=== PATIENT | female | born 1940 | race Caucasian/White ===

== ENCOUNTER 2020-11-18 16:20 | Inpatient (IN) | payer MEDICARE, MEDICAID, SELFPAY ==
[2020-11-18 17:37] VITALS: BP 94/67; PULSE 76; RESP 16; TEMP 37.3; O2SAT 97; BMI 21.9
--- NOTE | 2020-11-18 17:51 | ED.SKABFB ---
HPI - Skin/Abscess/Foreign Bdy General Chief complaint: Skin/Abscess/Foreign Body Stated complaint: loss apatite, rash on arm Time Seen by Provider: 11/18/20 17:51 Source: family (Daughter) Mode of arrival: wheelchair Limitations: altered mental status (Alzheimer's) History of Present Illness HPI narrative: Patient is an 80-year-old female with a past medical history of Alzheimer's who was brought in by her daughter after her PCPs found her to be not eating or drinking and very lethargic since lunchtime today. They also states she woke up with a blistery rash on her left forearm. Her daughter denies any new medications or antibiotics. The patient has / care in her home by 2 bottle machine operator, they are unsure if she has had a fever but they deny vomiting or diarrhea. The daughter states the mom ate a normal breakfast today but that was the last thing she ate, she can not get her to even take sips of water. Patient is nonverbal at her baseline. Related Data Home Medications Medication Instructions Recorded Confirmed multivitamin [Daily-Kimberley] 1 tab PO DAILY 11/18/20 11/18/20 quetiapine 1 tab PO BEDTIME 11/18/20 11/18/20 triamcinolone acetonide 1 appl TOPICAL BID 11/18/20 11/18/20 Allergies Allergy/AdvReac Type Severity Reaction Status Date / Time aspirin [ASPIRIN] Allergy Unknown UNKNOWN Verified 11/18/20 17:50 ibuprofen [IBUPROFEN] Allergy Unknown SWELLING Verified 11/18/20 17:50 Review of Systems Review of Systems: Yes all other systems are reviewed and are negative [facility] Past Medical History Medical History Alzheimer disease Social History Social History Alcohol intake: never Patient Tobacco Use Status: Never used Tobacco Smoked in Last 30 Days: No Any prior treatment program specific to substance use: No Advance Directives: No Advance Directives Information Provided: Yes Physical Exam Vital Signs: Vital Signs: Last Vital Signs Temp 98.4 F 11/18/20 19:54 Pulse 83 11/18/20 19:54 Resp 18 11/18/20 19:54 BP 127/52 L 11/18/20 19:54 Pulse Ox 94 11/18/20 18:38 Body Mass Index 21.9 Const: General: cooperative, healthy appearing, comfortable, no acute distress and well developed Nutritional Appearance: thin Orientation/consciousness: Other orientation findings (Nonverbal) Limitations: no limitations HENMT: Head: Yes normal to inspection, Yes No palpable skull fracture present, Yes normocephalic and Yes atraumatic General nose exam: Normal external nose present Face and sinus: Yes normal facial exam Mouth: Normal oral and palatal mucosa present Eyes: General: appearance normal, both eyes and all related structures Pupils: Equal, round and reactive pupils present EOM: EOMs intact bilaterally Neck: Neck: Yes normal visual inspection Resp: Effort & Inspection: normal respiratory effort Auscultation: clear to auscultation bilaterally Cardio: Rate: regular rate Rhythm: regular rhythm Heart sounds: normal S1 and S2 GI: Inspection: Yes normal to inspection Palpation (GI): Soft to palpation and nontender Skin: Other: Left forearm has 7 cm x 3 cm area of erythema, no warmth, 2 cm round intact blister with clear fluid, 2 cm round area of skin tear/popped blister Neuro: Cranial nerves: Yes Equal, round and reactive pupils present Extrem: General: Yes normal to inspection Course Course Course Narrative: Patient is an 80-year-old female with a past medical history of Alzheimer's who was brought in by her daughter after her PCP's found her to be not eating or drinking and very lethargic since lunchtime today. Pt also has a blistered rash on her left forearm.VSS, PE reveals rash with bulla MDM - Skin/Abscess/Foreign Bdy Lab Data Result diagrams: 11/18/20 18:15 11/18/20 18:15 Labs: Lab Results 11/18/20 11/18/20 11/18/20 Range/Units 18:15 18:15 18:15 WBC 11.5 H (4.8-10.8) X10*3/uL RBC 4.48 (4.20-5.50) X10*6/uL Hgb 13.0 (12.0-16.0) g/dl Hct 41.1 (37-47) % MCV 91.7 (80-98) fL MCH 29.0 (27.0-33.0) pg MCHC 31.6 (31.0-35.0) g/dl RDW 13.9 (11.0-16.0) % Plt Count 248 (160-400) X10*3/uL MPV 9.7 (9.4-12.3) fL Immature Gran % (Auto) 0.3 (0.0-0.4) % Neut % (Auto) 62.4 (45-73) % Lymph % (Auto) 29.9 (20-40) % [place] % (Auto) 6.9 (2-11) % Eos % (Auto) 0.3 (0-4) % Baso % (Auto) 0.2 (0-2) % Lymph # (Auto) 3.5 (1.2-4.9) X10*3/uL [place] # (Auto) 0.8 (0.1-1.2) X10*3/uL Eos # (Auto) 0.0 (0.0-0.4) X10*3/uL Baso # (Auto) 0.0 (0.0-0.2) X10*3/uL Abs Immat Gran (auto) 0.03 (0.00-0.03) X10*3/uL Absolute Neuts (auto) 7.2 (2.0-8.3) X10*3/uL Absolute Nucleated RBC 0.000 (0.0-0.012) X10*3/uL Nucleated RBC % (auto) 0.0 (0.0-0.2) /100WBC Hold Purple Top Hold Blue Top Sodium 149 H (135-145) mmol/L Potassium 4.0 (3.3-5.1) mmol/L Chloride 109 H (96-108) mmol/L Carbon Dioxide 29 (22-29) mmol/L Anion Gap 15 (12-20) BUN 26 H (9-16) mg/dL Creatinine 0.77 (0.5-1.4) mg/dL Estim Creat Clear Calc 46.1 Estimated GFR > 60 Random Glucose 105 (60-115) mg/dL Lactic Acid (0.5-2.0) mmol/L Calcium 10.1 (8.4-10.2) mg/dL Total Bilirubin 0.6 (0.0-1.0) mg/dL Direct Bilirubin 0.2 (0.0-0.5) mg/dL AST 41 H (5-31) U/L ALT 19 (0-31) U/L Alkaline Phosphatase 64 (39-117) U/L Troponin I High Sens 14.0 (<3.5-17.0) ng/L B-Natriuretic Peptide 79 (<100) pg/mL Total Protein 7.4 (6.5-8.0) g/dL Albumin 4.4 (3.5-5.0) g/dL Urine Color Urine Appearance Urine pH (5.0-8.0) Ur Specific [place] (1.005-1.025) Urine Protein (NEG-TRACE) MG/DL Urine Glucose (UA) (NEG) MG/DL Urine Ketones (NEG) MG/DL Urine Blood (NEG) Urine Nitrite (NEG) Ur Leukocyte Esterase (NEG) Urine RBC (0) /HPF Urine WBC (0-4) /HPF Ur Squamous Epith Cells /LPF Amorphous Sediment /LPF Urine Bacteria /LPF Urine Opiates Screen (Not Detect) Ur Barbiturates Screen (Not Detect) Ur Phencyclidine Scrn (Not Detect) Ur Amphetamines Screen (Not Detect) U Benzodiazepines Scrn (Not Detect) Urine Cocaine Screen (Not Detect) U Marijuana (THC) Screen (Not Detect) COVID-19 (BAUDILIO) (Negative) COVID-19 Clin Com 11/18/20 11/18/20 11/18/20 Range/Units 18:16 18:16 18:19 WBC (4.8-10.8) X10*3/uL RBC (4.20-5.50) X10*6/uL Hgb (12.0-16.0) g/dl Hct (37-47) % MCV (80-98) fL MCH (27.0-33.0) pg MCHC (31.0-35.0) g/dl RDW (11.0-16.0) % Plt Count (160-400) X10*3/uL MPV (9.4-12.3) fL Immature Gran % (Auto) (0.0-0.4) % Neut % (Auto) (45-73) % Lymph % (Auto) (20-40) % [place] % (Auto) (2-11) % Eos % (Auto) (0-4) % Baso % (Auto) (0-2) % Lymph # (Auto) (1.2-4.9) X10*3/uL [place] # (Auto) (0.1-1.2) X10*3/uL Eos # (Auto) (0.0-0.4) X10*3/uL Baso # (Auto) (0.0-0.2) X10*3/uL Abs Immat Gran (auto) (0.00-0.03) X10*3/uL Absolute Neuts (auto) (2.0-8.3) X10*3/uL Absolute Nucleated RBC (0.0-0.012) X10*3/uL Nucleated RBC % (auto) (0.0-0.2) /100WBC Hold Purple Top Hold Blue Top Sodium (135-145) mmol/L Potassium (3.3-5.1) mmol/L Chloride (96-108) mmol/L Carbon Dioxide (22-29) mmol/L Anion Gap (12-20) BUN (9-16) mg/dL Creatinine (0.5-1.4) mg/dL Estim Creat Clear Calc Estimated GFR Random Glucose (60-115) mg/dL Lactic Acid 2.2 H* (0.5-2.0) mmol/L Calcium (8.4-10.2) mg/dL Total Bilirubin (0.0-1.0) mg/dL Direct Bilirubin (0.0-0.5) mg/dL AST (5-31) U/L ALT (0-31) U/L Alkaline Phosphatase (39-117) U/L Troponin I High Sens (<3.5-17.0) ng/L B-Natriuretic Peptide (<100) pg/mL Total Protein (6.5-8.0) g/dL Albumin (3.5-5.0) g/dL Urine Color YELLOW Urine Appearance CLOUDY Urine pH 7.0 (5.0-8.0) Ur Specific [place] 1.020 (1.005-1.025) Urine Protein 2+ H (NEG-TRACE) MG/DL Urine Glucose (UA) NEG (NEG) MG/DL Urine Ketones 5 (NEG) MG/DL Urine Blood 3+ H (NEG) Urine Nitrite POS H (NEG) Ur Leukocyte Esterase 2+ H (NEG) Urine RBC 5-9 H (0) /HPF Urine WBC 15-29 H (0-4) /HPF Ur Squamous Epith Cells NONE /LPF Amorphous Sediment 1+ /LPF Urine Bacteria 4+ /LPF Urine Opiates Screen (Not Detect) Ur Barbiturates Screen (Not Detect) Ur Phencyclidine Scrn (Not Detect) Ur Amphetamines Screen (Not Detect) U Benzodiazepines Scrn (Not Detect) Urine Cocaine Screen (Not Detect) U Marijuana (THC) Screen (Not Detect) COVID-19 (BAUDILIO) Negative (Negative) COVID-19 Clin Com See Note 11/18/20 11/18/20 11/18/20 Range/Units 18:19 18:21 18:21 WBC (4.8-10.8) X10*3/uL RBC (4.20-5.50) X10*6/uL Hgb (12.0-16.0) g/dl Hct (37-47) % MCV (80-98) fL MCH (27.0-33.0) pg MCHC (31.0-35.0) g/dl RDW (11.0-16.0) % Plt Count (160-400) X10*3/uL MPV (9.4-12.3) fL Immature Gran % (Auto) (0.0-0.4) % Neut % (Auto) (45-73) % Lymph % (Auto) (20-40) % [place] % (Auto) (2-11) % Eos % (Auto) (0-4) % Baso % (Auto) (0-2) % Lymph # (Auto) (1.2-4.9) X10*3/uL [place] # (Auto) (0.1-1.2) X10*3/uL Eos # (Auto) (0.0-0.4) X10*3/uL Baso # (Auto) (0.0-0.2) X10*3/uL Abs Immat Gran (auto) (0.00-0.03) X10*3/uL Absolute Neuts (auto) (2.0-8.3) X10*3/uL Absolute Nucleated RBC (0.0-0.012) X10*3/uL Nucleated RBC % (auto) (0.0-0.2) /100WBC Hold Purple Top SEE NOTE Hold Blue Top SEE NOTE Sodium (135-145) mmol/L Potassium (3.3-5.1) mmol/L Chloride (96-108) mmol/L Carbon Dioxide (22-29) mmol/L Anion Gap (12-20) BUN (9-16) mg/dL Creatinine (0.5-1.4) mg/dL Estim Creat Clear Calc Estimated GFR Random Glucose (60-115) mg/dL Lactic Acid (0.5-2.0) mmol/L Calcium (8.4-10.2) mg/dL Total Bilirubin (0.0-1.0) mg/dL Direct Bilirubin (0.0-0.5) mg/dL AST (5-31) U/L ALT (0-31) U/L Alkaline Phosphatase (39-117) U/L Troponin I High Sens (<3.5-17.0) ng/L B-Natriuretic Peptide (<100) pg/mL Total Protein (6.5-8.0) g/dL Albumin (3.5-5.0) g/dL Urine Color Urine Appearance Urine pH (5.0-8.0) Ur Specific [place] (1.005-1.025) Urine Protein (NEG-TRACE) MG/DL Urine Glucose (UA) (NEG) MG/DL Urine Ketones (NEG) MG/DL Urine Blood (NEG) Urine Nitrite (NEG) Ur Leukocyte Esterase (NEG) Urine RBC (0) /HPF Urine WBC (0-4) /HPF Ur Squamous Epith Cells /LPF Amorphous Sediment /LPF Urine Bacteria /LPF Urine Opiates Screen Not Detected (Not Detect) Ur Barbiturates Screen Not Detected (Not Detect) Ur Phencyclidine Scrn Not Detected (Not Detect) Ur Amphetamines Screen Not Detected (Not Detect) U Benzodiazepines Scrn Not Detected (Not Detect) Urine Cocaine Screen Not Detected (Not Detect) U Marijuana (THC) Screen Not Detected (Not Detect) COVID-19 (BAUDILIO) (Negative) COVID-19 Clin Com ECG Data Attestation: I personally reviewed and interpreted this ECG as follows: ECG interpretation date: 11/18/20 ECG interpretation time: 20:12 Interpretation: NSR 85BPM, Dr Mccullough signed Discharge Plan Discharge Clinical Impression: Pemphigus vulgaris Prescriptions: No Action multivitamin [Daily-Kimberley] Tablet 1 tab PO DAILY RF: 0 quetiapine 25 mg tablet 1 tab PO BEDTIME RF: 0 triamcinolone acetonide 0.1 % ointment 1 appl topical BID RF: 0
[2020-11-18 17:58] VITALS: TEMP 37.9
[2020-11-18 18:22] LABS: MANUAL DIFF FLAG NO
[2020-11-18 18:24] LABS: Basophils Percent Auto 0.2 % (0-2); Eosinophils Percent Auto 0.3 % (0-4); Hematocrit 41.1 % (37-47); Imm Gran Abs Auto 0.03 X10*3/uL (0.00-0.03); Imm Gran Pct Auto 0.3 % (0.0-0.4); Lymphocytes Absolute Auto 3.5 X10*3/uL (1.2-4.9); Lymphocytes Percent Auto 29.9 % (20-40); Mean Corpuscular HGB Conc 31.6 g/dl (31.0-35.0); Mean Corpuscular Volume 91.7 fL (80-98); Mean Platelet Volume 9.7 fL (9.4-12.3); Monocytes Absolute Auto 0.8 X10*3/uL (0.1-1.2); Monocytes Percent Auto 6.9 % (2-11); Neutrophils Absolute Auto 7.2 X10*3/uL (2.0-8.3); Neutrophils Percent Auto 62.4 % (45-73); Platelet Count 248 X10*3/uL (160-400); Red Blood Count 4.48 X10*6/uL (4.20-5.50); Red Cell Distribution Width 13.9 % (11.0-16.0); White Blood Count 11.5 X10*3/uL (4.8-10.8)
[2020-11-18 18:38] VITALS: BP 117/52; PULSE 82; RESP 16; TEMP 37.9; O2SAT 94
--- NOTE | 2020-11-18 18:39 | ECG_ITS ---
Test Reason : SEPSIS Blood Pressure : / mmHG Vent. Rate : 085 BPM Atrial Rate : 085 BPM P-R Int : 142 ms QRS Dur : 076 ms QT Int : 378 ms P-R-T Axes : 081 -58 060 degrees QTc Int : 449 ms Normal sinus rhythm Left anterior fascicular block Abnormal ECG When compared with ECG of 13-SEP-2013 13:08, QRS axis Shifted left Referred By: Imelda Cruz Electronically Signed By:Mike Gee
[2020-11-18 18:48] LABS: Alanine Aminotransferase 19 U/L (0-31); Albumin Level 4.4 g/dL (3.5-5.0); Alkaline Phosphatase 64 U/L (39-117); Anion Gap 15 (12-20); Aspartate Amino Transferase 41 U/L (5-31); Bilirubin Direct 0.2 mg/dL (0.0-0.5); Bilirubin Total 0.6 mg/dL (0.0-1.0); Blood Urea Nitrogen 26 mg/dL (9-16); Calcium 10.1 mg/dL (8.4-10.2); Carbon Dioxide 29 mmol/L (22-29); Chloride 109 mmol/L (96-108); Creatinine Clr Calc Pharmacy 46.1; Estimated Glomerular Filt Rate > 60; Glucose Random 105 mg/dL (60-115); Sodium 149 mmol/L (135-145); Total Protein 7.4 g/dL (6.5-8.0)
[2020-11-18 18:50] LABS: B Type Natriuretic Peptide 79 pg/mL (<100)
[2020-11-18 18:52] LABS: COVID-19 Test Negative (Negative)
[2020-11-18 18:53] LABS: Appearance Urine CLOUDY; Color Urine YELLOW; Glucose Urine UA NEG (NEG); Leukocyte Esterase Urine 2+ (NEG); Nitrite Urine POS (NEG); UACC Culture Trigger YES; Urine Blood 3+ (NEG); Urine Ketones 5 MG/DL (NEG); Urine Protein 2+ MG/DL (NEG-TRACE)
[2020-11-18 18:53] LABS: Lactic Acid 2.2 mmol/L (0.5-2.0)
[2020-11-18 19:00] LABS: Amorphous Sediment Urine 1+ /LPF; Bacteria Urine 4+ /LPF
[2020-11-18 19:15] LABS: Amphetamine Screen Urine Not Detected (Not Detect); Barbiturates, Urine Not Detected (Not Detect); Benzodiazepines Screen Urine Not Detected (Not Detect); Cannabinoid Screen Urine Not Detected (Not Detect); Cocaine Screen Urine Not Detected (Not Detect); Opiate Screen Urine Not Detected (Not Detect); Phencyclidine Screen Urine Not Detected (Not Detect)
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
--- NOTE | 2020-11-18 19:46 | PC.NURSE ---
per [facility] do sepsis bolus with lr rather than ns.
[2020-11-18] MEDS: cefTRIAXone sodium 1 GM in 0.9 % Sodium Chloride 50 ML IV (19:52)
[2020-11-18 19:54] VITALS: BP 127/52; PULSE 83; RESP 18; TEMP 36.9
--- NOTE | 2020-11-18 19:54 | PC.NURSE ---
sepsis fluid resessication begun at 1950. per rafa mcgregor, give lr instead of ns
[2020-11-18] MEDS: 0.9 % Sodium Chloride 1,632.93 ML 1632.93 ML IV (19:58)
[2020-11-18] MEDS: predniSONE 10 MG TABLET 50 MG PO (20:00)
[2020-11-18 20:19] LABS: Reflex Lactate? Lactic Acid Added
[2020-11-18 20:47] VITALS: BP 125/71; PULSE 89; RESP 16; TEMP 37; O2SAT 97
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
[2020-11-18 21:21] LABS: ~Lactic Acid-LAB USE ONLY 3.8 mmol/L (0.5-2.0)
--- NOTE | 2020-11-18 22:05 | P.HPHOSP_ITS ---
History of Present Illness Date of Service: 11/18/20 Chief Complaint: skin changes This is an 80-year-old female with past medical history of Alzheimer's dementia who presents to the hospital after her rustic fence builder noticed blistering of her left forearm. The family also noticed the patient had low appetite for 1 day. \ patient has Alzheimer's dementia and is nonverbal at baseline, therefore history is mostly obtained from her daughter at bedside. Patient's daughter reports that she has not had any other complaints, and she usually complains of pain through go missing in the can tell through her facial expression. She has not had any diarrhea or constipation, unable to obtain full review of system due to patient's medical history. On arrival to the ED vitals are significant for a temperature of a 100.3?, heart rate of 82, respiratory rate of 16, blood pressure of 117/52, satting 94% on room air. Labs are significant for WBC count of 11.5, sodium of 149, lactic acid of 2.2, AST of 41, UA that is positive for nitrites, leukocyte Estrace, WBC, COVID-19 negative Review of Systems Review of Systems: Yes Unobtainable due to mental condition and Unobtainable due to mental status [facility] Medical History Alzheimer disease Social History Household Members: Family Housing: Apartment Do you presently have visiting nurse or other home services: Yes (Jamie and family) Alcohol intake: never Patient Tobacco Use Status: Never used Tobacco Smoked in Last 30 Days: No Use of substances other than those prescribed or required for medical reasons: No Any prior treatment program specific to substance use: No Have you been hit, kicked, punched, or otherwise hurt by someone within the past year? If so, by whom?: No Do you feel safe in your current relationship?: No Current Relationship Is there a partner from a previous relationship who is making you feel unsafe now?: No Are you made to feel afraid or neglected: No Advance Directives: No Advance Directives Information Provided: Yes Do you have thoughts of harming others: None Do you have a plan to hurt others: No Plan Recently lost weight without trying: Yes How much weight loss: 2-13 pounds Eating poorly because of decreased appetite: Yes Nutrition screen score: 4 Patient : No : No Poor oral hygiene: No Meds Allergies Allergy/AdvReac Type Severity Reaction Status Date / Time aspirin [ASPIRIN] Allergy Unknown UNKNOWN Verified 11/18/20 17:50 ibuprofen [IBUPROFEN] Allergy Unknown SWELLING Verified 11/18/20 17:50 Active Medications: Current Medications Generic Name Dose Route Start Last Admin Trade Name Freq PRN Reason Stop Dose Admin Pharmacy Consult 1 each 11/18/20 19:56 Consult Rx Perform Med Rec MISCELLANE ONCE PRN Consult order Home Medications Medication Instructions Recorded Confirmed Last Taken Type multivitamin [Daily-Kimberley] 1 tab PO DAILY 11/18/20 11/18/20 Unknown History quetiapine 1 tab PO TID 11/18/20 11/18/20 Unknown History triamcinolone acetonide 1 appl TOPICAL BID 11/18/20 11/18/20 Unknown History Physical Exam Vital Signs and Narrative: Vital Signs: Last Vital Signs Temp 98.6 F 11/18/20 20:47 Pulse 89 11/18/20 20:47 Resp 16 11/18/20 20:47 BP 125/71 11/18/20 20:47 Pulse Ox 97 11/18/20 20:47 Body Mass Index 21.9 Const: General: cooperative and no acute distress HENMT: Other: No mucosal blisters Eyes: General: appearance normal, both eyes and all related structures Resp: Effort & Inspection: normal respiratory effort and able to speak in complete sentences Cardio: Rate: regular rate Rhythm: regular rhythm GI: Palpation (GI): Soft to palpation Auscultation: normal bowel sounds Skin: Other: Has a nurse mellitus area that extends from the wrist to 1/3 of the forearm, multiple blisters, no other similar area and the rest of the body Neuro: Cognition (Neuro): normal cognition Extrem: General: Yes normal to inspection and Yes no pedal edema Results Labs CBC and Chem 7: 11/18/20 18:15 11/18/20 18:15 Labs: Laboratory Results - last 24 hr 11/18/20 11/18/20 11/18/20 18:15 18:15 18:15 MCV 91.7 MCH 29.0 MCHC 31.6 RDW 13.9 Plt Count 248 MPV 9.7 Immature Gran % (Auto) 0.3 Neut % (Auto) 62.4 Lymph % (Auto) 29.9 [place] % (Auto) 6.9 Eos % (Auto) 0.3 Baso % (Auto) 0.2 Lymph # (Auto) 3.5 [place] # (Auto) 0.8 Eos # (Auto) 0.0 Baso # (Auto) 0.0 Abs Immat Gran (auto) 0.03 Absolute Neuts (auto) 7.2 Absolute Nucleated RBC 0.000 Nucleated RBC % (auto) 0.0 Hold Purple Top Hold Blue Top Anion Gap 15 Estim Creat Clear Calc 46.1 Estimated GFR > 60 Random Glucose 105 Lactic Acid Lactic Acid Fup @ 2Hr Calcium 10.1 Total Bilirubin 0.6 Direct Bilirubin 0.2 AST 41 H ALT 19 Alkaline Phosphatase 64 Troponin I High Sens 14.0 B-Natriuretic Peptide 79 Total Protein 7.4 Albumin 4.4 Urine Color Urine Appearance Urine pH Ur Specific [place] Urine Protein Urine Glucose (UA) Urine Ketones Urine Blood Urine Nitrite Ur Leukocyte Esterase Urine RBC Urine WBC Ur Squamous Epith Cells Amorphous Sediment Urine Bacteria Urine Opiates Screen Ur Barbiturates Screen Ur Phencyclidine Scrn Ur Amphetamines Screen U Benzodiazepines Scrn Urine Cocaine Screen U Marijuana (THC) Screen COVID-19 (BAUDILIO) COVID-19 Clin Com 11/18/20 11/18/20 11/18/20 18:16 18:16 18:19 MCV MCH MCHC RDW Plt Count MPV Immature Gran % (Auto) Neut % (Auto) Lymph % (Auto) [place] % (Auto) Eos % (Auto) Baso % (Auto) Lymph # (Auto) [place] # (Auto) Eos # (Auto) Baso # (Auto) Abs Immat Gran (auto) Absolute Neuts (auto) Absolute Nucleated RBC Nucleated RBC % (auto) Hold Purple Top Hold Blue Top Anion Gap Estim Creat Clear Calc Estimated GFR Random Glucose Lactic Acid 2.2 H* Lactic Acid Fup @ 2Hr Calcium Total Bilirubin Direct Bilirubin AST ALT Alkaline Phosphatase Troponin I High Sens B-Natriuretic Peptide Total Protein Albumin Urine Color YELLOW Urine Appearance CLOUDY Urine pH 7.0 Ur Specific [place] 1.020 Urine Protein 2+ H Urine Glucose (UA) NEG Urine Ketones 5 Urine Blood 3+ H Urine Nitrite POS H Ur Leukocyte Esterase 2+ H Urine RBC 5-9 H Urine WBC 15-29 H Ur Squamous Epith Cells NONE Amorphous Sediment 1+ Urine Bacteria 4+ Urine Opiates Screen Ur Barbiturates Screen Ur Phencyclidine Scrn Ur Amphetamines Screen U Benzodiazepines Scrn Urine Cocaine Screen U Marijuana (THC) Screen COVID-19 (BAUDILIO) Negative COVID-19 Clin Com See Note 11/18/20 11/18/20 11/18/20 18:19 18:21 18:21 MCV MCH MCHC RDW Plt Count MPV Immature Gran % (Auto) Neut % (Auto) Lymph % (Auto) [place] % (Auto) Eos % (Auto) Baso % (Auto) Lymph # (Auto) [place] # (Auto) Eos # (Auto) Baso # (Auto) Abs Immat Gran (auto) Absolute Neuts (auto) Absolute Nucleated RBC Nucleated RBC % (auto) Hold Purple Top SEE NOTE Hold Blue Top SEE NOTE Anion Gap Estim Creat Clear Calc Estimated GFR Random Glucose Lactic Acid Lactic Acid Fup @ 2Hr Calcium Total Bilirubin Direct Bilirubin AST ALT Alkaline Phosphatase Troponin I High Sens B-Natriuretic Peptide Total Protein Albumin Urine Color Urine Appearance Urine pH Ur Specific [place] Urine Protein Urine Glucose (UA) Urine Ketones Urine Blood Urine Nitrite Ur Leukocyte Esterase Urine RBC Urine WBC Ur Squamous Epith Cells Amorphous Sediment Urine Bacteria Urine Opiates Screen Not Detected Ur Barbiturates Screen Not Detected Ur Phencyclidine Scrn Not Detected Ur Amphetamines Screen Not Detected U Benzodiazepines Scrn Not Detected Urine Cocaine Screen Not Detected U Marijuana (THC) Screen Not Detected COVID-19 (BAUDILIO) COVID-19 Clin Com 11/18/20 20:35 MCV MCH MCHC RDW Plt Count MPV Immature Gran % (Auto) Neut % (Auto) Lymph % (Auto) [place] % (Auto) Eos % (Auto) Baso % (Auto) Lymph # (Auto) [place] # (Auto) Eos # (Auto) Baso # (Auto) Abs Immat Gran (auto) Absolute Neuts (auto) Absolute Nucleated RBC Nucleated RBC % (auto) Hold Purple Top Hold Blue Top Anion Gap Estim Creat Clear Calc Estimated GFR Random Glucose Lactic Acid Lactic Acid Fup @ 2Hr 3.8 H* Calcium Total Bilirubin Direct Bilirubin AST ALT Alkaline Phosphatase Troponin I High Sens B-Natriuretic Peptide Total Protein Albumin Urine Color Urine Appearance Urine pH Ur Specific [place] Urine Protein Urine Glucose (UA) Urine Ketones Urine Blood Urine Nitrite Ur Leukocyte Esterase Urine RBC Urine WBC Ur Squamous Epith Cells Amorphous Sediment Urine Bacteria Urine Opiates Screen Ur Barbiturates Screen Ur Phencyclidine Scrn Ur Amphetamines Screen U Benzodiazepines Scrn Urine Cocaine Screen U Marijuana (THC) Screen COVID-19 (BAUDILIO) COVID-19 Clin Com Assessment and Plan (1) Pemphigus vulgaris: Status: Acute (2) UTI (urinary tract infection): Status: Acute (3) Sepsis: Status: Acute This is an 80-year-old female with Alzheimer's dementia presents to the hospital with complaints of skin changes # pemphigus vulgaris - has a small area on the left wrist with blistering of the skin with 1 of the blisters peeling off - no mucosal involvement - no other skin involvement - will start her on methylprednisone as patient has difficulty with showing pills - follow resolution - will most likely need dermatology follow-up outpatient # sepsis - has leukocytosis, fever - secondary to UTI - no hypotension - started on IV antibiotics - follow cultures # UTI - positive UA - start antibiotics - follow cultures # Alzheimer's dementia DVT prophylaxis: Heparin subQ
[2020-11-18 22:41] LABS: Reflex Lactate? 2 Y
--- NOTE | 2020-11-18 22:41 | PC.NURSE ---
[place] [facility] [place]
[2020-11-18 23:33] LABS: ~Lactic Acid-LAB USE ONLY 1.9 mmol/L (0.5-2.0)
[2020-11-18 23:52] VITALS: BP 131/76; PULSE 80; RESP 18; TEMP 36.8; O2SAT 98
[2020-11-19] MEDS: Sodium Chloride 0.45 % 1,000 ML 100 ML IVCONT ×3 (00:04→17:54)
[2020-11-19] MEDS: QUEtiapine Fumarate 25 MG TABLET PO ×4 (00:11→21:33)
[2020-11-19] MEDS: 0.9 % Sodium Chloride Flush 3 ML SYRINGE IVFLUSH ×3 (00:11→14:54)
[2020-11-19] MEDS: Heparin Sodium,Porcine 5,000 UNIT/ML VIAL 5000 UNIT SUBCUT ×3 (00:11→21:33)
[2020-11-19 01:34] VITALS: BMI 21.3
[2020-11-19 04:00] VITALS: BP 102/50; PULSE 68; RESP 20; TEMP 37; O2SAT 98
[2020-11-19 06:25] LABS: MANUAL DIFF FLAG NO
[2020-11-19 06:44] LABS: Basophils Percent Auto 0.1 % (0-2); Hematocrit 34.5 % (37-47); Imm Gran Abs Auto 0.03 X10*3/uL (0.00-0.03); Imm Gran Pct Auto 0.4 % (0.0-0.4); Lymphocytes Absolute Auto 1.7 X10*3/uL (1.2-4.9); Lymphocytes Percent Auto 22.5 % (20-40); Mean Corpuscular HGB Conc 31.9 g/dl (31.0-35.0); Mean Corpuscular Hemoglobin 28.6 pg (27.0-33.0); Mean Corpuscular Volume 89.8 fL (80-98); Mean Platelet Volume 10.2 fL (9.4-12.3); Monocytes Absolute Auto 0.1 X10*3/uL (0.1-1.2); Monocytes Percent Auto 1.7 % (2-11); Neutrophils Absolute Auto 5.6 X10*3/uL (2.0-8.3); Neutrophils Percent Auto 75.3 % (45-73); Platelet Count 215 X10*3/uL (160-400); Red Blood Count 3.84 X10*6/uL (4.20-5.50); Red Cell Distribution Width 13.6 % (11.0-16.0); White Blood Count 7.5 X10*3/uL (4.8-10.8)
[2020-11-19 07:11] LABS: Anion Gap 11 (12-20); Blood Urea Nitrogen 23 mg/dL (9-16); Carbon Dioxide 26 mmol/L (22-29); Chloride 108 mmol/L (96-108); Creatinine Clr Calc Pharmacy 58.1; Estimated Glomerular Filt Rate > 60; Glucose Random 130 mg/dL (60-115); Potassium 4.3 mmol/L (3.3-5.1); Sodium 141 mmol/L (135-145)
[2020-11-19 07:19] VITALS: BP 116/63; PULSE 77; RESP 18; TEMP 35.9; O2SAT 96
[2020-11-19 07:29] LABS: Calcium 9.1 mg/dL (8.4-10.2)
[2020-11-19] MEDS: methylPREDNISolone Sod Succ 125 MG/2 ML VIAL 60 MG IVPUSH (08:35)
[2020-11-19] MEDS: Multivitamin TABLET 1 TAB PO (08:37)
--- NOTE | 2020-11-19 08:56 | MHC.CM.PN ---
this interview was conducted through pt's fabianugterangélica, who is at the bedside. pt lives in her own apt. she has 09/01 acquisition analyst svcs via asha. additionally, her daughter is very involved in her care and will provide transportation home at nd. pt does not use a walker c ambulation but does need help c someone at her side c ambulation. angélica has requested to have [facility] provide svcs-nsg at nd. a ref. for this has been made. daughter does not want patient to go to [facility]. dc plan is home c acquisition analyst's, daughter and new vna. cm to cont. to follow.
[2020-11-19] MEDS: Triamcinolone Acet 0.1 % Oint 15 GM TUBE 1 APPL TOPICAL ×2 (10:45→21:33)
[2020-11-19 10:57] VITALS: BP 103/55; PULSE 79; RESP 18; TEMP 36.9; O2SAT 94
--- NOTE | 2020-11-19 11:38 | MHC.CLN ---
RE: CONSULT PT DOES NOT TRIGGER FOR SIGNIFICANT WT LOSS AT THIS TIME
--- NOTE | 2020-11-19 12:08 | P.PNIM_ITS ---
Subjective Subjective Date of Service: 11/19/20 <GOKUL Sharp - Last Filed: 11/19/20 14:53> 11/19/20 <Rajinder So MD - Last Filed: 11/19/20 18:25> Interval History: Seen and examined this morning. Patient has a history of dementia and is nonverbal at baseline. Admitted for UTI, blistering rash on left forearm. Patient's daughter at the bedside reports the blisters appeared yesterday morning. ROS unable to obtain patient due to nonverbal status <GOKUL Sharp - Last Filed: 11/19/20 14:53> Review of Systems Review of Systems: Yes Unobtainable due to mental condition <GOKUL Sharp Last Filed: 11/19/20 14:53> Physical Exam Vital Signs: Vital Signs: Last Vital Signs Temp 98.5 F 11/19/20 10:57 Pulse 79 11/19/20 10:57 Resp 18 11/19/20 10:57 BP 103/55 L 11/19/20 10:57 Pulse Ox 94 11/19/20 10:57 Body Mass Index 21.3 <GOKUL Sharp - Last Filed: 11/19/20 14:53> Const: Nutritional Appearance: well nourished <GOKUL Sharp Last Filed: 11/19/20 14:53> HENMT: Head: Yes normocephalic and Yes atraumatic <GOKUL Sharp - Last Filed: 11/19/20 14:53> Eyes: Sclerae: sclerae normal <GOKUL Sharp - Last Filed: 11/19/20 14:53> Resp: Effort & Inspection: normal respiratory effort and no respiratory distress <GOKUL Sharp Last Filed: 11/19/20 14:53> Cardio: Rate: regular rate <GOKUL Sharp Last Filed: 11/19/20 14:53> Rhythm: regular rhythm <GOKUL Sharp Last Filed: 11/19/20 14:53> GI: Palpation (GI): Soft to palpation and nontender <GOKUL Sharp Last Filed: 11/19/20 14:53> Skin: Other: <GOKUL Sharp - Last Filed: 11/19/20 14:53> Neuro: Cranial nerves: Yes CN's II-XII intact bilaterally and Yes Bilaterally intact EOM present <GOKUL Sharp - Last Filed: 11/19/20 14:53> Objective Data Current Medications Generic Name Dose Route Start Last Admin Trade Name Malq PRN Reason Stop Dose Admin Acetaminophen 650 mg 11/18/20 22:20 Acetaminophen 325 Mg Tablet PO Q6H PRN Pain, Mild (Pain Scale 1-3) Docusate Sodium 100 mg 11/18/20 22:20 Docusate Sodium 100 Mg Capsule PO DAILY PRN Constipation Heparin Sodium (Porcine) 5,000 unit 11/18/20 22:20 11/19/20 11:00 Heparin Sodium,Porcine 5,000 Unit/Ml Vial SUBCUT 5,000 unit Q12H WILLIAM Administration Ceftriaxone Sodium 1 gm/ 50 mls @ 100 mls/hr 11/18/20 22:20 11/19/20 00:05 Sodium Chloride IV Not Given Q24H WILLIAM Sodium Chloride 1,000 mls @ 100 mls/hr 11/18/20 22:20 11/19/20 08:45 IVCONT 100 mls/hr .Q10H WILLIAM Administration Methylprednisolone Sodium Succinate 60 mg 11/18/20 22:05 11/19/20 08:35 Methylprednisolone Sod Succ 125 Mg/2 Ml Vial IVPUSH 60 mg DAILY WILLIAM Administration Multivitamins/Vitamin C 1 tab 11/19/20 09:00 11/19/20 08:37 Multivitamin Tablet PO 1 tab DAILY WILLIAM Administration Ondansetron HCl 4 mg 11/18/20 22:20 Ondansetron Hcl 4 Mg/2 Ml Vial IVPUSH Q8H PRN Nausea and Vomiting Pharmacy Consult 1 each 11/18/20 19:56 Consult Rx Perform Med Rec MISCELLANE ONCE PRN Consult order Quetiapine Fumarate 25 mg 11/18/20 22:15 11/19/20 08:37 Quetiapine Fumarate 25 Mg Tablet PO 25 mg TID WILLIAM Administration Sodium Chloride 3 ml 11/19/20 00:00 11/19/20 08:37 0.9 % Sodium Chloride Flush 3 Ml Syringe IVFLUSH 3 ml QSHIFT WILLIAM Administration Triamcinolone Acetonide 1 appl 11/19/20 09:00 11/19/20 10:45 Triamcinolone Acet 0.1 % Oint 15 Gm Tube TOPICAL 1 appl BID WILLIAM Administration <GOKUL Sharp - Last Filed: 11/19/20 14:53> Labs CBC & Chem 7: : 11/19/20 05:37 11/19/20 05:37 <GOKUL Sharp - Last Filed: 11/19/20 14:53> Microbiology Microbiology Results: Microbiology 11/18/20 18:54 Urine Catheterized - Straight Catheter Urine Culture - Final <GOKUL Sharp - Last Filed: 11/19/20 14:53> Assessment and Plan (1) UTI (urinary tract infection): Status: Acute <GOKUL Sharp - Last Filed: 11/19/20 14:53> Assessment and Plan: This is an 80 year old female with history of dementia, non-verbal at baseline who was brought the ED due to blistering on her left forearm and de creased appetite found to have UTI UTI -IV ceftriaxone -follow up UCx Blistering Rash ? r/t friction isolated to forearm -general surgery consult for punch biopsy -short course of steroids Lactic acidosis Resolved with IV fluid No sepsis Dementia On verbal at baseline Continue Seroquel DVT prophylaxis-heparin Attending-Dr. So Disposition-to return home with 24 hour care <GOKUL Sharp - Last Filed: 11/19/20 14:53> I have seen and evaluated this patient. I have discussed the case and its management with the PA and I agree with the findings and plan as documented in the PA's note. Blisters on hand, Bx done, continue Abx for UTI, DC tomorrow <Rajinder So MD - Last Filed: 11/19/20 18:25>
--- NOTE | 2020-11-19 12:09 | PM.CNGS ---
History of Present Illness Consult details Consult date: 11/19/20 Narrative: 80-year-old female referred to me for punch biopsy of the skin on the left forearm. She has significant dementia and was brought to the ER yesterday her family because of a rash with bullae on the left forearm near the wrist. She also had some low-grade fevers yesterday. In view of this rash, she was referred to me for punch biopsy today. According to the daughter, she apparently had been started on steroids yesterday and there has been note of significant movement of the rash. There is no recent history of trauma or insect bite to the area. Review of Systems Review of Systems: Yes Unobtainable due to mental status (Patient is non communicative with advanced dementia) Constitutional: Comments: Bed-bound, non communicative PMFSH Past Medical History Medical History Alzheimer disease Social History Social History Household Members: Family Housing: Apartment Do you presently have visiting nurse or other home services: Yes (Jamie and family) Alcohol intake: never Patient Tobacco Use Status: Never used Tobacco service: No Current occupational status: retired Meds Allergies Allergy/AdvReac Type Severity Reaction Status Date / Time aspirin [ASPIRIN] Allergy Unknown UNKNOWN Verified 11/18/20 17:50 ibuprofen [IBUPROFEN] Allergy Unknown SWELLING Verified 11/18/20 17:50 Active Medications: Current Medications Generic Name Dose Route Start Last Admin Trade Name Freq PRN Reason Stop Dose Admin Acetaminophen 650 mg 11/18/20 22:20 Acetaminophen 325 Mg Tablet PO Q6H PRN Pain, Mild (Pain Scale 1-3) Docusate Sodium 100 mg 11/18/20 22:20 Docusate Sodium 100 Mg Capsule PO DAILY PRN Constipation Heparin Sodium (Porcine) 5,000 unit 11/18/20 22:20 11/19/20 11:00 Heparin Sodium,Porcine 5,000 Unit/Ml Vial SUBCUT 5,000 unit Q12H WILLIAM Administration Ceftriaxone Sodium 1 gm/ 50 mls @ 100 mls/hr 11/18/20 22:20 11/19/20 00:05 Sodium Chloride IV Not Given Q24H WILLIAM Sodium Chloride 1,000 mls @ 100 mls/hr 11/18/20 22:20 11/19/20 08:45 IVCONT 100 mls/hr .Q10H WILLIAM Administration Methylprednisolone Sodium Succinate 60 mg 11/18/20 22:05 11/19/20 08:35 Methylprednisolone Sod Succ 125 Mg/2 Ml Vial IVPUSH 60 mg DAILY WILLIAM Administration Multivitamins/Vitamin C 1 tab 11/19/20 09:00 11/19/20 08:37 Multivitamin Tablet PO 1 tab DAILY WILLIAM Administration Ondansetron HCl 4 mg 11/18/20 22:20 Ondansetron Hcl 4 Mg/2 Ml Vial IVPUSH Q8H PRN Nausea and Vomiting Pharmacy Consult 1 each 11/18/20 19:56 Consult Rx Perform Med Rec MISCELLANE ONCE PRN Consult order Quetiapine Fumarate 25 mg 11/18/20 22:15 11/19/20 08:37 Quetiapine Fumarate 25 Mg Tablet PO 25 mg TID WILLIAM Administration Sodium Chloride 3 ml 11/19/20 00:00 11/19/20 08:37 0.9 % Sodium Chloride Flush 3 Ml Syringe IVFLUSH 3 ml QSHIFT WILLIAM Administration Triamcinolone Acetonide 1 appl 11/19/20 09:00 11/19/20 10:45 Triamcinolone Acet 0.1 % Oint 15 Gm Tube TOPICAL 1 appl BID WILLIAM Administration Home Medications Medication Instructions Recorded Confirmed Last Taken Type multivitamin [Daily-Kimberley] 1 tab PO DAILY 11/18/20 11/18/20 Unknown History quetiapine 1 tab PO TID 11/18/20 11/18/20 Unknown History triamcinolone acetonide 1 appl TOPICAL BID 11/18/20 11/18/20 Unknown History Physical Exam Vital Signs: Vital Signs: Last Vital Signs Temp 98.5 F 11/19/20 10:57 Pulse 79 11/19/20 10:57 Resp 18 11/19/20 10:57 BP 103/55 L 11/19/20 10:57 Pulse Ox 94 11/19/20 10:57 Body Mass Index 21.3 Const: Other: Non communicative, appears very frail, eyes open spontaneously, bed-bound Resp: Effort & Inspection: normal respiratory effort Cardio: Rhythm: regular rhythm GI: Palpation (GI): Soft to palpation, not firm and nontender Extrem: Other: Distal left forearm near the wrist - diffuse rash with bullae circumferentially, no cellulitis Results Labs Result diagrams: 11/19/20 05:37 11/19/20 05:37 Labs: Abnormal lab results 11/18/20 11/18/20 11/18/20 Range/Units 18:15 18:15 18:16 WBC 11.5 H (4.8-10.8) X10*3/uL RBC (4.20-5.50) X10*6/uL Hgb (12.0-16.0) g/dl Hct (37-47) % Neut % (Auto) (45-73) % [place] % (Auto) (2-11) % Sodium 149 H (135-145) mmol/L Chloride 109 H (96-108) mmol/L Anion Gap (12-20) BUN 26 H (9-16) mg/dL Random Glucose (60-115) mg/dL Lactic Acid 2.2 H* (0.5-2.0) mmol/L Lactic Acid Fup @ 2Hr (0.5-2.0) mmol/L AST 41 H (5-31) U/L Urine Protein (NEG-TRACE) MG/DL Urine Blood (NEG) Urine Nitrite (NEG) Ur Leukocyte Esterase (NEG) Urine RBC (0) /HPF Urine WBC (0-4) /HPF 11/18/20 11/18/20 11/19/20 Range/Units 18:19 20:35 05:37 WBC (4.8-10.8) X10*3/uL RBC 3.84 L (4.20-5.50) X10*6/uL Hgb 11.0 L (12.0-16.0) g/dl Hct 34.5 L (37-47) % Neut % (Auto) 75.3 H (45-73) % [place] % (Auto) 1.7 L (2-11) % Sodium (135-145) mmol/L Chloride (96-108) mmol/L Anion Gap (12-20) BUN (9-16) mg/dL Random Glucose (60-115) mg/dL Lactic Acid (0.5-2.0) mmol/L Lactic Acid Fup @ 2Hr 3.8 H* (0.5-2.0) mmol/L AST (5-31) U/L Urine Protein 2+ H (NEG-TRACE) MG/DL Urine Blood 3+ H (NEG) Urine Nitrite POS H (NEG) Ur Leukocyte Esterase 2+ H (NEG) Urine RBC 5-9 H (0) /HPF Urine WBC 15-29 H (0-4) /HPF 11/19/20 Range/Units 05:37 WBC (4.8-10.8) X10*3/uL RBC (4.20-5.50) X10*6/uL Hgb (12.0-16.0) g/dl Hct (37-47) % Neut % (Auto) (45-73) % [place] % (Auto) (2-11) % Sodium (135-145) mmol/L Chloride (96-108) mmol/L Anion Gap 11 L (12-20) BUN 23 H (9-16) mg/dL Random Glucose 130 H (60-115) mg/dL Lactic Acid (0.5-2.0) mmol/L Lactic Acid Fup @ 2Hr (0.5-2.0) mmol/L AST (5-31) U/L Urine Protein (NEG-TRACE) MG/DL Urine Blood (NEG) Urine Nitrite (NEG) Ur Leukocyte Esterase (NEG) Urine RBC (0) /HPF Urine WBC (0-4) /HPF Short CBC 11/18/20 11/19/20 Range/Units 18:15 05:37 WBC 11.5 H 7.5 (4.8-10.8) X10*3/uL Hgb 13.0 11.0 L (12.0-16.0) g/dl Hct 41.1 34.5 L (37-47) % Plt Count 248 215 (160-400) X10*3/uL BMP 11/18/20 11/19/20 18:15 05:37 Sodium 149 H 141 Potassium 4.0 4.3 Chloride 109 H 108 Carbon Dioxide 29 26 BUN 26 H 23 H Creatinine 0.77 0.61 Calcium 10.1 9.1 D Liver Function 11/18/20 Range/Units 18:15 Total Bilirubin 0.6 (0.0-1.0) mg/dL Direct Bilirubin 0.2 (0.0-0.5) mg/dL AST 41 H (5-31) U/L ALT 19 (0-31) U/L Alkaline Phosphatase 64 (39-117) U/L Albumin 4.4 (3.5-5.0) g/dL Urine 11/18/20 Range/Units 18:19 Urine Color YELLOW Urine Appearance CLOUDY Urine pH 7.0 (5.0-8.0) Ur Specific [place] 1.020 (1.005-1.025) Urine Protein 2+ H (NEG-TRACE) MG/DL Urine Glucose (UA) NEG (NEG) MG/DL All other labs normal. Assessment and Plan (1) Pemphigus vulgaris: Status: Acute She has a rash with fully on the left forearm as described above. I was requested to do a skin biopsy. I explained this to the granddaughter was bedside and she had given verbal consent. The punch biopsy was done under local anesthesia bedside. She tolerated procedure well. I applied dry dressings. There were no complications. We can continue to do dry dressing changes to the biopsy site. She can be given p.o. pain medications. We can follow up on her path report. Procedures Date of Service Date of Service: 11/19/20 Procedure Note Procedure Note: Procedure: Punch biopsy of the skin, left forearm under local anesthesia Preop diagnosis: Rash with bullae Postop diagnosis: the same Surgeon: Tomer Goel MD Verbal consent was given by the granddaughter at bedside. An area of the left forearm with a rash was prepped and draped. Lidocaine 1% was used for local anesthesia. I used a punch biopsy to remove part of the skin and subcutaneous layer. This was sent as a specimen. Dressings to the area. There was note of good hemostasis. The patient tolerated procedure well. There were no complication noted. We should continue with dressing changes every day.
[2020-11-19 15:15] VITALS: BP 101/57; PULSE 69; RESP 18; TEMP 36.7; O2SAT 97
[2020-11-19 19:02] VITALS: BP 91/48; PULSE 75; RESP 18; TEMP 36.7; O2SAT 98
[2020-11-19] MEDS: cefTRIAXone sodium 1 GM in 0.9 % Sodium Chloride 50 ML IV (21:33)
[2020-11-20] VITALS: BP 120/67; PULSE 69; RESP 18; TEMP 36.6; O2SAT 97
[2020-11-20 04:00] VITALS: BP 117/68; PULSE 62; RESP 20; TEMP 36.8; O2SAT 97
[2020-11-20] MEDS: Sodium Chloride 0.45 % 1,000 ML 100 ML IVCONT (05:22)
[2020-11-20 08:00] VITALS: BP 113/59; PULSE 63; RESP 20; TEMP 36.2; O2SAT 97
[2020-11-20] MEDS: Multivitamin TABLET 1 TAB PO (08:51)
[2020-11-20] MEDS: 0.9 % Sodium Chloride Flush 3 ML SYRINGE IVFLUSH (08:51)
[2020-11-20] MEDS: QUEtiapine Fumarate 25 MG TABLET PO (08:51)
[2020-11-20] MEDS: predniSONE 20 MG TABLET PO (08:51)
[2020-11-20] MEDS: Triamcinolone Acet 0.1 % Oint 15 GM TUBE 1 APPL TOPICAL (08:51)
--- NOTE | 2020-11-20 09:46 | PM.DS ---
DS: Providers Provider Date of Service: 11/20/20 <GOKUL Sharp - Last Filed: 11/20/20 10:12> Date of admission: 11/18/20 22:04 <GOKUL Sharp - Last Filed: 11/20/20 10:12> Primary care physician: Viviana Jasmine DO <GOKUL Sharp - Last Filed: 11/20/20 10:12> Consults: 11/19/20 10:44 Consult to General Surgery Routine Consulting Provider: Tomer Goel Reason for consultation: blistering rash ?punch biopsy for diagnosis Has provider been notified: No <GOKUL Sharp Last Filed: 11/20/20 10:12> DS: Diagnosis Discharge Diagnosis (1) UTI (urinary tract infection): Status: Acute <GOKUL Sharp - Last Filed: 11/20/20 10:12> DS: Medications Discharge Medications Home Medications: Home Medications Medication Instructions Recorded Confirmed multivitamin [Daily-Kimberley] 1 tab PO DAILY 11/18/20 11/18/20 quetiapine 1 tab PO TID 11/18/20 11/18/20 triamcinolone acetonide 1 appl TOPICAL BID 11/18/20 11/18/20 Previous Rx's Medication Instructions Recorded cefuroxime axetil 250 mg PO BID 3 Days #6 tab 11/20/20 <GOKUL Sharp - Last Filed: 11/20/20 10:12> DS: Summary Hospital Course Hospital Course: This is an 80-year-old female with past medical history of Alzheimer's dementia who presents to the hospital after her terminal supervisor noticed blistering of her left forearm. The family also noticed the patient had low appetite for 1 day. The patient has Alzheimer's dementia and is nonverbal at baseline, therefore history is mostly obtained from her daughter at bedside. Patient's daughter reports that she has not had any other complaints, and she usually complains of pain through go missing in the can tell through her facial expression. She has not had any diarrhea or constipation, unable to obtain full review of system due to patient's medical history. On arrival to the ED vitals are significant for a temperature of a 100.3?, heart rate of 82, respiratory rate of 16, blood pressure of 117/52, satting 94% on room air. Labs are significant for WBC count of 11.5, sodium of 149, lactic acid of 2.2, AST of 41, UA that is positive for nitrites, leukocyte Estrace, WBC, COVID-19 negative UTI. Initially had leukocytosis of 11.5, this has resolved. Temperature of 100.3 on day of admission. No recurrence of low-grade fever. Urine culture mixed bacterial pedro. Will discharge on antibiotics, to complete 5 day course. Blood cultures have remained negative x 24 hours. Patient was noted to have blisters on her left forearm on the day of admission. She received 3 doses of steroids. She underwent punch biopsy of the area which is pending at the time of discharge. The areas of blistering is localized to her left forearm and may be secondary to friction injury. She should keep the area clean and wrapped in dry dressing and monitor for evidence of infection. She is encouraged to follow-up with her PCP if any new blisters form. <GOKUL Sharp Last Filed: 11/20/20 10:12> Time Spent with Patient Time attestation: Total time spent providing and/or coordinating discharge services: <GOKUL Sharp Last Filed: 11/20/20 10:12> Discharge coordination time: Greater than 30 minutes <GOKUL Sharp Last Filed: 11/20/20 10:12> Quality: Stroke Does the patient have a stroke diagnosis?: No <GOKUL Sharp Last Filed: 11/20/20 10:12> Physical Exam Vital Signs: Vital Signs: Last Vital Signs Temp 97.2 F 11/20/20 08:00 Pulse 63 11/20/20 08:00 Resp 20 11/20/20 08:00 BP 113/59 L 11/20/20 08:00 Pulse Ox 97 11/20/20 08:00 Body Mass Index 21.3 <GOKUL Sharp Last Filed: 11/20/20 10:12> Const: General: alert and awake <GOKUL Sharp Last Filed: 11/20/20 10:12> Nutritional Appearance: well nourished <GOKUL Sharp Last Filed: 11/20/20 10:12> HENMT: Head: Yes normocephalic and Yes atraumatic <GOKUL Sharp - Last Filed: 11/20/20 10:12> Eyes: Sclerae: sclerae normal <GOKUL Sharp - Last Filed: 11/20/20 10:12> Resp: Effort & Inspection: normal respiratory effort and no respiratory distress <GOKUL Sharp Last Filed: 11/20/20 10:12> Cardio: Rate: regular rate <GOKUL Sharp - Last Filed: 11/20/20 10:12> Rhythm: regular rhythm <GOKUL Sharp - Last Filed: 11/20/20 10:12> GI: Palpation (GI): Soft to palpation and nontender <GOKUL Sharp - Last Filed: 11/20/20 10:12> Skin: Other: unroofed blisters left wrist. no other blisters noted <GOKUL Sharp Last Filed: 11/20/20 10:12> Neuro: Cranial nerves: Yes CN's II-XII intact bilaterally and Yes Bilaterally intact EOM present <GOKUL Sharp Last Filed: 11/20/20 10:12> DS: Data Data Completed and Pending Pending studies at discharge: Pending at discharge 11/19/20 12:35 Surgical [PTH] Routine <GOKUL Sharp - Last Filed: 11/20/20 10:12> Labs on day of discharge: Preliminary micro results at discharge 11/18/20 18:15 Blood Culture - Preliminary Blood - Venous No growth after 24 hours. 11/18/20 18:15 Blood Culture - Preliminary Blood - Venous No growth after 24 hours. <GOKUL Sharp Last Filed: 11/20/20 10:12> Discharge Plan Discharge Patient Disposition: Home Health Service <GOKUL Sharp - Last Filed: 11/20/20 10:12> Discharge Diagnosis: UTI Blistering Rash <GOKUL Sharp Last Filed: 11/20/20 10:12> UTI Blistering Rash <Rajinder So MD - Last Filed: 11/20/20 17:47> Referrals: carla visiting nurse [Other] - 1 Week [facility] [Outside] - 1 Week Viviana Jasmine DO [Primary Care Provider] - 1 Week <GOKUL Sharp - Last Filed: 11/20/20 10:12> Discharge Medications: New cefuroxime axetil 250 mg tablet 250 mg PO BID 3 Days Qty: 6 RF: 0 Continued multivitamin [Daily-Kimberley] Tablet 1 tab PO DAILY RF: 0 triamcinolone acetonide 0.1 % ointment 1 appl topical BID RF: 0 quetiapine 25 mg tablet 1 tab PO TID RF: 0 <GOKUL Sharp - Last Filed: 11/20/20 10:12> Discharge Orders: Discharge Order (Routine); Ordered 11/20/20 Ordered By: Olga Peña <GOKUL Sharp Last Filed: 11/20/20 10:12> Diet: advance to usual diet <GOKUL Sharp Last Filed: 11/20/20 10:12> advance to usual diet <Rajinder So MD - Last Filed: 11/20/20 17:47> Activity on Discharge: As tolerated <GOKUL Sharp Last Filed: 11/20/20 10:12> As tolerated <Rajinder So MD - Last Filed: 11/20/20 17:47> Stand Alone Forms: Patient Portal Discharge page <GOKUL Sharp Last Filed: 11/20/20 10:12> Print Language: Maltese <GOKUL Sharp Last Filed: 11/20/20 10:12> Care Plan Goals: see below <GOKUL Sharp Last Filed: 11/20/20 10:12> Health Concerns: Blistering rash UTI <GOKUL Sharp Last Filed: 11/20/20 10:12> Plan of Treatment: Take antibiotics as prescribed. Call to follow up with PCP if new blisters appear <GOKUL Sharp Last Filed: 11/20/20 10:12> Assessment: see discharge summary I saw patient and discussed discharge plan with PA and i agree with finding and management, plan as written by PA <GOKUL Sharp - Last Filed: 11/20/20 10:12> Discharge Date/Time: 11/20/20 12:38 <GOKUL Sharp - Last Filed: 11/20/20 10:12>
--- NOTE | 2020-11-20 09:55 | P.F2F_ITS ---
Service Date Service Date: 11/20/20 Encounter Date of encounter: 11/20/20 Reasons for Services Reason for long-term: wound care and medication management Overseeing Care: Viviana Jasmine Homebound: Leaving the home is medically contraindicated at this time without the asist of a device and/or another person due th the listed conditions above and below. Reason homebound: cognitively impaired / unsafe Certification: Based on the above findings, I certify that this patient is confi dary to the home and needs intermittent long-term care, physical therapy and/or speech therapy, or continues to need occupational therapy. The patient is under my care, and I have initiated the establishment of the plan of care. The patient will be followed by a physician who will periodically review the plan of care.
--- NOTE | 2020-11-20 10:07 | MHC.CM.PN ---
pt dcd today to be transported by family hvns notified
--- NOTE | 2020-11-20 10:26 | MHC.CM.PN ---
amb booked for 1130 to transprt pt home
== END 2020-11-20 12:38 | disposition home health service (06) | DRG 596 ==
LOC: HO.ED 20:05 → HO.IMC 22:33
PROVIDERS: Physician Assistant; Admitting Provider Internal Medicine; Emergency Provider Internal Medicine; PCP Family Medicine; Visit Provider Internal Medicine
DX: L10.0 Pemphigus vulgaris (principal); N39.0 Urinary tract infection, site not specified; E87.2 Acidosis; G30.9 Alzheimer's disease, unspecified; F02.80 Dementia in other diseases classified elsewhere, unspecified severity, without behavioral disturbance, psychotic disturbance, mood disturbance, and anxiety; Z20.822 Contact with and (suspected) exposure to COVID-19; Z88.6 Allergy status to analgesic agent; Z79.899 Other long term (current) drug therapy
CPT/HCPCS: 36415; 80048; 80053; 80076; 80307; 81001; 81003; 83605; 83880; 84484; 85025; 87040; 87086; 87635; 88305; 93005; 96365; 99285; J0696; J2930

== ENCOUNTER 2021-08-04 15:13 | Inpatient (IN) | payer MEDICARE, MEDICAID, SELFPAY ==
--- NOTE | ~2021-08-04 | XR_ITS ---
EXAMINATION: PORTABLE CHEST 1 VIEW CLINICAL INFORMATION: post covid . COMPARISON: 04/28/2016. TECHNIQUE: Portable frontal view of the chest was obtained. FINDINGS: The lungs are hypoexpanded. No focal infiltrate, effusion, edema, or pneumothorax. Calcific granuloma in the right upper lobe again seen Cardiac and mediastinal silhouettes are within normal limits for size with a mildly tortuous aorta. Degenerative changes in the spine and shoulders. No acute bony abnormality seen. XR/XR chest 1V IMPRESSION: Chronic appearing changes without definitive acute process compared to the prior 2016 study.
[2021-08-04 15:41] VITALS: BP 113/92; PULSE 89; RESP 12; TEMP 35.7; O2SAT 98; BMI 21.6
--- NOTE | 2021-08-04 16:01 | PC.NURSE ---
After triage completed, [employer] said pt has been leaning to the L x 3 weeks, saw neurologist who stated it was from her dose of seroquel. Asked [employer] if this mentation (non-verbal, minimal movement and non weight bearing) were pt's baseline, [employer] stated this is her baseline.
[2021-08-04 16:02] LABS: MANUAL DIFF FLAG NO
[2021-08-04 16:05] LABS: Basophils Percent Auto 0.2 % (0-2); Eosinophils Absolute Auto 0.1 X10*3/uL (0.0-0.4); Eosinophils Percent Auto 0.9 % (0-4); Hematocrit 46.6 % (37.0-47.0); Hemoglobin 14.3 g/dl (12.0-16.0); Imm Gran Abs Auto 0.02 X10*3/uL (0.00-0.03); Imm Gran Pct Auto 0.2 % (0.0-0.4); Lymphocytes Absolute Auto 3.4 X10*3/uL (1.2-4.9); Lymphocytes Percent Auto 32.6 % (20-40); Mean Corpuscular HGB Conc 30.7 g/dl (31.0-35.0); Mean Corpuscular Hemoglobin 29.1 pg (27.0-33.0); Mean Corpuscular Volume 94.7 fL (80.0-98.0); Mean Platelet Volume 10.5 fL (9.4-12.3); Monocytes Absolute Auto 0.7 X10*3/uL (0.1-1.2); Monocytes Percent Auto 6.3 % (2-11); Neutrophils Absolute Auto 6.2 x10*3/uL (2.0-8.3); Neutrophils Percent Auto 59.8 % (45-73); Platelet Count 269 X10*3/uL (160-400); Red Blood Count 4.92 X10*6/uL (4.20-5.50); Red Cell Distribution Width 14.5 % (11.0-16.0); White Blood Count 10.3 X10*3/uL (4.8-10.8)
[2021-08-04 16:39] LABS: Anion Gap 9 (12-20); Blood Urea Nitrogen 41 mg/dL (9-16); Calcium 10.6 mg/dL (8.4-10.2); Carbon Dioxide 35 mmol/L (22-29); Chloride 120 mmol/L (96-108); Creatinine Clr Calc Pharmacy 44.3; Estimated Glomerular Filt Rate > 60; Glucose Random 124 mg/dL (60-115); Potassium 4.1 mmol/L (3.3-5.1); Sodium 161 mmol/L (135-145)
--- NOTE | 2021-08-04 17:57 | ED.WEAKNESS ---
HPI - Weakness General Chief complaint: Weakness Stated complaint: ?dehydration,poor appetite Time Seen by Provider: 08/04/21 17:57 Source: family Mode of arrival: EMS Limitations: altered mental status History of Present Illness HPI Narrative: Patient's history of dementia history of COVID last month since then patient is going downhill not eating drinking enough fluids came here because has significant weight loss and weakness and had very little p.o. intake. No fever no cough shortness of breath patient is severely demented and nonverbal Related Data Home Medications Medication Instructions Recorded Confirmed multivitamin (Daily-Kimberley) 1 tab PO DAILY 11/18/20 08/04/21 quetiapine 25 mg tablet 1 tab PO TID 11/18/20 08/04/21 Allergies Allergy/AdvReac Type Severity Reaction Status Date / Time aspirin [ASPIRIN] Allergy Unknown UNKNOWN Verified 11/18/20 17:50 ibuprofen [IBUPROFEN] Allergy Unknown SWELLING Verified 11/18/20 17:50 Review of Systems Review of Systems: Yes Unobtainable due to mental status [facility] Past Medical History Medical History Alzheimer disease Asthma Social History Social History Household Members: Family Housing: Apartment Do you presently have visiting nurse or other home services: Yes (Jamie and family) Alcohol intake: never Patient Tobacco Use Status: Never used Tobacco Advance Directives: No Advance Directives Information Provided: Yes service: No Current occupational status: retired Physical Exam Vital Signs: Vital Signs: Last Vital Signs Temp 97 F 08/04/21 18:59 Pulse 68 08/04/21 20:35 Resp 16 08/04/21 20:35 BP 131/62 08/04/21 20:35 Pulse Ox 95 08/04/21 20:35 BMI result Body Mass Index 21.6 Appearance: Alert. And awake emaciated nonverbal demented patient Eyes: No icterus ENT: Dry oral mucosa Neck: Normal inspection. Neck supple. CVS: Normal heart rate and rhythm. Pulses normal. Respiratory: No respiratory distress. Equal air entry bilateral, no wheezing/rales/rhonchi Abdomen: Soft and nontender. Bowel sounds are present, no mass palpable, Skin: Skin warm and dry. Normal skin color. Normal skin turgor. Extremities: No lower extremity edema. No calf tenderness Neuro: Alert and awake nonverbal moving all 4 extremities MDM - Weakness MDM Narrative Medical decision making narrative: Patient is severely dehydrated with hyponatremia sodium of 161 BUN of 41 demented failure to thrive will admit patient for IV hydration per family wishes Lab Data Result diagrams: 08/04/21 15:54 08/04/21 15:54 Labs: Lab Results 08/04/21 08/04/21 08/04/21 Range/Units 15:54 15:54 18:36 WBC 10.3 (4.8-10.8) X10*3/uL RBC 4.92 (4.20-5.50) X10*6/uL Hgb 14.3 (12.0-16.0) g/dl Hct 46.6 (37.0-47.0) % MCV 94.7 (80.0-98.0) fL MCH 29.1 (27.0-33.0) pg MCHC 30.7 L (31.0-35.0) g/dl RDW 14.5 (11.0-16.0) % Plt Count 269 (160-400) X10*3/uL MPV 10.5 (9.4-12.3) fL Immature Gran % (Auto) 0.2 (0.0-0.4) % Neut % (Auto) 59.8 (45-73) % Lymph % (Auto) 32.6 (20-40) % [place] % (Auto) 6.3 (2-11) % Eos % (Auto) 0.9 (0-4) % Baso % (Auto) 0.2 (0-2) % Lymph # (Auto) 3.4 (1.2-4.9) X10*3/uL [place] # (Auto) 0.7 (0.1-1.2) X10*3/uL Eos # (Auto) 0.1 (0.0-0.4) X10*3/uL Baso # (Auto) 0.0 (0.0-0.2) X10*3/uL Abs Immat Gran (auto) 0.02 (0.00-0.03) X10*3/uL Absolute Neuts (auto) 6.2 (2.0-8.3) x10*3/uL Absolute Nucleated RBC 0.000 (0.0-0.012) X10*3/uL Nucleated RBC % (auto) 0.0 (0.0-0.2) /100WBC Sodium 161 H* (135-145) mmol/L Potassium 4.1 (3.3-5.1) mmol/L Chloride 120 H (96-108) mmol/L Carbon Dioxide 35 H (22-29) mmol/L Anion Gap 9 L (12-20) BUN 41 H (9-16) mg/dL Creatinine 0.86 (0.5-1.4) mg/dL Estim Creat Clear Calc 44.3 Estimated GFR > 60 Random Glucose 124 H (60-115) mg/dL Calcium 10.6 H D (8.4-10.2) mg/dL Troponin I High Sens (<3.5-17.0) ng/L COVID-19 (BAUDILIO) Negative (Negative) COVID-19 Clin Com See Note 08/04/21 Range/Units 18:37 WBC (4.8-10.8) X10*3/uL RBC (4.20-5.50) X10*6/uL Hgb (12.0-16.0) g/dl Hct (37.0-47.0) % MCV (80.0-98.0) fL MCH (27.0-33.0) pg MCHC (31.0-35.0) g/dl RDW (11.0-16.0) % Plt Count (160-400) X10*3/uL MPV (9.4-12.3) fL Immature Gran % (Auto) (0.0-0.4) % Neut % (Auto) (45-73) % Lymph % (Auto) (20-40) % [place] % (Auto) (2-11) % Eos % (Auto) (0-4) % Baso % (Auto) (0-2) % Lymph # (Auto) (1.2-4.9) X10*3/uL [place] # (Auto) (0.1-1.2) X10*3/uL Eos # (Auto) (0.0-0.4) X10*3/uL Baso # (Auto) (0.0-0.2) X10*3/uL Abs Immat Gran (auto) (0.00-0.03) X10*3/uL Absolute Neuts (auto) (2.0-8.3) x10*3/uL Absolute Nucleated RBC (0.0-0.012) X10*3/uL Nucleated RBC % (auto) (0.0-0.2) /100WBC Sodium (135-145) mmol/L Potassium (3.3-5.1) mmol/L Chloride (96-108) mmol/L Carbon Dioxide (22-29) mmol/L Anion Gap (12-20) BUN (9-16) mg/dL Creatinine (0.5-1.4) mg/dL Estim Creat Clear Calc Estimated GFR Random Glucose (60-115) mg/dL Calcium (8.4-10.2) mg/dL Troponin I High Sens 38.5 H (<3.5-17.0) ng/L COVID-19 (BAUDILIO) (Negative) COVID-19 Clin Com Discharge Plan Discharge Clinical Impression: Failure to thrive in adult, Acute hypernatremia Patient Disposition: Admitted As Inpatient
[2021-08-04 18:59] VITALS: BP 125/64; PULSE 70; RESP 17; TEMP 36.1; O2SAT 96
[2021-08-04 19:00] LABS: COVID-19 Test Negative (Negative)
--- NOTE | 2021-08-04 19:02 | PHA.MEDREC ---
Pharmacy Consult ? Medication Reconciliation Pharmacy has completed the medication reconciliation.
[2021-08-04 19:06] LABS: Troponin-I High Sensitivity 38.5 ng/L (<3.5-17.0)
--- NOTE | 2021-08-04 19:33 | PM.IMHP ---
History of Present Illness Date of Service: 08/04/21 Chief Complaint: Decreased oral intake 81-year-old female with a past medical history of dementia, nonverbal, mostly bedbound present to the hospital with a chief complaint of decreased oral intake intermittently for the past few days. Most of history of provided by the patient's daughter/healthcare proxy at the bedside. Also spoke to the patient's BLOCK[employer]. Reported that patient is mostly bedbound and nonverbal; able to swallow regular food okay but sometimes she was given pureed foot. Denies any concerns for aspiration. Denies patient complaining of any pain; or having any fevers cough sputum production denies having any nausea vomiting or diarrhea. Over the past few days patient has been having intermittent episodes of decreased oral intake. Hence brought her to the hospital for further evaluation. Denies any falls or trauma. At the time of my interview patient is alert and awake, lying in the bed comfortably; not talking; moves all extremities equally; mental status is at her baseline as per the patient's daughter. Review of all other systems is negative except mentioned above ER course: Per ER team patient noted to have elevated sodium levels; urinalysis pending; patient was given normal saline. Admitted for further management PMFSH Medical History Alzheimer disease Asthma Pertinent family history: Reviewed Social History Household Members: Family Housing: Apartment Do you presently have visiting nurse or other home services: Yes (Jamie and family) Alcohol intake: never Patient Tobacco Use Status: Never used Tobacco Advance Directives: No Advance Directives Information Provided: Yes service: No Current occupational status: retired Meds Allergies Allergy/AdvReac Type Severity Reaction Status Date / Time aspirin [ASPIRIN] Allergy Unknown UNKNOWN Verified 11/18/20 17:50 ibuprofen [IBUPROFEN] Allergy Unknown SWELLING Verified 11/18/20 17:50 Home Medications Medication Instructions Recorded Confirmed Last Taken Type multivitamin (Daily-Kimberley) 1 tab PO DAILY 11/18/20 08/04/21 Unknown History quetiapine 25 mg tablet 1 tab PO TID 11/18/20 08/04/21 Unknown History Physical Exam Vital Signs and Narrative: Vital Signs: Last Vital Signs Temp 97 F 08/04/21 18:59 Pulse 70 08/04/21 18:59 Resp 17 08/04/21 18:59 BP 125/64 08/04/21 18:59 Pulse Ox 96 08/04/21 18:59 BMI result Body Mass Index 21.6 Gen: Appears be in no acute distress HEENT: NCAT, Moist mucosa. Pulmonary: Vesicular breath sounds, fair air entry CVS: Normal S1-S2 Abdomen: BS+, Soft, Nontender Extremities: Warm well perfused Neuro: Alert and awake. Results Labs CBC and Chem 7: 08/05/21 04:31 08/05/21 04:31 Labs: Laboratory Results - last 24 hr 08/04/21 08/04/21 08/04/21 15:54 15:54 18:36 MCV 94.7 MCH 29.1 MCHC 30.7 L RDW 14.5 Plt Count 269 MPV 10.5 Immature Gran % (Auto) 0.2 Neut % (Auto) 59.8 Lymph % (Auto) 32.6 [place] % (Auto) 6.3 Eos % (Auto) 0.9 Baso % (Auto) 0.2 Lymph # (Auto) 3.4 [place] # (Auto) 0.7 Eos # (Auto) 0.1 Baso # (Auto) 0.0 Abs Immat Gran (auto) 0.02 Absolute Neuts (auto) 6.2 Absolute Nucleated RBC 0.000 Nucleated RBC % (auto) 0.0 Anion Gap 9 L Estim Creat Clear Calc 44.3 Estimated GFR > 60 Random Glucose 124 H Calcium 10.6 H D COVID-19 (BAUDILIO) Negative COVID-19 Clin Com See Note Imaging Radiologist's Impressions: Impressions Chest X-Ray 08/04/21 18:11 IMPRESSION: Chronic appearing changes without definitive acute process compared to the prior 2016 study. Assessment and Plan (1) Hypernatremia: Status: Acute (2) Failure to thrive in adult: Status: Acute Plan 81-year-old female with a past medical history of dementia, nonverbal, mostly bedbound present to the hospital with a chief complaint of decreased oral intake intermittently for the past few days. Noted to have following conditions Adult failure to thrive: Patient has decreased oral intake Nutrition consult Speech and swallow eval Supportive care Indeterminate troponins: Troponins plateaued; EKG non ischemic. Patient does not appear to be in pain. Family denies patient being in any pain prior. Likely demand. UTI: Continue ceftriaxone. Follow up cultures Hypernatremia: Likely in setting of dehydration. Sodium levels on presentation was 161. Received 1 L of normal saline in the ER. Continue the patient on D5 water at 50 cc/hour. Repeat BMP in 4-6 hours. Nephrology Consult Hypercalcemia: In the setting of dehydration. Patient on IV fluids. History of dementia: Mental status at baseline per family. Patient baseline nonverbal and mostly sedentary in the bed. Diet: NPO until speech and swallow eval. Aspiration precautions. DVT prophylaxis: SCD/subcu heparin Code status: DNR/DNI. Confirmed with the patient's daughter/healthcare proxy at bedside. Quality Stroke Does the patient have a stroke diagnosis?: No VTE Prior VTE?: No VTE Risk Level:: Medical - moderate - high VTE Device Contraindication: Treatment Not Indicated VTE Drug Contraindication: N/A - Med Ordered
[2021-08-04] MEDS: 0.9 % Sodium Chloride 1,000 ML 999 ML IV (19:58)
[2021-08-04] MEDS: Dextrose 5 % 1,000 ML 50 ML IVCONT (20:27)
[2021-08-04 20:35] VITALS: BP 131/62; PULSE 68; RESP 16; O2SAT 95
[2021-08-04 20:51] LABS: Troponin-I High Sensitivity 41.8 ng/L (<3.5-17.0)
[2021-08-04] MEDS: Heparin Sodium,Porcine 5,000 UNIT/ML VIAL 5000 UNIT SUBCUT (21:01)
--- NOTE | 2021-08-05 | ECG_ITS ---
Test Reason : DEHYDRATION Blood Pressure : / mmHG Vent. Rate : 064 BPM Atrial Rate : 064 BPM P-R Int : 122 ms QRS Dur : 072 ms QT Int : 408 ms P-R-T Axes : 057 -12 063 degrees QTc Int : 420 ms Normal sinus rhythm Normal ECG When compared with ECG of 18-NOV-2020 18:33, Left anterior fascicular block is no longer Present Referred By: Bradford Garcia Electronically Signed By:JESICA RIVAS MD
--- NOTE | 2021-08-05 00:51 | PC.NURSE ---
pt incontinent of urine. pt cleaned by ISAMAR Peña. pt set up with [employer]. Call puri in reach.
[2021-08-05 02:34] LABS: Osmolality Urine 701 mosm/kg (373-1093)
[2021-08-05 02:36] LABS: Appearance Urine TURBID; Color Urine YELLOW; Glucose Urine UA NEG (NEG); Leukocyte Esterase Urine 3+ (NEG); Nitrite Urine NEG (NEG); PH 7.5 (5.0-8.0); UACC Culture Trigger YES; Urine Blood 1+ (NEG); Urine Ketones 5 MG/DL (NEG); Urine Protein 1+ MG/DL (NEG-TRACE)
[2021-08-05 02:38] LABS: Potassium Urine Random 68.5 mmol/L
[2021-08-05 02:44] LABS: Bacteria Urine 4+ /LPF; Mucus Urine TRACE /LPF; Squamous Epithelial Cell Urine TRACE /LPF; Triple Phosphate Crystal Urine TRACE /LPF; UACC CULT YES
[2021-08-05 04:00] VITALS: RESP 16
[2021-08-05] MEDS: cefTRIAXone sodium 1 GM in 0.9 % Sodium Chloride 50 ML IV (04:25)
[2021-08-05 04:55] LABS: MANUAL DIFF FLAG NO
[2021-08-05 05:05] LABS: Basophils Percent Auto 0.2 % (0-2); Eosinophils Absolute Auto 0.1 X10*3/uL (0.0-0.4); Eosinophils Percent Auto 1.7 % (0-4); Hematocrit 42.3 % (37.0-47.0); Hemoglobin 12.6 g/dl (12.0-16.0); Imm Gran Abs Auto 0.02 X10*3/uL (0.00-0.03); Imm Gran Pct Auto 0.2 % (0.0-0.4); Lymphocytes Absolute Auto 3.9 X10*3/uL (1.2-4.9); Lymphocytes Percent Auto 46.4 % (20-40); Mean Corpuscular HGB Conc 29.8 g/dl (31.0-35.0); Mean Corpuscular Hemoglobin 28.6 pg (27.0-33.0); Mean Corpuscular Volume 96.1 fL (80.0-98.0); Mean Platelet Volume 11.1 fL (9.4-12.3); Monocytes Absolute Auto 0.6 X10*3/uL (0.1-1.2); Monocytes Percent Auto 6.7 % (2-11); Neutrophils Absolute Auto 3.8 x10*3/uL (2.0-8.3); Neutrophils Percent Auto 44.8 % (45-73); Platelet Count 215 X10*3/uL (160-400); Red Cell Distribution Width 14.2 % (11.0-16.0); White Blood Count 8.4 X10*3/uL (4.8-10.8)
[2021-08-05 05:21] LABS: Anion Gap 12 (12-20); Blood Urea Nitrogen 37 mg/dL (9-16); Calcium 9.6 mg/dL (8.4-10.2); Carbon Dioxide 29 mmol/L (22-29); Chloride 122 mmol/L (96-108); Creatinine Clr Calc Pharmacy 53.6; Estimated Glomerular Filt Rate > 60; Glucose Random 115 mg/dL (60-115); Potassium 3.9 mmol/L (3.3-5.1); Sodium 159 mmol/L (135-145)
--- NOTE | 2021-08-05 06:31 | PC.NURSE ---
This RN consulting Hospitalist regarding lack of telemetry orders despite elevated Troponins and admission for hypernatremia. Hospitalist changing orders to tele, requesting a copy of pts EKG. This RN looking through chart for EKG, noted an EKG was never ordered. This RN placing verbal order for an EKG. hazardous waste material technician at bedside obtaining EKG stat. Hospitalist notified and sent a copy of EKG via [place].
--- NOTE | 2021-08-05 07:23 | P.PNIM_ITS ---
Subjective Subjective Date of Service: 08/05/21 Interval History: F/u on hypernatremia, dehydration and UTI,, advanced dementia non verbal. Daughter says she is better Review of Systems Review of Systems: Yes Unobtainable due to mental status Physical Exam Vital Signs: Vital Signs: Last Vital Signs Temp 97 F 08/04/21 18:59 Pulse 68 08/04/21 20:35 Resp 16 08/05/21 04:00 BP 131/62 08/04/21 20:35 Pulse Ox 95 08/04/21 20:35 BMI result Body Mass Index 21.6 Const: Other: General: Alert, no acute distress Resp: CTA bilateral CVS: S1,S2,RRR GI: +BS, NT, no distention Skin: No rash Neuro: motor grossly intact Psych: affect Objective Data Active Medications Acetaminophen (Acetaminophen 325 Mg Tablet) 650 mg PO Q6H PRN PRN Reason: Pain, Mild (Pain Scale 1-3) Heparin Sodium (Porcine) (Heparin Sodium,Porcine 5,000 Unit/Ml Vial) 5,000 unit SUBCUT Q12H [facility] Last Admin: 08/04/21 21:01 Dose: 5,000 unit Documented by: KANDY Dextrose (D5w) 1,000 mls @ 50 mls/hr IVCONT .Q20H [facility] Last Admin: 08/04/21 20:27 Dose: 50 mls/hr Documented by: KANDY Ceftriaxone Sodium 1 gm/ (Sodium Chloride) 50 mls @ 100 mls/hr IV Q24H [facility] Last Infusion: 08/05/21 04:55 Dose: 0 mls/hr Documented by: KANDY Melatonin (Melatonin 3 Mg Tablet) 6 mg PO BEDTIME PRN PRN Reason: Insomnia Senna (Sennosides 8.6 Mg Tablet) 17.2 mg PO BEDTIME PRN PRN Reason: Constipation Sodium Chloride (0.9 % Sodium Chloride Flush 3 Ml Syringe) 3 ml IVFLUSH QSHIFT [facility] Last Admin: 08/05/21 00:14 Dose: Not Given Documented by: KANDY Non-Admin Reason: Med Not Available Labs CBC & Chem 7: 08/05/21 04:31 08/05/21 04:31 Labs: Laboratory Results - last 24 hr 08/04/21 08/04/21 08/04/21 15:54 15:54 18:36 MCV 94.7 MCH 29.1 MCHC 30.7 L RDW 14.5 Plt Count 269 MPV 10.5 Immature Gran % (Auto) 0.2 Neut % (Auto) 59.8 Lymph % (Auto) 32.6 [place] % (Auto) 6.3 Eos % (Auto) 0.9 Baso % (Auto) 0.2 Lymph # (Auto) 3.4 [place] # (Auto) 0.7 Eos # (Auto) 0.1 Baso # (Auto) 0.0 Abs Immat Gran (auto) 0.02 Absolute Neuts (auto) 6.2 Absolute Nucleated RBC 0.000 Nucleated RBC % (auto) 0.0 Anion Gap 9 L Estim Creat Clear Calc 44.3 Estimated GFR > 60 Random Glucose 124 H Calcium 10.6 H D Urine Color Urine Appearance Urine pH Ur Specific [place] Urine Protein Urine Glucose (UA) Urine Ketones Urine Blood Urine Nitrite Ur Leukocyte Esterase Urine RBC Urine WBC Ur Squamous Epith Cells Triple Phos Crystals Urine Bacteria Urine Mucus Urine Yeast Urine Osmolality Ur Random Sodium Ur Random Potassium Ur Random Chloride COVID-19 (BAUDILIO) Negative COVID-19 Clin Com See Note 08/05/21 08/05/21 08/05/21 02:19 02:19 02:19 MCV MCH MCHC RDW Plt Count MPV Immature Gran % (Auto) Neut % (Auto) Lymph % (Auto) [place] % (Auto) Eos % (Auto) Baso % (Auto) Lymph # (Auto) [place] # (Auto) Eos # (Auto) Baso # (Auto) Abs Immat Gran (auto) Absolute Neuts (auto) Absolute Nucleated RBC Nucleated RBC % (auto) Anion Gap Estim Creat Clear Calc Estimated GFR Random Glucose Calcium Urine Color YELLOW Urine Appearance TURBID Urine pH 7.5 Ur Specific [place] 1.020 Urine Protein 1+ H Urine Glucose (UA) NEG Urine Ketones 5 Urine Blood 1+ H Urine Nitrite NEG Ur Leukocyte Esterase 3+ H Urine RBC 5-9 H Urine WBC 15-29 H Ur Squamous Epith Cells TRACE Triple Phos Crystals TRACE Urine Bacteria 4+ Urine Mucus TRACE Urine Yeast TRACE Urine Osmolality 701 Ur Random Sodium 97.0 Ur Random Potassium 68.5 Ur Random Chloride 110.0 COVID-19 (BAUDILIO) COVID-19 Clin Com 08/05/21 08/05/21 04:31 04:31 MCV 96.1 MCH 28.6 MCHC 29.8 L RDW 14.2 Plt Count 215 MPV 11.1 Immature Gran % (Auto) 0.2 Neut % (Auto) 44.8 L Lymph % (Auto) 46.4 H [place] % (Auto) 6.7 Eos % (Auto) 1.7 Baso % (Auto) 0.2 Lymph # (Auto) 3.9 [place] # (Auto) 0.6 Eos # (Auto) 0.1 Baso # (Auto) 0.0 Abs Immat Gran (auto) 0.02 Absolute Neuts (auto) 3.8 Absolute Nucleated RBC 0.000 Nucleated RBC % (auto) 0.0 Anion Gap 12 Estim Creat Clear Calc 53.6 Estimated GFR > 60 Random Glucose 115 Calcium 9.6 D Urine Color Urine Appearance Urine pH Ur Specific [place] Urine Protein Urine Glucose (UA) Urine Ketones Urine Blood Urine Nitrite Ur Leukocyte Esterase Urine RBC Urine WBC Ur Squamous Epith Cells Triple Phos Crystals Urine Bacteria Urine Mucus Urine Yeast Urine Osmolality Ur Random Sodium Ur Random Potassium Ur Random Chloride COVID-19 (BAUDILIO) COVID-19 Clin Com Assessment and Plan (1) Acute hypernatremia: Status: Acute (2) Failure to thrive in adult: Status: Acute (3) UTI (urinary tract infection): Status: Acute Plan 81-year-old female with advanced dementia, nonverbal, mostly bedbound here with adult failure to thrive, dehydration, marked hypernatremia Adult failure to thrive likely from UTI, dehydration, hypernatremia * Hydrate and supportive care Indeterminate troponins:?likely demand, no further testing UTI:??Continue ceftriaxone.? Follow up cultures Hypernatremia:?Due poor oral water intake, D5W Hypercalcemia:??Slight increase and now normal History of dementia: Mental status at baseline per family.? Patient baseline nonverbal and mostly sedentary in the bed. Diet:? Puree, nectar thick, high risk for aspiration DVT prophylaxis:? SCD/subcu heparin Code status:? DNR/DNI.? Confirmed with the patient's daughter/healthcare proxy at bedside. Discussed with daughter at bedside Quality Stroke Does the patient have a stroke diagnosis?: No VTE Prior VTE?: No VTE Risk Level:: Medical - moderate - high VTE Device Contraindication: Treatment Not Indicated VTE Drug Contraindication: N/A - Med Ordered
[2021-08-05 08:01] VITALS: BP 143/51; PULSE 70; RESP 12; TEMP 36.2; O2SAT 99
--- NOTE | 2021-08-05 08:12 | PC.NURSE ---
Pt received from main ER, just moved over to overflow unit: Pt alert but unknown orientation as pt is non-verbal. Pt's daughter at bedside. Pt hx of dementia. NSR noted and lungs diminished. Pt abd soft, flat and non-tender. Pt remains on purewick.
[2021-08-05] MEDS: Dextrose 5 % 1,000 ML 100 ML IVCONT ×3 (08:15→22:14)
[2021-08-05] MEDS: Heparin Sodium,Porcine 5,000 UNIT/ML VIAL 5000 UNIT SUBCUT ×2 (08:19→19:49)
[2021-08-05 11:14] LABS: Anion Gap 13 (12-20); Blood Urea Nitrogen 35 mg/dL (9-16); Calcium 9.6 mg/dL (8.4-10.2); Carbon Dioxide 28 mmol/L (22-29); Chloride 120 mmol/L (96-108); Creatinine Clr Calc Pharmacy 52.2; Estimated Glomerular Filt Rate > 60; Glucose Random 101 mg/dL (60-115); Sodium 157 mmol/L (135-145)
--- NOTE | 2021-08-05 11:28 | MHC.SL.SWA ---
Speech Pathologist Impression: Oralpharyngeal Dysphagia Risk of Aspiration Due to: Poor PO Intake Reduced Cognition Dysphasia Diet Status: Upgrade Liquid Consistency and Strategies for Safe Swallow: Liquid Intake Recommendation: [place] Thick Liquid Intake Strategies: No Straws Liquids by Teaspoon Only Solid Food Consistency: Dietary Recommendations: Pureed (NDD1) Additional Modifications to Solid Foods: Avoid sticky consistencies Oral Medication Intake: Crushed with Puree Compensatory Strategies and Precautions to be Taken for Safe Swallow: Sitting Upright (90 deg) Liquids from Spoon Alternate Liquids/Solids Oral Check Supervision While Eating and Drinking for Safe Swallow: Total Supervision (1:1) Foods to Avoid: [place] sticky consistencies Swallowing Recommended Treatments: Compens. Strategy Educat. Recommendation for Speech: Inpatient Speech Therapy Comment: Pt presents w/oralpharyngeal dysphagia w/maladaptive oral phase (mastication noted on liquid and puree), absent swallow trigger and moderate delay initiating swallow. At baseline, Pt was on puree diet w/ thin liquids and difficult to feed due to poor engagement in meals, intermittent refusal of liquids/solids, which was noted on evaluation today. Recommend UPGRADE from NPO to diet w/consistencies of PUREE (NDD1) w/ NECTAR THICK liquid, Pills CRUSHED in PUREE. Pt will need full assistance/support for all meals, close monitor for clinical signs of aspiration as well as monitor for swallow before presenting more food. Would not recommend use of straw for liquids at this time. Pt would benefit from more frequent small meals if possible. Diet recommendations sent to MD, Television Audio Engineer, Dietary via secure Text. Frequency/Duration: M-F Date Range for Service Req: Timeline to reassess: Director Underwriter Sales Clinican/Clinical Fellow: No Supervisory Statement: I have reviewed and agree with the student/clinical fellow's documentation: N/A Speech Language Pathologist: Johanny Melendez M.A., CCC-DEFECTIVE CIGARETTE SLITTER
[2021-08-05 12:55] VITALS: BP 136/56; PULSE 73; RESP 10; TEMP 36.6; O2SAT 97
--- NOTE | 2021-08-05 15:53 | MHC.CM.PN ---
Met with patient and 2 daughters in regards to discharge planning. Patient is currently confused. Patient lives with 1 of her daughters and is bedbound at baseline. Patient has been active with [facility] in the past. Daughters agreeable to [facility] at d/c. PCP verified. HCP verified to be on file. Patient received 2 Pfizer vaccines. Patient was scheduled to get her booster today. IMM explained and signed. Patient will need BLS tranpsort at d/c. Continue to monitor for d/c needs.
[2021-08-05 16:00] VITALS: BP 106/59; PULSE 69; RESP 18; TEMP 36.7; O2SAT 94
[2021-08-05] MEDS: diphenhydrAMINE HCL 25 MG TABLET PO (19:52)
[2021-08-05 23:15] VITALS: BP 109/57; PULSE 70; RESP 16; TEMP 36.2; O2SAT 95
[2021-08-06] MEDS: cefTRIAXone sodium 1 GM in 0.9 % Sodium Chloride 50 ML IV (03:59)
[2021-08-06 08:00] VITALS: BP 128/56; PULSE 70; RESP 20; TEMP 36.6; O2SAT 93
--- NOTE | 2021-08-06 09:31 | HO.PM.IMPN ---
Subjective Subjective Date of Service: 08/06/21 Interval History: F/u on hypernatremia, dehydration and UTI,, advanced dementia non verbal. TENSILE TESTER at bed side, says she is doing better Review of Systems Review of Systems: Yes Unobtainable due to mental status Physical Exam Vital Signs: Vital Signs: Last Vital Signs Temp 97.8 F 08/06/21 08:00 Pulse 70 08/06/21 08:00 Resp 20 08/06/21 08:00 BP 128/56 L 08/06/21 08:00 Pulse Ox 93 08/06/21 08:00 BMI result Body Mass Index 21.6 Const: Other: General: Alert, no acute distress Resp: CTA bilateral CVS: S1,S2,RRR GI: +BS, NT, no distention Skin: No rash Neuro: motor grossly intact Psych: affect Objective Data Active Medications Acetaminophen (Acetaminophen 325 Mg Tablet) 650 mg PO Q6H PRN PRN Reason: Pain, Mild (Pain Scale 1-3) Diphenhydramine HCl (Diphenhydramine Hcl 25 Mg Tablet) 25 mg PO Q8H PRN PRN Reason: Itching Last Admin: 08/05/21 19:52 Dose: 25 mg Documented by: HARSHAL Heparin Sodium (Porcine) (Heparin Sodium,Porcine 5,000 Unit/Ml Vial) 5,000 unit SUBCUT Q12H [facility] Last Admin: 08/05/21 19:49 Dose: 5,000 unit Documented by: HARSHAL Dextrose (D5w) 1,000 mls @ 100 mls/hr IVCONT .Q10H [facility] Last Infusion: 08/06/21 09:02 Dose: 100 mls/hr Documented by: VISH Ceftriaxone Sodium 1 gm/ (Sodium Chloride) 50 mls @ 100 mls/hr IV Q24H [facility] Last Infusion: 08/06/21 04:32 Dose: 0 mls/hr Documented by: CLARI Melatonin (Melatonin 3 Mg Tablet) 6 mg PO BEDTIME PRN PRN Reason: Insomnia Senna (Sennosides 8.6 Mg Tablet) 17.2 mg PO BEDTIME PRN PRN Reason: Constipation Sodium Chloride (0.9 % Sodium Chloride Flush 3 Ml Syringe) 3 ml IVFLUSH QSHIFT [facility] Last Admin: 08/06/21 01:45 Dose: Not Given Documented by: CLARI Non-Admin Reason: IV Running Labs CBC & Chem 7: 08/05/21 04:31 08/05/21 10:43 Labs: Laboratory Results - last 24 hr 08/05/21 10:43 Anion Gap 13 Estim Creat Clear Calc 52.2 Estimated GFR > 60 Random Glucose 101 Calcium 9.6 Assessment and Plan (1) Acute hypernatremia: Status: Acute (2) Failure to thrive in adult: Status: Acute (3) UTI (urinary tract infection): Status: Acute Plan 81-year-old female with advanced dementia, nonverbal, mostly bedbound here with adult failure to thrive, dehydration, marked hypernatremia Adult failure to thrive likely from UTI, dehydration, hypernatremia -Hydrate and supportive care Hypernatremia:?Due poor oral water intake, improving, lab today pending Indeterminate troponins:?likely demand, no further testing UTI:??Continue ceftriaxone.? Follow up cultures Hypercalcemia:??Slight increase and now normal History of dementia: Mental status at baseline per family.? Patient baseline nonverbal and mostly sedentary in the bed. Diet:? Puree, nectar thick, high risk for aspiration DVT prophylaxis:? SCD/subcu heparin Code status:? DNR/DNI.? Confirmed with the patient's daughter/healthcare proxy at bedside. Discussed with TENSILE TESTER at bedside Quality Stroke Does the patient have a stroke diagnosis?: No VTE Prior VTE?: No VTE Risk Level:: Medical - moderate - high VTE Device Contraindication: Treatment Not Indicated VTE Drug Contraindication: N/A - Med Ordered
[2021-08-06 09:45] LABS: Anion Gap 9 (12-20); Blood Urea Nitrogen 25 mg/dL (9-16); Carbon Dioxide 27 mmol/L (22-29); Chloride 107 mmol/L (96-108); Creatinine Clr Calc Pharmacy 60.4; Estimated Glomerular Filt Rate > 60; Glucose Random 104 mg/dL (60-115); Potassium 3.4 mmol/L (3.3-5.1); Sodium 140 mmol/L (135-145)
[2021-08-06] MEDS: Heparin Sodium,Porcine 5,000 UNIT/ML VIAL 5000 UNIT SUBCUT (10:04)
[2021-08-06] MEDS: diphenhydrAMINE HCL 25 MG TABLET PO (10:11)
--- NOTE | 2021-08-06 10:38 | P.DS_ITS ---
DS: Providers Provider Date of Service: 08/06/21 Date of admission: 08/04/21 19:30 Primary care physician: Viviana Jasmine DO Consults: 08/04/21 19:31 Consult to Nephrology Routine Consulting Provider: Alexis Sapp Reason for consultation: Hypernatremia DS: Diagnosis Discharge Diagnosis (1) Acute hypernatremia: Status: Acute (2) Failure to thrive in adult: Status: Acute (3) UTI (urinary tract infection): Status: Acute DS: Summary Hospital Course Hospital Course: CC: Decreased oral intake 81-year-old female with a past medical history of dementia, nonverbal, mostly bedbound present to the hospital with a chief complaint of decreased oral intake intermittently for the past few days. Most of history of provided by the patient's daughter/healthcare proxy at the bedside.? Also spoke to the patient's [employer] COORDINATOR.? Reported that patient is mostly bedbound and nonverbal; able to swallow regular food okay but sometimes she was given pureed foot.? Denies any concerns for aspiration.? Denies patient complaining of any pain; or having any fevers cough sputum production denies having any nausea vomiting or diarrhea.? Over the past few days patient has been having intermittent episodes of decreased oral intake.? Hence brought her to the hospital for further evaluation.? Denies any falls or trauma.? At the time of my interview patient is alert and awake, lying in the bed comfortably; not talking; moves all extremities equally; mental status is at her baseline as per the patient's daughter.? Review of all other systems is negative except mentioned above ER course: Per ER team patient noted to have elevated sodium levels; urinalysis pending; patient was given normal saline.? Admitted for further management Hospital course: Adult failure to thrive, dehydration and hypernatremia--probably precipitated by UTI. Her sodium level was 161 and after hydration is now down to 140 and she will need agresive hydration at home to prevent this from happening again, I have communicated this with the daughter. UTI has been treated with Rocephin for 2 days now and will transition to Ceftin for 3 more days. She had mild hyperncalcemia of 11 and this has resolved after hydration to 10 which is normal. Speech saw her and recommends Puree diet with [place] thick liquid.. Advised ensure for moderate protein calory malnutrition Time Spent with Patient Time attestation: Total time spent providing and/or coordinating discharge services: Discharge coordination time: Greater than 30 minutes Quality: Stroke Does the patient have a stroke diagnosis?: No Physical Exam Vital Signs: Vital Signs: Last Vital Signs Temp 97.8 F 08/06/21 08:00 Pulse 70 08/06/21 08:00 Resp 20 08/06/21 08:00 BP 128/56 L 08/06/21 08:00 Pulse Ox 93 08/06/21 08:00 BMI result Body Mass Index 21.6 DS: Data Data Completed and Pending Completed studies during hospitalization [Text1]: Procedures Excision of Left Lower Arm Skin, External Approach, Diagnostic (11/18/20) Labs on day of discharge: Laboratory Results - last 24 hr 08/05/21 08/06/21 10:43 08:56 Sodium 157 H 140 Potassium 4.0 3.4 Chloride 120 H 107 Carbon Dioxide 28 27 Anion Gap 13 9 L BUN 35 H 25 H Creatinine 0.73 0.63 Estim Creat Clear Calc 52.2 60.4 Estimated GFR > 60 > 60 Random Glucose 101 104 Calcium 9.6 9.0 D Discharge Plan Discharge Anticipated Discharge Date/Time: 08/06/21 10:37 Patient Disposition: Home, Self-Care Discharge Diagnosis: Hypernatremia, UTI, adult failure to thrive Referrals: Viviana Jasmine DO [Primary Care Provider] - 1 Week Discharge Medications: New cefuroxime axetil 250 mg tablet 250 mg PO BID 3 Days Qty: 6 0RF Continued multivitamin [Daily-Kimberley] Tablet 1 tab PO DAILY 0RF quetiapine 25 mg tablet 1 tab PO TID 0RF Discharge Orders: Discharge Order (Routine); Ordered 08/06/21 Ordered By: Rajinder So Diet: advance to usual diet and other Activity on Discharge: As tolerated Stand Alone Forms: Patient Portal Discharge page Care Plan Goals: Prevent dehydration and rehospitalization Health Concerns: Dehydration and hypernatremia and adult failure to thrive Plan of Treatment: Make sure to drink plenty of water, take ceftin for UTI and follow up with your Doctor in a week Puree diet with [place]gate thick liquid Assessment: As above Discharge Date/Time: 08/06/21 16:26
--- NOTE | 2021-08-06 10:40 | CONS_ITS ---
DATE OF SERVICE: 08/05/2021 REASON FOR CONSULTATION: I was called to see this patient to assist in management of hypernatremia. HISTORY OF PRESENT ILLNESS: To summarize, Justine is an 81-year-old woman, who has history of dementia. She is nonverbal and she was brought in because of decreased p.o. intake. At the time of admission, she had severe hypernatremia with a serum sodium of 161 mmol. She has been started on IV hydration and serum sodium currently improving. PAST MEDICAL HISTORY: Includes Alzheimer disease and asthma. SOCIAL HISTORY: No cigarette smoking or alcohol abuse has been documented. MEDICATIONS: At home included multivitamins and quetiapine. ALLERGIES: SHE IS ALLERGIC TO ASPIRIN AND IBUPROFEN. REVIEW OF SYSTEMS: Not obtainable from the patient due to her mental status and she is nonverbal. All information was obtained from the chart. PHYSICAL EXAMINATION: GENERAL: Patient is an 81-year-old woman. She is cachectic with contractures, not verbalizing. She is awake, not in any distress. NECK: Supple. Mucosa dry. LUNGS: Air entry equal. No rales. HEART: S1, S2 heard. No gallop. ABDOMEN: Soft, nontender. EXTREMITIES: No edema. No clubbing. No rash. VITAL SIGNS: No fever. Blood pressure 130/50, pulse of 70 per minute. LABORATORY DATA: Hemoglobin was 14.3 on admission. Sodium 161, BUN 41, creatinine 0.86 on admission. Today, sodium is 157, BUN 33, creatinine 0.73. Urine osmolality was 700. Calcium was elevated on admission 10.6. IMPRESSION: 81-year-old woman with severe hypernatremia and prerenal azotemia due to dehydration. The hypernatremia is due to decreased free water intake, due to poor p.o. intake in general. RECOMMENDATIONS: Will be to hydrate her with hypotonic fluids. Agree with D5W. Keep intake more than the output. Ideally, we should increase her oral fluid intake. However, it appears that she may not be able to take anything orally. Goals of care need to be discussed with the family. The renal function should improve with IV hydration. The goal is to cut the serum sodium at a rate of 0.5 mmol/L per hour and not to decrease serum sodium rate more than 8 to 10 millimoles in 24-hour period. At the present time, the rate of correction is acceptable. Please monitor the serum sodium every 4 hours. We will follow as needed. Bhupendra Suero MD BPA/MODL / [id number]
--- NOTE | 2021-08-06 10:53 | MHC.SLORD ---
Speech Language Pathology Order Status: Pt writhing in bed and poorly responsive. Family member reported that she is taking in very little before refusing.
[2021-08-06 11:53] VITALS: BMI 21.6
--- NOTE | 2021-08-06 12:08 | MHC.CLN ---
NUTRITION PER NUTRITION ASSESSMENT, PATIENT QUALIFIES MODERATELY MALNOURISHED. ADDING ENSURE BID TO PROVIDE ADDITIONAL 700 KCAL, 40 G PROTEIN.
--- NOTE | 2021-08-06 12:16 | MHC.CM.PN ---
Addendum entered by Sydney Reyes 08/06/21 13:24: SPOKE WITH PATIENT DS DTR/HCP AND REQUESTED 4PM TRANSPORT TIME TODAY ACTION BLS Original Note: NURSE HYDRAULIC TECHNICIAN NOTE PATIENT IS TO BE DISCHARGED HOME TODAY NO NEW SERVICES ADDED (CASE DISSED WITH HOSPITALSIT VIA TIGER TEXT) TRANSPORT ACTIONBLS SELF /FAMILYRESUMPTION OF HER [employer] INFORMED HER DTR/HCP THAT SHE HAS A NEW ABX SCRIPT THAT WILL NEED TO BE PICKED UP , ARRANGED WITH DAUGHTER KIA SEGOVIA
--- NOTE | 2021-08-06 12:38 | MHC.CDI.CONC ---
CDI Concurrent Query Documentation Clarification: PHYSICIAN'S DOCUMENTATION REQUEST Date of Query: 08/06/21 1238 Patient Name: Justine Trujillo Admit Date: 08/04/21 Dear Doctor, A review of the medical record indicates additional documentation may be needed. Please review below and update the documentation accordingly. Risk Factors/Clinical Indicators/Treatments Nutrition notes 08/06 - moderatly malnourished, moderate fat depletion, muscle mass. Nutrition DX: severe malnutrition in the context of chronic illness. Ensure BID If possible, please provide an associated diagnosis related to the abnormal BMI, such as: For a BMI <= 19: Underweight Weight loss Cachexia Anorexia Malnutrition, mild, moderate or severe Or: BMI is not significant Other (please specify) Unable to determine Use of terms such as suspected, likely, concern for, or probable (associated with a specific diagnosis that is being evaluated, monitored, or treated as if it exists) are acceptable and can be coded in the inpatient setting, when documented at the time of discharge. Thank you, Radha Hernandez [facility], CDIS Extension: [phone] Please use your independent medical judgment in providing your response. THIS QUERY IS PART OF THE PERMANENT MEDICAL RECORD Provider Response: Moderate Protein-Calorie Malnutrition
== END 2021-08-06 16:26 | disposition home or self-care (01) | DRG 690 ==
LOC: HO.ED 17:54 → HO.EDOVER 19:40 → HO.S3 08-05 16:09
PROVIDERS: Admitting Provider Hospitalist; Emergency Provider Internal Medicine; PCP Family Medicine; Visit Provider Internal Medicine
DX: N39.0 Urinary tract infection, site not specified (principal); E87.0 Hyperosmolality and hypernatremia; E44.0 Moderate protein-calorie malnutrition; E83.52 Hypercalcemia; E86.0 Dehydration; R62.7 Adult failure to thrive; G30.9 Alzheimer's disease, unspecified; F02.80 Dementia in other diseases classified elsewhere, unspecified severity, without behavioral disturbance, psychotic disturbance, mood disturbance, and anxiety; Z68.21 Body mass index [BMI] 21.0-21.9, adult; Z74.01 Bed confinement status; Z20.822 Contact with and (suspected) exposure to COVID-19; Z88.6 Allergy status to analgesic agent; Z79.899 Other long term (current) drug therapy; Z66 Do not resuscitate
CPT/HCPCS: 36415; 71045; 80048; 81001; 82436; 83935; 84133; 84300; 84484; 85025; 87086; 87635; 92610; 93005; 96360; 99285; J0696; Q0163

== ENCOUNTER 2021-09-25 12:01 | Inpatient (IN) | payer MEDICARE, MEDICAID, SELFPAY ==
[2021-09-25] VITALS (9 sets, daily range): BP systolic 96–126; BP diastolic 37–67; PULSE 85–126; RESP 15–22; TEMP 36.7–39.4; O2SAT 90–99; BMI 20.5
--- NOTE | ~2021-09-25 | US_ITS ---
EXAMINATION: US ABDOMEN LIMITED CLINICAL INFORMATION: Pain rule out cholecystitis. COMPARISON: None TECHNIQUE: Real-time imaging of the right upper quadrant abdominal viscera. FINDINGS: PANCREAS: Pancreas not visualized might have been obscured by bowel gas. LIVER: Normal. The liver is normal in size. The liver contour is normal. Parenchymal echogenicity is normal. No focal hepatic lesion. There is no intrahepatic biliary duct dilatation seen. GALLBLADDER: There are numerous gallstones, there is no thickening of the gallbladder wall or pericholecystic fluid. Gallbladder is a distended. COMMON BILE DUCT: Normal in caliber measuring 0.4 cm in diameter. RIGHT KIDNEY: Normal. No hydronephrosis. No renal calculi or focal parenchymal lesions. The kidney measures 9 cm in maximum dimension. FREE FLUID: None. US/US abdomen limited IMPRESSION: Distended gallbladder with multiple gallstones present, cholelithiasis. No gallbladder wall thickening or pericholecystic fluid. If there is high index of suspicion for possible cholecystitis, consider correlation with follow-up HIDA scan.
--- NOTE | ~2021-09-25 | XR_ITS ---
EXAMINATION: PORTABLE CHEST 1 VIEW CLINICAL INFORMATION: fever . COMPARISON: 08/04/2021. TECHNIQUE: Portable frontal view of the chest was obtained. FINDINGS: The patient is rotated to the right. The lungs are mildly hypoexpanded with minimal increased atelectatic changes at the right base. No focal infiltrate, effusion, edema, or pneumothorax. Calcified granuloma in the right upper lobe again noted Cardiac and mediastinal silhouettes are within normal limits for technique. No acute bony abnormality seen. XR/XR chest 1V IMPRESSION: Rotated. Minimal increased atelectatic changes at the right base
--- NOTE | ~2021-09-25 | CT_ITS ---
EXAMINATION: CT ABDOMEN AND PELVIS WITH CONTRAST CLINICAL INFORMATION: Abdominal plain, GI bleed, fever COMPARISON: CT abdomen pelvis 09/30/2011 TECHNIQUE: Multidetector volumetric images were obtained from the superior aspect of the liver through the pubic symphysis following administration 85 mL of Omnipaque 350 intravenous contrast. Sagittal and coronal reformatted images were obtained on the technologist's workstation. Oral contrast: No This CT examination was performed using dose optimization techniques as appropriate, variously including the following: *Automated exposure control *Adjustment of mA and/or kV according to patient size (this includes techniques or standardized protocols for targeted exams where dose is matched to indication/reason for exam; i.e. extremities or head) *Use of iterative reconstruction technique DLP: 432 mGy-cm FINDINGS: LUNG BASES: Patchy bronchocentric consolidation with bronchial wall thickening in the right lung base suspicious for aspiration or infection. ABDOMINAL AND PELVIC WALL: A thin linear enhancing tract is noted extending from the anus at 2:00 into the left gluteal cleft. LIVER AND BILIARY TREE: Unremarkable. GALLBLADDER: Gallbladder is distended however without radiopaque gallstones or jany pericholecystic inflammatory changes. PANCREAS: Fatty atrophy of the pancreas. SPLEEN: Unremarkable. ADRENAL GLANDS: Unremarkable. KIDNEYS AND URETERS: Unremarkable. GASTROINTESTINAL TRACT: Small hiatal hernia. Rectum is decompressed however there is equivocal wall thickening and hyperenhancement. VASCULAR: Atherosclerosis of the abdominal aorta. LYMPH NODES/PERITONEUM: No lymphadenopathy. FREE FLUID: None. BLADDER: Soft tissue fullness of the periurethral soft tissues of uncertain etiology however unchanged from 2012. PELVIC VISCERA: Unremarkable. OSSEOUS STRUCTURES: Grade 2 anterolisthesis of L5 on S1 similar to prior. New age-indeterminate wedge compression deformity of the L4 vertebral body with approximately 50% height loss. New age-indeterminate mild superior wedge compression deformity of the L2 vertebral body with 25% height loss. CT/CT abdomen pelvis w con IMPRESSION: Patchy bronchocentric consolidation with bronchial wall thickening in the right lung base suspicious for aspiration or infection. Rectum is decompressed however there is equivocal wall thickening and hyperenhancement which can be seen in the setting of proctitis if clinical symptoms are appropriate. A thin linear enhancing tract is noted extending from the anus at 2:00 into the left gluteal cleft, which could possibly reflect a perianal fistula. Recommend clinical relation clinical symptoms. Gallbladder is distended however without radiopaque stones or jany pericholecystic inflammatory change. A right upper quadrant ultrasound could be obtained for further evaluation if clinically warranted. New age-indeterminate wedge compression deformity of the L4 vertebral body with approximately 50% height loss. New age-indeterminate mild superior wedge compression deformity of the L2 vertebral body with 25% height loss. Soft tissue fullness of the periurethral soft tissues of uncertain etiology however unchanged from 2012.
--- NOTE | 2021-09-25 12:24 | ECG_ITS ---
Test Reason : SOB Blood Pressure : / mmHG Vent. Rate : 104 BPM Atrial Rate : 104 BPM P-R Int : 134 ms QRS Dur : 084 ms QT Int : 332 ms P-R-T Axes : 052 -25 043 degrees QTc Int : 436 ms Sinus tachycardia Otherwise normal ECG When compared with ECG of 05-AUG-2021 06:29, Vent. rate has increased BY 40 BPM Referred By: Toyin Delgadillo Electronically Signed By:JESICA RIVAS MD
--- NOTE | 2021-09-25 12:28 | ED.NAVMDI ---
HPI - Nausea/Vomiting/Diarrhea General Chief complaint: Nausea/Vomiting/Diarrhea Stated complaint: Fluid in lungs? Time Seen by Provider: 09/25/21 12:08 Source: family Mode of arrival: ambulatory Limitations: no limitations History of Present Illness HPI Narrative: Patient comes to emergency room accompanied by her granddaughter. Patient has history of dementia and is nonverbal at baseline. To in the morning, patient was found in her bed with black vomitus and diarrhea all over her. It took her temperature, patient was afebrile. Patient is more quiet than usual, they noted she was tachycardic, they brought the patient to the emergency room. Patient is unable to provide any history. Related Data Home Medications Medication Instructions Recorded Confirmed multivitamin (Daily-Kimberley) 1 tab PO DAILY 11/18/20 08/04/21 quetiapine 25 mg tablet 1 tab PO TID 11/18/20 08/04/21 Previous Rx's Medication Instructions Recorded cefuroxime axetil 250 mg tablet 250 mg PO BID 3 Days #6 tab 08/06/21 Allergies Allergy/AdvReac Type Severity Reaction Status Date / Time aspirin [ASPIRIN] Allergy Unknown UNKNOWN Verified 11/18/20 17:50 ibuprofen [IBUPROFEN] Allergy Unknown SWELLING Verified 11/18/20 17:50 Review of Systems Review of Systems: Yes Unobtainable due to mental condition [facility] Past Medical History Medical History Alzheimer disease Asthma Failure to thrive in adult Social History Social History Household Members: Family Housing: House Do you presently have visiting nurse or other home services: No Alcohol intake: never Patient Tobacco Use Status: Never used Tobacco Advance Directives: No Advance Directives Information Provided: No Advance Directives Date on File: 08/05/21 service: No Current occupational status: retired Physical Exam Vital Signs: Vital Signs: Last Vital Signs Temp 102.9 F H 09/25/21 13:01 Pulse 110 H 09/25/21 13:01 Resp 16 09/25/21 13:01 BP 118/37 L 09/25/21 13:01 Pulse Ox 94 09/25/21 13:01 BMI result Body Mass Index 20.5 Const: Other: Appearance: Alert. No acute distress Eyes: Pupils equal, round and reactive to light. ENT: Dry mucous membranes, missing several teeth Neck: Normal inspection. Neck supple. No lymph nodes noted. No crepitus CVS: Tachycardic, regular rhythm. Pulses normal. Normal S1 and S2 Respiratory: No respiratory distress. Breath sounds normal. No Wheezing. No rales Abdomen: Soft and nontender. No rigidity. No distention. Skin: Skin warm and dry. Normal skin color. Normal skin turgor. Extremities: No lower extremity edema. Lower extremity contractures Neuro: Unable to participate in cranial nerve assessment, roughly intact Psych: calm Course Course Course Narrative: On physical exam, patient feels very warm to touch. Rectal temperature was taken, patient had a fever of 102 F It is possible that patient may have aspirated. All the labs are pending. Patient is empirically being treated with Zosyn, Tylenol and IV fluids have been started. Patient tested positive for COVID-19. At this time, patient is not having any difficulty breathing. Oxygen saturation in the mid 90s at room air. However, patient is very weak. Also, patient has a an occult GI bleed, patient's H&H is stable MDM - Nausea/Vomiting/Diarrhea Lab Data Labs: Lab Results 09/25/21 09/25/21 09/25/21 Range/Units 12:21 12:21 12:21 Stool Occult Blood POSITIVE (NEGATIVE) COVID-19 (BAUDILIO) Positive A (Negative) COVID-19 Clin Com See Note Influenza Type A (NELL) Negative (Negative) Influenza Type B (NELL) Negative (Negative) Influenza A & B Note See Note Discharge Plan Discharge Clinical Impression: COVID-19, Generalized weakness, GI bleed Patient Disposition: Admitted As Inpatient Prescriptions: No Action multivitamin [Daily-Kimberley] Tablet 1 tab PO DAILY 0RF quetiapine 25 mg tablet 1 tab PO TID 0RF cefuroxime axetil 250 mg tablet 250 mg PO BID 3 Days Qty: 6 0RF
[2021-09-25] MEDS: Acetaminophen Supp 650 MG SUPP.RECT PR (12:36)
[2021-09-25] MEDS: 0.9 % Sodium Chloride 1,500 ML 999 ML IVCONT (13:00)
[2021-09-25 13:02] LABS: IDNOW Serial# 16C4AD1C
[2021-09-25 13:03] LABS: COVID-19 Test Positive (Negative)
--- NOTE | 2021-09-25 13:10 | PC.NURSE ---
Addendum entered by Inez Lin RN 09/25/21 19:53: rectal exam performed by provider- sample sent to lab Original Note: patient awake/non verbal at baseline/contracted at baseline, iv inserted, nasal swabs performed, cxr performed, pt medicated with rectal tylenol and ivf, tech to obtain labs as pt is a difficult stick
[2021-09-25 13:14] LABS: Influenza A Negative (Negative); Influenza B2 Negative (Negative)
[2021-09-25 13:17] LABS: OBS Int Ctl Valid YES; OBS1 POSITIVE (NEGATIVE)
[2021-09-25 14:09] LABS: Basophils Percent Auto 0.1 % (0-2); Hematocrit 38.8 % (37.0-47.0); Hemoglobin 12.3 g/dl (12.0-16.0); Imm Gran Abs Auto 0.03 X10*3/uL (0.00-0.03); Imm Gran Pct Auto 0.3 % (0.0-0.4); Lymphocytes Absolute Auto 0.5 X10*3/uL (1.2-4.9); MANUAL DIFF FLAG SCAN; Mean Corpuscular HGB Conc 31.7 g/dl (31.0-35.0); Mean Corpuscular Hemoglobin 29.6 pg (27.0-33.0); Mean Corpuscular Volume 93.3 fL (80.0-98.0); Mean Platelet Volume 9.4 fL (9.4-12.3); Monocytes Absolute Auto 0.3 X10*3/uL (0.1-1.2); Monocytes Percent Auto 2.7 % (2-11); Neutrophils Absolute Auto 8.6 x10*3/uL (2.0-8.3); Neutrophils Percent Auto 91.9 % (45-73); Platelet Count 239 X10*3/uL (160-400); Red Blood Count 4.16 X10*6/uL (4.20-5.50); Red Cell Distribution Width 13.2 % (11.0-16.0); SCAN SMEAR FLAG 1; White Blood Count 9.4 X10*3/uL (4.8-10.8)
[2021-09-25] MEDS: Piperacillin Sodium/Tazobactam 3.375 GM in 0.9 % Sodium Chloride 50 ML IV ×2 (14:14→19:37)
[2021-09-25 14:16] LABS: INTERNATIONAL NORM RATIO 1.2 (0.9-1.1); Prothrombin Time 13.4 SEC (9.9-13.0)
--- NOTE | 2021-09-25 14:20 | PC.NURSE ---
blood cultures and labs drawn per order, pt medicated with abx per order
[2021-09-25 14:23] LABS: Alanine Aminotransferase 18 U/L (0-31); Albumin Level 3.9 g/dL (3.5-5.0); Alkaline Phosphatase 47 U/L (39-117); Anion Gap 15 (12-20); Aspartate Amino Transferase 27 U/L (5-31); Bilirubin Direct 0.4 mg/dL (0.0-0.5); Bilirubin Total 0.8 mg/dL (0.0-1.0); Blood Urea Nitrogen 25 mg/dL (9-16); Calcium 9.4 mg/dL (8.4-10.2); Carbon Dioxide 25 mmol/L (22-29); Chloride 108 mmol/L (96-108); Creatinine Clr Calc Pharmacy 36.4; Estimated Glomerular Filt Rate > 60; Glucose Random 128 mg/dL (60-115); Lipase < 4 U/L (8-78); Potassium 3.8 mmol/L (3.3-5.1); Sodium 144 mmol/L (135-145); Total Protein 6.4 g/dL (6.5-8.0)
[2021-09-25 14:25] LABS: B Type Natriuretic Peptide 94 pg/mL (<100)
[2021-09-25 14:28] LABS: SLIDE REVIEW VERIFIED
--- NOTE | 2021-09-25 14:44 | PHA.MEDREC ---
Pharmacy Consult ? Medication Reconciliation Pharmacy has completed the medication reconciliation.
[2021-09-25] MEDS: dexAMETHasone sod phosphate 4 MG/ML VIAL 6 MG IVPUSH ×2 (14:47→19:36)
--- NOTE | 2021-09-25 14:50 | PC.NURSE ---
pt had two orders for decadron, spoke with ed provider pt to have 1 dose only, 1 dose was held, second dose was administered as ordered
[2021-09-25 16:02] LABS: Reflex Lactate? Lactic Acid Added
[2021-09-25] MEDS: iohexoL 350 MG/ML 100 ML INFUS..BTL 85 ML IV (16:06)
--- NOTE | 2021-09-25 16:20 | PC.NURSE ---
patient sleeping, wakes to verbal stimulus, family at bedside,property assessment monitor intact, repeat VL drawn, will continue to monitor
[2021-09-25] MEDS: Dextrose 5 % and 0.9 % NaCl 1,000 ML 100 ML IVCONT (16:50)
[2021-09-25] MEDS: Pantoprazole Sodium 40 MG/10 ML VIAL IVPUSH (16:50)
--- NOTE | 2021-09-25 16:53 | PC.NURSE ---
pt sleeping, woke to verbal stimulus, security monitor intact, pt medicated per order, will continue to monitor
--- NOTE | 2021-09-25 16:55 | PC.NURSE ---
pt medicated per order
[2021-09-25 17:01] LABS: ~Lactic Acid-LAB USE ONLY 3.5 mmol/L (0.5-2.0)
--- NOTE | 2021-09-25 17:12 | P.HPHOSP_ITS ---
History of Present Illness Date of Service: 09/25/21 Chief Complaint: sepsis 81-year-old female with past medical history of Alzheimer's dementia, basically bedbound, also contracted, mute, brought to hospital to the hospital-as per the granddaughter at bedside: Patient was found to have a episode of diarrhea and dark vomitus this morning, as per granddaughter she was also breathing heavily that time. Otherwise granddaughter denies-any episode of fever chills or any signs of pain as per granddaughter or any cough or any foul-smelling urination. Patient lives with her son in a 2 family house where her daughter also lives: As per the family last night when they put her on the bed she was at her baseline and this morning she had vomiting and was getting generally weak than usual. So brought to the hospital due to above mentioned complaints. ED physician given the admission for possible aspiration pneumonia . ED labs reviewed patient was tachycardic tachypneic and fever of 102.9*f, lactic acid of 4 Patient was given 30 cc bolus, antibiotic,dexamethsone In addition patient occult blood was checked due to dark stools and came out to positive. CT abdomen ordered which is still needed to be completed. Review of Systems Review of Systems: As above. [facility] Medical History Alzheimer disease Asthma Failure to thrive in adult Pertinent family history: Alzheimer dementia, hypercholesteremia. Social History Household Members: Family Housing: House Do you presently have visiting nurse or other home services: No Alcohol intake: never Patient Tobacco Use Status: Never used Tobacco Advance Directives: Yes Advance Directives on File: Yes Advance Directives Date on File: 08/05/21 service: No Current occupational status: retired Meds Allergies Allergy/AdvReac Type Severity Reaction Status Date / Time aspirin [ASPIRIN] Allergy Unknown UNKNOWN Verified 11/18/20 17:50 ibuprofen [IBUPROFEN] Allergy Unknown SWELLING Verified 11/18/20 17:50 Active Medications: Current Medications Dexamethasone Sodium Phosphate (Dexamethasone Sod Phosphate 4 Mg/Ml Vial) 6 mg IVPUSH DAILY WILLIAM Last Admin: 09/25/21 14:43 Dose: Not Given Documented by: Dexamethasone Sodium Phosphate (Dexamethasone Sod Phosphate 4 Mg/Ml Vial) 6 mg IVPUSH Q6H [facility] Piperacillin Sod/Tazobactam (Sod 3.375 gm/ Sodium Chloride) 50 mls @ 100 mls/hr IV Q6H [facility] Lactated Ringer's (Lr) 500 mls @ 500 mls/hr IVCONT .Q1H PRN PRN Reason: sepsis Pantoprazole Sodium (Pantoprazole Sodium 40 Mg/10 Ml Vial) 40 mg IVPUSH BID@0630,1630 [facility] Last Admin: 09/25/21 16:50 Dose: 40 mg Documented by: Pharmacy Consult (Consult Rx Perform Med Rec) 1 each MISCELLANE ONCE PRN PRN Reason: Consult order Sodium Chloride (0.9 % Sodium Chloride Flush 3 Ml Syringe) 3 ml IVFLUSH QSHIFT [facility] Home Medications Medication Instructions Recorded Confirmed Last Taken Type multivitamin (Daily-Kimberley) 1 tab PO DAILY 11/18/20 09/25/21 09/24/21 History quetiapine 25 mg tablet 1 tab PO TID 11/18/20 09/25/21 09/24/21 History acetaminophen 160 mg/5 mL oral 15 ml PO Q6H PRN 09/25/21 09/25/21 Unknown History liquid ([place]) Physical Exam Vital Signs and Narrative: Vital Signs: Last Vital Signs Temp 102.1 F H 09/25/21 14:16 Pulse 106 H 09/25/21 14:16 Resp 16 09/25/21 14:16 BP 108/55 L 09/25/21 14:16 Pulse Ox 94 09/25/21 14:16 BMI result Body Mass Index 20.5 Appearance: somewaht sleepy but easily arousable. Eyes: Pupils equal, round and reactive to light.? Sclera nonicteric.? ENT: Pharynx normal.? Moist mucous membranes seems dry. cvs: [id number], [id number] res: fair air entry ,diminished at bases. abd: no rebound or guarding ,nt, bs present. ext pulses present , no cyanosis . neuro: mute , contracted , but awake at baselne. Results Labs CBC and Chem 7: 09/25/21 13:55 09/25/21 13:55 Labs: Laboratory Results - last 24 hr 09/25/21 09/25/21 09/25/21 12:21 12:21 12:21 MCV MCH MCHC RDW Plt Count MPV Immature Gran % (Auto) Neut % (Auto) Lymph % (Auto) [place] % (Auto) Eos % (Auto) Baso % (Auto) Lymph # (Auto) [place] # (Auto) Eos # (Auto) Baso # (Auto) Abs Immat Gran (auto) Absolute Neuts (auto) Absolute Nucleated RBC Nucleated RBC % (auto) Smear Tech's Comments PT INR Anion Gap Estim Creat Clear Calc Estimated GFR Random Glucose Lactic Acid Lactic Acid F/U @ 2Hr Calcium Total Bilirubin Direct Bilirubin AST ALT Alkaline Phosphatase B-Natriuretic Peptide Total Protein Albumin Lipase Stool Occult Blood POSITIVE COVID-19 (BAUDILIO) Positive A COVID-19 Clin Com See Note Influenza Type A (NELL) Negative Influenza Type B (NELL) Negative Influenza A & B Note See Note 09/25/21 09/25/21 09/25/21 13:55 13:55 13:55 MCV 93.3 MCH 29.6 MCHC 31.7 RDW 13.2 Plt Count 239 MPV 9.4 Immature Gran % (Auto) 0.3 Neut % (Auto) 91.9 H Lymph % (Auto) 5.0 L [place] % (Auto) 2.7 Eos % (Auto) 0.0 Baso % (Auto) 0.1 Lymph # (Auto) 0.5 L [place] # (Auto) 0.3 Eos # (Auto) 0.0 Baso # (Auto) 0.0 Abs Immat Gran (auto) 0.03 Absolute Neuts (auto) 8.6 H Absolute Nucleated RBC 0.000 Nucleated RBC % (auto) 0.0 Smear Tech's Comments VERIFIED PT 13.4 H INR 1.2 H Anion Gap 15 Estim Creat Clear Calc 36.4 Estimated GFR > 60 Random Glucose 128 H Lactic Acid Lactic Acid F/U @ 2Hr Calcium 9.4 Total Bilirubin 0.8 Direct Bilirubin 0.4 AST 27 ALT 18 Alkaline Phosphatase 47 D B-Natriuretic Peptide Total Protein 6.4 L Albumin 3.9 Lipase < 4 L Stool Occult Blood COVID-19 (BAUDILIO) COVID-19 Clin Com Influenza Type A (NELL) Influenza Type B (NELL) Influenza A & B Note 09/25/21 09/25/21 09/25/21 13:55 13:56 16:19 MCV MCH MCHC RDW Plt Count MPV Immature Gran % (Auto) Neut % (Auto) Lymph % (Auto) [place] % (Auto) Eos % (Auto) Baso % (Auto) Lymph # (Auto) [place] # (Auto) Eos # (Auto) Baso # (Auto) Abs Immat Gran (auto) Absolute Neuts (auto) Absolute Nucleated RBC Nucleated RBC % (auto) Smear Tech's Comments PT INR Anion Gap Estim Creat Clear Calc Estimated GFR Random Glucose Lactic Acid 4.0 H* Lactic Acid F/U @ 2Hr 3.5 H* Calcium Total Bilirubin Direct Bilirubin AST ALT Alkaline Phosphatase B-Natriuretic Peptide 94 Total Protein Albumin Lipase Stool Occult Blood COVID-19 (BAUDILIO) COVID-19 Clin Com Influenza Type A (NELL) Influenza Type B (NELL) Influenza A & B Note Imaging Radiologist's Impressions: Impressions Chest X-Ray 09/25/21 12:34 IMPRESSION: Rotated. Minimal increased atelectatic changes at the right base Assessment and Plan (1) COVID-19: Status: Acute (2) GI bleed: Status: Acute (3) Generalized weakness: Status: Acute Plan 81-year-old female with past medical history of Alzheimer's dementia came to the hospital because of 1 episode of vomiting and diarrhea: Possible aspiration pneumonia and COVID infection. 1. Severe sepsis probably related to aspiration pneumonia and COVID infection Started on dexamethasone, IV antibiotic, receivin 30 cc bolus(received 1 L earlier by ED +added another fluids 500 ml) had covid vaccine 09/06 , but no booster. 2. Aliheimer dementia : supportive care. 3. Nausea vomiting and occult blood positive: type and cross h/h in evening Ct abd pending PPI Gi eval. [facility] Discussed with the granddaughter and bedside in detail length, time spent 70 m inute, says patient is DNR DNI. HCP daughter Betsy ([phone]). Quality Stroke Does the patient have a stroke diagnosis?: No VTE Prior VTE?: No VTE Risk Level:: Medical - moderate - high VTE Device Contraindication: N/A - Device Ordered VTE Drug Contraindication: N/A - Med Ordered
[2021-09-25] MEDS: Lactated Ringers 500 ML IVCONT (17:18)
[2021-09-25 18:23] LABS: Reflex Lactate? 2 Y
--- NOTE | 2021-09-25 19:10 | PC.NURSE ---
tech to draw t&s and repeat VL.
[2021-09-25 19:38] LABS: ~Lactic Acid-LAB USE ONLY 2.8 mmol/L (0.5-2.0)
--- NOTE | 2021-09-25 19:47 | PC.NURSE ---
Took report from Inez to assume care of Pt, Pt resting comfortably, Pt on cardian monitor, Pt needs met at this time, call light in reach, this RN continues to monitor.
--- NOTE | 2021-09-25 20:13 | PC.NURSE ---
report called to floor, pt ready to be transported
--- NOTE | 2021-09-25 20:27 | PC.NURSE ---
patients granddaughter tells us that when she does start to eat all the food must be pureed and thickener must be added to the liquids.
[2021-09-26] VITALS (8 sets, daily range): BP systolic 88–115; BP diastolic 50–68; PULSE 66–104; RESP 15–20; TEMP 35.9–37.1; O2SAT 94–99
[2021-09-26] MEDS: 0.9 % Sodium Chloride Flush 3 ML SYRINGE IVFLUSH ×3 (00:22→15:28)
[2021-09-26] MEDS: dexAMETHasone sod phosphate 4 MG/ML VIAL 6 MG IVPUSH ×4 (02:16→20:26)
[2021-09-26] MEDS: Piperacillin Sodium/Tazobactam 3.375 GM in 0.9 % Sodium Chloride 50 ML IV ×4 (02:18→20:25)
[2021-09-26] MEDS: Pantoprazole Sodium 40 MG/10 ML VIAL IVPUSH ×2 (05:42→15:28)
[2021-09-26 05:57] LABS: MANUAL DIFF FLAG NO
[2021-09-26 06:02] LABS: Basophils Percent Auto 0.1 % (0-2); Hematocrit 31.6 % (37.0-47.0); Hemoglobin 10.2 g/dl (12.0-16.0); Imm Gran Abs Auto 0.05 X10*3/uL (0.00-0.03); Imm Gran Pct Auto 0.4 % (0.0-0.4); Lymphocytes Absolute Auto 1.8 X10*3/uL (1.2-4.9); Lymphocytes Percent Auto 13.7 % (20-40); Mean Corpuscular HGB Conc 32.3 g/dl (31.0-35.0); Mean Corpuscular Hemoglobin 29.7 pg (27.0-33.0); Mean Corpuscular Volume 91.9 fL (80.0-98.0); Mean Platelet Volume 9.6 fL (9.4-12.3); Monocytes Absolute Auto 0.4 X10*3/uL (0.1-1.2); Monocytes Percent Auto 2.9 % (2-11); Neutrophils Absolute Auto 10.9 x10*3/uL (2.0-8.3); Neutrophils Percent Auto 82.9 % (45-73); Platelet Count 213 X10*3/uL (160-400); Red Blood Count 3.44 X10*6/uL (4.20-5.50); Red Cell Distribution Width 13.2 % (11.0-16.0); White Blood Count 13.2 X10*3/uL (4.8-10.8)
[2021-09-26 06:16] LABS: Anion Gap 14 (12-20); Blood Urea Nitrogen 25 mg/dL (9-16); Calcium 9.6 mg/dL (8.4-10.2); Carbon Dioxide 25 mmol/L (22-29); Chloride 110 mmol/L (96-108); Estimated Glomerular Filt Rate > 60; Glucose Random 141 mg/dL (60-115); Potassium 4.1 mmol/L (3.3-5.1); Sodium 145 mmol/L (135-145)
--- NOTE | 2021-09-26 08:01 | MHC.CM.PN ---
Patient lives at home w/family (daughter), son owns house but does not live there. Other daughter (Mega-does not live w/her), is HCP (on file). 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 Patient lives on first floor of home w/full bath for bathing on first floor. She owns a WC and a carolina lift (family does not know how to operate carolina lift and therefore does not use it). There are 3 stairs to enter the home; family all help to get her in and out of the home together to get her to and from appointments. They are currently working on obtaining a portable ramp. PCP verified. Family requesting upon D/C that she is sent home via ambulance for D/C. IMM reviewed w/HCP and HCP is requesting copy sent to her directly. HCP also requesting VNA for D/C to home as there is no VNA presently in place. She intends on attempting to locate information of VNA patient had a while back and letting CM know which agency it was as the family was happy with the care. Will stay tuned for VNA information from HCP. CM to follow.
[2021-09-26 10:28] LABS: Adenovirus PCR Not Detected (Not Detect.); Bordetella parapertussis PCR Not Detected (Not Detect.); Bordetella pertussis PCR Not Detected (Not Detect.); Chlamydia pneumoniae PCR Not Detected (Not Detect.); Coronavirus 229E PCR Not Detected (Not Detect.); Coronavirus HKU1 PCR Not Detected (Not Detect.); Coronavirus NL63 PCR Not Detected (Not Detect.); Coronavirus OC43 PCR Not Detected (Not Detect.); Human metapneumovirus PCR Not Detected (Not Detect.); Influenza A PCR Not Detected (Not Detect.); Influenza B PCR Not Detected (Not Detect.); Mycoplasma pneumoniae PCR Not Detected (Not Detect.); Parainfluenza 1 PCR Not Detected (Not Detect.); Parainfluenza 2 PCR Not Detected (Not Detect.); Parainfluenza 3 PCR Not Detected (Not Detect.); Parainfluenza 4 PCR Not Detected (Not Detect.); RSV PCR Not Detected (Not Detect.); Rhino/Enterovirus PCR Not Detected (Not Detect.); SARS-CoV-2 PCR Not Detected (Not Detect.)
--- NOTE | 2021-09-26 11:08 | P.CNGI_ITS ---
History of Present Illness Data of Consult Service Date: 09/26/21 Requesting physician: Cleo Small Primary Care Provider: DO LORNA Lopes Reason for consult: Gi Bleeding 81 YF with Alzheimer's disease, asthma presented to [facility] on 09/25/21 accompanied by her granddaughter.? Patient is nonverbal at baseline.? Yesterday morning, patient was found in her bed with black vomitus and diarrhea all over her.? Patient was more quiet than usual and family noted that she had tachycardic, Pt was afebrile at home and had a fever of 102 in the ED - felt to have aspiration pneumonia Patient is unable to provide any history. Labs showed WBC 9.4, H&H 12.3 and 38.3 COVID positive. Patient was admitted for further management. Repeat labs today showed H&H of 10.2 and 31.6. IMAGING STUDIES: 09/25/[address] SCAN SHOWED: Patchy bronchocentric consolidation with bronchial wall thickening in the right lung base suspicious for aspiration or infection. ? Rectum is decompressed however there is equivocal wall thickening and hyperenhancement which can be seen in the setting of proctitis if clinical symptoms are appropriate. ? A thin linear enhancing tract is noted extending from the anus at 2:00 into the left gluteal cleft, which could possibly reflect a perianal fistula. Recommend clinical relation clinical symptoms. ? Gallbladder is distended however without radiopaque stones or jany pericholecystic inflammatory change. A right upper quadrant ultrasound could be obtained for further evaluation if clinically warranted. ? New age-indeterminate wedge compression deformity of the L4 vertebral body with approximately 50% height loss. New age-indeterminate mild superior wedge compression deformity of the L2 vertebral body with 25% height loss.? 09/26/21 ABDOMINAL ULTRASOUND SHOWED: Distended gallbladder with multiple gallstones present, cholelithiasis. No gallbladder wall thickening or pericholecystic fluid. ENDOSCOPIC STUDIES : colonoscopy was performed by Dr. Biswas and showed small internal hemorrhoids and mild sigmoid diverticulosis Review of Systems Review of Systems: Not obtainable since patient is nonverbal [facility] Past Medical History Medical History (Updated 09/28/21 @ 11:02 by Cleo Small MD) Alzheimer disease Aspiration pneumonia Asthma Failure to thrive in adult Social History Social History Household Members: Family Housing: Apartment Do you presently have visiting nurse or other home services: Yes Alcohol intake: never Patient Tobacco Use Status: Never used Tobacco Advance Directives Date on File: 08/05/21 service: No Current occupational status: retired Meds Allergies Allergy/AdvReac Type Severity Reaction Status Date / Time aspirin [ASPIRIN] Allergy Unknown UNKNOWN Verified 11/18/20 17:50 ibuprofen [IBUPROFEN] Allergy Unknown SWELLING Verified 11/18/20 17:50 Active Medications: Current Medications Dexamethasone Sodium Phosphate (Dexamethasone Sod Phosphate 4 Mg/Ml Vial) 6 mg IVPUSH DAILY [facility] Last Admin: 09/26/21 10:27 Dose: Not Given Documented by: Dexamethasone Sodium Phosphate (Dexamethasone Sod Phosphate 4 Mg/Ml Vial) 6 mg IVPUSH Q6H [facility] Last Admin: 09/26/21 10:28 Dose: 6 mg Documented by: Piperacillin Sod/Tazobactam (Sod 3.375 gm/ Sodium Chloride) 50 mls @ 100 mls/hr IV Q6H [facility] Last Admin: 09/26/21 10:28 Dose: 100 mls/hr Documented by: Lactated Ringer's (Lr) 1,000 mls @ 80 mls/hr IVCONT .[id number] [facility] Pantoprazole Sodium (Pantoprazole Sodium 40 Mg/10 Ml Vial) 40 mg IVPUSH BID@0630,1630 [facility] Last Admin: 09/26/21 05:42 Dose: 40 mg Documented by: Pharmacy Consult (Consult Rx Perform Med Rec) 1 each MISCELLANE ONCE PRN PRN Reason: Consult order Sodium Chloride (0.9 % Sodium Chloride Flush 3 Ml Syringe) 3 ml IVFLUSH QSHIFT [facility] Last Admin: 09/26/21 10:26 Dose: 3 ml Documented by: Home Medications Medication Instructions Recorded Confirmed Last Taken Type multivitamin (Daily-Kimberley) 1 tab PO DAILY 11/18/20 09/25/21 09/24/21 History quetiapine 25 mg tablet 1 tab PO TID 11/18/20 09/25/21 09/24/21 History acetaminophen 160 mg/5 mL oral 15 ml PO Q6H PRN 09/25/21 09/25/21 Unknown History liquid ([place]) Physical Exam Vital Signs: Vital Signs: Last Vital Signs Temp 96.6 F L 09/26/21 08:00 Pulse 71 09/26/21 08:00 Resp 20 09/26/21 08:00 BP 115/50 L 09/26/21 08:00 Pulse Ox 94 09/26/21 08:00 BMI result Body Mass Index 20.5 Const: General: no acute distress and other (Non verbal) Nutritional Appearance: thin Limitations: other limitations HEENT: Head: Yes normal to inspection Ears: hearing grossly normal bilaterally Eyes: Sclerae: sclerae normal Pupils: Equal, round and reactive pupils present Neck: Neck: Yes normal visual inspection Chest: Chest palpation & inspection: normal inspection of the chest Resp: Effort & Inspection: normal respiratory effort Auscultation: clear to auscultation bilaterally and diminished lung sounds Cardio: Palpation: normal PMI Rate: regular rate Rhythm: regular rhythm Heart sounds: S1 normal heart sound present, S2 normal heart sound present and no murmurs GI: Palpation (GI): Soft to palpation, nontender and No hepatosplenomegaly present Auscultation: normal bowel sounds Rectal Exam - Female: deferred Skin: General skin exam: no rashes or lesions noted Neuro: Cranial nerves: Yes Equal, round and reactive pupils present Cognition (Neuro): abnormal cognition (Dementia) Speech: Other speech findings present (Neuro) (Nonverbal) Extrem: General: Yes other (bilateral contractures ) Psych: Appearance: grossly normal Mental Status: other (Nonverbal due to dementia) Results Labs CBC & Chem 7: 09/30/21 06:25 09/30/21 06:25 Labs: Short CBC 09/25/21 09/26/21 Range/Units 13:55 05:39 WBC 9.4 13.2 H (4.8-10.8) X10*3/uL Hgb 12.3 10.2 L (12.0-16.0) g/dl Hct 38.8 31.6 L (37.0-47.0) % Plt Count 239 213 (160-400) X10*3/uL BMP 09/25/21 09/26/21 13:55 05:39 Sodium 144 145 Potassium 3.8 4.1 Chloride 108 110 H Carbon Dioxide 25 25 BUN 25 H 25 H Creatinine 0.87 0.79 Calcium 9.4 9.6 Liver Function 09/25/21 Range/Units 13:55 Total Bilirubin 0.8 (0.0-1.0) mg/dL Direct Bilirubin 0.4 (0.0-0.5) mg/dL AST 27 (5-31) U/L ALT 18 (0-31) U/L Alkaline Phosphatase 47 D (39-117) U/L Albumin 3.9 (3.5-5.0) g/dL Assessment and Plan (1) GI bleed: Status: Acute (2) COVID-19: Status: Acute (3) Cholelithiasis: Status: Acute Plan 81 YF with Alzheimer's disease, asthma admitted with fever, UGI bleeding and aspiration pneumonia UGI Bleeding likely from erosive esophagitis, gastritis or PUD. Labs showed WBC 9.4, H&H 12.3 and 38.3 , Repeat labs today showed H&H of 10.2 and 31.6. COVID positive. 09/25/[address] SCAN SHOWED: Patchy bronchocentric consolidation with bronchial wall thickening in the right lung base suspicious for aspiration or infection. Rectum is decompressed however there is equivocal wall thickening and hyperenhancement which can be seen in the setting of proctitis if clinical symptoms are appropriate. A thin linear enhancing tract is noted extending from the anus at 2:00 into the left gluteal cleft, which could possibly reflect a perianal fistula. ?Abd US showed multiple gallstones without cholecystitis RECOMMENDATIONS: 1. Follow CBC daily and transfuse if hb is < 8. 2. Agree with IV PPI and switch to PO if H & H remains stable 3. Given advanced dementia and COVID 19 infection, would hold off endoscopic intervention. Procedures Date of Service Date of Service: 09/26/21
[2021-09-26] MEDS: Lactated Ringers 1,000 ML 80 ML IVCONT (11:46)
[2021-09-26] MEDS: 0.9 % Sodium Chloride 1,000 ML 500 ML IVCONT (13:41)
--- NOTE | 2021-09-26 15:21 | P.PNIM_ITS ---
Subjective Subjective Date of Service: 09/26/21 Interval History: anemia , aspirtional pneumonia Review of Systems Patient seems awake, baseline does not follow any commands no new fever, blood pressure softer side Physical Exam Vital Signs: Vital Signs: Last Vital Signs Temp 98.0 F 09/26/21 15:19 Pulse 74 09/26/21 15:19 Resp 18 09/26/21 15:19 BP 100/56 L 09/26/21 15:19 Pulse Ox 96 09/26/21 15:19 BMI result Body Mass Index 20.5 Appearance: somewaht sleepy but? easily arousable. Eyes: Pupils equal, round and reactive to light.? Sclera nonicteric.? ENT: Pharynx normal.? Moist mucous membranes seems dry. cvs: rrr, [id number] res: fair air entry ,diminished at bases. abd: no rebound or guarding ,no gramces or pain expresion when palpated abd, bs present. ext pulses present , no cyanosis . neuro: mute , contracted , but awake at [facility]. Objective Data Active Medications Dexamethasone Sodium Phosphate (Dexamethasone Sod Phosphate 4 Mg/Ml Vial) 6 mg IVPUSH DAILY [facility] Last Admin: 09/26/21 10:27 Dose: Not Given Documented by: VISH Non-Admin Reason: Duplicate Order Dexamethasone Sodium Phosphate (Dexamethasone Sod Phosphate 4 Mg/Ml Vial) 6 mg IVPUSH Q6H [facility] Last Admin: 09/26/21 14:30 Dose: 6 mg Documented by: VISH Piperacillin Sod/Tazobactam (Sod 3.375 gm/ Sodium Chloride) 50 mls @ 100 mls/hr IV Q6H [facility] Last Infusion: 09/26/21 11:21 Dose: 100 mls/hr Documented by: VISH Lactated Ringer's (Lr) 1,000 mls @ 80 mls/hr IVCONT .[id number] [facility] Last Admin: 09/26/21 11:46 Dose: 80 mls/hr Documented by: VISH Pantoprazole Sodium (Pantoprazole Sodium 40 Mg/10 Ml Vial) 40 mg IVPUSH BID@0630,1630 [facility] Last Admin: 09/26/21 05:42 Dose: 40 mg Documented by: ASHLEY Pharmacy Consult (Consult Rx Perform Med Rec) 1 each MISCELLANE ONCE PRN PRN Reason: Consult order Sodium Chloride (0.9 % Sodium Chloride Flush 3 Ml Syringe) 3 ml IVFLUSH QSHIFT [facility] Last Admin: 09/26/21 10:26 Dose: 3 ml Documented by: VISH Labs CBC & Chem 7: 09/26/21 05:39 09/26/21 05:39 Labs: Laboratory Results - last 24 hr 09/25/21 09/25/21 09/25/21 09:00 16:19 19:14 MCV MCH MCHC RDW Plt Count MPV Immature Gran % (Auto) Neut % (Auto) Lymph % (Auto) Day % (Auto) Eos % (Auto) Baso % (Auto) Lymph # (Auto) Day # (Auto) Eos # (Auto) Baso # (Auto) Abs Immat Gran (auto) Absolute Neuts (auto) Absolute Nucleated RBC Nucleated RBC % (auto) Anion Gap Estim Creat Clear Calc Estimated GFR Random Glucose Lactic Acid F/U @ 2Hr 3.5 H* Lactic Acid F/U @ 4Hr 2.8 H* Calcium Respiratory Panel Olivares See Note Adenovirus (Rapid PCR) Not Detected B.pert (TEM-PCR) Not Detected B.parapertussis DNA PCR Not Detected C. pneumoniae DNA (PCR) Not Detected Coronavirus OC43 (PCR) Not Detected Coronavirus HKU1 (PCR) Not Detected Coronavirus 229E (PCR) Not Detected Coronavirus NL63 (PCR) Not Detected Human Metapneumovir PCR Not Detected Influenza A (RT-PCR) Not Detected Influenza B (RT-PCR) Not Detected M. pneumoniae (PCR) Not Detected Parainfluenza 1 (PCR) Not Detected Parainfluenza 2 (PCR) Not Detected Parainfluenza 3 (PCR) Not Detected Parainfluenza 4 (PCR) Not Detected RSV (PCR) Not Detected Entero/Rhino (PCR) Not Detected SARS-CoV-2 RNA (RT-PCR) Not Detected Blood Type Antibody Screen 09/25/21 09/26/21 09/26/21 19:14 05:39 05:39 MCV 91.9 MCH 29.7 MCHC 32.3 RDW 13.2 Plt Count 213 MPV 9.6 Immature Gran % (Auto) 0.4 Neut % (Auto) 82.9 H Lymph % (Auto) 13.7 L Day % (Auto) 2.9 Eos % (Auto) 0.0 Baso % (Auto) 0.1 Lymph # (Auto) 1.8 Day # (Auto) 0.4 Eos # (Auto) 0.0 Baso # (Auto) 0.0 Abs Immat Gran (auto) 0.05 H Absolute Neuts (auto) 10.9 H Absolute Nucleated RBC 0.000 Nucleated RBC % (auto) 0.0 Anion Gap 14 Estim Creat Clear Calc 40.0 Estimated GFR > 60 Random Glucose 141 H Lactic Acid F/U @ 2Hr Lactic Acid F/U @ 4Hr Calcium 9.6 Respiratory Panel Olivares Adenovirus (Rapid PCR) B.pert (TEM-PCR) B.parapertussis DNA PCR C. pneumoniae DNA (PCR) Coronavirus OC43 (PCR) Coronavirus HKU1 (PCR) Coronavirus 229E (PCR) Coronavirus NL63 (PCR) Human Metapneumovir PCR Influenza A (RT-PCR) Influenza B (RT-PCR) M. pneumoniae (PCR) Parainfluenza 1 (PCR) Parainfluenza 2 (PCR) Parainfluenza 3 (PCR) Parainfluenza 4 (PCR) RSV (PCR) Entero/Rhino (PCR) SARS-CoV-2 RNA (RT-PCR) Blood Type O Positive Antibody Screen NEGATIVE Assessment and Plan (1) GI bleed: Status: Acute (2) UTI (urinary tract infection): Status: Acute (3) Severe sepsis: Status: Acute Plan 81-year-old female with past medical history of Alzheimer's dementia came to the hospital because of 1 episode of? vomiting and diarrhea: Possible aspiration pneumonia and COVID infection. 1. Severe sepsis probably related to aspiration pneumonia and COVID infection sepsis improving Ct abd noted -aspirational pneumonia had covid vaccine 09/06? , but no booster. boderline blood pressure - Reviewed from previous record her blood pressure stays 90s to 100 range. 1 low reading blood pressure today hypovolemia probably related to dehydration. Started on dexamethasone, IV antibiotic, blood culture pending, IV fluid added. swlalow eval 2. Aliheimer dementia : supportive care. 3. Nausea vomiting and occult blood positive: type and cross h/h repeat now PPI Gi eval pending 4. GIB:? trenh/h ppi Gi - Recommended conservative management currently. she is [employer]'s vitness -family does not want any transfusion. Dvt prophylax: [employer] devices. HCP daughter Betsy ([phone]). Quality Stroke Does the patient have a stroke diagnosis?: No VTE Prior VTE?: No VTE Risk Level:: Medical - moderate - high VTE Device Contraindication: N/A - Device Ordered VTE Drug Contraindication: N/A - Med Ordered
[2021-09-26 16:20] LABS: Hematocrit 33.3 % (37.0-47.0); Hemoglobin 10.6 g/dl (12.0-16.0)
[2021-09-27] MEDS: dexAMETHasone sod phosphate 4 MG/ML VIAL 6 MG IVPUSH ×2 (02:14→09:12)
[2021-09-27] MEDS: Piperacillin Sodium/Tazobactam 3.375 GM in 0.9 % Sodium Chloride 50 ML IV ×2 (02:14→10:13)
[2021-09-27 03:34] VITALS: BP 101/48; PULSE 65; RESP 19; TEMP 36.2; O2SAT 95
[2021-09-27] MEDS: Pantoprazole Sodium 40 MG/10 ML VIAL IVPUSH ×2 (05:46→17:31)
[2021-09-27] MEDS: Lactated Ringers 1,000 ML 80 ML IVCONT (05:46)
[2021-09-27 07:59] VITALS: BP 131/49; PULSE 59; RESP 16; TEMP 36.7; O2SAT 100
--- NOTE | 2021-09-27 08:21 | P.PNIM_ITS ---
Subjective Subjective Date of Service: 09/27/21 Interval History: gib, sepsis sec aspirational pneumonia Physical Exam Vital Signs: Vital Signs: Last Vital Signs Temp 98.1 F 09/27/21 07:59 Pulse 59 09/27/21 07:59 Resp 16 09/27/21 07:59 BP 131/49 L 09/27/21 07:59 Pulse Ox 100 09/27/21 07:59 BMI result Body Mass Index 20.5 Objective Data Active Medications Dexamethasone Sodium Phosphate (Dexamethasone Sod Phosphate 4 Mg/Ml Vial) 6 mg IVPUSH DAILY [facility] Last Admin: 09/26/21 10:27 Dose: Not Given Documented by: VISH Non-Admin Reason: Duplicate Order Dexamethasone Sodium Phosphate (Dexamethasone Sod Phosphate 4 Mg/Ml Vial) 6 mg IVPUSH Q6H [facility] Last Admin: 09/27/21 02:14 Dose: 6 mg Documented by: SEBASTIÁN Piperacillin Sod/Tazobactam (Sod 3.375 gm/ Sodium Chloride) 50 mls @ 100 mls/hr IV Q6H [facility] Last Infusion: 09/27/21 03:13 Dose: 0 mls/hr Documented by: SEBASTIÁN Lactated Ringer's (Lr) 1,000 mls @ 80 mls/hr IVCONT .[id number] [facility] Last Admin: 09/27/21 05:46 Dose: 80 mls/hr Documented by: SEBASTIÁN Pantoprazole Sodium (Pantoprazole Sodium 40 Mg/10 Ml Vial) 40 mg IVPUSH BID@0630,1630 [facility] Last Admin: 09/27/21 05:46 Dose: 40 mg Documented by: SEBASTIÁN Pharmacy Consult (Consult Rx Perform Med Rec) 1 each MISCELLANE ONCE PRN PRN Reason: Consult order Sodium Chloride (0.9 % Sodium Chloride Flush 3 Ml Syringe) 3 ml IVFLUSH QSHIFT [facility] Last Admin: 09/27/21 00:58 Dose: Not Given Documented by: SEBASTIÁN Non-Admin Reason: IV Running Labs CBC & Chem 7: 09/27/21 09:15 09/27/21 09:15 Labs: Laboratory Results - last 24 hr 09/25/21 09:00 Respiratory Panel Olivares See Note Adenovirus (Rapid PCR) Not Detected B.pert (TEM-PCR) Not Detected B.parapertussis DNA PCR Not Detected C. pneumoniae DNA (PCR) Not Detected Coronavirus OC43 (PCR) Not Detected Coronavirus HKU1 (PCR) Not Detected Coronavirus 229E (PCR) Not Detected Coronavirus NL63 (PCR) Not Detected Human Metapneumovir PCR Not Detected Influenza A (RT-PCR) Not Detected Influenza B (RT-PCR) Not Detected M. pneumoniae (PCR) Not Detected Parainfluenza 1 (PCR) Not Detected Parainfluenza 2 (PCR) Not Detected Parainfluenza 3 (PCR) Not Detected Parainfluenza 4 (PCR) Not Detected RSV (PCR) Not Detected Entero/Rhino (PCR) Not Detected SARS-CoV-2 RNA (RT-PCR) Not Detected Microbiology Microbiology Results: Microbiology 09/25/21 13:58 Blood Culture - Preliminary Blood - Venous No growth after 24 hours. 09/25/21 13:55 Blood Culture - Preliminary Blood - Venous No growth after 24 hours. Assessment and Plan (1) Severe sepsis: Status: Acute (2) Failure to thrive in adult: Status: Acute (3) GI bleed: Status: Acute Plan 81-year-old female with past medical history of Alzheimer's dementia came to the hospital because of 1 episode of? vomiting and diarrhea: Possible aspiration pneumonia and COVID infection. 1. Severe sepsis probably related to aspiration pneumonia and COVID infection sepsis improving Ct abd noted -aspirational pneumonia had covid vaccine 09/06? , but no booster. boderline blood pressure -? Reviewed from previous record her blood pressure stays 90s to 100 range. ?1 low reading blood pressure today ? hypovolemia probably related to dehydration. Started on dexamethasone, IV antibiotic, blood culture pending, IV fluid added. swlalow eval 2. Aliheimer dementia : supportive care. 3. Nausea vomiting and occult blood positive: type and cross h/h repeat now PPI Gi eval pending 4. GIB:? trenh/h ppi Gi -? Recommended conservative management currently. she is [employer]'s vitness -family does not want any transfusion. Dvt prophylax: [facility] [place] [facility]. HCP daughter Betsy ([phone]). Quality Stroke Does the patient have a stroke diagnosis?: No VTE Prior VTE?: No VTE Risk Level:: Medical - moderate - high VTE Device Contraindication: N/A - Device Ordered VTE Drug Contraindication: N/A - Med Ordered
[2021-09-27] MEDS: 0.9 % Sodium Chloride Flush 3 ML SYRINGE IVFLUSH ×3 (09:17→20:45)
[2021-09-27 09:25] LABS: Hematocrit 30.1 % (37.0-47.0); Hemoglobin 9.7 g/dl (12.0-16.0)
[2021-09-27 09:40] LABS: Anion Gap 11 (12-20); Blood Urea Nitrogen 26 mg/dL (9-16); Calcium 9.3 mg/dL (8.4-10.2); Carbon Dioxide 25 mmol/L (22-29); Chloride 114 mmol/L (96-108); Creatinine Clr Calc Pharmacy 43.4; Estimated Glomerular Filt Rate > 60; Glucose Random 116 mg/dL (60-115); Potassium 3.8 mmol/L (3.3-5.1); Sodium 146 mmol/L (135-145)
[2021-09-27 11:42] VITALS: BP 112/81; PULSE 60; RESP 16; TEMP 36.7; O2SAT 100
[2021-09-27 12:23] VITALS: BMI 20.5
--- NOTE | 2021-09-27 12:28 | MHC.CLN ---
PT IS MODERATELY MALNOURISHED PT FAMILIAR TO FACILITY AND PREVIOUSLY DX MODERATE MALNUTRITION (07/2021) PT WITH MILDLY DEPLETED SUBCUTANEOUS FAT AND MUSCLE MASS, 12% NONSIGNFICANT WT LOSS [id number] WITH FTT DIET RX: NPO WHEN DIET ADVANCES; RECOMMEND ADDING ENSURE BID TO INCREASE KCALS SUPP PROVIDES 700KCALS, 40G PROTEIN FAMILY MEMBER REPORTS PT EATS PUREED DIET WITH THICKENED LIQUIDS AND PREFERS SMALL AMOUNTS SEE ALSO FULL CLINICAL NUTRITION ASSESSMENT
--- NOTE | 2021-09-27 12:45 | MHC.SL.SWA ---
Speech Pathologist Impression: Oropharyngeal dysphagia Risk of Aspiration Due to: Medically Fragile Neurological Condition History of Pneumonia Reduced Cognition Dysphasia Diet Status: Upgrade Liquid Consistency and Strategies for Safe Swallow: Liquid Intake Recommendation: [place] Thick Liquid Intake Strategies: Small Sips No Straws Liquids by Teaspoon Only Solid Food Consistency: Dietary Recommendations: Pureed (NDD1) Additional Modifications to Solid Foods: Recommend PUREED (NDD1) solids and NECTAR THICK liquids by TEASPOON ONLY, pills CRUSHED in PUREE. Patient requires total 1:1 assistance feeding for all PO intake, close monitoring for any overt s/s of aspiration, and aspiration precautions. Recommend oral care before and after oral intake. Notified MD, RN, RD of these recommendations via [employer] for [employer] Message. Oral Medication Intake: Crushed with Puree Please contact the pharmacy regarding appropriate crushable or liquid drug formulations that are available whenever modified delivery is recommended. Compensatory Strategies and Precautions to be Taken for Safe Swallow: Sitting Upright (90 deg) No Straw Liquids from Spoon Small Bites and Sips Rate of Ingestion Change Oral Check Supervision While Eating and Drinking for Safe Swallow: Total Assistance (1:1) Swallowing Recommended Treatments: Compens. Strategy Educat. Recommendation for Speech: Inpatient Speech Therapy Construction Teacher Clinican/Clinical Fellow: No Supervisory Statement: I have reviewed and agree with the student/clinical fellow's documentation: N/A Speech Language Pathologist: Thelma Hernández M.A., CCC-PACKAGER OR PACKER AND WEIGHER
--- NOTE | 2021-09-27 13:07 | W.PM.IDCN ---
History of Present Illness Data of Consult Service Date: 09/27/21 Requesting physician: Cleo Small Primary Care Provider: Viviana Jasmine DO HPI Reason for consult: sepsis,COVID,right base pneumonia She presents to hospital with nausea,vomiting and shortness of breath She has been on RA with 100% oxygen. COVID BAUDILIO positive and PCR negative. She has right base infiltrate. Review of Systems Review of Systems: Yes Unobtainable due to mental status PMFSH Past Medical History Medical History (Updated 09/27/21 @ 13:12 by Kaylie Farris MD) Alzheimer disease Aspiration pneumonia Asthma Failure to thrive in adult Social History Social History Household Members: Family Housing: Apartment Do you presently have visiting nurse or other home services: Yes Alcohol intake: never Patient Tobacco Use Status: Never used Tobacco Advance Directives Date on File: 08/05/21 service: No Current occupational status: retired Meds Allergies Allergy/AdvReac Type Severity Reaction Status Date / Time aspirin [ASPIRIN] Allergy Unknown UNKNOWN Verified 11/18/20 17:50 ibuprofen [IBUPROFEN] Allergy Unknown SWELLING Verified 11/18/20 17:50 Active Medications: Current Medications Dexamethasone Sodium Phosphate (Dexamethasone Sod Phosphate 4 Mg/Ml Vial) 6 mg IVPUSH DAILY [facility] Last Admin: 09/27/21 09:12 Dose: 6 mg Documented by: Lactated Ringer's (Lr) 1,000 mls @ 80 mls/hr IVCONT .[id number] [facility] Last Admin: 09/27/21 05:46 Dose: 80 mls/hr Documented by: Ampicillin Sodium/Sulbactam (Sodium 3 gm/ Sodium Chloride) 100 mls @ 200 mls/hr IV Q6H [facility] Pantoprazole Sodium (Pantoprazole Sodium 40 Mg/10 Ml Vial) 40 mg IVPUSH BID@0630,1630 [facility] Last Admin: 09/27/21 05:46 Dose: 40 mg Documented by: Pharmacy Consult (Consult Rx Perform Med Rec) 1 each MISCELLANE ONCE PRN PRN Reason: Consult order Sodium Chloride (0.9 % Sodium Chloride Flush 3 Ml Syringe) 3 ml IVFLUSH QSHIFT [facility] Last Admin: 09/27/21 09:17 Dose: 3 ml Documented by: Home Medications Medication Instructions Recorded Confirmed Last Taken Type multivitamin (Daily-Kimberley) 1 tab PO DAILY 11/18/20 09/25/21 09/24/21 History quetiapine 25 mg tablet 1 tab PO TID 11/18/20 09/25/21 09/24/21 History acetaminophen 160 mg/5 mL oral 15 ml PO Q6H PRN 09/25/21 09/25/21 Unknown History liquid ([place]) Physical Exam Vital Signs: Vital Signs: Last Vital Signs Temp 98.0 F 09/27/21 11:42 Pulse 60 09/27/21 11:42 Resp 16 09/27/21 11:42 BP 112/81 09/27/21 11:42 Pulse Ox 100 09/27/21 11:42 BMI result Body Mass Index 20.5 Const: General: cooperative HEENT: Head: Yes normal to inspection Mouth: Normal oral and palatal mucosa present Throat: Yes posterior oropharynx normal Resp: Effort & Inspection: normal respiratory effort Cardio: Rate: regular rate Rhythm: regular rhythm GI: Palpation (GI): Soft to palpation and nontender Extrem: General: Yes normal to inspection Results Labs CBC & Chem 7: 09/27/21 09:15 09/27/21 09:15 Labs: Short CBC 09/26/21 09/27/21 Range/Units 16:00 09:15 Hgb 10.6 L 9.7 L (12.0-16.0) g/dl Hct 33.3 L 30.1 L (37.0-47.0) % BMP 09/27/21 09:15 Sodium 146 H Potassium 3.8 Chloride 114 H Carbon Dioxide 25 BUN 26 H Creatinine 0.73 Calcium 9.3 Microbiology Microbiology Results: Microbiology 09/25/21 13:58 Blood - Venous Blood Culture - Preliminary No growth after 24 hours. 09/25/21 13:55 Blood - Venous Blood Culture - Preliminary No growth after 24 hours. Assessment and Plan (1) Severe sepsis: Status: Acute (2) Failure to thrive in adult: Status: Acute (3) COVID-19: Status: Acute COVID causing weakness but not hypoxia Remdesivir for three days prevention COVID progressionP[place] trial No steroids as no COVID hypoxia and probable bacterial aspiration Would not give baricitinib now if worsening hypoxia as underlying bacterial infection now. (4) Aspiration pneumonia: Status: Acute Continue Unasyn 5-7 days minimize aspiration and cover gram negative and gram positive
[2021-09-27] MEDS: Remdesivir 200 MG in 0.9 % Sodium Chloride 210 ML 105 MG IV (14:27)
[2021-09-27 15:31] VITALS: BP 104/49; PULSE 49; RESP 16; TEMP 36.3; O2SAT 98
--- NOTE | 2021-09-27 16:10 | MHC.CM.PN ---
PER MULTIDISCIPLINARY ROUNDS PT'S BP CONT'S TO FLUCTUATE, PT HAS ASPIRATION PNA AND NOT READY FOR D/C, CM WILL CONT TO FOLLOW D/C NEEDS.
[2021-09-27] MEDS: Ampicillin Sodium/Sulbactam Na 3 GM in 0.9 % Sodium Chloride 100 ML IV ×2 (17:33→20:46)
--- NOTE | 2021-09-27 19:02 | P.PNIM_ITS ---
Subjective Subjective Date of Service: 09/27/21 Interval History: gib, sepsis sec aspirational pneumonia Review of Systems Patient seems awake,? baseline does not follow any commands ?no new fever,? blood pressure softer side Physical Exam Vital Signs: Vital Signs: Last Vital Signs Temp 97.3 F 09/27/21 15:31 Pulse 49 L 09/27/21 15:31 Resp 16 09/27/21 15:31 BP 104/49 L 09/27/21 15:31 Pulse Ox 98 09/27/21 15:31 BMI result Body Mass Index 20.5 ? Appearance: somewaht sleepy but? easily arousable. Eyes: Pupils equal, round and reactive to light.? Sclera nonicteric.? ENT: Pharynx normal.? Moist mucous membranes seems dry. cvs: rrr, [id number] res: fair air entry ,diminished at bases. abd: no rebound or guarding ,no gramces or pain expresion when palpated abd, bs present. ext pulses present , no cyanosis . neuro: mute , contracted , but awake at [facility]. Objective Data Active Medications Lactated Ringer's (Lr) 1,000 mls @ 80 mls/hr IVCONT .[id number] [facility] Last Admin: 09/27/21 05:46 Dose: 80 mls/hr Documented by: SEBASTIÁN Ampicillin Sodium/Sulbactam (Sodium 3 gm/ Sodium Chloride) 100 mls @ 200 mls/hr IV Q6H [facility] Last Admin: 09/27/21 17:33 Dose: 200 mls/hr Documented by: STEFFANY Remdesivir 100 mg/ Sodium (Chloride) 230 mls @ 115 mls/hr IV Q24H [facility] Stop: 09/29/21 15:59 Pantoprazole Sodium (Pantoprazole Sodium 40 Mg/10 Ml Vial) 40 mg IVPUSH BID@0630,1630 [facility] Last Admin: 09/27/21 17:31 Dose: 40 mg Documented by: STEFFANY Pharmacy Consult (Consult Rx Perform Med Rec) 1 each MISCELLANE ONCE PRN PRN Reason: Consult order Sodium Chloride (0.9 % Sodium Chloride Flush 3 Ml Syringe) 3 ml IVFLUSH QSHIFT [facility] Last Admin: 09/27/21 17:25 Dose: 3 ml Documented by: STEFFANY Labs CBC & Chem 7: 09/27/21 09:15 09/27/21 09:15 Labs: Laboratory Results - last 24 hr 09/27/21 09:15 Anion Gap 11 L Estim Creat Clear Calc 43.4 Estimated GFR > 60 Random Glucose 116 H Calcium 9.3 Microbiology Microbiology Results: Microbiology 09/25/21 13:58 Blood Culture - Preliminary Blood - Venous No growth after 48 hours. 09/25/21 13:55 Blood Culture - Preliminary Blood - Venous No growth after 48 hours. Assessment and Plan (1) Aspiration pneumonia: Status: Acute (2) Severe sepsis: Status: Acute Plan 81-year-old female with past medical history of Alzheimer's dementia came to the hospital because of 1 episode of? vomiting and diarrhea: Possible aspiration pneumonia and COVID infection. 1. Severe sepsis probably related to aspiration pneumonia and COVID infection sepsis improving Ct abd noted -aspirational pneumonia had covid vaccine 09/06? , but no booster. Sepsis and blood pressure seems to be improving,added covid pcr repeat as per ID. Started on dexamethasone, IV antibiotic, blood culture pending, IV fluid added. swlalow eval 2. Aliheimer dementia : supportive care. 3. Nausea vomiting and occult blood positive: type and cross h/h repeat now PPI Gi eval pending 4. GIB:? trenh/h ppi Gi -? Recommended conservative management currently. she is jehomehrene's vitness -family does not want any transfusion. Dvt prophylax: [facility] devices. HCP daughter Betsy ([phone]). Quality Stroke Does the patient have a stroke diagnosis?: No VTE Prior VTE?: No VTE Risk Level:: Medical - moderate - high VTE Device Contraindication: N/A - Device Ordered VTE Drug Contraindication: N/A - Med Ordered
[2021-09-27 20:00] VITALS: BP 123/58; PULSE 54; RESP 15; TEMP 36.4; O2SAT 93
[2021-09-27] MEDS: Dextrose 5 % 1,000 ML 75 ML IVCONT (20:46)
[2021-09-27 23:53] VITALS: BP 112/49; PULSE 56; RESP 20; TEMP 37; O2SAT 96
[2021-09-28] MEDS: Ampicillin Sodium/Sulbactam Na 3 GM in 0.9 % Sodium Chloride 100 ML IV ×4 (02:17→20:47)
[2021-09-28 04:00] VITALS: BP 118/54; PULSE 66; RESP 18; TEMP 36.3; O2SAT 98
[2021-09-28] MEDS: Pantoprazole Sodium 40 MG/10 ML VIAL IVPUSH (05:41)
[2021-09-28 06:49] LABS: Hematocrit 31.1 % (37.0-47.0); Hemoglobin 10.1 g/dl (12.0-16.0); Mean Corpuscular HGB Conc 32.5 g/dl (31.0-35.0); Mean Corpuscular Hemoglobin 29.6 pg (27.0-33.0); Mean Corpuscular Volume 91.2 fL (80.0-98.0); Mean Platelet Volume 10.1 fL (9.4-12.3); Platelet Count 203 X10*3/uL (160-400); Red Blood Count 3.41 X10*6/uL (4.20-5.50); Red Cell Distribution Width 13.2 % (11.0-16.0); White Blood Count 12.6 X10*3/uL (4.8-10.8)
[2021-09-28 07:09] LABS: Anion Gap 16 (12-20); Blood Urea Nitrogen 30 mg/dL (9-16); Calcium 8.9 mg/dL (8.4-10.2); Carbon Dioxide 18 mmol/L (22-29); Chloride 118 mmol/L (96-108); Creatinine Clr Calc Pharmacy 44.6; Estimated Glomerular Filt Rate > 60; Glucose Random 91 mg/dL (60-115); Potassium 3.5 mmol/L (3.3-5.1); Sodium 148 mmol/L (135-145)
[2021-09-28 07:27] LABS: Influenza A PCR NEGATIVE (Negative); Influenza B PCR NEGATIVE (Negative); Resp Syncy Virus RNA Qual PCR NEGATIVE (Negative); SARS COV2 PCR INHOUSE NEGATIVE (Negative)
--- NOTE | 2021-09-28 07:39 | HO.PM.IMPN ---
Subjective Subjective Date of Service: 09/28/21 Interval History: Aspirational pneumonia , covid Physical Exam Vital Signs: Vital Signs: Last Vital Signs Temp 97.4 F 09/28/21 04:00 Pulse 66 09/28/21 04:00 Resp 18 09/28/21 04:00 BP 118/54 L 09/28/21 04:00 Pulse Ox 98 09/28/21 04:00 BMI result Body Mass Index 20.5 Objective Data Active Medications Ampicillin Sodium/Sulbactam (Sodium 3 gm/ Sodium Chloride) 100 mls @ 200 mls/hr IV Q6H [facility] Last Infusion: 09/28/21 02:55 Dose: 0 mls/hr Documented by: KATHY Remdesivir 100 mg/ Sodium (Chloride) 230 mls @ 115 mls/hr IV Q24H [facility] Stop: 09/29/21 15:59 Pantoprazole Sodium (Pantoprazole Sodium 40 Mg/10 Ml Vial) 40 mg IVPUSH BID@0630,1630 [facility] Last Admin: 09/28/21 05:41 Dose: 40 mg Documented by: KATHY Pharmacy Consult (Consult Rx Perform Med Rec) 1 each MISCELLANE ONCE PRN PRN Reason: Consult order Sodium Chloride (0.9 % Sodium Chloride Flush 3 Ml Syringe) 3 ml IVFLUSH QSHIFT [facility] Last Admin: 09/27/21 20:45 Dose: 3 ml Documented by: KATHY Labs CBC & Chem 7: 09/28/21 06:30 09/28/21 06:30 Labs: Laboratory Results - last 24 hr 09/27/21 09/28/21 09/28/21 09:15 06:30 06:30 MCV 91.2 MCH 29.6 MCHC 32.5 RDW 13.2 Plt Count 203 MPV 10.1 Absolute Nucleated RBC 0.000 Nucleated RBC % (auto) 0.0 Anion Gap 11 L 16 Estim Creat Clear Calc 43.4 44.6 Estimated GFR > 60 > 60 Random Glucose 116 H 91 Calcium 9.3 8.9 Microbiology Microbiology Results: Microbiology 09/25/21 13:58 Blood Culture - Preliminary Blood - Venous No growth after 48 hours. 09/25/21 13:55 Blood Culture - Preliminary Blood - Venous No growth after 48 hours. Assessment and Plan (1) Aspiration pneumonia: Status: Acute (2) Hypernatremia: Status: Acute Plan 81-year-old female with past medical history of Alzheimer's dementia came to the hospital because of 1 episode of? vomiting and diarrhea: Possible aspiration pneumonia and COVID infection. 1. Severe sepsis probably related to aspiration pneumonia and COVID infection sepsis improving Ct abd noted -aspirational pneumonia had covid vaccine 09/06? , but no booster. ?Sepsis and blood pressure seems to be improving,added covid pcr repeat as per ID. Started on dexamethasone, IV antibiotic, blood culture pending, IV fluid added. jessica mina 2. Aliheimer dementia : supportive care. 3. GIB:? trenh/h ppi will switch to p.o. Gi -? Recommended conservative management currently. she is jehova's vitness -family does not want any transfusion. 4.hypernatremia :added d5w , moniter sodium levels 5. moderate malnutrition: nutritional supplements, nutrition is following [facility] HCP daughter Betsy ([phone]). inpatient need : aspiration pneumonia, hyponatremia Quality Stroke Does the patient have a stroke diagnosis?: No VTE Prior VTE?: No VTE Risk Level:: Medical - moderate - high VTE Device Contraindication: N/A - Device Ordered VTE Drug Contraindication: N/A - Med Ordered
[2021-09-28 08:00] VITALS: BP 134/63; PULSE 58; RESP 16; TEMP 36.2; O2SAT 98
[2021-09-28] MEDS: 0.9 % Sodium Chloride Flush 3 ML SYRINGE IVFLUSH ×3 (09:45→20:48)
[2021-09-28] MEDS: Dextrose 5 % 1,000 ML 50 ML IVCONT (11:04)
[2021-09-28 12:00] VITALS: BP 99/54; PULSE 63; RESP 16; TEMP 36.3; O2SAT 98
--- NOTE | 2021-09-28 14:00 | MHC.SL.SWA ---
Speech Pathologist Impression: Risk of Aspiration Due to: Medically Fragile Neurological Condition History of Pneumonia Reduced Cognition Dysphasia Diet Status: Liquid Consistency and Strategies for Safe Swallow: Liquid Intake Recommendation: [place] Thick Liquid Intake Strategies: No Straws Liquids by Teaspoon Only Solid Food Consistency: Dietary Recommendations: Pureed (NDD1) Additional Modifications to Solid Foods: Add gravies/sauces. Pt requires full assist and supervision. Oral Medication Intake: Crushed with Puree Please contact the pharmacy regarding appropriate crushable or liquid drug formulations that are available whenever modified delivery is recommended. Compensatory Strategies and Precautions to be Taken for Safe Swallow: Sitting Upright (90 deg) No Straw Liquids from Spoon Alternate Liquids/Solids Rate of Ingestion Change Oral Check Supervision While Eating and Drinking for Safe Swallow: Total Supervision (1:1) Foods to Avoid: overly sticky foods. Swallowing Recommended Treatments: Compens. Strategy Educat. Recommendation for Speech: Inpatient Speech Therapy: Pt seen during lunch w/ tray of Puree w/ [place] thick liquids. Pt was sonambulant but awake, not responsive to verbal interaction and not verbalizing. Nurses aid reported that Pt had had breakfast late and only ate small portion. Pt at first kept mouth closed to presentations of food, w/trace amounts given then pushed from mouth. Pt opened mouth for [place] thick juice, taking multiple tsps. Pt occasionally masticating on the liquid, had mild delay of oral transit, and consistent moderate delay initiating swallow. Laryngeal elevation mildly reduced on swallow. After presentation of liquid, pt accepted tsps of some pureed food (chicken and potatoes in gravy) and mik tsps of sherbet, w/ similar swallow pattern as noted on thickened liquid. Pt then closed mouth to further presentations, had eyes closed, appeared to be lethargic. Feeding discontinued. Pt is tolerating current diet w/ limited PO intake. Recommend continue w/ PUREE (NDD1) w/ [place]CT[place] THICK liquids, PILLS CRUSHED in PUREE. Comment: Patient requires total 1:1 assistance feeding for all PO intake, close monitoring for any overt s/s of aspiration, and aspiration precautions. Recommend oral care before and after oral intake. Frequency/Duration: Date Range for Service Req: Timeline to reassess: Electrical And Instrument Mechanic Clinican/Clinical Fellow: No Supervisory Statement: I have reviewed and agree with the student/clinical fellow's documentation: N/A Speech Language Pathologist: Johanny Melendez M.A., [facility]-STAFF PSYCHIATRIST
[2021-09-28] MEDS: Remdesivir 100 MG in 0.9 % Sodium Chloride 230 ML 115 MG IV (15:22)
[2021-09-28 15:24] VITALS: BP 122/61; PULSE 67; RESP 16; TEMP 36.1; O2SAT 99
[2021-09-28 18:34] LABS: Sodium 146 mmol/L (135-145)
[2021-09-28 18:36] LABS: Alanine Aminotransferase 22 U/L (0-31); Albumin Level 3.1 g/dL (3.5-5.0); Alkaline Phosphatase 31 U/L (39-117); Aspartate Amino Transferase 36 U/L (5-31); Bilirubin Direct < 0.2 mg/dL (0.0-0.5); Bilirubin Total 0.4 mg/dL (0.0-1.0); Total Protein 5.4 g/dL (6.5-8.0)
[2021-09-28 19:39] VITALS: BP 109/59; PULSE 65; RESP 16; TEMP 36.1; O2SAT 94
[2021-09-28 23:33] VITALS: BP 137/64; PULSE 72; RESP 20; TEMP 36.7; O2SAT 99
[2021-09-29] MEDS: Ampicillin Sodium/Sulbactam Na 3 GM in 0.9 % Sodium Chloride 100 ML IV ×4 (01:39→23:01)
[2021-09-29 03:25] VITALS: BP 145/62; PULSE 68; RESP 16; TEMP 36.8; O2SAT 97
[2021-09-29] MEDS: Omeprazole 20 MG CAPSULE.DR PO (05:20)
[2021-09-29] MEDS: Dextrose 5 % 1,000 ML 50 ML IVCONT (05:20)
[2021-09-29 07:38] VITALS: BP 110/57; PULSE 61; RESP 20; TEMP 36.3; O2SAT 95
[2021-09-29 08:25] LABS: Hematocrit 31.5 % (37.0-47.0); Hemoglobin 10.4 g/dl (12.0-16.0)
[2021-09-29] MEDS: 0.9 % Sodium Chloride Flush 3 ML SYRINGE IVFLUSH (08:39)
[2021-09-29 08:46] LABS: Anion Gap 12 (12-20); Blood Urea Nitrogen 13 mg/dL (9-16); Calcium 8.5 mg/dL (8.4-10.2); Carbon Dioxide 24 mmol/L (22-29); Chloride 106 mmol/L (96-108); Creatinine Clr Calc Pharmacy 52.8; Estimated Glomerular Filt Rate > 60; Glucose Random 115 mg/dL (60-115); Potassium 2.9 mmol/L (3.3-5.1); Sodium 139 mmol/L (135-145)
--- NOTE | 2021-09-29 10:23 | MHC.SLORD ---
Speech Language Pathology Order Status: INSTRUCTIONAL WRITER attempted to see patient this morning. Per RN, patient is lethargic and not appropriate for PO trials. Plan for dysphagia tx tomorrow morning if appropriate.
[2021-09-29 11:41] VITALS: BP 138/99; PULSE 72; RESP 20; TEMP 36.7; O2SAT 98
--- NOTE | 2021-09-29 12:26 | MHC.CLN ---
F/U PT IS MODERATELY MALNOURISHED SEE ALSO FULL CLINICAL NUTRITION ASSESSMENT DATED 09/27/21 PO INTAKE 25% X 3 MEALS DIET RX: PUREED WITH NT LIQ-APPROPRIATE RECOMMEND ADDING ENSURE BID TO INCREASE KCALS SUPP PROVIDES 700KCALS, 40G PROTEIN MONITOR PO INTAKE CLOSELY
[2021-09-29] MEDS: Potassium Chloride/H20 10 MEQ/100 ML PIGGYBACK 100 MEQ IV ×4 (12:32→16:00)
--- NOTE | 2021-09-29 13:38 | P.PNIM_ITS ---
Subjective Subjective Date of Service: 09/29/21 Interval History: cc: lethargy interval history:not participating in coversation Review of Systems Review of Systems: Yes Unobtainable due to mental condition Physical Exam Vital Signs: Vital Signs: Last Vital Signs Temp 98.0 F 09/29/21 11:41 Pulse 72 09/29/21 11:41 Resp 20 09/29/21 11:41 BP 138/99 H 09/29/21 11:41 Pulse Ox 98 09/29/21 11:41 BMI result Body Mass Index 20.5 General: lethargic, ill appearing, contracted Resp: CTA bilateral, no accessory muscles used CVS: S1,S2,RRR GI: soft, non tender, non distended Neuro: contracted, letarhgic Psych: impairedinsight Objective Data Active Medications Ampicillin Sodium/Sulbactam (Sodium 3 gm/ Sodium Chloride) 100 mls @ 200 mls/hr IV Q6H [facility] Last Infusion: 09/29/21 10:19 Dose: 0 mls/hr Documented by: IAN Remdesivir 100 mg/ Sodium (Chloride) 230 mls @ 115 mls/hr IV Q24H [facility] Stop: 09/29/21 15:59 Last Infusion: 09/28/21 17:48 Dose: 0 mls/hr Documented by: CRISTINE Dextrose (D5w) 1,000 mls @ 50 mls/hr IVCONT .Q20H [facility] Last Admin: 09/29/21 05:20 Dose: 50 mls/hr Documented by: KATHY Potassium Chloride () 10 meq in 100 mls @ 100 mls/hr IV Q1H [facility] Stop: 09/29/21 15:59 Last Admin: 09/29/21 13:33 Dose: 100 mls/hr Documented by: IAN Omeprazole (Omeprazole 20 Mg Capsule.Dr) 20 mg PO BID@0630,1630 [facility] Last Admin: 09/29/21 05:20 Dose: 20 mg Documented by: KATHY Pharmacy Consult (Consult Rx Perform Med Rec) 1 each MISCELLANE ONCE PRN PRN Reason: Consult order Sodium Chloride (0.9 % Sodium Chloride Flush 3 Ml Syringe) 3 ml IVFLUSH QSHIFT [facility] Last Admin: 09/29/21 08:39 Dose: 3 ml Documented by: IAN Labs CBC & Chem 7: 09/29/21 07:46 09/29/21 07:46 Labs: Laboratory Results - last 24 hr 09/28/21 09/29/21 06:30 07:46 Anion Gap 12 Estim Creat Clear Calc 52.8 Estimated GFR > 60 Random Glucose 115 Calcium 8.5 Total Bilirubin 0.4 Direct Bilirubin < 0.2 AST 36 H ALT 22 Alkaline Phosphatase 31 L D Total Protein 5.4 L Albumin 3.1 L D Assessment and Plan (1) Aspiration pneumonia: Status: Acute (2) Hypernatremia: Status: Acute Plan 81-year-old female with past medical history of Alzheimer's dementia came to the hospital because of 1 episode of? vomiting and diarrhea: Possible aspiration pneumonia and COVID infection. Severe sepsis probably related to aspiration pneumonia and COVID infection sepsis improving had covid vaccine 09/06? , but no booster. continue remdisivir modified diet metabolic encephalopathy due to covid, hypernatremia baseline patient is nonverbal, but is alert, tracks, has good appetite currently appetite poor, patient contracted hypernatremia improved with d5w, will switch to d51/2ns, continue to encourage po modified diet Azheimer dementia supportive care. hypokalemia 2.9 replace, monitor acute blood loss anemia resolved, no transfusions due to adventist beliefs, hgb stable about 10 po ppi moderate malnutrition: nutritional supplements, nutrition is following Dvt prophylax: mech devices. due to possible bleed DNR reason for continued hospitalization: remdisivir course HCP daughter Betsy ([phone]). Quality Stroke Does the patient have a stroke diagnosis?: No VTE Prior VTE?: No VTE Risk Level:: Medical - moderate - high VTE Device Contraindication: N/A - Device Ordered VTE Drug Contraindication: N/A - Med Ordered
--- NOTE | 2021-09-29 14:51 | P.PNIM_ITS ---
Subjective Subjective Date of Service: 09/29/21 Interval History: cc: Physical Exam Vital Signs: Vital Signs: Last Vital Signs Temp 98.0 F 09/29/21 11:41 Pulse 72 09/29/21 11:41 Resp 20 09/29/21 11:41 BP 138/99 H 09/29/21 11:41 Pulse Ox 98 09/29/21 11:41 BMI result Body Mass Index 20.5 Objective Data Active Medications Remdesivir 100 mg/ Sodium (Chloride) 230 mls @ 115 mls/hr IV Q24H [facility] Stop: 09/29/21 15:59 Last Infusion: 09/28/21 17:48 Dose: 0 mls/hr Documented by: CRISTINE Potassium Chloride () 10 meq in 100 mls @ 100 mls/hr IV Q1H [facility] Stop: 09/29/21 15:59 Last Infusion: 09/29/21 14:40 Dose: 0 mls/hr Documented by: IAN Dextrose/Sodium Chloride (D51/2ns) 1,000 mls @ 80 mls/hr IVCONT .[id number] [facility] Ampicillin Sodium/Sulbactam (Sodium 3 gm/ Sodium Chloride) 100 mls @ 200 mls/hr IV Q6H [facility] Omeprazole (Omeprazole 20 Mg Capsule.Dr) 20 mg PO BID@0630,1630 [facility] Last Admin: 09/29/21 05:20 Dose: 20 mg Documented by: KATHY Pharmacy Consult (Consult Rx Perform Med Rec) 1 each MISCELLANE ONCE PRN PRN Reason: Consult order Sodium Chloride (0.9 % Sodium Chloride Flush 3 Ml Syringe) 3 ml IVFLUSH QSHIFT [facility] Last Admin: 09/29/21 08:39 Dose: 3 ml Documented by: IAN Labs CBC & Chem 7: 09/29/21 07:46 09/29/21 07:46 Labs: Laboratory Results - last 24 hr 09/28/21 09/29/21 06:30 07:46 Anion Gap 12 Estim Creat Clear Calc 52.8 Estimated GFR > 60 Random Glucose 115 Calcium 8.5 Total Bilirubin 0.4 Direct Bilirubin < 0.2 AST 36 H ALT 22 Alkaline Phosphatase 31 L D Total Protein 5.4 L Albumin 3.1 L D Quality Stroke Does the patient have a stroke diagnosis?: No VTE Prior VTE?: No VTE Risk Level:: Medical - moderate - high VTE Device Contraindication: N/A - Device Ordered VTE Drug Contraindication: N/A - Med Ordered
[2021-09-29] MEDS: Dextrose 5 % and 0.45 % NaCl 1,000 ML 80 ML IVCONT (14:55)
--- NOTE | 2021-09-29 15:24 | MHC.CM.PN ---
CM CONTACTED PT'S DTR/HCP RICKIE AT 2:50PM [phone] TO DISCUSS DCP AND ANTICIPATED D/C TOMORROW 09/30, IMM REVIEWED W/RICKIE AND SHE WAS PROVIDED /[facility] APPEALS PHONE NUMBER, COPY WILL BE LEFT AT BEDSIDE SHE OR HER SISTER AND ALTERNATE HCP BRIAN VARGAS WILL BE IN THIS EVENING OR TOMORROW MORNING TO SEE AND ENCOURAGE PT TO EAT, HOSPITALIST HAS OBTAINED PERMISSION FROM MANAGEMENT. AIRPORT CLERK AND SOURCING CONSULTANT AWARE.
[2021-09-29 15:25] VITALS: BP 126/59; PULSE 78; RESP 17; TEMP 36.2; O2SAT 97
[2021-09-29] MEDS: Remdesivir 100 MG in 0.9 % Sodium Chloride 230 ML 115 MG IV (16:09)
[2021-09-29 20:00] VITALS: BP 90/52; PULSE 86; RESP 17; TEMP 36.4; O2SAT 94
[2021-09-29 23:56] VITALS: BP 92/42; PULSE 72; RESP 20; TEMP 37; O2SAT 98
[2021-09-30 04:00] VITALS: BP 108/52; PULSE 67; RESP 20; TEMP 37.1; O2SAT 92
[2021-09-30] MEDS: Ampicillin Sodium/Sulbactam Na 3 GM in 0.9 % Sodium Chloride 100 ML IV ×2 (04:46→12:10)
[2021-09-30] MEDS: Omeprazole 20 MG CAPSULE.DR PO (04:46)
[2021-09-30] MEDS: Dextrose 5 % and 0.45 % NaCl 1,000 ML 80 ML IVCONT (04:48)
--- NOTE | 2021-09-30 06:41 | PC.NURSE ---
Pt was noted at start of shift with left forearm swelling and slight redness from IV infitrate, IVF stopped and new ivline inserted aseptically on the right forearm, ivf resumed warm compress applied to left arm and monitored.
[2021-09-30 06:56] LABS: Hematocrit 33.8 % (37.0-47.0); Hemoglobin 11.4 g/dl (12.0-16.0); Mean Corpuscular HGB Conc 33.7 g/dl (31.0-35.0); Mean Corpuscular Hemoglobin 29.5 pg (27.0-33.0); Mean Corpuscular Volume 87.6 fL (80.0-98.0); Mean Platelet Volume 9.9 fL (9.4-12.3); Platelet Count 262 X10*3/uL (160-400); Red Blood Count 3.86 X10*6/uL (4.20-5.50); Red Cell Distribution Width 12.7 % (11.0-16.0); White Blood Count 12.7 X10*3/uL (4.8-10.8)
[2021-09-30 07:10] LABS: Anion Gap 12 (12-20); Blood Urea Nitrogen 8 mg/dL (9-16); Calcium 8.7 mg/dL (8.4-10.2); Carbon Dioxide 25 mmol/L (22-29); Chloride 106 mmol/L (96-108); Creatinine Clr Calc Pharmacy 49.5; Estimated Glomerular Filt Rate > 60; Glucose Fasting 118 mg/dL (60-99); Potassium 3.3 mmol/L (3.3-5.1); Sodium 140 mmol/L (135-145)
[2021-09-30 08:00] VITALS: BP 120/61; PULSE 74; RESP 18; TEMP 37.4; O2SAT 96
[2021-09-30 12:00] VITALS: BP 127/79; PULSE 74; RESP 17; TEMP 36.1; O2SAT 98
--- NOTE | 2021-09-30 12:06 | PM.DS ---
DS: Providers Provider Date of Service: 09/30/21 Date of admission: 09/25/21 17:06 Primary care physician: Viviana Jasmine DO Consults: 09/26/21 10:06 Consult to Gastroenterology Routine Consulting Provider: [facility] [place] Gastroenterology Services Reason for consultation: Gi b Has provider been notified: No 09/26/21 15:43 Consult to Infectious Diseases Routine Consulting Provider: Kaylie Farris Reason for consultation: seevre sepsis sec aspirational pneumonia Has provider been notified: No DS: Diagnosis Discharge Diagnosis (1) GI bleed: Status: Acute (2) COVID-19: Status: Acute (3) Cholelithiasis: Status: Acute DS: Summary Hospital Course Hospital Course: from initial hpi: Chief Complaint: sepsis 81-year-old female with past medical history of Alzheimer's dementia, basically bedbound, also contracted, mute, brought to hospital? to the hospital-as per the granddaughter at bedside:? Patient was found to have a episode of diarrhea and dark vomitus this morning, as per granddaughter she was also breathing heavily that time. Otherwise granddaughter? denies-any episode of fever chills or any signs of pain as per granddaughter or any cough or any foul-smelling urination. Patient lives with her son in a 2 family house where her daughter also lives:? As per the family last night when they put her on the bed she was at her baseline and this morning she had vomiting and was getting generally weak than usual.? So brought to the hospital due to above mentioned complaints. ED physician given the admission for possible aspiration pneumonia . ED labs reviewed patient was tachycardic tachypneic and fever of 102.9*f, lactic acid of 4 Patient was given 30 cc bolus, antibiotic,dexamethsone In addition patient occult blood was checked due to dark stools and came out to positive. CT abdomen ordered which is still needed to be completed. hospital course: patient was admitted for severe sepsis due to aspiration pneumonia and COVID infection complicated by metabolic encephalopathy with hypernatremia. She was treated with course of remdesivir. She was not hypoxic. She was also given Zosyn and will be transitioned to oral Augmentin for 5 more days. She was seen by speech recommended pureed solids and nectar thick liquids. Her hypernatremia improved with hypotonic fluids patient has been eating about 50% of her diet. For Alzheimer's dementia she should continue supportive care. She had some hypokalemia which was replaced. She did have 1 episode questionable acute blood loss anemia, hemoglobin remained stable, she did not require transfusion. She has moderate malnutrition and p.o. intake should be encouraged. Patient is now stable will be discharged home. Time Spent with Patient Time attestation: Total time spent providing and/or coordinating discharge services: Discharge coordination time: Greater than 30 minutes Quality: Safe Use of Opioids Does Pt have an Active Cancer Diagnosis on the Problem List?: No Quality: Stroke Does the patient have a stroke diagnosis?: No Physical Exam Vital Signs: Vital Signs: Last Vital Signs Temp 99.4 F 09/30/21 08:00 Pulse 74 09/30/21 08:00 Resp 18 09/30/21 08:00 BP 120/61 09/30/21 08:00 Pulse Ox 96 09/30/21 08:00 BMI result Body Mass Index 20.5 General: lethargic, ill appearing, contracted Resp:? CTA bilateral, no accessory muscles used CVS: S1,S2,RRR GI: soft, non tender, non distended Neuro: contracted, letarhgic Psych:? impairedinsight? DS: Data Data Completed and Pending Completed studies during hospitalization [Text1]: Procedures Excision of Left Lower Arm Skin, External Approach, Diagnostic (11/18/20) Labs on day of discharge: Laboratory Results - last 24 hr 09/30/21 09/30/21 06:25 06:25 WBC 12.7 H RBC 3.86 L Hgb 11.4 L Hct 33.8 L MCV 87.6 MCH 29.5 MCHC 33.7 RDW 12.7 Plt Count 262 D MPV 9.9 Absolute Nucleated RBC 0.000 Nucleated RBC % (auto) 0.0 Sodium 140 Potassium 3.3 Chloride 106 Carbon Dioxide 25 Anion Gap 12 BUN 8 L Creatinine 0.64 Estim Creat Clear Calc 49.5 Estimated GFR > 60 Fasting Glucose 118 H Calcium 8.7 Preliminary micro results at discharge 09/25/21 13:58 Blood Culture - Preliminary Blood - Venous No growth after 48 hours. 09/25/21 13:55 Blood Culture - Preliminary Blood - Venous No growth after 48 hours. Discharge Plan Discharge Patient Disposition: Home, Self-Care Discharge Diagnosis: covid asp pna Referrals: Viviana Jasmine DO [Primary Care Provider] - 1 Week Discharge Medications: New amoxicillin-pot clavulanate 600-42.9 mg/5 mL suspension for reconstitution 5 ml PO BID Qty: 75 0RF Rx Instructions: 5 more days Continued multivitamin [Daily-Kimberley] Tablet 1 tab PO DAILY 0RF quetiapine 25 mg tablet 1 tab PO TID 0RF acetaminophen [Silapap] 160 mg/5 mL liquid 15 ml PO Q6H PRN (Reason: fever) 0RF Discharge Orders: Discharge Order (Routine); Ordered 09/30/21 Ordered By: Pop Avelar Diet: advance to usual diet Activity on Discharge: As tolerated Stand Alone Forms: Patient Portal Discharge page Care Plan Goals: avoid hospitalizations Health Concerns: dysphagia, weakness Plan of Treatment: encourage po, pureed, nectar thick liquids Assessment: see above
--- NOTE | 2021-09-30 14:33 | MHC.CM.PN ---
CM CONTACTED PT'S DTR HCP ALLISON AT 11:20AM [phone] TO DISCUSS DCP, ALLISON AGREEABLE TO PLAN AND ARRANGED FOR 2PM DISCHARGE VIA AMBULANCE,ALLISON REPORTED SHE WOULD HAVE HER SISTER MARY COME AND BRING CLOTHES FOR PT WHICH SHE DID AND AT TIME OF THIS NOTE PT HAS DISCHARGED FROM UNIT.
--- NOTE | 2021-09-30 16:29 | MHC.SLORD ---
Speech Language Pathology Order Status: Attempted to see Pt. in a.m. Pt sleeping/lethargic when roused, not appropriate for PO trials. Will continue to follow.
== END 2021-09-30 14:30 | disposition home or self-care (01) | DRG 871 ==
LOC: HO.ED 17:13 → HO.EDOVER 17:15 → HO.IMC 18:39
PROVIDERS: Admitting Provider Internal Medicine; Emergency Provider Emergency Medicine; PCP Family Medicine; Visit Provider Internal Medicine
DX: A41.9 Sepsis, unspecified organism (principal); U07.1 COVID-19; J69.0 Pneumonitis due to inhalation of food and vomit; D62 Acute posthemorrhagic anemia; E87.0 Hyperosmolality and hypernatremia; E44.0 Moderate protein-calorie malnutrition; R65.20 Severe sepsis without septic shock; F02.80 Dementia in other diseases classified elsewhere, unspecified severity, without behavioral disturbance, psychotic disturbance, mood disturbance, and anxiety; G30.9 Alzheimer's disease, unspecified; R62.7 Adult failure to thrive; Z68.20 Body mass index [BMI] 20.0-20.9, adult; Z53.1 Procedure and treatment not carried out because of patient's decision for reasons of belief and group pressure; Z74.01 Bed confinement status; Z88.6 Allergy status to analgesic agent; Z79.899 Other long term (current) drug therapy
CPT/HCPCS: 0241U; 36415; 71045; 74177; 76705; 80048; 80076; 82272; 83605; 83690; 83880; 84295; 85014; 85018; 85025; 85027; 85610; 86850; 86900; 86901; 87040; 87502; 87633; 87635; 92526; 92610; 93005; 96361; 96374; 96375; 99285; J0248; J0295; J1100; J2543; Q9967

== ENCOUNTER 2021-12-27 15:07 | Emergency (ER) | payer MEDICARE, MEDICAID, SELFPAY ==
[2021-12-27 18:11] VITALS: BP 115/99; PULSE 71; RESP 16; TEMP 36.3; O2SAT 96; BMI 23.4
--- NOTE | 2021-12-27 20:15 | ED_ITS ---
HPI - General Adult General Chief complaint: Eye Problems Stated complaint: droopy eye, allergic reaction? Time Seen by Provider: 12/27/21 19:17 Source: family Mode of arrival: wheelchair Limitations: altered mental status History of Present Illness HPI narrative: 81-year-old female with a history of dementia presents with drooping into the right eye, surrounding redness and drainage from the eye noted with waking this morning. Family tells me patient is at her mental status baseline. She is wheelchair-bound. They have not noted any weakness in the extremities. Patient does not seem to be in any pain per family. No fevers or chills. Related Data Home Medications Medication Instructions Recorded Confirmed multivitamin (Daily-Kimberley) 1 tab PO DAILY 11/18/20 09/25/21 quetiapine 25 mg tablet 1 tab PO TID 11/18/20 09/25/21 acetaminophen 160 mg/5 mL oral 15 ml PO Q6H PRN fever 09/25/21 09/25/21 liquid (Silapap) Previous Rx's Medication Instructions Recorded amoxicillin 600 mg-potassium 5 ml PO BID #75 mL 09/30/21 clavulanate 42.9 mg/5 mL oral suspension doxycycline monohydrate 25 mg/5 mL 100 mg (20 mL) PO BID 7 days #280 12/27/21 oral suspension mL valacyclovir 1 gram tablet 1,000 mg PO BID #14 tabs 12/27/21 (Valtrex) Allergies Allergy/AdvReac Type Severity Reaction Status Date / Time aspirin [ASPIRIN] Allergy Unknown UNKNOWN Verified 11/18/20 17:50 ibuprofen [IBUPROFEN] Allergy Unknown SWELLING Verified 11/18/20 17:50 Review of Systems Review of Systems: Yes all other systems are reviewed and are negative Constitutional: Constitutional: Reports no additional constitutional complaints, Denies body ache(s), Denies chills, Denies fever(s), Denies headache(s) and Denies weakness Eyes: Eyes: Reports no additional eye complaints, Denies change in vision and Reports eye discharge ENT: Reports system reviewed and no additional complaints, except as documented, Denies dizziness, Denies headache(s), Denies nasal congestion, Denies nasal discharge and Denies neck pain Cardiovascular: Cardiovascular: Reports no additional cardiovascular complaints, Denies chest pain, Denies leg edema and Denies dyspnea Respiratory: Respiratory: Reports no additional respiratory complaints, Denies cough and Denies dyspnea Gastrointestinal: Gastrointestinal: Reports no additional gastrointestinal complaints, Denies abdominal pain, Denies diarrhea, Denies nausea and Denies vomiting Genitourinary: Genitourinary: Reports no additional female genitourinary complaints and Denies urinary incontinence Musculoskeletal: Musculoskeletal: Reports no additional musculoskeletal complaints, Denies back pain, Denies arthralgias, Denies joint swelling, Denies neck pain, Denies numbness and Denies tingling Integumentary/Breasts: Skin/Breast: Reports system reviewed and no additional complaints, except as docu, Reports swelling, Reports erythema and Denies rash Neurologic: Reports system reviewed and no additional complaints, except as documented, Reports confusion, Denies dizziness, Denies headache(s), Denies numbness, Denies tingling and Denies weakness Psychiatric: Psychiatric: Reports confusion PMFSH Past Medical History Attestation statement: The following information was validated with the patient. Source: old records reviewed and nursing notes reviewed Medical History Alzheimer disease Aspiration pneumonia Asthma Failure to thrive in adult Social History Social History Household Members: Family Housing: Apartment Do you presently have visiting nurse or other home services: Yes Alcohol intake: never Patient Tobacco Use Status: Never used Tobacco Advance Directives: Yes Advance Directives on File: Yes Advance Directives Date on File: 08/05/21 service: No Current occupational status: retired Physical Exam ED Vital Signs: Vital Signs - 24 hr 12/27/21 18:11 Temperature 97.3 F Pulse Rate 71 Respiratory Rate 16 Blood Pressure 115/99 H Pulse Oximetry 96 Oxygen Delivery Method Room Air BMI result Body Mass Index 23.4 Const General: alert and confusion Orientation/consciousness: confusion Limitations: altered mental status HENMT Other: No tenderness over the face. No warmth. There is some redness and some slight swelling noted. No lesions on the face EOM is intact of the eye. There is some conjunctival injection with purlent green drainage. There is absent wrinkling noted over the right side of the forehead with weakness and facial droop noted on the right side. The right eyelid is also dr ooping. Ears: hearing grossly normal bilaterally and TM's normal bilaterally General nose exam: Normal external nose present Mouth: Normal oral and palatal mucosa present and lip normal Throat: Yes posterior oropharynx normal, Yes tonsils normal and Yes uvula midline Eyes Conjunctivae: conjunctival abnormal (Injection right eye) Pupils: Equal, round and reactive pupils present EOM: EOMs intact bilaterally Neck Neck: Yes normal visual inspection, Yes full ROM, Yes no lymphadenopathy and Yes no meningeal signs Chest Chest palpation & inspection: normal inspection of the chest Resp Effort & Inspection: normal respiratory effort Auscultation: clear to auscultation bilaterally Cardio Rate: regular rate Rhythm: regular rhythm Peripheral pulses: Peripheral pulses 2+ throughout GI Inspection: Yes normal to inspection Palpation (GI): Soft to palpation and nontender Neuro Other: Wheelchair-bound at baseline Confused at baseline Patient unable to follow commands for neurological exam General: moves all extremities, no meningeal signs and confusion Cranial nerves: Yes Equal, round and reactive pupils present and Yes Bilaterally intact EOM present Extrem General: Yes normal to inspection Medical Decision Making MDM Narrative Medical decision making narrative: 81-year-old female here with right eyelid and facial droop noted this morning by family with wakening with some local erythema over the right cheek and drainage from the eye. 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 Will obtain labs and send studies for HSV and Lyme Patient was seen in conjunction with Dr Delgadillo No reports of falls or concern for head injury. Patient not on any anticoagulation. No history of stroke. Patient is confused at baseline secondary to dementia. Unable to perform complete neurological exam due to underlying dementia. We discussed this with family. They are aggreable with plan of obtaining labs and discharging home with PO valtrex,doxycycline. We decided to hold additional imaging. Medical Records Medical records reviewed: Yes I reviewed the patient's medical records. Lab Data Lab results reviewed: Yes I reviewed the patient's lab results. Result diagrams: 12/27/21 20:54 12/27/21 20:54 Labs: Lab Results 12/27/21 12/27/21 Range/Units 20:54 20:54 WBC 8.2 (4.8-10.8) X10*3/uL RBC 4.38 (4.20-5.50) X10*6/uL Hgb 12.7 (12.0-16.0) g/dl Hct 39.4 (37.0-47.0) % MCV 90.0 (80.0-98.0) fL MCH 29.0 (27.0-33.0) pg MCHC 32.2 (31.0-35.0) g/dl RDW 12.9 (11.0-16.0) % Plt Count 247 (160-400) X10*3/uL MPV 9.8 (9.4-12.3) fL Immature Gran % (Auto) 0.1 (0.0-0.4) % Neut % (Auto) 49.6 (45-73) % Lymph % (Auto) 41.4 H (20-40) % [place] % (Auto) 6.4 (2-11) % Eos % (Auto) 2.3 (0-4) % Baso % (Auto) 0.2 (0-2) % Lymph # (Auto) 3.4 (1.2-4.9) X10*3/uL [place] # (Auto) 0.5 (0.1-1.2) X10*3/uL Eos # (Auto) 0.2 (0.0-0.4) X10*3/uL Baso # (Auto) 0.0 (0.0-0.2) X10*3/uL Abs Immat Gran (auto) 0.01 (0.00-0.03) X10*3/uL Absolute Neuts (auto) 4.1 (2.0-8.3) x10*3/uL Absolute Nucleated RBC 0.000 (0.0-0.012) X10*3/uL Nucleated RBC % (auto) 0.0 (0.0-0.2) /100WBC Sodium 141 (135-145) mmol/L Potassium 4.2 D (3.3-5.1) mmol/L Chloride 106 (96-108) mmol/L Carbon Dioxide 26 (22-29) mmol/L Anion Gap 13 (12-20) BUN 18 H D (9-16) mg/dL Creatinine 0.67 (0.5-1.4) mg/dL Estim Creat Clear Calc 47.3 Estimated GFR > 60 Random Glucose 98 (60-115) mg/dL Calcium 9.6 D (8.4-10.2) mg/dL Total Bilirubin 0.5 (0.0-1.0) mg/dL Direct Bilirubin 0.2 (0.0-0.5) mg/dL AST 22 (5-31) U/L ALT 16 (0-31) U/L Alkaline Phosphatase 60 D (39-117) U/L Total Protein 6.9 D (6.5-8.0) g/dL Albumin 4.2 D (3.5-5.0) g/dL Discharge Plan Discharge Clinical Impression: Miller's palsy Patient Disposition: Home, Self-Care Instructions: Miller Palsy (ED) Additional Instructions: I will call you if the labs are abnormal Testing for herpes and Lyme disease does take 5-7 days. We will only call you if these are positive Continue all medications and complete them Use gloves at nighttime or cover her eye to prevent scratching Follow-up with primary care doctor this week Return for change in mental status, neck pain or neck stiffness, weakness in 1 side of the body Prescriptions: New valacyclovir [Valtrex] 1 gram tablet 1,000 mg PO BID Qty: 14 0RF doxycycline monohydrate 25 mg/5 mL suspension for reconstitution 100 mg PO BID 7 Days Qty: 280 0RF No Action multivitamin [Daily-Kimberley] Tablet 1 tab PO DAILY quetiapine 25 mg tablet 1 tab PO TID acetaminophen [Silapap] 160 mg/5 mL liquid 15 ml PO Q6H PRN (Reason: fever) amoxicillin-pot clavulanate 600-42.9 mg/5 mL suspension for reconstitution 5 ml PO BID Qty: 75 0RF Rx Instructions: 5 more days Referrals: Viviana Jasmine DO [Primary Care Provider] -
[2021-12-27 20:58] LABS: MANUAL DIFF FLAG NO
[2021-12-27 20:59] LABS: Basophils Percent Auto 0.2 % (0-2); Eosinophils Absolute Auto 0.2 X10*3/uL (0.0-0.4); Eosinophils Percent Auto 2.3 % (0-4); Hematocrit 39.4 % (37.0-47.0); Hemoglobin 12.7 g/dl (12.0-16.0); Imm Gran Abs Auto 0.01 X10*3/uL (0.00-0.03); Imm Gran Pct Auto 0.1 % (0.0-0.4); Lymphocytes Absolute Auto 3.4 X10*3/uL (1.2-4.9); Lymphocytes Percent Auto 41.4 % (20-40); Mean Corpuscular HGB Conc 32.2 g/dl (31.0-35.0); Mean Platelet Volume 9.8 fL (9.4-12.3); Monocytes Absolute Auto 0.5 X10*3/uL (0.1-1.2); Monocytes Percent Auto 6.4 % (2-11); Neutrophils Absolute Auto 4.1 x10*3/uL (2.0-8.3); Neutrophils Percent Auto 49.6 % (45-73); Platelet Count 247 X10*3/uL (160-400); Red Blood Count 4.38 X10*6/uL (4.20-5.50); Red Cell Distribution Width 12.9 % (11.0-16.0); White Blood Count 8.2 X10*3/uL (4.8-10.8)
[2021-12-27 21:21] LABS: Alanine Aminotransferase 16 U/L (0-31); Albumin Level 4.2 g/dL (3.5-5.0); Alkaline Phosphatase 60 U/L (39-117); Anion Gap 13 (12-20); Aspartate Amino Transferase 22 U/L (5-31); Bilirubin Direct 0.2 mg/dL (0.0-0.5); Bilirubin Total 0.5 mg/dL (0.0-1.0); Blood Urea Nitrogen 18 mg/dL (9-16); Calcium 9.6 mg/dL (8.4-10.2); Carbon Dioxide 26 mmol/L (22-29); Chloride 106 mmol/L (96-108); Creatinine Clr Calc Pharmacy 47.3; Estimated Glomerular Filt Rate > 60; Glucose Random 98 mg/dL (60-115); Potassium 4.2 mmol/L (3.3-5.1); Sodium 141 mmol/L (135-145); Total Protein 6.9 g/dL (6.5-8.0)
[2021-12-30 18:12] LABS: Lyme Abs Screen <0.90 index
[2022-01-06 23:22] LABS: HSV 1 IgM IFA Negative (Negative); HSV 2 IgM IFA Negative (Negative)
== END 2021-12-27 21:03 | disposition home or self-care (01) ==
PROVIDERS: Nurse Practitioner Family; Emergency Provider Emergency Medicine; PCP Family Medicine
DX: G51.0 Bell's palsy (principal); H57.811 Brow ptosis, right; F03.90 Unspecified dementia, unspecified severity, without behavioral disturbance, psychotic disturbance, mood disturbance, and anxiety; Z79.899 Other long term (current) drug therapy
CPT/HCPCS: 36415; 80048; 80076; 85025; 86617; 86618; 86695; 86696; 99282; 99283

== ENCOUNTER 2022-01-25 20:36 | Emergency (ER) | payer MEDICARE, MEDICAID, SELFPAY ==
--- NOTE | ~2022-01-25 | CT_ITS ---
EXAMINATION: CT HEAD WITHOUT CONTRAST CT CERVICAL SPINE WITHOUT CONTRAST CLINICAL INFORMATION: Fall. COMPARISON: CT head 09/05/2013 TECHNIQUE: Imaging was performed from the skull base to vertex without intravenous administration of contrast. In addition, helical noncontrast CT imaging was acquired through the cervical spine and source images were reviewed along with axial reconstructions and sagittal and coronal MPRs. [This CT examination was performed using dose optimization techniques as appropriate, variously including the following: *Automated exposure control *Adjustment of mA and/or kV according to patient size (this includes techniques or standardized protocols for targeted exams where dose is matched to indication/reason for exam; i.e. extremities or head) *Use of iterative reconstruction technique] DLP: 1180 mGy-cm FINDINGS: HEAD: No intracranial mass, hemorrhage, or midline shift is visualized. There is generalized global volume loss. There is marked prominence of the ventricles and the sulci . There is moderate hypodensity of the periventricular white matter due to chronic small vessel ischemic disease. There are vascular calcifications of the internal carotid arteries bilaterally. . No extra-axial collections are identified. The paranasal sinuses and mastoid air cells are well aerated. CERVICAL SPINE: There is no evidence of acute cervical spine fracture. Vertebral bodies remain normal in height. Cervical vertebrae have normal alignment. There is multilevel degenerative spondylosis of the cervical spine with disc height narrowing and endplate spurs and facet joint arthrosis No pre- or paravertebral soft tissue abnormality is identified. Limited assessment of the lung apices is unremarkable. CT/CT cervical spine wo con IMPRESSION: 1. No acute intracranial pathology. 2. No CT evidence of acute cervical spine fracture or traumatic subluxation
[2022-01-25 20:57] VITALS: PULSE 76; RESP 18; TEMP 36.7; O2SAT 97; BMI 20.3
--- NOTE | 2022-01-25 21:13 | ED_ITS ---
HPI - Fall General Chief Complaint: Fall Stated Complaint: Fall Time Seen by Provider: 01/25/22 21:05 Source: family Mode of arrival: EMS Limitations: altered mental status History of Present Illness HPI Narrative: 81 yo female from home with severe dementia who is total care from family. Was on toilet and slipped off hitting head on floor no LOC, no vomiting, has laceration on left forehead. Not on AC therapy and patient did not receive her night sabina NOLASCO complaint: fall Onset (ago): minute(s) (prior to arrival ) Fall from: other (toilet) Fall witnessed: yes, by family Place fall occurred: home Loss of consciousness: none Prolonged down time: no Symptoms prior to fall: none Context: tripped/slipped Location of injury: head and face Severity: mild Quality: dull Associated symptoms (after fall): other (laceration) Related Data Home Medications Medication Instructions Recorded Confirmed multivitamin (Daily-Kimberley tablet) 1 tab PO DAILY 11/18/20 09/25/21 quetiapine 25 mg tablet 1 tab PO TID 11/18/20 09/25/21 acetaminophen 160 mg/5 mL oral 15 ml PO Q6H PRN fever 09/25/21 09/25/21 liquid (Silapap) Previous Rx's Medication Instructions Recorded amoxicillin 600 mg-potassium 5 ml PO BID #75 mL 09/30/21 clavulanate 42.9 mg/5 mL oral suspension doxycycline monohydrate 25 mg/5 mL 100 mg (20 mL) PO BID 7 days #280 12/27/21 oral suspension mL valacyclovir 1 gram tablet 1,000 mg PO BID #14 tabs 12/27/21 (Valtrex) Allergies Allergy/AdvReac Type Severity Reaction Status Date / Time aspirin [ASPIRIN] Allergy Unknown UNKNOWN Verified 11/18/20 17:50 ibuprofen [IBUPROFEN] Allergy Unknown SWELLING Verified 11/18/20 17:50 Review of Systems Review of Systems: ROS unable to be obtained due to advanced dementia [facility] Past Medical History Source: obtained from family Medical History Alzheimer disease Aspiration pneumonia Asthma Failure to thrive in adult Social History Social History Household Members: Family Housing: Apartment Do you presently have visiting nurse or other home services: Yes Alcohol intake: never Patient Tobacco Use Status: Never used Tobacco Advance Directives: Yes Advance Directives on File: Yes Advance Directives Date on File: 08/05/21 service: No Current occupational status: retired Physical Exam Vital Signs: Vital Signs: Last Vital Signs Temp 98.0 F 01/25/22 20:57 Pulse 80 01/25/22 21:22 Resp 18 01/25/22 20:57 BP 127/62 01/25/22 21:22 Pulse Ox 97 01/25/22 20:57 O2 Del Method 01/25/22 20:57 BMI result Body Mass Index 20.3 Appearance: Alert. at baseline, anxious and agitated. mild acute distress. Eyes: Pupils equal, round and reactive to light. ENT: Pharynx normal. L eyebrow area 1cm superficial abrasion / left temporal 4cm superficial laceration Neck: Normal inspection. Neck supple. CVS: Normal heart rate and rhythm. Pulses normal. Respiratory: No respiratory distress. Breath sounds normal. Abdomen: Soft and nontender. Skin: Skin warm and dry. Normal skin color. Normal skin turgor. Extremities: No lower extremity edema. no grimace with movements Neuro: at baseline Course Course Course Narrative: at baseline stable for DC Procedures Laceration Laceration 1: Site: face Side (If applicable): left Size (cm): 4 Description: linear Depth: simple, single layer Local Anesthetic: lidocaine 1% Amount of anesthesia used (mL): 4 Pre-repair: wound explored Skin layer closed with: nylon Size (cm): 5-0 Number of sutures: 5 Technique: simple, interrupted Laceration 2: Site: scalp Side (If applicable): left Size (cm): 1 Description: linear Depth: simple, single layer Pre-repair: wound explored and irrigated extensively Skin layer closed with: other (tissue adhesive) MDM - Fall MDM Narrative Medical decision making narrative: 81 yo female with hx of advanced dementia requiring total care - s/p mechanical fall at this time with resulting laceration. She will not be able to hold still for exams missed her night klonopin. At this time family agrees to IM versed for procedure will obtain CT head/cspine and repair lacerations Discharge Plan Discharge Clinical Impression: Face lacerations, Head injury Patient Disposition: Home, Self-Care Instructions: Laceration (ED), Head Injury (ED) Additional Instructions: return to ED for any worsening symptoms or concerns sutures comes out in 7 days, okay to shower monitor for redness, fevers, yellow drainage surgical glue will come off on its own in 5 to 7 days Prescriptions: No Action multivitamin [Daily-Kimberley] Tablet 1 tab PO DAILY quetiapine 25 mg tablet 1 tab PO TID acetaminophen [Silapap] 160 mg/5 mL liquid 15 ml PO Q6H PRN (Reason: fever) amoxicillin-pot clavulanate 600-42.9 mg/5 mL suspension for reconstitution 5 ml PO BID Qty: 75 0RF Rx Instructions: 5 more days valacyclovir [Valtrex] 1 gram tablet 1,000 mg PO BID Qty: 14 0RF doxycycline monohydrate 25 mg/5 mL suspension for reconstitution 100 mg PO BID 7 Days Qty: 280 0RF
[2022-01-25 21:22] VITALS: BP 127/62; PULSE 80
[2022-01-25] MEDS: Midazolam HCl/PF 2 MG/2 ML VIAL IM (21:34)
--- NOTE | 2022-01-25 21:39 | PC.NURSE ---
pt nonverbal and appears at baseline per family, vss, head lac from fall off of toilet, denies LOC, witnessed by family member, medicated per provider order. pending CT.
[2022-01-25 22:00] VITALS: BP 108/74; PULSE 75
--- NOTE | 2022-01-25 23:02 | PC.NURSE ---
pt changed into home clothes ready for transport home.
--- NOTE | 2022-01-25 23:42 | PC.NURSE ---
pt resting comfortably, resp even and unlaboured, pending transport via ambulance home.
== END 2022-01-26 00:48 | disposition home or self-care (01) ==
PROVIDERS: Emergency Provider Emergency Medicine; PCP Family Medicine
DX: S01.01XA Laceration without foreign body of scalp, initial encounter (principal); S09.90XA Unspecified injury of head, initial encounter; W18.12XA Fall from or off toilet with subsequent striking against object, initial encounter; Z91.81 History of falling; Y93.89 Activity, other specified; Y92.012 Bathroom of single-family (private) house as the place of occurrence of the external cause; Y99.9 Unspecified external cause status
CPT/HCPCS: 12001; 70450; 72125; 96372; 99284; J2250

== ENCOUNTER 2022-02-03 11:57 | Emergency (ER) | payer MEDICARE, MEDICAID, SELFPAY ==
[2022-02-03 12:04] VITALS: BP 130/69; PULSE 73; RESP 16; TEMP 36.1; O2SAT 99; BMI 33.2
--- NOTE | 2022-02-03 13:16 | ED_ITS ---
HPI - General Adult General Chief complaint: General Medical Stated complaint: Stiches removal Time Seen by Provider: 02/03/22 13:16 Source: family (daughter) Mode of arrival: ambulatory Limitations: other (patient is non-verbal) History of Present Illness HPI narrative: 81-year-old female presents to the emergency department for suture removal. Patient's family states that the sutured area has been healing well, with no erythema or discharge from the wound. Location: face Severity: mild Severity scale (1-10): 1 Relieving factors: none Exacerbating factors: none Associated symptoms: denies other symptoms Treatments prior to arrival: none Related Data Home Medications Medication Instructions Recorded Confirmed multivitamin (Daily-Kimberley tablet) 1 tab PO DAILY 11/18/20 09/25/21 quetiapine 25 mg tablet 1 tab PO TID 11/18/20 09/25/21 acetaminophen 160 mg/5 mL oral 15 ml PO Q6H PRN fever 09/25/21 09/25/21 liquid (Silapap) Previous Rx's Medication Instructions Recorded amoxicillin 600 mg-potassium 5 ml PO BID #75 mL 09/30/21 clavulanate 42.9 mg/5 mL oral suspension doxycycline monohydrate 25 mg/5 mL 100 mg (20 mL) PO BID 7 days #280 12/27/21 oral suspension mL valacyclovir 1 gram tablet 1,000 mg PO BID #14 tabs 12/27/21 (Valtrex) Allergies Allergy/AdvReac Type Severity Reaction Status Date / Time aspirin [ASPIRIN] Allergy Unknown UNKNOWN Verified 02/03/22 12:04 ibuprofen [IBUPROFEN] Allergy Unknown SWELLING Verified 02/03/22 12:04 Review of Systems Review of Systems: Patient with daytime somnolence. Unable to retrieve ROS. Yes Other (patient is non-verbal at baseline.) Constitutional: Constitutional: Denies fever(s) Eyes: Eyes: Denies eye discharge ENT: Denies neck mass Cardiovascular: Cardiovascular: Denies Loss of Consciousness and Denies dyspnea Respiratory: Respiratory: Denies dyspnea Gastrointestinal: Gastrointestinal: Denies vomiting ON LICENSE OF [facility] Past Medical History Attestation statement: The following information was validated with the patient. ON LICENSE OF [facility] Narrative: All information wsa validated by the patient's daughter. Source: old records reviewed and obtained from family (daughter) Medical History Alzheimer disease Aspiration pneumonia Asthma Failure to thrive in adult Social History Social History Household Members: Family Housing: Apartment Do you presently have visiting nurse or other home services: Yes Alcohol intake: never Patient Tobacco Use Status: Never used Tobacco Advance Directives: Yes Advance Directives on File: Yes Advance Directives Date on File: 08/05/21 service: No Current occupational status: retired Physical Exam ED Vital Signs: Vital Signs - 24 hr 02/03/22 12:04 Temperature 97.0 F Pulse Rate 73 Respiratory Rate 16 Blood Pressure 130/69 Pulse Oximetry 99 Oxygen Delivery Method Room Air BMI result Body Mass Index 33.2 Const General: cooperative, no acute distress and tired appearing Nutritional Appearance: well nourished Limitations: physical limitations (non-verbal) and wheelchair HENMT Other: Observed laceration of left forehead s/p fall. Patient has 6 sutures placed in vertical laceration as well as a small wound that was glued, just superior to left eyebrow. Main laceration is scabbed over and in the process of healing. No erythema, swelling, induration, fluctuance, or streaking. Head: Yes normal to inspection, Yes atraumatic and Yes laceration Ears: external ears normal General nose exam: Normal external nose present, no nasal discharge noted and no epistaxis Face and sinus: Yes normal facial exam, No abrasion and No laceration Mouth: no drooling Eyes General: appearance normal, both eyes and all related structures Periorbital: periorbital findings normal Eyelids: Yes eyelids normal Conjunctivae: conjunctivae normal Neck Neck: Yes normal visual inspection, Yes full ROM and Yes no lymphadenopathy Chest Chest palpation & inspection: normal inspection of the chest Resp Effort & Inspection: normal respiratory effort and able to speak in complete sentences Auscultation: clear to auscultation bilaterally Cardio Rate: regular rate Rhythm: regular rhythm GI Inspection: Yes normal to inspection Neuro General: moves all extremities Cognition (Neuro): normal cognition Motor exam (neuro): 5/5 motor strength present throughout Sensory Exam: Normal double simultaneous stimulation for sensation Coordination: [id number] test normal Extrem General: Yes normal to inspection, Yes full ROM and Yes capillary refill normal Psych Appearance: grossly normal Mental Status: mental status grossly normal Affect: normal affect Attitude: cooperative Thought process: Normal thought process present Thought content: Normal thought content present Insight: Good insight present (Psych) Procedures Procedure Narrative Procedure Narrative: 6 sutures removed from left forehead, without incident. Medical Decision Making MDM Narrative Medical decision making narrative: Patient is an 81 year old female presenting to the emergency department today for suture removal. Patient's physical exam showed 6 sutures in a well healing laceration to the left forehead. I explained my physical exam findings to the patient and the patient's daughter. I answered all questions asked by the patient's daughter. Patient's sutures were removed, without incident. I stressed the importance of the patient taking her medication as prescribed. I stressed the importance of the patient following up with her primary care provider. I stressed the importance of the patient returning to the emergency department immediately if she were to develop any dizziness, shortness of breath, difficulty breathing, chest pain, blurry vision, loss of vision, nausea, vomiting, abdominal pain, fever, chills, back pain, or any other complaints. Patient's daughter verbalized agreement and understanding with this treatment plan and discharge. Differential Diagnosis Differential Diagnosis: suture removal Medical Records Medical records reviewed: Yes I reviewed the patient's medical records. Discharge Plan Discharge Clinical Impression: Visit for suture removal Patient Disposition: Home, Self-Care Instructions: Stitches Removal (ED) Additional Instructions: Follow up with your primary care provider. Return to the emergency department immediately if your symptoms worsen or if you develop any dizziness, shortness of breath, difficulty breathing, chest pain, blurry vision, loss of vision, nausea, vomiting, abdominal pain, fever, chills, back pain, or any other complaints. Prescriptions: No Action multivitamin [Daily-Kimberley] Tablet 1 tab PO DAILY quetiapine 25 mg tablet 1 tab PO TID acetaminophen [Silapap] 160 mg/5 mL liquid 15 ml PO Q6H PRN (Reason: fever) amoxicillin-pot clavulanate 600-42.9 mg/5 mL suspension for reconstitution 5 ml PO BID Qty: 75 0RF Rx Instructions: 5 more days valacyclovir [Valtrex] 1 gram tablet 1,000 mg PO BID Qty: 14 0RF doxycycline monohydrate 25 mg/5 mL suspension for reconstitution 100 mg PO BID 7 Days Qty: 280 0RF Referrals: Viviana Jasmine DO [Primary Care Provider] - Interventions: ED Discharge Assessment Last Done: 02/03/22 13:51 Print Language: Paraguayan
--- NOTE | 2022-02-03 13:49 | PC.NURSE ---
PT SITTING IN WHEELCHAIR. CARE PROVIDERS AT CHAIRSIDE. PT HERE FOR SUTURE REMOVAL. EVALUATED BY PROVIDER. PLAN IS FOR SUTURE REMOVAL AND DC. PT/CAREGIVERS AGREEABLE TO PLAN
== END 2022-02-03 13:53 | disposition home or self-care (01) ==
PROVIDERS: Emergency Provider Emergency Medicine Emergency Medical Services; PCP Family Medicine
DX: Z48.02 Encounter for removal of sutures (principal); S01.81XD Laceration without foreign body of other part of head, subsequent encounter; W19.XXXD Unspecified fall, subsequent encounter
CPT/HCPCS: 99282; 99283

== ENCOUNTER 2022-04-20 16:35 | Emergency (ER) | payer MEDICARE, MEDICAID, SELFPAY ==
[2022-04-20 17:39] VITALS: BP 98/68; PULSE 65; RESP 16; TEMP 36.4; O2SAT 94; BMI 19.5
[2022-04-20 20:49] VITALS: BP 121/69; PULSE 79; RESP 16; TEMP 36.4; O2SAT 97
[2022-04-20 21:20] LABS: Basophils Percent Auto 0.4 % (0-2); Eosinophils Absolute Auto 0.2 X10*3/uL (0.0-0.4); Eosinophils Percent Auto 2.3 % (0-4); Hematocrit 40.3 % (37.0-47.0); Hemoglobin 13.1 g/dl (12.0-16.0); Imm Gran Abs Auto 0.05 X10*3/uL (0.00-0.03); Imm Gran Pct Auto 0.7 % (0.0-0.4); Lymphocytes Absolute Auto 3.4 X10*3/uL (1.2-4.9); Lymphocytes Percent Auto 45.3 % (20-40); Mean Corpuscular HGB Conc 32.5 g/dl (31.0-35.0); Mean Corpuscular Hemoglobin 29.6 pg (27.0-33.0); Mean Corpuscular Volume 91.2 fL (80.0-98.0); Monocytes Absolute Auto 0.5 X10*3/uL (0.1-1.2); Monocytes Percent Auto 7.1 % (2-11); Neutrophils Absolute Auto 3.3 x10*3/uL (2.0-8.3); Neutrophils Percent Auto 44.2 % (45-73); PLT CLUMP 1; Red Blood Count 4.42 X10*6/uL (4.20-5.50); Red Cell Distribution Width 12.5 % (11.0-16.0); SCAN SMEAR FLAG 1
[2022-04-20 21:22] LABS: MANUAL DIFF FLAG NO; Platelet Count 242 X10*3/uL (160-400); White Blood Count 7.5 X10*3/uL (4.8-10.8)
--- NOTE | 2022-04-20 21:32 | PC.NURSE ---
nano fernandes said pt is inc so not able to get urine sample .
[2022-04-20 21:41] LABS: Alanine Aminotransferase 14 U/L (0-31); Albumin Level 4.2 g/dL (3.5-5.0); Alkaline Phosphatase 60 U/L (39-117); Anion Gap 16 (12-20); Aspartate Amino Transferase 23 U/L (5-31); Bilirubin Total 0.3 mg/dL (0.0-1.0); Blood Urea Nitrogen 19 mg/dL (9-16); Calcium 9.6 mg/dL (8.4-10.2); Carbon Dioxide 24 mmol/L (22-29); Chloride 106 mmol/L (96-108); Creatinine Clr Calc Pharmacy 52.6; Estimated Glomerular Filt Rate > 60; Glucose Random 101 mg/dL (60-115); Potassium 4.6 mmol/L (3.3-5.1); Sodium 141 mmol/L (135-145); Total Protein 6.9 g/dL (6.5-8.0)
[2022-04-20 23:59] VITALS: BP 106/46; PULSE 73; RESP 15; TEMP 36.6; O2SAT 99
[2022-04-21 00:55] LABS: Appearance Urine Cloudy; Color Urine Yellow; Glucose Urine UA Negative (Negative); Leukocyte Esterase Urine Moderate (2+) (Negative); Nitrite Urine Positive (Negative); PH 7.5 (5.0-9.0); UMIC TRIGGER UACC YES; Urine Blood Moderate (2+) (Negative); Urine Ketones Negative (Negative); Urine Protein Negative (Neg-Trace)
[2022-04-21 01:07] LABS: Bacteria Urine 4+ (None Seen); Hyaline Casts Urine 0-2 /LPF (0-2); Squamous Epithelial Cell Urine 0-2 /HPF (0-2); UACC Culture Trigger YES
--- OUTSIDE RECORDS SUMMARY | 2022-04-21 01:19 | XMS_ITS | Continuity of Care Document ---
:1940 Author Organization [facility] Address [address] [place] [address]- Care Team Providers Name Role Phone Ketan NOLASCO, Deniz Fang Primary Care Physician [place] [facility] [place]s): 01/05/22 - 01/06/[address] [id number] Discharge Disposition: A-D/C Home Attending Physician: Olga Kat MD Admitting Physician: Olga Kat MD Referring Physician: Olga Kat MD Allergies, Adverse Reactions, Alerts Substance Reaction Severity Status ibuprofen1 Active 1Family states reaction is lip swelling Immunizations Given and Recorded Vaccine Date Status Refusal Reason pneumococcal 13-valent vaccine 06/04/17 Given Medications acetaminophen 325 mg oral tablet 650 mg, By Mouth, Every 6 hours, PRN, Refills 0, Maintenance, Pain , Moderate, 06/05/17 11:50:04 Start Date: 06/05/17 Status: OrderedQUEtiapine 25 mg oral tablet 25 mg, 1, tablet, By Mouth, 3 times a day, PRN, Agitation Start Date: 06/03/17 Status: Ordered
--- OUTSIDE RECORDS SUMMARY | 2022-04-21 01:19 | XMS_ITS | Continuity of Care Document ---
:1940 Author Organization [facility] Address [address] [place] [id number]- Care Team Providers Name Role Phone Ketan NOLASCO, Deniz Fang Primary Care Physician [phone] Encounter [facility] [place] Date(s): 11/03/21 - 12/09/[address] [id number] Attending Physician: Olga Kat MD Admitting Physician: [...]
--- OUTSIDE RECORDS SUMMARY | 2022-04-21 01:19 | XMS_ITS | Continuity of Care Document ---
:1940 Author Organization [facility] Address [address] [place] [address]- Care Team Providers Name Role Phone Ketan NOLASCO, Deniz Fang Primary Care Physician [phone] [place] [facility] [place] 01/[place]/[address] [address] Attending Physician: Olga Kat MD Admitting Physician: [...]
--- OUTSIDE RECORDS SUMMARY | 2022-04-21 01:19 | XMS_ITS | Continuity of Care Document ---
:1940 Author Organization [facility] Address [address] [place] [id number]- Care Team Providers Name Role Phone Ketan NOLASCO, Deniz Fang Primary Care Physician Encounter [facility] Date(s): 01/05/22 - 02/04/[address] [id number] Attending Physician: Gisbon Bird Admitting Physician: Gibson Bird Referring Physician: Admtr, [id number] Allergies, Adverse Reactions, Alerts Substance Reaction Severity [...]
--- NOTE | 2022-04-21 01:20 | ED_ITS ---
HPI - General Adult General Chief complaint: General Medical Stated complaint: ? ear infection ? UTI Time Seen by Provider: 04/21/22 00:49 Source: family Limitations: altered mental status (Chronic dementia, nonverbal) History of Present Illness HPI narrative: This is an 81-year-old female who recently seemed to have a buildup of ear wax in her right ear and the family know that there was some discharge coming out from the right ear, which look like pus. The patient also has had decreased appetite recently. She has not had any fever. She does have history of frequent UTI. He has not had any known vomiting. She has not had any cough or apparent shortness of breath Related Data Home Medications Medication Instructions Recorded Confirmed multivitamin (Daily-Kimberley tablet) 1 tab PO DAILY 11/18/20 09/25/21 quetiapine 25 mg tablet 1 tab PO TID 11/18/20 09/25/21 acetaminophen 160 mg/5 mL oral 15 ml PO Q6H PRN fever 09/25/21 09/25/21 liquid (Silapap) Previous Rx's Medication Instructions Recorded amoxicillin 600 mg-potassium 5 ml PO BID #75 mL 09/30/21 clavulanate 42.9 mg/5 mL oral suspension doxycycline monohydrate 25 mg/5 mL 100 mg (20 mL) PO BID 7 days #280 12/27/21 oral suspension mL valacyclovir 1 gram tablet 1,000 mg PO BID #14 tabs 12/27/21 (Valtrex) cefdinir 250 mg/5 mL oral 300 mg (6 mL) PO BID 7 days #84 mL 04/21/22 suspension Allergies Allergy/AdvReac Type Severity Reaction Status Date / Time aspirin [ASPIRIN] Allergy Unknown UNKNOWN Verified 02/03/22 12:04 ibuprofen [IBUPROFEN] Allergy Unknown SWELLING Verified 02/03/22 12:04 Review of Systems Review of Systems: As per HPI Yes Unobtainable due to mental status PMFSH Past Medical History Medical History Alzheimer disease Aspiration pneumonia Asthma Failure to thrive in adult Social History Social History Household Members: Family Housing: Apartment Do you presently have visiting nurse or other home services: Yes Alcohol intake: never Patient Tobacco Use Status: Never used Tobacco Advance Directives: Yes Advance Directives on File: Yes Advance Directives Date on File: 08/05/21 service: No Current occupational status: retired Physical Exam ED Vital Signs: Vital Signs - 24 hr 04/20/22 17:39 04/20/22 20:49 04/20/22 23:59 Temperature 97.6 F 97.6 F 98 F Pulse Rate 65 79 73 Respiratory Rate 16 16 15 Blood Pressure 98/68 121/69 106/46 L Pulse Oximetry 94 97 99 Oxygen Delivery Method Room Air Room Air Room Air 04/21/22 01:21 Temperature Pulse Rate 76 Respiratory Rate 16 Blood Pressure 91/55 L Pulse Oximetry 100 Oxygen Delivery Method Room Air BMI result Body Mass Index 19.5 Const Other: Nonverbal, somewhat contracted HENMT Other: Right auditory canal without erythema but there is some whitish discharge, and an impaction of wax versus foreign body in the canal. Left auditory canal with moderate cerumen impaction, no discharge. No mastoid erythema or tenderness in either side. Procedures Ear Wax Removal Right Ear: Results: Re-examined: cerumen removed completely TM Examination: TM(s) intact, normal appearance Ear Canal Exam: atraumatic Patient Tolerated Procedure: well Complications: no problems Technique: ear canal irrigated Additional Comments: Right ear irrigated, and a single large piece of material was expelled, and this did not appear to be cerumen. May have been a soft foreign body. There was some whitish discharge in the canal however there is no erythema or swelling of the canal. The patient is being treated with cefdinir for UTI, which will also cover any possible infection in her auditory canal. Tympanic membrane was not erythematous but was somewhat opaque appearing. Left auditory canal did have cerumen impaction partially. Medical Decision Making Lab Data Lab results reviewed: Yes I reviewed the patient's lab results. Result diagrams: 04/20/22 21:11 04/20/22 21:11 Labs: Lab Results 04/20/22 04/20/22 04/21/22 Range/Units 21:11 21:11 00:47 WBC 7.5 (4.8-10.8) X10*3/uL RBC 4.42 (4.20-5.50) X10*6/uL Hgb 13.1 (12.0-16.0) g/dl Hct 40.3 (37.0-47.0) % MCV 91.2 (80.0-98.0) fL MCH 29.6 (27.0-33.0) pg MCHC 32.5 (31.0-35.0) g/dl RDW 12.5 (11.0-16.0) % Plt Count 242 (160-400) X10*3/uL MPV Not Reportable Immature Gran % (Auto) 0.7 H (0.0-0.4) % Neut % (Auto) 44.2 L (45-73) % Lymph % (Auto) 45.3 H (20-40) % [place] % (Auto) 7.1 (2-11) % Eos % (Auto) 2.3 (0-4) % Baso % (Auto) 0.4 (0-2) % Lymph # (Auto) 3.4 (1.2-4.9) X10*3/uL [place] # (Auto) 0.5 (0.1-1.2) X10*3/uL Eos # (Auto) 0.2 (0.0-0.4) X10*3/uL Baso # (Auto) 0.0 (0.0-0.2) X10*3/uL Abs Immat Gran (auto) 0.05 H (0.00-0.03) X10*3/uL Absolute Neuts (auto) 3.3 (2.0-8.3) x10*3/uL Absolute Nucleated RBC 0.000 (0.0-0.012) X10*3/uL Nucleated RBC % (auto) 0.0 (0.0-0.2) /100WBC Sodium 141 (135-145) mmol/L Potassium 4.6 (3.3-5.1) mmol/L Chloride 106 (96-108) mmol/L Carbon Dioxide 24 (22-29) mmol/L Anion Gap 16 (12-20) BUN 19 H (9-16) mg/dL Creatinine 0.66 (0.5-1.4) mg/dL Estim Creat Clear Calc 52.6 Estimated GFR > 60 Random Glucose 101 (60-115) mg/dL Calcium 9.6 (8.4-10.2) mg/dL Total Bilirubin 0.3 (0.0-1.0) mg/dL AST 23 (5-31) U/L ALT 14 (0-31) U/L Alkaline Phosphatase 60 (39-117) U/L Total Protein 6.9 (6.5-8.0) g/dL Albumin 4.2 (3.5-5.0) g/dL Urine Color Yellow Urine Appearance Cloudy Urine pH 7.5 (5.0-9.0) Ur Specific [place] 1.020 (1.005-1.025) Urine Protein Negative (Neg-Trace) mg/dL Urine Glucose (UA) Negative (Negative) mg/dL Urine Ketones Negative (Negative) mg/dL Urine Blood Moderate (2+) H (Negative) Urine Nitrite Positive H (Negative) Ur Leukocyte Esterase Moderate (2+) H (Negative) Urine RBC 3-5 H (0-2) /HPF Urine WBC 11-20 H (0-5) /HPF Ur Squamous Epith Cells 0-2 (0-2) /HPF Urine Bacteria 4+ (None Seen) Hyaline Casts 0-2 (0-2) /LPF Discharge Plan Discharge Clinical Impression: Foreign body in right auditory canal, UTI (urinary tract infection), Cerumen impaction Patient Disposition: Home, Self-Care Additional Instructions: Take the cefdinir is prescribed. Use Debrox drops in the ears to prevent wax buildup. Return for any new or worsened symptoms. Prescriptions: New cefdinir 250 mg/5 mL suspension for reconstitution 300 mg PO BID 7 Days Qty: 84 0RF No Action multivitamin [Daily-Kimberley] Tablet 1 tab PO DAILY quetiapine 25 mg tablet 1 tab PO TID acetaminophen [Silapap] 160 mg/5 mL liquid 15 ml PO Q6H PRN (Reason: fever) amoxicillin-pot clavulanate 600-42.9 mg/5 mL suspension for reconstitution 5 ml PO BID Qty: 75 0RF Rx Instructions: 5 more days valacyclovir [Valtrex] 1 gram tablet 1,000 mg PO BID Qty: 14 0RF doxycycline monohydrate 25 mg/5 mL suspension for reconstitution 100 mg PO BID 7 Days Qty: 280 0RF Interventions: ED Discharge Assessment Last Done: 04/21/22 01:41 Discharge Date/Time: 04/21/22 01:41
[2022-04-21 01:21] VITALS: BP 91/55; PULSE 76; RESP 16; O2SAT 100
== END 2022-04-21 01:41 | disposition home or self-care (01) ==
PROVIDERS: Emergency Provider Emergency Medicine; PCP Family Medicine
DX: T16.1XXA Foreign body in right ear, initial encounter (principal); X58.XXXA Exposure to other specified factors, initial encounter; N39.0 Urinary tract infection, site not specified; B96.4 Proteus (mirabilis) (morganii) as the cause of diseases classified elsewhere; H61.23 Impacted cerumen, bilateral; Y93.9 Activity, unspecified; Y92.039 Unspecified place in apartment as the place of occurrence of the external cause; Y99.9 Unspecified external cause status
CPT/HCPCS: 36415; 69209; 80053; 81001; 85025; 87086; 87088; 87186; 99283; 99284

== ENCOUNTER → 2022-06-16 13:32 | Outpatient (REF) | payer MEDICARE, MEDICAID, SELFPAY ==
--- NOTE | 2022-06-16 13:39 | ECG_ITS ---
Test Reason : PREOP Blood Pressure : / mmHG Vent. Rate : 080 BPM Atrial Rate : 000 BPM P-R Int : 000 ms QRS Dur : 086 ms QT Int : 380 ms P-R-T Axes : 000 -34 079 degrees QTc Int : 438 ms Poor data quality Possible Normal sinus rhythm Left axis deviation Abnormal ECG When compared with ECG of 25-SEP-2021 14:03, No significant changes seen Referred By: Viviana Jasmine Electronically Signed By:JESICA RIVAS MD
== END ==
LOC: HO.CARD 13:32
PROVIDERS: PCP Family Medicine; Visit Provider Family Medicine
DX: Z01.818 Encounter for other preprocedural examination (principal)
CPT/HCPCS: 93005

== ENCOUNTER 2022-12-10 07:19 | Emergency (ER) | payer MEDICARE, MEDICAID, SELFPAY ==
--- NOTE | ~2022-12-10 | XR_ITS ---
EXAMINATION: XR CHEST CLINICAL INFORMATION: Question aspiration. COMPARISON: Most recent chest radiograph dated 09/25/2021. TECHNIQUE: Frontal view of the chest was obtained. FINDINGS: The lungs are clear. The cardiomediastinal silhouette is normal in size. There is no pleural effusion or pneumothorax. No acute osseous abnormality. XR/XR chest 1V IMPRESSION: No acute cardiopulmonary findings.
[2022-12-10 07:21] VITALS: BP 110/91; PULSE 90; RESP 14; O2SAT 98; BMI 21.5
--- NOTE | 2022-12-10 08:36 | ED_ITS ---
HPI - General Adult General Chief complaint: Nausea/Vomiting/Diarrhea Stated complaint: vomiting coughing Time Seen by Provider: 12/10/22 08:19 Source: family (Granddaughter) Mode of arrival: ambulatory Limitations: other (Patient is nonverbal none history all at baseline.) History of Present Illness HPI narrative: 82-year-old female who is bedridden, nonverbal, non historian with history of dementia brought in by her family concern of aspiration pneumonia patient was choking yesterday and was trying to clear her throat. Otherwise no fever, no chills, no nausea, no vomiting. Family confirmed patient is a DNR DNI. Patient had history of aspiration pneumonia in the past. Related Data Home Medications Medication Instructions Recorded Confirmed multivitamin (Daily-Kimberley tablet) 1 tab PO DAILY 11/18/20 09/25/21 quetiapine 25 mg tablet 1 tab PO TID 11/18/20 09/25/21 acetaminophen 160 mg/5 mL oral 15 ml PO Q6H PRN fever 09/25/21 09/25/21 liquid (Silapap) Previous Rx's Medication Instructions Recorded amoxicillin 600 mg-potassium 5 ml PO BID #75 mL 09/30/21 clavulanate 42.9 mg/5 mL oral suspension doxycycline monohydrate 25 mg/5 mL 100 mg (20 mL) PO BID 7 days #280 12/27/21 oral suspension mL valacyclovir 1 gram tablet 1,000 mg PO BID #14 tabs 12/27/21 (Valtrex) cefdinir 250 mg/5 mL oral 300 mg (6 mL) PO BID 7 days #84 mL 04/21/22 suspension Allergies Allergy/AdvReac Type Severity Reaction Status Date / Time aspirin [ASPIRIN] Allergy Unknown UNKNOWN Verified 02/03/22 12:04 ibuprofen [IBUPROFEN] Allergy Unknown SWELLING Verified 02/03/22 12:04 Review of Systems Review of Systems: All other systems are reviewed and are negative Constitutional: Reports as per HPI and Reports no additional constitutional complaints Eyes: Reports as per HPI and Reports no additional eye complaints Reports system reviewed and no additional complaints, except as documented Cardiovascular: Reports as per HPI and Reports no additional cardiovascular complaints Respiratory: Reports as per HPI and Reports no additional respiratory complaints Gastrointestinal: Reports as per HPI and Reports no additional gastrointestinal complaints Genitourinary: Reports no additional female genitourinary complaints Musculoskeletal: Reports no additional musculoskeletal complaints Skin/Breast: Reports system reviewed and no additional complaints, except as docu Psychiatric: Reports no additional psychiatric complaints Endocrine: Reports no additional endocrine complaints Hematologic/Lymphatic: Reports no additional hematologic/lymphatic complaints Allergic/Immunologic: Reports no additional allergic/immunologic complaints Reports system reviewed and no additional complaints, except as documented and Reports Abnormal speech present [facility] Past Medical History Medical History Alzheimer disease Aspiration pneumonia Asthma Failure to thrive in adult Social History Social History Household Members: Family Housing: Apartment Do you presently have visiting nurse or other home services: Yes Alcohol intake: never Patient Tobacco Use Status: Never used Tobacco Use of substances other than those prescribed or required for medical reasons: No Advance Directives: Yes Advance Directives on File: Yes Advance Directives Date on File: 08/05/21 service: No Current occupational status: retired Physical Exam ED Vital Signs: Vital Signs - 24 hr 12/10/22 07:21 12/10/22 08:37 12/10/22 11:25 Temperature 99.6 F Pulse Rate 90 83 Respiratory Rate 14 14 Blood Pressure 110/91 H 125/59 L Pulse Oximetry 98 98 Oxygen Delivery Method Room Air Room Air BMI result Body Mass Index 21.5 Vital signs have been reviewed as appeared to be correct. Blood pressure normal. Heart rate normal. Respiration rate normal. Temperature normal. Oxygen saturation normal. Appearance: No acute distress. Head: Normal external exam. Normocephalic. Atraumatic. No Petersen signs noted. No raccoon eyes noted Eyes: PERRLA. EOMI. Conjunctiva and sclera normal. Eyelids normal. ENT: TM's Normal. Pharynx normal. Uvula midline. Moist mucous membranes. No trismus noted. No drooling noted. No muffled voice noted. Neck: Normal inspection. Neck supple. FROM. No adenopathy. Thyroid Normal. No meningeal signs. No neck mass noted. CVS: Normal heart rate and rhythm. Heart sound normal. No murmurs noted. Pulses normal throughout. Respiratory: No respiratory distress. Painless inspiration. Breath sounds normal. No wheezes/rales/rhonchi noted. Chest nontender. No accessory muscle usage noted or decreased air movement noted. Abdomen: Soft and nontender. Bowel sounds normal in all 4 quadrants. No distention noted. No organomegaly noted. No visible injury noted. Back: No CVA tenderness. Full range of motion noted. Skin: Skin warm and dry. Normal skin color. Normal skin turgor. No rashes/lesions/lacerations noted. Extremities: No lower extremity edema. Extremities exhibit normal range of motion. Extremities nontender. Neuro: Cranial nerve exam: II-XII are grossly intact No motor deficit. No sensory deficit. Reflexes normal. Course Course Course Narrative: 82-year-old female came in with her granddaughter for evaluation and concern of aspiration pneumonia. Patient has a clear chest x-ray, labs are unremarkable except for slight leukocytosis, patient is tolerating p.o. intake in the emergency department will discharge the patient to follow-up with PCP. Medical Decision Making Differential Diagnosis Differential Diagnoses: The differential diagnosis associated with the presentation includes (Pneumonia, aspiration pneumonia, persistent vomiting, electrolytes abnormalities, severe dehydration.) Admission/Observation Consideration of admission/observation: Escalation of care including admission/observation considered Lab Data MDM Lab Attestation statement: I reviewed the patient's lab results. 12/10/22 08:26 Labs: Lab Results 12/10/22 12/10/22 12/10/22 Range/Units 08:54 08:54 10:53 WBC 11.0 H (4.8-10.8) X10*3/uL RBC 4.37 (4.20-5.50) X10*6/uL Hgb 12.9 (12.0-16.0) g/dl Hct 40.2 (37.0-47.0) % MCV 92.0 (80.0-98.0) fL MCH 29.5 (27.0-33.0) pg MCHC 32.1 (31.0-35.0) g/dl RDW 13.2 (11.0-16.0) % Plt Count 244 (160-400) X10*3/uL MPV 9.3 L (9.4-12.3) fL Immature Gran % (Auto) 0.3 (0.0-0.4) % Neut % (Auto) 77.0 H (45-73) % Lymph % (Auto) 16.7 L (20-40) % [place] % (Auto) 5.4 (2-11) % Eos % (Auto) 0.5 (0-4) % Baso % (Auto) 0.1 (0-2) % Lymph # (Auto) 1.8 (1.2-4.9) X10*3/uL [place] # (Auto) 0.6 (0.1-1.2) X10*3/uL Eos # (Auto) 0.1 (0.0-0.4) X10*3/uL Baso # (Auto) 0.0 (0.0-0.2) X10*3/uL Abs Immat Gran (auto) 0.03 (0.00-0.03) X10*3/uL Absolute Neuts (auto) 8.5 H (2.0-8.3) x10*3/uL Absolute Nucleated RBC 0.000 (0.0-0.012) X10*3/uL Nucleated RBC % (auto) 0.0 (0.0-0.2) /100WBC Sodium 141 (135-145) mmol/L Potassium 5.7 H D 4.9 (3.3-5.1) mmol/L Chloride 104 (96-108) mmol/L Carbon Dioxide 26 (22-29) mmol/L Anion Gap 17 (12-20) BUN 17 H (9-16) mg/dL Creatinine 0.71 (0.5-1.4) mg/dL Estim Creat Clear Calc 43.9 Estimated GFR > 60 Random Glucose 111 (60-115) mg/dL Calcium 9.7 (8.4-10.2) mg/dL Total Bilirubin 0.4 (0.0-1.0) mg/dL Direct Bilirubin 0.1 (0.0-0.5) mg/dL AST 38 H (5-31) U/L ALT 16 (0-31) U/L Alkaline Phosphatase 62 (39-117) U/L Total Protein 7.3 (6.5-8.0) g/dL Albumin 3.9 (3.5-5.0) g/dL Lipase 6 L (8-78) U/L Urine Color Urine Appearance Urine pH (5.0-9.0) Ur Specific [place] (1.005-1.025) Urine Protein (Neg-Trace) mg/dL Urine Glucose (UA) (Negative) mg/dL Urine Ketones (Negative) mg/dL Urine Blood (Negative) Urine Nitrite (Negative) Ur Leukocyte Esterase (Negative) Urine RBC (0-2) /HPF Urine WBC (0-5) /HPF Ur Squamous Epith Cells (0-2) /HPF Other Crystals Urine Bacteria (None Seen) Hyaline Casts (0-2) /LPF 12/10/22 Range/Units 10:54 WBC (4.8-10.8) X10*3/uL RBC (4.20-5.50) X10*6/uL Hgb (12.0-16.0) g/dl Hct (37.0-47.0) % MCV (80.0-98.0) fL MCH (27.0-33.0) pg MCHC (31.0-35.0) g/dl RDW (11.0-16.0) % Plt Count (160-400) X10*3/uL MPV (9.4-12.3) fL Immature Gran % (Auto) (0.0-0.4) % Neut % (Auto) (45-73) % Lymph % (Auto) (20-40) % [place] % (Auto) (2-11) % Eos % (Auto) (0-4) % Baso % (Auto) (0-2) % Lymph # (Auto) (1.2-4.9) X10*3/uL [place] # (Auto) (0.1-1.2) X10*3/uL Eos # (Auto) (0.0-0.4) X10*3/uL Baso # (Auto) (0.0-0.2) X10*3/uL Abs Immat Gran (auto) (0.00-0.03) X10*3/uL Absolute Neuts (auto) (2.0-8.3) x10*3/uL Absolute Nucleated RBC (0.0-0.012) X10*3/uL Nucleated RBC % (auto) (0.0-0.2) /100WBC Sodium (135-145) mmol/L Potassium (3.3-5.1) mmol/L Chloride (96-108) mmol/L Carbon Dioxide (22-29) mmol/L Anion Gap (12-20) BUN (9-16) mg/dL Creatinine (0.5-1.4) mg/dL Estim Creat Clear Calc Estimated GFR Random Glucose (60-115) mg/dL Calcium (8.4-10.2) mg/dL Total Bilirubin (0.0-1.0) mg/dL Direct Bilirubin (0.0-0.5) mg/dL AST (5-31) U/L ALT (0-31) U/L Alkaline Phosphatase (39-117) U/L Total Protein (6.5-8.0) g/dL Albumin (3.5-5.0) g/dL Lipase (8-78) U/L Urine Color Yellow Urine Appearance Turbid Urine pH >= 9.0 (5.0-9.0) Ur Specific [place] 1.020 (1.005-1.025) Urine Protein 100 (2+) H (Neg-Trace) mg/dL Urine Glucose (UA) Negative (Negative) mg/dL Urine Ketones Negative (Negative) mg/dL Urine Blood Trace H (Negative) Urine Nitrite Negative (Negative) Ur Leukocyte Esterase Moderate (2+) H (Negative) Urine RBC 0-2 (0-2) /HPF Urine WBC 11-20 (0-5) /HPF Ur Squamous Epith Cells 3-5 (0-2) /HPF Other Crystals Present Urine Bacteria 1+ (None Seen) Hyaline Casts 0-2 (0-2) /LPF Independent Interpretation I performed an independent interpretation of an: Plain X-Ray (Chest: No acute intrathoracic pathology.) Discharge Plan Discharge Clinical Impression: Vomiting Patient Disposition: Home, Self-Care Instructions: Acute Nausea and Vomiting (ED) Prescriptions: No Action multivitamin [Daily-Kimberley] Tablet 1 tab PO DAILY quetiapine 25 mg tablet 1 tab PO TID acetaminophen [Silapap] 160 mg/5 mL liquid 15 ml PO Q6H PRN (Reason: fever) amoxicillin-pot clavulanate 600-42.9 mg/5 mL suspension for reconstitution 5 ml PO BID Qty: 75 0RF Rx Instructions: 5 more days cefdinir 250 mg/5 mL suspension for reconstitution 300 mg PO BID 7 Days Qty: 84 0RF valacyclovir [Valtrex] 1 gram tablet 1,000 mg PO BID Qty: 14 0RF doxycycline monohydrate 25 mg/5 mL suspension for reconstitution 100 mg PO BID 7 Days Qty: 280 0RF Referrals: Viviana Jasmine DO [Primary Care Provider] -
[2022-12-10 08:37] VITALS: BP 125/59; PULSE 83; RESP 14; O2SAT 98
[2022-12-10 08:57] LABS: MANUAL DIFF FLAG NO
[2022-12-10 08:58] LABS: Basophils Percent Auto 0.1 % (0-2); Eosinophils Absolute Auto 0.1 X10*3/uL (0.0-0.4); Eosinophils Percent Auto 0.5 % (0-4); Hematocrit 40.2 % (37.0-47.0); Hemoglobin 12.9 g/dl (12.0-16.0); Imm Gran Abs Auto 0.03 X10*3/uL (0.00-0.03); Imm Gran Pct Auto 0.3 % (0.0-0.4); Lymphocytes Absolute Auto 1.8 X10*3/uL (1.2-4.9); Lymphocytes Percent Auto 16.7 % (20-40); Mean Corpuscular HGB Conc 32.1 g/dl (31.0-35.0); Mean Corpuscular Hemoglobin 29.5 pg (27.0-33.0); Mean Platelet Volume 9.3 fL (9.4-12.3); Monocytes Absolute Auto 0.6 X10*3/uL (0.1-1.2); Monocytes Percent Auto 5.4 % (2-11); Neutrophils Absolute Auto 8.5 x10*3/uL (2.0-8.3); Platelet Count 244 X10*3/uL (160-400); Red Blood Count 4.37 X10*6/uL (4.20-5.50); Red Cell Distribution Width 13.2 % (11.0-16.0)
[2022-12-10 09:07] LABS: Anion Gap 17 (12-20)
[2022-12-10 09:26] LABS: Alanine Aminotransferase 16 U/L (0-31); Albumin Level 3.9 g/dL (3.5-5.0); Alkaline Phosphatase 62 U/L (39-117); Aspartate Amino Transferase 38 U/L (5-31); Bilirubin Direct 0.1 mg/dL (0.0-0.5); Bilirubin Total 0.4 mg/dL (0.0-1.0); Blood Urea Nitrogen 17 mg/dL (9-16); Calcium 9.7 mg/dL (8.4-10.2); Carbon Dioxide 26 mmol/L (22-29); Chloride 104 mmol/L (96-108); Creatinine Clr Calc Pharmacy 43.9; Estimated Glomerular Filt Rate > 60; Glucose Random 111 mg/dL (60-115); Lipase 6 U/L (8-78); Potassium 5.7 mmol/L (3.3-5.1); Sodium 141 mmol/L (135-145); Total Protein 7.3 g/dL (6.5-8.0)
[2022-12-10 11:14] LABS: Potassium 4.9 mmol/L (3.3-5.1)
[2022-12-10 11:25] VITALS: TEMP 37.6
[2022-12-10 11:29] LABS: Appearance Urine Turbid; Color Urine Yellow; Glucose Urine UA Negative (Negative); Leukocyte Esterase Urine Moderate (2+) (Negative); Nitrite Urine Negative (Negative); PH >= 9.0 (5.0-9.0); UMIC TRIGGER UACC YES; Urine Blood Trace (Negative); Urine Ketones Negative (Negative); Urine Protein 100 (2+) mg/dL (Neg-Trace)
[2022-12-10 11:43] LABS: Bacteria Urine 1+ (None Seen); Hyaline Casts Urine 0-2 /LPF (0-2); Other Crystals Urine Present; RBC Urine 0-2 /HPF (0-2); UACC Culture Trigger YES
[2022-12-10 14:09] VITALS: BP 118/58; PULSE 83; RESP 12
== END 2022-12-10 14:20 | disposition home or self-care (01) ==
PROVIDERS: Emergency Provider Emergency Medicine; PCP Family Medicine
DX: R11.2 Nausea with vomiting, unspecified (principal); F03.90 Unspecified dementia, unspecified severity, without behavioral disturbance, psychotic disturbance, mood disturbance, and anxiety; Z79.899 Other long term (current) drug therapy
CPT/HCPCS: 36415; 51701; 71045; 80048; 80076; 81001; 83690; 84132; 85025; 87086; 87088; 87186; 96374; 99284

== ENCOUNTER 2022-12-10 14:49 | Emergency (ER) | payer MEDICARE, MEDICAID, SELFPAY ==
--- NOTE | 2022-12-10 | ECG_ITS ---
Test Reason : ASPIRATION Blood Pressure : / mmHG Vent. Rate : 080 BPM Atrial Rate : 000 BPM P-R Int : 000 ms QRS Dur : 080 ms QT Int : 376 ms P-R-T Axes : 000 008 074 degrees QTc Int : 433 ms Artifact in tracing Normal sinus rhythm Likely normal No significant changes when compared with the previous EKG of 16 jun 2022 Referred By: Geremias Castano Electronically Signed By:JIMENEZ GIL
--- NOTE | ~2022-12-10 | XR_ITS ---
EXAMINATION: XR CHEST CLINICAL INFORMATION: Aspiration COMPARISON: 12/10/2022 earlier TECHNIQUE: Frontal view of the chest was obtained. FINDINGS: Low lung volumes. No acute finding. No obvious failure or infiltrate. There is no effusion. The cardiac silhouette is within normal limits. XR/XR chest 1V IMPRESSION: No acute finding.
[2022-12-10 14:52] VITALS: BP 139/59; PULSE 81; RESP 16; TEMP 37.6; O2SAT 100; BMI 19.5
[2022-12-10] MEDS: 0.9 % Sodium Chloride 1,000 ML 999 ML IV ×2 (15:58→18:07)
--- NOTE | 2022-12-10 16:17 | PC.NURSE ---
Pt non verbal, ADL's performed (incontinent of urine), repositioned, pending X-ray results. updated daughters. Alert, unlabored rest.
[2022-12-10 16:54] VITALS: BP 129/62; PULSE 92; RESP 16; O2SAT 96
--- NOTE | 2022-12-10 17:00 | ED.NAVMDI ---
HPI - Nausea/Vomiting/Diarrhea General Chief complaint: Nausea/Vomiting/Diarrhea Stated complaint: Aspirated on vomit Time Seen by Provider: 12/10/22 15:11 Source: EMS and RN notes reviewed Mode of arrival: EMS Limitations: altered mental status History of Present Illness HPI Narrative: Patient 82 years old with history of dementia with frequent aspiration pneumonias, asthma but just seen and discharged for vomiting after feeding with negative x-ray for aspiration, patient went to senior care and came back again as she vomited once more no fever previous labs were stable Related Data Home Medications Medication Instructions Recorded Confirmed multivitamin (Daily-Kimberley tablet) 1 tab PO DAILY 11/18/20 09/25/21 quetiapine 25 mg tablet 1 tab PO TID 11/18/20 09/25/21 acetaminophen 160 mg/5 mL oral 15 ml PO Q6H PRN fever 09/25/21 09/25/21 liquid (Silapap) Previous Rx's Medication Instructions Recorded amoxicillin 600 mg-potassium 5 ml PO BID #75 mL 09/30/21 clavulanate 42.9 mg/5 mL oral suspension doxycycline monohydrate 25 mg/5 mL 100 mg (20 mL) PO BID 7 days #280 12/27/21 oral suspension mL valacyclovir 1 gram tablet 1,000 mg PO BID #14 tabs 12/27/21 (Valtrex) cefdinir 250 mg/5 mL oral 300 mg (6 mL) PO BID 7 days #84 mL 04/21/22 suspension cefuroxime axetil 250 mg tablet 250 mg PO BID 7 days #14 tabs 12/10/22 Allergies Allergy/AdvReac Type Severity Reaction Status Date / Time aspirin [ASPIRIN] Allergy Unknown UNKNOWN Verified 02/03/22 12:04 ibuprofen [IBUPROFEN] Allergy Unknown SWELLING Verified 02/03/22 12:04 Review of Systems Review of Systems: Yes Unobtainable due to mental status PMFSH Past Medical History Medical History Alzheimer disease Aspiration pneumonia Asthma Failure to thrive in adult Social History Social History Household Members: Family Housing: Apartment Do you presently have visiting nurse or other home services: Yes Alcohol intake: never Patient Tobacco Use Status: Never used Tobacco Advance Directives: Yes Advance Directives on File: Yes Advance Directives Date on File: 08/05/21 service: No Current occupational status: retired Physical Exam Vital Signs: Vital Signs: Last Vital Signs Temp 97.9 F 12/10/22 19:56 Pulse 92 12/10/22 19:56 Resp 18 12/10/22 19:56 BP 129/62 12/10/22 19:56 Pulse Ox 100 12/10/22 19:56 O2 Del Method Room Air 12/10/22 19:56 O2 Flow Rate 2 12/10/22 16:54 Oxygen Flow Rate 2 12/10/22 14:52 BMI result Body Mass Index 19.5 Appearance: Alert. Nonverbal No acute distress. Eyes: PERRLA, No Nystagmus ENT: Pharynx normal. Oral Mucosa moist Neck: Normal inspection. Neck supple. CVS: Normal heart rate and rhythm. Pulses normal. Respiratory: No respiratory distress. Equal air entry bilateral, no wheezing/rales/rhonchi Abdomen: Soft and nontender. Bowel sounds are present, no mass palpable, Skin: Skin warm and dry. Normal skin color. Normal skin turgor. Extremities: Contracted posture Neuro: Demented moving all 4 extremities Medications Administered Discontinued Medications Generic Name Dose Route Start Last Admin Trade Name Freq PRN Reason Stop Dose Admin Sodium Chloride 1,000 mls @ 999 mls/hr 12/10/22 14:43 12/10/22 18:08 Ns IV 12/10/22 15:43 Infused .Q1H1M ONE Infusion Ceftriaxone Sodium 1 gm/ 50 mls @ 100 mls/hr 12/10/22 17:27 12/10/22 18:08 Sodium Chloride IV 12/10/22 17:56 100 mls/hr ONCE ONE Administration Sodium Chloride 1,000 mls @ 999 mls/hr 12/10/22 17:25 12/10/22 18:07 Ns IV 12/10/22 18:25 999 mls/hr .Q1H1M ONE Administration Medical Decision Making Medical Decision Making [facility] Narrative: Patient with vomiting with frequent aspiration pneumonia chest x-ray negative at this time WBC slightly elevated 12.1, urine showing leuko esterase and wbc's initial lactic acid was 3.1 repeat after IV antibiotic and fluid was 1.3 possible patient has UTI may be causing the vomiting will start patient on Ceftin and send the patient back to senior care Lab Data [facility] Lab Attestation statement: I reviewed the patient's lab results. 12/10/22 16:08 Labs: Lab Results 12/10/22 12/10/22 12/10/22 Range/Units 16:08 16:08 16:08 WBC 12.1 H (4.8-10.8) X10*3/uL RBC 4.19 L (4.20-5.50) X10*6/uL Hgb 12.4 (12.0-16.0) g/dl Hct 39.1 (37.0-47.0) % MCV 93.3 (80.0-98.0) fL MCH 29.6 (27.0-33.0) pg MCHC 31.7 (31.0-35.0) g/dl RDW 13.4 (11.0-16.0) % Plt Count 285 (160-400) X10*3/uL MPV 10.1 (9.4-12.3) fL Immature Gran % (Auto) 0.3 (0.0-0.4) % Neut % (Auto) 70.9 (45-73) % Lymph % (Auto) 22.0 (20-40) % [place] % (Auto) 5.3 (2-11) % Eos % (Auto) 1.3 (0-4) % Baso % (Auto) 0.2 (0-2) % Lymph # (Auto) 2.7 (1.2-4.9) X10*3/uL [place] # (Auto) 0.6 (0.1-1.2) X10*3/uL Eos # (Auto) 0.2 (0.0-0.4) X10*3/uL Baso # (Auto) 0.0 (0.0-0.2) X10*3/uL Abs Immat Gran (auto) 0.04 H (0.00-0.03) X10*3/uL Absolute Neuts (auto) 8.6 H (2.0-8.3) x10*3/uL Absolute Nucleated RBC 0.000 (0.0-0.012) X10*3/uL Nucleated RBC % (auto) 0.0 (0.0-0.2) /100WBC Lactic Acid (0.5-2.0) mmol/L Lactic Acid F/U @ 2Hr (0.5-2.0) mmol/L Total Bilirubin 0.6 (0.0-1.0) mg/dL Direct Bilirubin 0.2 (0.0-0.5) mg/dL AST 24 (5-31) U/L ALT 14 (0-31) U/L Alkaline Phosphatase 62 (39-117) U/L Troponin I High Sens 4.4 (<3.5-17.0) ng/L B-Natriuretic Peptide (<100) pg/mL Total Protein 6.7 (6.5-8.0) g/dL Albumin 4.0 (3.5-5.0) g/dL COVID-19 (BAUDILIO) (Negative) COVID-19 Clin Com 12/10/22 12/10/22 12/10/22 Range/Units 16:08 16:09 17:02 WBC (4.8-10.8) X10*3/uL RBC (4.20-5.50) X10*6/uL Hgb (12.0-16.0) g/dl Hct (37.0-47.0) % MCV (80.0-98.0) fL MCH (27.0-33.0) pg MCHC (31.0-35.0) g/dl RDW (11.0-16.0) % Plt Count (160-400) X10*3/uL MPV (9.4-12.3) fL Immature Gran % (Auto) (0.0-0.4) % Neut % (Auto) (45-73) % Lymph % (Auto) (20-40) % [place] % (Auto) (2-11) % Eos % (Auto) (0-4) % Baso % (Auto) (0-2) % Lymph # (Auto) (1.2-4.9) X10*3/uL [place] # (Auto) (0.1-1.2) X10*3/uL Eos # (Auto) (0.0-0.4) X10*3/uL Baso # (Auto) (0.0-0.2) X10*3/uL Abs Immat Gran (auto) (0.00-0.03) X10*3/uL Absolute Neuts (auto) (2.0-8.3) x10*3/uL Absolute Nucleated RBC (0.0-0.012) X10*3/uL Nucleated RBC % (auto) (0.0-0.2) /100WBC Lactic Acid 3.1 H* (0.5-2.0) mmol/L Lactic Acid F/U @ 2Hr 1.3 (0.5-2.0) mmol/L Total Bilirubin (0.0-1.0) mg/dL Direct Bilirubin (0.0-0.5) mg/dL AST (5-31) U/L ALT (0-31) U/L Alkaline Phosphatase (39-117) U/L Troponin I High Sens (<3.5-17.0) ng/L B-Natriuretic Peptide 37 (<100) pg/mL Total Protein (6.5-8.0) g/dL Albumin (3.5-5.0) g/dL COVID-19 (BAUDILIO) (Negative) COVID-19 Clin Com 12/10/22 Range/Units 18:27 WBC (4.8-10.8) X10*3/uL RBC (4.20-5.50) X10*6/uL Hgb (12.0-16.0) g/dl Hct (37.0-47.0) % MCV (80.0-98.0) fL MCH (27.0-33.0) pg MCHC (31.0-35.0) g/dl RDW (11.0-16.0) % Plt Count (160-400) X10*3/uL MPV (9.4-12.3) fL Immature Gran % (Auto) (0.0-0.4) % Neut % (Auto) (45-73) % Lymph % (Auto) (20-40) % [place] % (Auto) (2-11) % Eos % (Auto) (0-4) % Baso % (Auto) (0-2) % Lymph # (Auto) (1.2-4.9) X10*3/uL [place] # (Auto) (0.1-1.2) X10*3/uL Eos # (Auto) (0.0-0.4) X10*3/uL Baso # (Auto) (0.0-0.2) X10*3/uL Abs Immat Gran (auto) (0.00-0.03) X10*3/uL Absolute Neuts (auto) (2.0-8.3) x10*3/uL Absolute Nucleated RBC (0.0-0.012) X10*3/uL Nucleated RBC % (auto) (0.0-0.2) /100WBC Lactic Acid (0.5-2.0) mmol/L Lactic Acid F/U @ 2Hr (0.5-2.0) mmol/L Total Bilirubin (0.0-1.0) mg/dL Direct Bilirubin (0.0-0.5) mg/dL AST (5-31) U/L ALT (0-31) U/L Alkaline Phosphatase (39-117) U/L Troponin I High Sens (<3.5-17.0) ng/L B-Natriuretic Peptide (<100) pg/mL Total Protein (6.5-8.0) g/dL Albumin (3.5-5.0) g/dL COVID-19 (BAUDILIO) Negative (Negative) COVID-19 Clin Com See Note Discharge Plan Discharge Clinical Impression: Acute UTI (urinary tract infection), Vomiting Patient Disposition: Xfer [facility] Transfer Details: Chest x-ray is negative for any aspiration Likely patient has UTI will treat with antibiotics cultures are pending Instructions: Acute Nausea and Vomiting (ED), Urinary Tract Infection in Older Adults (ED) Additional Instructions: Take antibiotics as prescribed Continue your medication as prescribed Cautions while feeding Follow with your PCP Prescriptions: New cefuroxime axetil 250 mg tablet 250 mg PO BID 7 Days Qty: 14 0RF No Action multivitamin [Daily-Kimberley] Tablet 1 tab PO DAILY quetiapine 25 mg tablet 1 tab PO TID acetaminophen [Silapap] 160 mg/5 mL liquid 15 ml PO Q6H PRN (Reason: fever) amoxicillin-pot clavulanate 600-42.9 mg/5 mL suspension for reconstitution 5 ml PO BID Qty: 75 0RF Rx Instructions: 5 more days cefdinir 250 mg/5 mL suspension for reconstitution 300 mg PO BID 7 Days Qty: 84 0RF valacyclovir [Valtrex] 1 gram tablet 1,000 mg PO BID Qty: 14 0RF doxycycline monohydrate 25 mg/5 mL suspension for reconstitution 100 mg PO BID 7 Days Qty: 280 0RF
[2022-12-10 17:20] LABS: Lactic Acid 3.1 mmol/L (0.5-2.0)
[2022-12-10 17:28] LABS: Basophils Percent Auto 0.2 % (0-2); Eosinophils Absolute Auto 0.2 X10*3/uL (0.0-0.4); Eosinophils Percent Auto 1.3 % (0-4); Hematocrit 39.1 % (37.0-47.0); Hemoglobin 12.4 g/dl (12.0-16.0); Imm Gran Abs Auto 0.04 X10*3/uL (0.00-0.03); Imm Gran Pct Auto 0.3 % (0.0-0.4); Lymphocytes Absolute Auto 2.7 X10*3/uL (1.2-4.9); MANUAL DIFF FLAG NO; Mean Corpuscular HGB Conc 31.7 g/dl (31.0-35.0); Mean Corpuscular Hemoglobin 29.6 pg (27.0-33.0); Mean Corpuscular Volume 93.3 fL (80.0-98.0); Mean Platelet Volume 10.1 fL (9.4-12.3); Monocytes Absolute Auto 0.6 X10*3/uL (0.1-1.2); Monocytes Percent Auto 5.3 % (2-11); Neutrophils Absolute Auto 8.6 x10*3/uL (2.0-8.3); Neutrophils Percent Auto 70.9 % (45-73); Platelet Count 285 X10*3/uL (160-400); Red Blood Count 4.19 X10*6/uL (4.20-5.50); Red Cell Distribution Width 13.4 % (11.0-16.0); White Blood Count 12.1 X10*3/uL (4.8-10.8)
[2022-12-10 17:43] LABS: Alanine Aminotransferase 14 U/L (0-31); Alkaline Phosphatase 62 U/L (39-117); Aspartate Amino Transferase 24 U/L (5-31); Bilirubin Direct 0.2 mg/dL (0.0-0.5); Bilirubin Total 0.6 mg/dL (0.0-1.0); Total Protein 6.7 g/dL (6.5-8.0)
[2022-12-10 17:47] LABS: B Type Natriuretic Peptide 37 pg/mL (<100)
[2022-12-10 17:50] LABS: Troponin-I High Sensitivity 4.4 ng/L (<3.5-17.0)
[2022-12-10] MEDS: cefTRIAXone sodium 1 GM in 0.9 % Sodium Chloride 50 ML IV (18:08)
[2022-12-10 18:30] LABS: Reflex Lactate? Lactic Acid Added
[2022-12-10 18:45] LABS: COVID-19 Test Negative (Negative); IDNOW Serial# BCCEAD1C
[2022-12-10 19:18] LABS: ~Lactic Acid-LAB USE ONLY 1.3 mmol/L (0.5-2.0)
[2022-12-10 19:56] VITALS: BP 129/62; PULSE 92; RESP 18; TEMP 36.6; O2SAT 100
--- NOTE | 2022-12-10 21:36 | PC.NURSE ---
pt's mental status at baseline. urinated 100cc of urine prior to dc. respirations nonlabored. turned and repositioned Q2. tolerated fluids/ivabx well. no vomiting. dom Fletcher given an update on care and voice message left regarding pt's dc and return home. phone [phone].
[2022-12-10 21:40] VITALS: BP 119/67; PULSE 88; RESP 18; O2SAT 98
== END 2022-12-10 21:40 | disposition skilled nursing facility (03) ==
PROVIDERS: Emergency Medicine; Emergency Provider Internal Medicine; PCP Family Medicine
DX: N39.0 Urinary tract infection, site not specified (principal); R11.2 Nausea with vomiting, unspecified; Z79.899 Other long term (current) drug therapy; Z20.822 Contact with and (suspected) exposure to COVID-19
CPT/HCPCS: 36415; 51701; 71045; 80048; 80076; 81001; 83605; 83690; 83880; 84132; 84484; 85025; 87040; 87086; 87088; 87186; 87635; 93005; 96361; 96365; 96366; 99284; 99285; J0696

== ENCOUNTER 2023-05-22 14:55 | Emergency (ER) | payer MEDICARE, MEDICAID, SELFPAY ==
--- NOTE | 2023-05-22 15:25 | ED_ITS ---
HPI - General Adult General Chief complaint: Nausea/Vomiting/Diarrhea Stated complaint: UNCONTROLLED DIARRHEA FROM HOME PER EMS Time Seen by Provider: 05/22/23 15:24 Source: patient Mode of arrival: EMS Limitations: no limitations History of Present Illness HPI narrative: 82 y/o F patient; PMH alzheimer's dementia, non-verbal, hx aspiration pneumonia, diverticulosis, hx upper GI bleed, recurrent UTI with baseline incontinence; presents from home with grand-daughter who reports concern for stronger odor in urine and for 3 days of looser bowel movements. The patient's family member states other than these two changes she has been acting baseline. Family deny: diarrhea, nausea/vomiting, apparent abdominal pain, fever or chills. They state stool is formed but soft and with some mucous present. Deny any sick contacts at home. Patient has had baseline appetite, and baseline fluid intake (4oz at a time of thickened liquids). Patient is DNR/DNI. Related Data Home Medications Medication Instructions Recorded Confirmed multivitamin (Daily-Kimberley tablet) 1 tab PO DAILY 11/18/20 09/25/21 quetiapine 25 mg tablet 1 tab PO TID 11/18/20 09/25/21 acetaminophen 160 mg/5 mL oral 15 ml PO Q6H PRN fever 09/25/21 09/25/21 liquid (Silapap) Previous Rx's Medication Instructions Recorded amoxicillin 600 mg-potassium 5 ml PO BID #75 mL 09/30/21 clavulanate 42.9 mg/5 mL oral suspension doxycycline monohydrate 25 mg/5 mL 100 mg (20 mL) PO BID 7 days #280 12/27/21 oral suspension mL valacyclovir 1 gram tablet 1,000 mg PO BID #14 tabs 12/27/21 (Valtrex) cefdinir 250 mg/5 mL oral 300 mg (6 mL) PO BID 7 days #84 mL 04/21/22 suspension cefuroxime axetil 250 mg tablet 250 mg PO BID 7 days #14 tabs 12/10/22 Allergies Allergy/AdvReac Type Severity Reaction Status Date / Time aspirin [ASPIRIN] Allergy Unknown UNKNOWN Verified 02/03/22 12:04 ibuprofen [IBUPROFEN] Allergy Unknown SWELLING Verified 02/03/22 12:04 Review of Systems 2 Review of Systems: Yes Unobtainable due to mental status (Baseline non-verbal dementia) PMFSH Past Medical History Attestation statement: The following information was validated with the patient. Source: old records reviewed Medical History Aspiration pneumonia Failure to thrive in adult Asthma Alzheimer disease Social History Social History Household Members: Family Housing: Apartment Do you presently have visiting nurse or other home services: Yes Unable to assess alcohol history related to: Unknown Alcohol intake: never Patient Tobacco Use Status: Never used Tobacco Smoked in Last 30 Days: No Use of substances other than those prescribed or required for medical reasons: No Advance Directives: Yes Advance Directives on File: Yes Advance Directives Date on File: 08/05/21 service: No Current occupational status: retired Physical Exam ED Vital Signs: Vital Signs - 24 hr 05/22/23 15:29 05/22/23 18:10 05/22/23 20:11 Temperature 97.5 F 98.1 F Pulse Rate 66 66 72 Respiratory Rate 16 16 16 Blood Pressure 140/78 H 149/108 H 111/84 Pulse Oximetry 100 99 98 Oxygen Delivery Method Room Air Room Air Room Air 05/22/23 21:38 Temperature 97.2 F Pulse Rate 63 Respiratory Rate 16 Blood Pressure 105/52 L Pulse Oximetry 95 Oxygen Delivery Method Room Air BMI result Body Mass Index 17.0 Patient is afebrile, mildly hypertensive, and hemodynamically stable. Const General: cooperative and no acute distress Nutritional Appearance: cachectic Orientation/consciousness: Other orientation findings (non-verbal) HENMI Head: Yes normal to inspection and Yes atraumatic Eyes General: appearance normal, both eyes and all related structures Neck Neck: Yes normal visual inspection and Yes supple Chest Chest palpation & inspection: normal inspection of the chest and normal palpation of entire chest wall Resp Effort & Inspection: normal respiratory effort Auscultation: clear to auscultation bilaterally Cardio Rate: regular rate Rhythm: regular rhythm GI Inspection: Yes normal to inspection and No distended Palpation (GI): Soft to palpation, not firm, nontender, no guarding and not rigid Auscultation: normal bowel sounds Course Course Course Narrative: Patient is afebrile and hemodynamically stable. Ordered basic labs to assess for dehydration. Ordered UA and UCx by straight cath as patient is incontinent at baseline. Reevaluation(s) Reevaluation #1: Labs reviewed - bicarb 21 consistent with mild dehydration. Ordered 1L IVF. Pending rest of labs and UA. Time: 20:30 Reevaluation #2: Patient re-evaluated multiple times. No significant leukocystosis. Patient is not having diarrhea per family - low suspicion for infectious etiology such as c. diff. Abdomen is soft and non-tender. Low suspicion for intra-abdominal pathology. Patient had straight cath - negative for UTI. Urine culture ordered and pending. Discussed with family at bedside - plan for discharge to home and PCP follow up. Return precautions given. Medications Administered Discontinued Medications Generic Name Dose Route Start Last Admin Trade Name Freq PRN Reason Stop Dose Admin Sodium Chloride 1,000 mls @ 999 mls/hr 05/22/23 17:00 05/22/23 19:13 Ns IV 05/22/23 18:00 Infused .Q1H1M WILLIAM Infusion Medical Decision Making Lab Data 05/22/23 18:07 05/22/23 16:12 Labs: Lab Results 05/22/23 05/22/23 05/22/23 Range/Units 16:12 18:07 19:50 WBC 8.5 (4.8-10.8) X10*3/uL RBC 4.02 L (4.20-5.50) X10*6/uL Hgb 12.0 (12.0-16.0) g/dl Hct 37.3 (37.0-47.0) % MCV 92.8 (80.0-98.0) fL MCH 29.9 (27.0-33.0) pg MCHC 32.2 (31.0-35.0) g/dl RDW 12.5 (11.0-16.0) % Plt Count 234 (160-400) X10*3/uL MPV 9.2 L (9.4-12.3) fL Immature Gran % (Auto) 0.1 (0.0-0.4) % Neut % (Auto) 41.5 L (45-73) % Lymph % (Auto) 49.7 H (20-40) % [place] % (Auto) 6.5 (2-11) % Eos % (Auto) 2.0 (0-4) % Baso % (Auto) 0.2 (0-2) % Lymph # (Auto) 4.2 (1.2-4.9) X10*3/uL [place] # (Auto) 0.6 (0.1-1.2) X10*3/uL Eos # (Auto) 0.2 (0.0-0.4) X10*3/uL Baso # (Auto) 0.0 (0.0-0.2) X10*3/uL Abs Immat Gran (auto) 0.01 (0.00-0.03) X10*3/uL Absolute Neuts (auto) 3.5 (2.0-8.3) x10*3/uL Absolute Nucleated RBC 0.000 (0.0-0.012) X10*3/uL Nucleated RBC % (auto) 0.0 (0.0-0.2) /100WBC Sodium 139 (135-145) mmol/L Potassium 4.3 (3.3-5.1) mmol/L Chloride 112 H (96-108) mmol/L Carbon Dioxide 21 L (22-29) mmol/L Anion Gap 10 L (12-20) BUN 17 H (9-16) mg/dL Creatinine 0.65 (0.5-1.4) mg/dL Estim Creat Clear Calc 47.2 Estimated GFR > 60 Random Glucose 86 (60-115) mg/dL Calcium 8.0 L D (8.4-10.2) mg/dL Total Bilirubin 0.3 (0.0-1.0) mg/dL Direct Bilirubin 0.2 (0.0-0.5) mg/dL AST 21 (5-31) U/L ALT 11 (0-31) U/L Alkaline Phosphatase 49 (39-117) U/L Total Protein 6.5 (6.5-8.0) g/dL Albumin 3.5 (3.5-5.0) g/dL Lipase 8 (8-78) U/L Urine Color Yellow Urine Appearance Cloudy Urine pH >= 9.0 (5.0-9.0) Ur Specific [place] 1.015 (1.005-1.025) Urine Protein 100 (2+) H (Neg-Trace) mg/dL Urine Glucose (UA) Negative (Negative) mg/dL Urine Ketones Negative (Negative) mg/dL Urine Blood Small (1+) H (Negative) Urine Nitrite Negative (Negative) Ur Leukocyte Esterase Moderate (2+) H (Negative) Urine RBC 6-10 H (0-2) /HPF Urine WBC 0-5 (0-5) /HPF Ur Squamous Epith Cells 0-2 (0-2) /HPF Other Crystals Present Urine Bacteria 2+ (None Seen) Hyaline Casts 0-2 (0-2) /LPF COVID-19 (BAUDILIO) (Negative) COVID-19 Clin Com 05/22/23 Range/Units 20:36 WBC (4.8-10.8) X10*3/uL RBC (4.20-5.50) X10*6/uL Hgb (12.0-16.0) g/dl Hct (37.0-47.0) % MCV (80.0-98.0) fL MCH (27.0-33.0) pg MCHC (31.0-35.0) g/dl RDW (11.0-16.0) % Plt Count (160-400) X10*3/uL MPV (9.4-12.3) fL Immature Gran % (Auto) (0.0-0.4) % Neut % (Auto) (45-73) % Lymph % (Auto) (20-40) % [place] % (Auto) (2-11) % Eos % (Auto) (0-4) % Baso % (Auto) (0-2) % Lymph # (Auto) (1.2-4.9) X10*3/uL [place] # (Auto) (0.1-1.2) X10*3/uL Eos # (Auto) (0.0-0.4) X10*3/uL Baso # (Auto) (0.0-0.2) X10*3/uL Abs Immat Gran (auto) (0.00-0.03) X10*3/uL Absolute Neuts (auto) (2.0-8.3) x10*3/uL Absolute Nucleated RBC (0.0-0.012) X10*3/uL Nucleated RBC % (auto) (0.0-0.2) /100WBC Sodium (135-145) mmol/L Potassium (3.3-5.1) mmol/L Chloride (96-108) mmol/L Carbon Dioxide (22-29) mmol/L Anion Gap (12-20) BUN (9-16) mg/dL Creatinine (0.5-1.4) mg/dL Estim Creat Clear Calc Estimated GFR Random Glucose (60-115) mg/dL Calcium (8.4-10.2) mg/dL Total Bilirubin (0.0-1.0) mg/dL Direct Bilirubin (0.0-0.5) mg/dL AST (5-31) U/L ALT (0-31) U/L Alkaline Phosphatase (39-117) U/L Total Protein (6.5-8.0) g/dL Albumin (3.5-5.0) g/dL Lipase (8-78) U/L Urine Color Urine Appearance Urine pH (5.0-9.0) Ur Specific [place] (1.005-1.025) Urine Protein (Neg-Trace) mg/dL Urine Glucose (UA) (Negative) mg/dL Urine Ketones (Negative) mg/dL Urine Blood (Negative) Urine Nitrite (Negative) Ur Leukocyte Esterase (Negative) Urine RBC (0-2) /HPF Urine WBC (0-5) /HPF Ur Squamous Epith Cells (0-2) /HPF Other Crystals Urine Bacteria (None Seen) Hyaline Casts (0-2) /LPF COVID-19 (BAUDILIO) Negative (Negative) COVID-19 Clin Com See Note Discharge Plan Discharge Clinical Impression: Dehydration Patient Disposition: Home, Self-Care Instructions: Dehydration (ED) Additional Instructions: As we discussed, you were seen today with concern for dehydration and a possible UTI. Your urine did not show evidence of an infection. You were slightly dehydrated and received 1L IVF. Please follow up with your PCP within 1 week to discuss your recent ED visit. Return to the ED for any apparent abdominal pain, fever, or if patient develops multiple episodes of diarrhea a day. Prescriptions: No Action multivitamin [Daily-Kimberley] Tablet 1 tab PO DAILY quetiapine 25 mg tablet 1 tab PO TID acetaminophen [Silapap] 160 mg/5 mL liquid 15 ml PO Q6H PRN (Reason: fever) amoxicillin-pot clavulanate 600-42.9 mg/5 mL suspension for reconstitution 5 ml PO BID Qty: 75 0RF Rx Instructions: 5 more days cefdinir 250 mg/5 mL suspension for reconstitution 300 mg PO BID 7 Days Qty: 84 0RF valacyclovir [Valtrex] 1 gram tablet 1,000 mg PO BID Qty: 14 0RF doxycycline monohydrate 25 mg/5 mL suspension for reconstitution 100 mg PO BID 7 Days Qty: 280 0RF cefuroxime axetil 250 mg tablet 250 mg PO BID 7 Days Qty: 14 0RF
[2023-05-22 15:29] VITALS: BP 140/78; PULSE 66; RESP 16; TEMP 36.4; O2SAT 100; BMI 17.0
[2023-05-22 16:38] LABS: Alanine Aminotransferase 11 U/L (0-31); Albumin Level 3.5 g/dL (3.5-5.0); Alkaline Phosphatase 49 U/L (39-117); Anion Gap 10 (12-20); Aspartate Amino Transferase 21 U/L (5-31); Bilirubin Direct 0.2 mg/dL (0.0-0.5); Bilirubin Total 0.3 mg/dL (0.0-1.0); Blood Urea Nitrogen 17 mg/dL (9-16); Carbon Dioxide 21 mmol/L (22-29); Chloride 112 mmol/L (96-108); Creatinine Clr Calc Pharmacy 47.2; Estimated Glomerular Filt Rate > 60; Glucose Random 86 mg/dL (60-115); Lipase 8 U/L (8-78); Potassium 4.3 mmol/L (3.3-5.1); Sodium 139 mmol/L (135-145); Total Protein 6.5 g/dL (6.5-8.0)
[2023-05-22] MEDS: 0.9 % Sodium Chloride 1,000 ML 999 ML IV (18:09)
[2023-05-22 18:10] VITALS: BP 149/108; PULSE 66; RESP 16; O2SAT 99
--- NOTE | 2023-05-22 18:10 | PC.NURSE ---
pt non-verbal, dementia/advanced alzheimer's at baseline. unable to assess mental status. pt granddaughter at bedside, prevention specialist. 22G IV placed to right forearm. labs drawn and sent. fluids hung per aug. pt resting quietly on stretcher in no apparent distress. pt family suspects pt may have dehydration/UTI. sts urine is potent to smell. awaiting UA. pt needs straight cath. rr even/unlabored. call puri within pt/pt family reach. plan of care ongoing.
[2023-05-22 18:19] LABS: Basophils Percent Auto 0.2 % (0-2); Eosinophils Absolute Auto 0.2 X10*3/uL (0.0-0.4); Hematocrit 37.3 % (37.0-47.0); Imm Gran Abs Auto 0.01 X10*3/uL (0.00-0.03); Imm Gran Pct Auto 0.1 % (0.0-0.4); Lymphocytes Absolute Auto 4.2 X10*3/uL (1.2-4.9); Lymphocytes Percent Auto 49.7 % (20-40); Mean Corpuscular HGB Conc 32.2 g/dl (31.0-35.0); Mean Corpuscular Hemoglobin 29.9 pg (27.0-33.0); Mean Corpuscular Volume 92.8 fL (80.0-98.0); Mean Platelet Volume 9.2 fL (9.4-12.3); Monocytes Absolute Auto 0.6 X10*3/uL (0.1-1.2); Monocytes Percent Auto 6.5 % (2-11); Neutrophils Absolute Auto 3.5 x10*3/uL (2.0-8.3); Neutrophils Percent Auto 41.5 % (45-73); Platelet Count 234 X10*3/uL (160-400); Red Blood Count 4.02 X10*6/uL (4.20-5.50); Red Cell Distribution Width 12.5 % (11.0-16.0); White Blood Count 8.5 X10*3/uL (4.8-10.8)
[2023-05-22 20:01] LABS: Appearance Urine Cloudy; Glucose Urine UA Negative (Negative); Leukocyte Esterase Urine Moderate (2+) (Negative); Nitrite Urine Negative (Negative); PH >= 9.0 (5.0-9.0); Specific Gravity - Urine 1.015 (1.005-1.025); UMIC TRIGGER UA YES; Urine Blood Small (1+) (Negative); Urine Ketones Negative (Negative); Urine Protein 100 (2+) mg/dL (Neg-Trace)
[2023-05-22 20:02] LABS: Color Urine Yellow
[2023-05-22 20:11] VITALS: BP 111/84; PULSE 72; RESP 16; TEMP 36.7; O2SAT 98
--- NOTE | 2023-05-22 20:12 | MHC.EDTECH ---
This pct assumed care of pt at 1900 ,vitals taken ,pt was exchange floor manager into hospital attire This pct assist RN Jevonwpaddy with pt straight cath ,urine sample collected and sent to lab ,warm blanket given ,Pt comfortable ,no apparent distress noted ,Pt grand kids at bedside .
[2023-05-22 20:13] LABS: Other Crystals Urine Present
[2023-05-22 20:19] LABS: Bacteria Urine 2+ (None Seen); Hyaline Casts Urine 0-2 /LPF (0-2); Squamous Epithelial Cell Urine 0-2 /HPF (0-2); WBC Urine 0-5 /HPF (0-5)
--- NOTE | 2023-05-22 20:36 | PC.NURSE ---
pt straight cath for urine tolerated well, urine dark yellow and mucus observed
[2023-05-22 20:59] LABS: MANUAL DIFF FLAG NO
[2023-05-22 21:00] LABS: COVID-19 Test Negative (Negative); IDNOW Serial# 08D9AD1C
[2023-05-22 21:38] VITALS: BP 105/52; PULSE 63; RESP 16; TEMP 36.2; O2SAT 95
--- NOTE | 2023-05-22 22:21 | PC.NURSE ---
EMS at bedside for transport.
== END 2023-05-22 22:46 | disposition home or self-care (01) ==
PROVIDERS: Emergency Provider Emergency Medicine
DX: E86.0 Dehydration (principal); R11.2 Nausea with vomiting, unspecified; Z11.52 Encounter for screening for COVID-19; Z20.822 Contact with and (suspected) exposure to COVID-19; Z79.899 Other long term (current) drug therapy
CPT/HCPCS: 36415; 80048; 80076; 81001; 81003; 83690; 85025; 87086; 87635; 96360; 99284

== ENCOUNTER 2024-02-10 12:14 | Emergency (ER) | payer MEDICARE, MEDICAID, SELFPAY ==
[2024-02-10] VITALS (7 sets, daily range): BP systolic 115–158; BP diastolic 58–129; PULSE 71–99; RESP 16–20; TEMP 35.8–36.6; O2SAT 92–100; BMI 32.3
--- NOTE | ~2024-02-10 | US_ITS ---
EXAMINATION: US BREAST LIMITED, RIGHT CLINICAL INFORMATION: Evaluate for right breast abscess. COMPARISON: Brief review right mammograms from 06/04/2011 TECHNIQUE: High-resolution grayscale targeted ultrasound of area of clinical concern in the right breast performed using a high frequency linear transducer. FINDINGS: On the submitted images, note is made of the 11.5 x 4.5 x 9.7 cm walled off complex avascular fluid collection containing multiple internal thick septations, from 12-2 o'clock, 5 to 9 cm from nipple. No peripheral vascularity is noted on the submitted images. US/US breast RT limited IMPRESSION: A 11.5 cm complex avascular fluid collection in the right breast from 12-2 o'clock, 5 to 9 cm from nipple. In the appropriate clinical settings finding may represent clinically suspected breast abscess. ASSESSMENT: BI-RADS 0. Incomplete assessment. Need further evaluation RECOMMENDATIONS: Recommend surgical consultation. Recommend close clinical follow-up and clinical management as appropriate. Consider short-term interval follow-up breast ultrasound in one month. There are no recent mammography examinations available for comparison. Electronically signed by: Robinson Fink MD 02/10/2024 08:51 PM EDT
--- NOTE | ~2024-02-10 | XR_ITS ---
EXAMINATION: XR CHEST CLINICAL INFORMATION: Chest wall swelling and bruising COMPARISON: 12/10/2022 TECHNIQUE: 2 views of the chest were obtained. FINDINGS: Low lung volumes. No focal infiltrates or pleural effusions. No pneumothorax. Heart is normal in size. Thoracic aorta is tortuous. Osseous structures appear intact without evidence of acute fractures. Degenerative changes seen in the bilateral shoulder joints XR/XR chest 2V IMPRESSION: No acute process. Low lung volumes. Electronically signed by: Jose Mittal MD 02/10/2024 02:44 PM EDT
[2024-02-10 12:46] LABS: MANUAL DIFF FLAG NO
[2024-02-10 12:48] LABS: Basophils Percent Auto 0.3 % (0-2); Eosinophils Absolute Auto 0.3 X10*3/uL (0.0-0.4); Hematocrit 33.3 % (37.0-47.0); Hemoglobin 10.6 g/dl (12.0-16.0); Imm Gran Abs Auto 0.04 X10*3/uL (0.00-0.03); Imm Gran Pct Auto 0.6 % (0.0-0.4); Lymphocytes Absolute Auto 2.5 X10*3/uL (1.2-4.9); Lymphocytes Percent Auto 35.7 % (20-40); Mean Corpuscular HGB Conc 31.8 g/dl (31.0-35.0); Mean Corpuscular Hemoglobin 30.8 pg (27.0-33.0); Mean Corpuscular Volume 96.8 fL (80.0-98.0); Mean Platelet Volume 8.6 fL (9.4-12.3); Monocytes Absolute Auto 0.5 X10*3/uL (0.1-1.2); Monocytes Percent Auto 7.6 % (2-11); Neutrophils Absolute Auto 3.6 x10*3/uL (2.0-8.3); Neutrophils Percent Auto 51.8 % (45-73); Platelet Count 429 X10*3/uL (160-400); Red Blood Count 3.44 X10*6/uL (4.20-5.50); Red Cell Distribution Width 15.1 % (11.0-16.0)
--- NOTE | 2024-02-10 12:50 | ED_ITS ---
HPI - General Adult General Chief complaint: General Medical Stated complaint: R breast swollen Time Seen by Provider: 02/10/24 14:27 Source: patient and family Mode of arrival: ambulatory Limitations: other (dementia) History of Present Illness ED Provider: RUMA ROTHMAN narrative: 83 yo female wiht PMH of UTI, GI bleed, dementia, aspiration pneumonia, here with c/o granddaughter getting her up today for shower and noting that R breast seemed more swollen. The granddaughter denies trauma though there is old yellow bruise to opposite breast. Granddaughter also saw some white discharge on underwear and she has had the same with UTI in past patient is bed bound and does not communicate. Patient is cared for by all family members who are ash collector. MD complaint: breast swelling Onset (ago): day(s) (1) Location: chest Radiation: non-radiation Severity: mild Relieving factors: none Exacerbating factors: none Associated symptoms: denies other symptoms Treatments prior to arrival: none Related Data Home Medications ?Medication ?Instructions ?Recorded ?Confirmed multivitamin (Daily-Kimberley tablet) 1 tab PO DAILY 11/18/20 09/25/21 quetiapine 25 mg tablet 1 tab PO TID 11/18/20 09/25/21 acetaminophen 160 mg/5 mL oral 15 ml PO Q6H PRN fever 09/25/21 09/25/21 liquid (Silapap) Previous Rx's ?Medication ?Instructions ?Recorded amoxicillin 600 mg-potassium 5 ml PO BID #75 mL 09/30/21 clavulanate 42.9 mg/5 mL oral suspension doxycycline monohydrate 25 mg/5 mL 100 mg (20 mL) PO BID 7 days #280 12/27/21 oral suspension mL valacyclovir 1 gram tablet 1,000 mg PO BID #14 tabs 12/27/21 (Valtrex) cefdinir 250 mg/5 mL oral 300 mg (6 mL) PO BID 7 days #84 mL 04/21/22 suspension cefuroxime axetil 250 mg tablet 250 mg PO BID 7 days #14 tabs 12/10/22 Allergies Allergy/AdvReac Type Severity Reaction Status Date / Time aspirin [ASPIRIN] Allergy Unknown UNKNOWN Verified 02/10/24 12:23 ibuprofen [IBUPROFEN] Allergy Unknown SWELLING Verified 02/10/24 12:23 Review of Systems 2 Review of Systems: ROS unable to be obtained due to dementia [facility] Past Medical History Source: old records reviewed Medical History Aspiration pneumonia Failure to thrive in adult Asthma Alzheimer disease Social History Social History Household Members: Family Housing: Apartment Do you presently have visiting nurse or other home services: Yes Unable to assess alcohol history related to: Unknown Alcohol intake: never Patient Tobacco Use Status: Never used Tobacco Advance Directives: Yes Advance Directives on File: Yes Advance Directives Date on File: 08/05/21 Do you have a plan to hurt others: No Plan service: No Current occupational status: retired Physical Exam ED Vital Signs: Vital Signs - 24 hr 02/10/24 12:18 02/10/24 14:00 02/10/24 15:53 Temperature 96.5 F L 97.8 F Pulse Rate 71 86 83 Respiratory Rate 20 18 18 Blood Pressure 115/75 126/91 H 130/58 L Pulse Oximetry 100 92 98 Oxygen Delivery Method Room Air Room Air Room Air BMI result Body Mass Index 32.3 Appearance: weak and frail appearing, at baseline. No acute distress. Eyes: Pupils equal, round and reactive to light. ENT: Pharynx normal. Neck: Normal inspection. Neck supple. CVS: Normal heart rate and rhythm. Pulses normal. Chest: soft 4cm mobile round area on R pectoralis no retraction, no nipple drainage, no overlying redness, or skin changes, old bruise L breast yellow Respiratory: No respiratory distress. Breath sounds normal. Abdomen: Soft and no grimace Skin: Skin warm and dry. Normal skin color. Normal skin turgor. Extremities: No lower extremity edema. No calf ttp Neuro: at baseline cannot participate Course Course Course Narrative: This is a rapid medical exam. Deferred additional HPI, ROS, PE to primary provider. 83 yo female with history of dementia here with concern for right breast swelling/bruising. ?trauma. Also concern for vaginal discharge, foul smelling urine and concern for UTI. Will obtain labs, UA, CXR RAYS -Mary Sam APRN Reevaluation(s) Reevaluation #1: signed out to Dr. Cornejo pending US and Medical Decision Making Medical Decision Making MDM Narrative: 83 yo female wiht PMH of UTI, GI bleed, dementia, aspiration pneumonia, here with c/o some urinary discharge concern for UTI but also atypical swelling of R breast without reported trauma at this time UA, labs, CXR for rib trauma, US of breast for abscess though suspect cyst or mass - if this is the case will need to follow up with breast center. Differential Diagnosis Differential Diagnoses: The differential diagnosis associated with the presentation includes mass, cyst, UTI Admission/Observation Consideration of admission/observation: Escalation of care including admission/observation considered Lab Data MDM Lab Attestation statement: I reviewed the patient's lab results. 02/10/24 12:42 02/10/24 12:42 Labs: Lab Results 02/10/24 02/10/24 Range/Units 12:42 15:57 WBC 7.0 (4.8-10.8) X10*3/uL RBC 3.44 L (4.20-5.50) X10*6/uL Hgb 10.6 L (12.0-16.0) g/dl Hct 33.3 L (37.0-47.0) % MCV 96.8 (80.0-98.0) fL MCH 30.8 (27.0-33.0) pg MCHC 31.8 (31.0-35.0) g/dl RDW 15.1 (11.0-16.0) % Plt Count 429 H D (160-400) X10*3/uL MPV 8.6 L (9.4-12.3) fL Immature Gran % (Auto) 0.6 H (0.0-0.4) % Neut % (Auto) 51.8 (45-73) % Lymph % (Auto) 35.7 (20-40) % [place] % (Auto) 7.6 (2-11) % Eos % (Auto) 4.0 (0-4) % Baso % (Auto) 0.3 (0-2) % Lymph # (Auto) 2.5 (1.2-4.9) X10*3/uL [place] # (Auto) 0.5 (0.1-1.2) X10*3/uL Eos # (Auto) 0.3 (0.0-0.4) X10*3/uL Baso # (Auto) 0.0 (0.0-0.2) X10*3/uL Abs Immat Gran (auto) 0.04 H (0.00-0.03) X10*3/uL Absolute Neuts (auto) 3.6 (2.0-8.3) x10*3/uL Absolute Nucleated RBC 0.000 (0.0-0.012) X10*3/uL Nucleated RBC % (auto) 0.0 (0.0-0.2) /100WBC Sodium 143 (135-145) mmol/L Potassium 4.4 (3.3-5.1) mmol/L Chloride 107 (96-108) mmol/L Carbon Dioxide 29 (22-29) mmol/L Anion Gap 11 L (12-20) BUN 16 (9-16) mg/dL Creatinine 0.74 (0.5-1.4) mg/dL Estim Creat Clear Calc 56.4 Estimated GFR > 60 Random Glucose 107 (60-115) mg/dL Calcium 10.1 D (8.4-10.2) mg/dL Magnesium 2.3 (1.6-2.6) mg/dL Total Bilirubin 0.5 (0.0-1.0) mg/dL Direct Bilirubin 0.2 (0.0-0.5) mg/dL AST 24 (5-31) U/L ALT 11 (0-31) U/L Alkaline Phosphatase 71 (39-117) U/L Total Protein 7.1 (6.5-8.0) g/dL Albumin 4.1 (3.5-5.0) g/dL Urine Color Yellow Urine Appearance Cloudy Urine pH 8.0 (5.0-9.0) Ur Specific [place] 1.020 (1.005-1.025) Urine Protein 100 (2+) H (Neg-Trace) mg/dL Urine Glucose (UA) Negative (Negative) mg/dL Urine Ketones Negative (Negative) mg/dL Urine Blood Moderate (2+) H (Negative) Urine Nitrite Negative (Negative) Ur Leukocyte Esterase Large (3+) H (Negative) Independent Interpretation I performed an independent interpretation of an: Plain X-Ray and Ultrasound Radiology Impression Discussion of test interpretation with radiology: I have reviewed the radiologist's reading. Independent Historian Clinical information obtained from an independent historian. History obtained from or confirmed by: Other (family) External Record Review External record reviewed: Inpatient record Discharge Plan Discharge Clinical Impression: Breast swelling Patient Disposition: Still a Patient Instructions: Breast Mass (ED) Prescriptions: No Action multivitamin [Daily-Kimebrley] Tablet 1 tab PO DAILY quetiapine 25 mg tablet 1 tab PO TID acetaminophen [Silapap] 160 mg/5 mL liquid 15 ml PO Q6H PRN (Reason: fever) amoxicillin-pot clavulanate 600-42.9 mg/5 mL suspension for reconstitution 5 ml PO BID Qty: 75 0RF Rx Instructions: 5 more days cefdinir 250 mg/5 mL suspension for reconstitution 300 mg PO BID 7 Days Qty: 84 0RF valacyclovir [Valtrex] 1 gram tablet 1,000 mg PO BID Qty: 14 0RF doxycycline monohydrate 25 mg/5 mL suspension for reconstitution 100 mg PO BID 7 Days Qty: 280 0RF cefuroxime axetil 250 mg tablet 250 mg PO BID 7 Days Qty: 14 0RF Print Language: Lithuanian
[2024-02-10 13:18] LABS: Alanine Aminotransferase 11 U/L (0-31); Albumin Level 4.1 g/dL (3.5-5.0); Alkaline Phosphatase 71 U/L (39-117); Anion Gap 11 (12-20); Aspartate Amino Transferase 24 U/L (5-31); Bilirubin Direct 0.2 mg/dL (0.0-0.5); Bilirubin Total 0.5 mg/dL (0.0-1.0); Blood Urea Nitrogen 16 mg/dL (9-16); Calcium 10.1 mg/dL (8.4-10.2); Carbon Dioxide 29 mmol/L (22-29); Chloride 107 mmol/L (96-108); Creatinine Clr Calc Pharmacy 56.4; Estimated Glomerular Filt Rate > 60; Glucose Random 107 mg/dL (60-115); Magnesium 2.3 mg/dL (1.6-2.6); Potassium 4.4 mmol/L (3.3-5.1); Sodium 143 mmol/L (135-145); Total Protein 7.1 g/dL (6.5-8.0)
[2024-02-10 16:04] LABS: Appearance Urine Cloudy; Color Urine Yellow; Glucose Urine UA Negative (Negative); Leukocyte Esterase Urine Large (3+) (Negative); Nitrite Urine Negative (Negative); UMIC TRIGGER UACC YES; Urine Blood Moderate (2+) (Negative); Urine Ketones Negative (Negative); Urine Protein 100 (2+) mg/dL (Neg-Trace)
--- NOTE | 2024-02-10 16:15 | PC.NURSE ---
position right side lying and unable to tolerate any deviation. skin pwd. no breakdown. almsot constanting voiding soft stool. straight cathed and urine was extremely cloudy and think towards last portion of void. pt is non verbal according to family. awaiting ultrasound
[2024-02-10 16:19] LABS: Bacteria Urine 4+ (None Seen); Hyaline Casts Urine 0-2 /LPF (0-2); Other Crystals Urine Present; UACC Culture Trigger YES
--- NOTE | 2024-02-10 20:01 | MHC.EDTECH ---
This tech took over care of patient at 1900,hourly rounds and vitals completed,patient was incont. of a moderate amount of urine and a small amount of soft brown stool,raghav-care given and linen changed,call puri in reach
--- NOTE | 2024-02-10 20:04 | PC.NURSE ---
cleansed of urine and stool and repositioned sitting upright as best as possible for PO intake with assist from orenhomar. thickened liquids and pureed.
--- NOTE | 2024-02-10 20:48 | PC.NURSE ---
Physical exam by Dr. Cornejo. Right anterio chest has soft broad palpable raised area. No reddness. No warmth. U/S read is taking a very long time. Pt to be discharged after Abx and family headed home to await EMS arrival.
[2024-02-10] MEDS: cephALEXin 500 MG CAPSULE PO (20:58)
[2024-02-11 00:23] VITALS: BP 108/61; PULSE 78; RESP 16; TEMP -17.7; TEMP 0; O2SAT 100
== END 2024-02-10 22:30 | disposition home or self-care (01) ==
PROVIDERS: Physician Assistant; Emergency Provider Emergency Medicine Emergency Medical Services; PCP Family Medicine
DX: N63.10 Unspecified lump in the right breast, unspecified quadrant (principal); N39.0 Urinary tract infection, site not specified
CPT/HCPCS: 36415; 51701; 71046; 76642; 80048; 80076; 81001; 81003; 83735; 85025; 87086; 87088; 87186; 99284

== ENCOUNTER 2024-03-04 11:33 | Inpatient (IN) | payer MEDICARE, MEDICAID, SELFPAY ==
--- NOTE | ~2024-03-04 | XR_ITS ---
EXAMINATION: XR CHEST CLINICAL INFORMATION: Cough. COMPARISON: Chest radiograph dated February 10, 2024. TECHNIQUE: Frontal view of the chest was obtained. FINDINGS: The heart is normal in size. There is uncoiling of the thoracic aorta. There are hazy opacities at the lung bases likely representing subsegmental atelectasis. No consolidation. No large pleural effusion. No pneumothorax. There are severe degenerative changes of the glenohumeral joints. XR/XR chest 1V IMPRESSION: Bibasilar subsegmental atelectasis. No convincing pneumonia. Electronically signed by: Ochoa Mane DO 03/04/2024 02:31 PM EDT
--- NOTE | ~2024-03-04 | CT_ITS ---
EXAMINATION: CT HEAD WITHOUT CONTRAST CLINICAL INFORMATION: Change in mental status. COMPARISON: CT head dated January 25, 2022. TECHNIQUE: Contiguous axial imaging was performed from the skull base to vertex without intravenous administration of contrast. This CT examination was performed using dose optimization techniques as appropriate, variously including the following: *Automated exposure control *Adjustment of mA and/or kV according to patient size (this includes techniques or standardized protocols for targeted exams where dose is matched to indication/reason for exam; i.e. extremities or head) *Use of iterative reconstruction technique DLP: 912 mGy-cm FINDINGS: There is no acute intracranial hemorrhage. There is no evidence of acute/subacute cerebral or cerebellar infarction. There is no midline shift or mass effect. No extra-axial fluid collection. The ventricles are markedly enlarged, even more so than on the prior examination from January 25, 2022. The degree of cortical sulci enlargement is disproportionately less than the degree of ventricular enlargement raising a strong possibility for normal pressure hydrocephalus. The orbits are symmetric and within normal limits. The visualized paranasal sinuses are clear. Mastoid air cells are well aerated. CT/CT head/brain wo IV con IMPRESSION: No acute intracranial abnormality. Findings strongly suggest normal pressure hydrocephalus. Clinical correlation is strongly recommended. Electronically signed by: Ochoa Mane DO 03/04/2024 02:26 PM EDT
--- NOTE | ~2024-03-04 | CT_ITS ---
EXAMINATION: CT ABDOMEN AND PELVIS WITHOUT CONTRAST CLINICAL INFORMATION: Nonverbal. Pain with UTI and crystals in urine. COMPARISON: None available. TECHNIQUE: Multidetector volumetric imaging was performed from the superior aspect of the liver through the pubic symphysis. Sagittal and coronal reformatted images were obtained on the technologist's workstation. This CT examination was performed using dose optimization techniques as appropriate, variously including the following: *Automated exposure control *Adjustment of mA and/or kV according to patient size (this includes techniques or standardized protocols for targeted exams where dose is matched to indication/reason for exam; i.e. extremities or head) *Use of iterative reconstruction technique DLP: 631 mGy-cm FINDINGS: LUNG BASES: Subpleural reticulation is seen most prominent at the right lung base. A right breast implant is present. Heart size is normal. No pleural effusions. LIVER, GALLBLADDER, AND BILIARY TREE: The liver is normal in size, shape, and attenuation. No focal hepatic lesion or biliary ductal dilatation is present. The gallbladder is unremarkable with no evidence of radiopaque gallstones, gallbladder wall thickening, or obvious pericholecystic inflammatory changes. PANCREAS: There is pancreatic atrophy. No mass or ductal dilatation seen. SPLEEN: The spleen is small with a punctate granuloma. ADRENAL GLANDS: Unremarkable. KIDNEYS AND URETERS: The kidneys are normal in size, shape, and attenuation aside from some unchanged scarring in the left kidney medially. No hydronephrosis, hydroureter, or calculi seen. No perinephric stranding. BLADDER: Some high density material is seen within the bladder which is poorly filled with a symmetrically thickened wall. This could represent gravel. GASTROINTESTINAL TRACT: The small and large bowel are unremarkable aside from scattered colonic diverticula without diverticulitis. Moderate stool burden is present in the colon. No evidence of bowel obstruction. The appendix is unremarkable. ABDOMINAL WALL: No significant hernia is appreciated. LYMPH NODES: No retroperitoneal lymphadenopathy. VASCULAR: Calcific atherosclerotic changes are present in the aorta and iliofemoral vessels. There is no evidence of an abdominal aortic aneurysm. PELVIC VISCERA: A retroverted uterus is present. An abnormal adnexal mass is not seen. Ovoid calcified mobile density seen in the cul-de-sac likely related to an old avulsed epiploic appendage. OSSEOUS STRUCTURES: There are comminuted fractures involving both acetabula. There are small hematomas present medial to the acetabula, left greater than right associated with these fractures. The width of the hematoma measures 3.3 cm on the left and 2.2 cm on the right. The femurs appear intact. Inferior pubic rami are intact. No rib fractures are seen. There is compression fracture involving the superior endplate L4. There is grade 2 anterolisthesis of L5 on S1 with bilateral pars defects. CT/CT abdomen pelvis wo IV con IMPRESSION: 1. Comminuted acute bilateral acetabular fractures with associated multiple hematomas. 2. High density material within the bladder which could represent gravel. 3. Other incidental findings as described above. Fleischner guidelines were followed. This critical result was discussed with Dr. Rylee Guerra at 3:15 PM on the day of the exam and it was ascertained that the content and urgency of the report was understood at the time of direct communication. Electronically signed by: Jake Levin MD 03/04/2024 03:30 PM EDT
[2024-03-04 11:41] VITALS: BP 120/60; PULSE 98; O2SAT 96
[2024-03-04 11:45] VITALS: BP 109/58; PULSE 92; RESP 18; TEMP 36.8; O2SAT 92; BMI 18.9
--- NOTE | 2024-03-04 12:02 | ECG_ITS ---
Test Reason : ALTERED MENTAL STATUS Blood Pressure : / mmHG Vent. Rate : 080 BPM Atrial Rate : 080 BPM P-R Int : 150 ms QRS Dur : 084 ms QT Int : 384 ms P-R-T Axes : 020 -24 063 degrees QTc Int : 442 ms Normal sinus rhythm Nonspecific ST abnormality Abnormal ECG When compared with ECG of 10-DEC-2022 15:17, No significant change was found Referred By: Rylee Guerra Electronically Signed By:KELSY SALCEDO
--- NOTE | 2024-03-04 12:23 | ED_ITS ---
HPI - General Adult General Chief complaint: General Medical Stated complaint: PER FAMILY SZ LIKE,H/O DEMENTIA RECENT UTI PER EMS Time Seen by Provider: 03/04/24 11:53 Source: EMS and old records reviewed Mode of arrival: EMS Limitations: altered mental status (dementia) History of Present Illness ED Provider: RUMA ROTHMAN narrative: 83 yo female wiht PMH of UTI, GI bleed, dementia, aspiration pneumonia, here with c/o reported jerking movements at home per family to EMS. No family has arrived yet so there is no full story and patient has dementia is non verbal and cannot answer questions. Family told EMS that this happened in the past with UTI. She was seen at the end of January and initially started on cephalexin but then switched to levofloxacin given culture results. Also had breast US concerning for mass / abscess no overlying redness and on today's exam the breast is not more swollen or red at all. MD complaint: abnormal movements Onset (ago): day(s) (today) Radiation: non-radiation Severity: moderate Pain Consistency: now resolved Relieving factors: none Exacerbating factors: none Associated symptoms: denies other symptoms Treatments prior to arrival: none Related Data Home Medications ?Medication ?Instructions ?Recorded ?Confirmed multivitamin (Daily-Kimberley tablet) 1 tab PO DAILY 11/18/20 09/25/21 quetiapine 25 mg tablet 1 tab PO TID 11/18/20 09/25/21 acetaminophen 160 mg/5 mL oral 15 ml PO Q6H PRN fever 09/25/21 09/25/21 liquid (Silapap) Previous Rx's ?Medication ?Instructions ?Recorded amoxicillin 600 mg-potassium 5 ml PO BID #75 mL 09/30/21 clavulanate 42.9 mg/5 mL oral suspension doxycycline monohydrate 25 mg/5 mL 100 mg (20 mL) PO BID 7 days #280 12/27/21 oral suspension mL valacyclovir 1 gram tablet 1,000 mg PO BID #14 tabs 12/27/21 (Valtrex) cefdinir 250 mg/5 mL oral 300 mg (6 mL) PO BID 7 days #84 mL 04/21/22 suspension cefuroxime axetil 250 mg tablet 250 mg PO BID 7 days #14 tabs 12/10/22 cephalexin 500 mg capsule 500 mg PO Q12H 5 days #10 caps 02/10/24 levofloxacin 250 mg tablet 250 mg PO DAILY 3 days #3 tabs 02/25/24 Allergies Allergy/AdvReac Type Severity Reaction Status Date / Time aspirin [ASPIRIN] Allergy Unknown UNKNOWN Verified 03/04/24 11:55 ibuprofen [IBUPROFEN] Allergy Unknown SWELLING Verified 03/04/24 11:55 Review of Systems 2 Review of Systems: ROS unable to be obtained due to dementia [facility] Past Medical History Attestation statement: The following information was validated with the patient. Source: old records reviewed Medical History Aspiration pneumonia Failure to thrive in adult Asthma Alzheimer disease Social History Social History Household Members: Family Housing: Apartment Do you presently have visiting nurse or other home services: Yes Unable to assess alcohol history related to: Unable to respond Alcohol intake: never Patient Tobacco Use Status: Never used Tobacco Use of substances other than those prescribed or required for medical reasons: Unable to respond Advance Directives: Yes Advance Directives on File: Yes Advance Directives Date on File: 08/05/21 Do you have a plan to hurt others: No Plan service: No Current occupational status: retired Physical Exam ED Vital Signs: Vital Signs - 24 hr 03/04/24 11:45 03/04/24 13:59 03/04/24 14:56 Temperature 98.3 F 97.5 F Pulse Rate 92 92 97 Respiratory Rate 18 12 18 Blood Pressure 109/58 L 119/44 L 119/50 L Pulse Oximetry 92 92 Oxygen Delivery Method Room Air Room Air 03/04/24 15:13 Temperature 97.5 F Pulse Rate 81 Respiratory Rate 16 Blood Pressure 115/58 L Pulse Oximetry 94 Oxygen Delivery Method Room Air BMI result Body Mass Index 18.9 Appearance: alert but nonverbal and tracks with eyes. apppears at her baseline acute distress. Eyes: Pupils equal, round and reactive to light. ENT: Pharynx normal. Neck: Normal inspection. Neck supple. CVS: Normal heart rate and rhythm. Pulses normal. Breast: soft mass felt upper R breast but normal overlying skin mass does not feel larger or more tense compared to prior visit it feels smaller Respiratory: No respiratory distress. Breath sounds normal. Abdomen: Soft and non-tender. Skin: Skin warm and dry. Normal skin color. Normal skin turgor. Extremities: No lower extremity edema. No bruising noted on either hip Neuro: cannot participate but tracks with eyes and withdraws all limbs from painful stimuli, contracted Course Course Course Narrative: at this time infection suspected 1238pm IV meropenem ordered - granddaughter notes she never got better with levofloxacin granddaughter was not present but tells me another family members notes she was shaking more and contracted unsure if it was a seizure lactic acid > 5. She has hx of chronic lactic acidosis she was ordered 2L of IVF 1251pm family never followed up on further breast work up Medications Administered Discontinued Medications Generic Name Dose Route Start Last Admin Trade Name Freq PRN Reason Stop Dose Admin Sodium Chloride 500 mls @ 500 mls/hr 03/04/24 12:23 03/04/24 14:50 Ns IV 03/04/24 13:22 Infused .Q1H ONE Infusion Meropenem 1 gm/ Sodium 100 mls @ 200 mls/hr 03/04/24 12:42 03/04/24 13:48 Chloride IV 03/04/24 13:11 Infused ONCE ONE Infusion Sodium Chloride 1,000 mls @ 999 mls/hr 03/04/24 12:47 03/04/24 14:17 Ns IV 03/04/24 13:47 Infused .Q1H1M ONE Infusion Sodium Chloride 500 mls @ 500 mls/hr 03/04/24 12:47 03/04/24 14:25 Ns IV 03/04/24 13:46 Infused .Q1H ONE Infusion Medical Decision Making Medical Decision Making [facility] Narrative: 83 yo female wiht PMH of UTI, GI bleed, dementia, aspiration pneumonia, here with c/o abnormal movements at home per family - not here on arrival will need to get additional information as patient is not verbal and has dementia - at this time labs, CXR, UA, CT head for ICH, will monitor for any seizure like events here will work up for toxic, metabolic, infectious pathology. Differential Diagnosis Differential Diagnoses: The differential diagnosis associated with the presentation includes encephalopathy = toxic or metabolic, seizure like activity, rigors Admission/Observation Consideration of admission/observation: Escalation of care including admission/observation considered given WBC count, lactic acid, UTI will admit for IV antibiotics Consult Healthcare Provider Management of the patient was discussed with: Hospitalist and Yeast Pumper hospitalist to admit notified CM about acetabular fractures Lab Data [facility] Lab Attestation statement: I reviewed the patient's lab results. 03/04/24 12:22 03/04/24 12:22 Labs: Lab Results 03/04/24 03/04/24 03/04/24 Range/Units 12:22 12:28 12:49 WBC 16.4 H (4.8-10.8) X10*3/uL RBC 3.86 L (4.20-5.50) X10*6/uL Hgb 11.7 L (12.0-16.0) g/dl Hct 36.1 L (37.0-47.0) % MCV 93.5 (80.0-98.0) fL MCH 30.3 (27.0-33.0) pg MCHC 32.4 (31.0-35.0) g/dl RDW 14.3 (11.0-16.0) % Plt Count 314 D (160-400) X10*3/uL MPV 9.4 (9.4-12.3) fL Immature Gran % (Auto) 2.3 H (0.0-0.4) % Neut % (Auto) 66.2 (45-73) % Lymph % (Auto) 25.7 (20-40) % Delta % (Auto) 4.3 (2-11) % Eos % (Auto) 1.2 (0-4) % Baso % (Auto) 0.3 (0-2) % Lymph # (Auto) 4.2 (1.2-4.9) X10*3/uL Delta # (Auto) 0.7 (0.1-1.2) X10*3/uL Eos # (Auto) 0.2 (0.0-0.4) X10*3/uL Baso # (Auto) 0.1 (0.0-0.2) X10*3/uL Abs Immat Gran (auto) 0.38 H (0.00-0.03) X10*3/uL Absolute Neuts (auto) 10.9 H (2.0-8.3) x10*3/uL Absolute Nucleated RBC 0.000 (0.0-0.012) X10*3/uL Nucleated RBC % (auto) 0.0 (0.0-0.2) /100WBC VBG pH 7.32 (7.32-7.43) VBG pCO2 52 mmHg VBG pO2 33 mmHg VBG HCO3 27 H (22-26) mmol/L VBG O2 Saturation 48.0 % VBG Base Excess 0.4 mmol/L Sodium 142 (135-145) mmol/L Potassium 3.9 (3.3-5.1) mmol/L Chloride 104 (96-108) mmol/L Carbon Dioxide 24 (22-29) mmol/L Anion Gap 18 (12-20) BUN 15 (9-16) mg/dL Creatinine 0.97 (0.5-1.4) mg/dL Estim Creat Clear Calc 35.8 Estimated GFR 55 Random Glucose 153 H (60-115) mg/dL Lactic Acid 5.3 H* (0.5-2.0) mmol/L Lactic Acid F/U @ 2Hr (0.5-2.0) mmol/L Calcium 9.6 (8.4-10.2) mg/dL Magnesium 2.2 (1.6-2.6) mg/dL Total Bilirubin 0.5 (0.0-1.0) mg/dL Direct Bilirubin 0.2 (0.0-0.5) mg/dL AST 35 H (5-31) U/L ALT 24 (0-31) U/L Alkaline Phosphatase 63 (39-117) U/L Ammonia 30 (13-55) umol/L Troponin I High Sens 4.8 (<3.5-17.0) ng/L C-Reactive Protein 0.51 H (< or = 0.50) mg/dL B-Natriuretic Peptide 18 (<100) pg/mL Total Protein 7.0 (6.5-8.0) g/dL Albumin 4.0 (3.5-5.0) g/dL Lipase 6 L (8-78) U/L Procalcitonin 0.03 ng/mL Urine Color Dark Yellow Urine Appearance Turbid Urine pH 8.5 (5.0-9.0) Ur Specific [place] 1.015 (1.005-1.025) Urine Protein 100 (2+) H (Neg-Trace) mg/dL Urine Glucose (UA) Negative (Negative) mg/dL Urine Ketones Negative (Negative) mg/dL Urine Blood Trace H (Negative) Urine Nitrite Positive H (Negative) Ur Leukocyte Esterase Small (1+) H (Negative) Urine RBC 0-2 (0-2) /HPF Urine WBC 0-5 (0-5) /HPF Ur Squamous Epith Cells 0-2 (0-2) /HPF Other Crystals Present Urine Bacteria 2+ (None Seen) Hyaline Casts 0-2 (0-2) /LPF Influenza Type A (PCR) NEGATIVE (Negative) Influenza Type B (PCR) NEGATIVE (Negative) RSV RNA Qual (PCR) NEGATIVE (Negative) SARS-CoV-2 RNA (RT-PCR) NEGATIVE (Negative) 03/04/24 Range/Units 14:55 WBC (4.8-10.8) X10*3/uL RBC (4.20-5.50) X10*6/uL Hgb (12.0-16.0) g/dl Hct (37.0-47.0) % MCV (80.0-98.0) fL MCH (27.0-33.0) pg MCHC (31.0-35.0) g/dl RDW (11.0-16.0) % Plt Count (160-400) X10*3/uL MPV (9.4-12.3) fL Immature Gran % (Auto) (0.0-0.4) % Neut % (Auto) (45-73) % Lymph % (Auto) (20-40) % Delta % (Auto) (2-11) % Eos % (Auto) (0-4) % Baso % (Auto) (0-2) % Lymph # (Auto) (1.2-4.9) X10*3/uL Delta # (Auto) (0.1-1.2) X10*3/uL Eos # (Auto) (0.0-0.4) X10*3/uL Baso # (Auto) (0.0-0.2) X10*3/uL Abs Immat Gran (auto) (0.00-0.03) X10*3/uL Absolute Neuts (auto) (2.0-8.3) x10*3/uL Absolute Nucleated RBC (0.0-0.012) X10*3/uL Nucleated RBC % (auto) (0.0-0.2) /100WBC VBG pH (7.32-7.43) VBG pCO2 mmHg VBG pO2 mmHg VBG HCO3 (22-26) mmol/L VBG O2 Saturation % VBG Base Excess mmol/L Sodium (135-145) mmol/L Potassium (3.3-5.1) mmol/L Chloride (96-108) mmol/L Carbon Dioxide (22-29) mmol/L Anion Gap (12-20) BUN (9-16) mg/dL Creatinine (0.5-1.4) mg/dL Estim Creat Clear Calc Estimated GFR Random Glucose (60-115) mg/dL Lactic Acid (0.5-2.0) mmol/L Lactic Acid F/U @ 2Hr 5.0 H* (0.5-2.0) mmol/L Calcium (8.4-10.2) mg/dL Magnesium (1.6-2.6) mg/dL Total Bilirubin (0.0-1.0) mg/dL Direct Bilirubin (0.0-0.5) mg/dL AST (5-31) U/L ALT (0-31) U/L Alkaline Phosphatase (39-117) U/L Ammonia (13-55) umol/L Troponin I High Sens (<3.5-17.0) ng/L C-Reactive Protein (< or = 0.50) mg/dL B-Natriuretic Peptide (<100) pg/mL Total Protein (6.5-8.0) g/dL Albumin (3.5-5.0) g/dL Lipase (8-78) U/L Procalcitonin ng/mL Urine Color Urine Appearance Urine pH (5.0-9.0) Ur Specific [place] (1.005-1.025) Urine Protein (Neg-Trace) mg/dL Urine Glucose (UA) (Negative) mg/dL Urine Ketones (Negative) mg/dL Urine Blood (Negative) Urine Nitrite (Negative) Ur Leukocyte Esterase (Negative) Urine RBC (0-2) /HPF Urine WBC (0-5) /HPF Ur Squamous Epith Cells (0-2) /HPF Other Crystals Urine Bacteria (None Seen) Hyaline Casts (0-2) /LPF Influenza Type A (PCR) (Negative) Influenza Type B (PCR) (Negative) RSV RNA Qual (PCR) (Negative) SARS-CoV-2 RNA (RT-PCR) (Negative) Independent Interpretation I performed an independent interpretation of an: EKG, Plain X-Ray and CT Scan Interpretation: Rate: 80 Rhythm: NSR [place]: left Normal P waves. Normal [place]. Normal QRS complex. ST T wave : normal no OLAF qTC: 442 prior studies: no acute ischemia The study has been interpreted contemporaneously by me. . Radiology Impression Discussion of test interpretation with radiology: I discussed test interpretation with the radiologist and I have reviewed the radiologist's reading. Radiologist Impression: 312pm call from Radiology comminuted acetabular fractures bilaterally - new from 2021 high density layering stuff in bladder gravel in bladder, no hydro Independent Historian Clinical information obtained from an independent historian. History obtained from or confirmed by: EMS and Other (granddaughter) External Record Review External record reviewed: Inpatient record Critical Care Time Critical Care Time Critical Care Time: Yes Total Critical Care Time: 45 Attestation: review of records, 2L of IVF, sepsis alert I attest to this time spent taking care of the patient Discharge Plan Discharge Clinical Impression: Acidosis, lactic, Acute UTI Elevated WBC count Qualifiers: Leukocytosis type: unspecified Qualified Code(s): D72.829 - Elevated white blood cell count, unspecified Bilateral acetabular fractures Qualifiers: Encounter type: initial encounter Fracture type: closed Qualified Code(s): S 32.401A - Unspecified fracture of right acetabulum, initial encounter for closed fracture Patient Disposition: Admitted As Inpatient Print Language: [place] Zealander
[2024-03-04 12:28] LABS: MANUAL DIFF FLAG NO
[2024-03-04 12:31] LABS: Venous Blood Gas Refer to POC result
[2024-03-04 12:32] LABS: VBG Base Excess 0.4 mmol/L; VBG HCO3 27 mmol/L (22-26); VBG pCO2 52 mmHg; VBG pH 7.32 (7.32-7.43); VBG pO2 33 mmHg
[2024-03-04 12:32] LABS: Basophils Absolute Auto 0.1 X10*3/uL (0.0-0.2); Basophils Percent Auto 0.3 % (0-2); Eosinophils Absolute Auto 0.2 X10*3/uL (0.0-0.4); Eosinophils Percent Auto 1.2 % (0-4); Hematocrit 36.1 % (37.0-47.0); Hemoglobin 11.7 g/dl (12.0-16.0); Imm Gran Abs Auto 0.38 X10*3/uL (0.00-0.03); Imm Gran Pct Auto 2.3 % (0.0-0.4); Lymphocytes Absolute Auto 4.2 X10*3/uL (1.2-4.9); Lymphocytes Percent Auto 25.7 % (20-40); Mean Corpuscular HGB Conc 32.4 g/dl (31.0-35.0); Mean Corpuscular Hemoglobin 30.3 pg (27.0-33.0); Mean Corpuscular Volume 93.5 fL (80.0-98.0); Mean Platelet Volume 9.4 fL (9.4-12.3); Monocytes Absolute Auto 0.7 X10*3/uL (0.1-1.2); Monocytes Percent Auto 4.3 % (2-11); Neutrophils Absolute Auto 10.9 x10*3/uL (2.0-8.3); Neutrophils Percent Auto 66.2 % (45-73); Platelet Count 314 X10*3/uL (160-400); Red Blood Count 3.86 X10*6/uL (4.20-5.50); Red Cell Distribution Width 14.3 % (11.0-16.0); White Blood Count 16.4 X10*3/uL (4.8-10.8)
[2024-03-04 12:47] LABS: Lactic Acid 5.3 mmol/L (0.5-2.0)
[2024-03-04 12:53] LABS: B Type Natriuretic Peptide 18 pg/mL (<100)
[2024-03-04 12:54] LABS: Ammonia 30 umol/L (13-55)
[2024-03-04] MEDS: 0.9 % Sodium Chloride 1,000 ML 999 ML IV (12:55)
[2024-03-04 12:57] LABS: Alanine Aminotransferase 24 U/L (0-31); Alkaline Phosphatase 63 U/L (39-117); Anion Gap 18 (12-20); Aspartate Amino Transferase 35 U/L (5-31); Bilirubin Direct 0.2 mg/dL (0.0-0.5); Bilirubin Total 0.5 mg/dL (0.0-1.0); Blood Urea Nitrogen 15 mg/dL (9-16); C Reactive Protein 0.51 mg/dL (< or = 0.50); Calcium 9.6 mg/dL (8.4-10.2); Carbon Dioxide 24 mmol/L (22-29); Chloride 104 mmol/L (96-108); Creatinine Clr Calc Pharmacy 35.8; Estimated Glomerular Filt Rate 55; Glucose Random 153 mg/dL (60-115); Lipase 6 U/L (8-78); Magnesium 2.2 mg/dL (1.6-2.6); Potassium 3.9 mmol/L (3.3-5.1); Sodium 142 mmol/L (135-145); Troponin-I High Sensitivity 4.8 ng/L (<3.5-17.0)
[2024-03-04 12:59] LABS: Appearance Urine Turbid; Color Urine Dark Yellow; Glucose Urine UA Negative (Negative); Leukocyte Esterase Urine Small (1+) (Negative); Nitrite Urine Positive (Negative); PH 8.5 (5.0-9.0); Specific Gravity - Urine 1.015 (1.005-1.025); UMIC TRIGGER UACC YES; Urine Blood Trace (Negative); Urine Ketones Negative (Negative); Urine Protein 100 (2+) mg/dL (Neg-Trace)
[2024-03-04 13:07] LABS: Influenza A PCR NEGATIVE (Negative); Influenza B PCR NEGATIVE (Negative); Resp Syncy Virus RNA Qual PCR NEGATIVE (Negative); SARS COV2 PCR INHOUSE NEGATIVE (Negative)
[2024-03-04] MEDS: 0.9 % Sodium Chloride 500 ML IV ×2 (13:10)
[2024-03-04 13:15] LABS: Procalcitonin 0.03 ng/mL
[2024-03-04 13:15] LABS: Bacteria Urine 2+ (None Seen); Hyaline Casts Urine 0-2 /LPF (0-2); Other Crystals Urine Present; RBC Urine 0-2 /HPF (0-2); Squamous Epithelial Cell Urine 0-2 /HPF (0-2); UACC Culture Trigger YES; WBC Urine 0-5 /HPF (0-5)
--- NOTE | 2024-03-04 13:48 | PC.NURSE ---
Patient very contracted / difficult stick. IVF slowly infusing.
[2024-03-04 13:59] VITALS: BP 119/44; PULSE 92; RESP 12; TEMP 36.4; O2SAT 92
[2024-03-04 14:28] LABS: Reflex Lactate? Lactic Acid Added
[2024-03-04 14:56] VITALS: BP 119/50; PULSE 97; RESP 18
[2024-03-04 15:13] VITALS: BP 115/58; PULSE 81; RESP 16; TEMP 36.4; O2SAT 94
--- NOTE | 2024-03-04 15:24 | PM.IMHP ---
History of Present Illness Date of Service: 03/04/24 Chief Complaint: jerking movements 83-year-old Eritrean-speaking woman with a history of Alzheimer's dementia presenting to the ER with reported ?jerking movements? while at home. Fortunately due to patient's dementia she is unable to answer any questions as she is nonverbal. She was noted to have leukocytosis, tachycardia. She has lactic acidosis but this appears to be chronically elevated and not related to sepsis. Chest x-ray negative consolidation or effusion. She received a dose of meropenem and 2 L of IV fluid in the ER. Review of Systems Review of Systems: Yes Unobtainable due to mental status [facility] Medical History Aspiration pneumonia Failure to thrive in adult Asthma Alzheimer disease Social History Household Members: Family Housing: Apartment Do you presently have visiting nurse or other home services: Yes Unable to assess alcohol history related to: Unable to respond Alcohol intake: never Patient Tobacco Use Status: Never used Tobacco Use of substances other than those prescribed or required for medical reasons: Unable to respond Currently Displaying Signs/Symptoms of Drug Intoxication Withdrawal: No Advance Directives: Yes Advance Directives on File: Yes Advance Directives Date on File: 08/05/21 Do you have a plan to hurt others: No Plan Nutrition Risks: Difficulty swallowing and On aspiration precautions Patient : No service: No Current occupational status: retired Meds Allergies Allergy/AdvReac Type Severity Reaction Status Date / Time aspirin [ASPIRIN] Allergy Unknown UNKNOWN Verified 03/04/24 11:55 ibuprofen [IBUPROFEN] Allergy Unknown SWELLING Verified 03/04/24 11:55 Home Medications ?Medication ?Instructions ?Recorded ?Confirmed ?Last Taken ?Type multivitamin (Daily-Kimberley tablet) 1 tab PO DAILY 11/18/20 03/04/24 03/03/24 History acetaminophen 160 mg/5 mL oral 15 ml PO Q6H PRN fever 09/25/21 03/04/24 03/03/24 History liquid (Silapap) white petrolatum 42 % topical 1 appl topical DAILY PRN Dry Skin 03/04/24 03/04/24 03/03/24 History ointment Physical Exam Vital Signs and Narrative: Vital Signs: Last Vital Signs Temp 97.5 F 03/04/24 15:13 Pulse 81 03/04/24 15:13 Resp 16 03/04/24 15:13 BP 115/58 L 03/04/24 15:13 Pulse Ox 94 03/04/24 15:13 O2 Del Method Room Air 03/04/24 15:13 BMI result Body Mass Index 18.9 Appearing in no acute distress head is normocephalic atraumatic eyes pupils are PERRLA sclera is anicteric mouth throat mucous membranes are intact and moist neck is supple no lymphadenopathy, no JVD noted lung sounds are clear to auscultation heart regular rate rhythm, clear S1, S2 positive bowel sounds, abdomen is soft, nontender neuro patient is alert x3, no focal deficits Results Labs 03/05/24 06:07 03/05/24 06:07 Labs: Laboratory Results - last 24 hr 03/04/24 03/04/24 03/04/24 12:22 12:28 12:49 MCV 93.5 MCH 30.3 MCHC 32.4 RDW 14.3 Plt Count 314 D MPV 9.4 Immature Gran % (Auto) 2.3 H Neut % (Auto) 66.2 Lymph % (Auto) 25.7 [place] % (Auto) 4.3 Eos % (Auto) 1.2 Baso % (Auto) 0.3 Lymph # (Auto) 4.2 [place] # (Auto) 0.7 Eos # (Auto) 0.2 Baso # (Auto) 0.1 Abs Immat Gran (auto) 0.38 H Absolute Neuts (auto) 10.9 H Absolute Nucleated RBC 0.000 Nucleated RBC % (auto) 0.0 VBG pH 7.32 VBG pCO2 52 VBG pO2 33 VBG HCO3 27 H VBG O2 Saturation 48.0 VBG Base Excess 0.4 Anion Gap 18 Estim Creat Clear Calc 35.8 Estimated GFR 55 Random Glucose 153 H Lactic Acid 5.3 H* Lactic Acid F/U @ 2Hr Calcium 9.6 Magnesium 2.2 Total Bilirubin 0.5 Direct Bilirubin 0.2 AST 35 H ALT 24 Alkaline Phosphatase 63 Ammonia 30 Troponin I High Sens 4.8 C-Reactive Protein 0.51 H B-Natriuretic Peptide 18 Total Protein 7.0 Albumin 4.0 Lipase 6 L Procalcitonin 0.03 Urine Color Dark Yellow Urine Appearance Turbid Urine pH 8.5 Ur Specific [place] 1.015 Urine Protein 100 (2+) H Urine Glucose (UA) Negative Urine Ketones Negative Urine Blood Trace H Urine Nitrite Positive H Ur Leukocyte Esterase Small (1+) H Urine RBC 0-2 Urine WBC 0-5 Ur Squamous Epith Cells 0-2 Other Crystals Present Urine Bacteria 2+ Hyaline Casts 0-2 Influenza Type A (PCR) NEGATIVE Influenza Type B (PCR) NEGATIVE RSV RNA Qual (PCR) NEGATIVE SARS-CoV-2 RNA (RT-PCR) NEGATIVE 03/04/24 14:55 MCV MCH MCHC RDW Plt Count MPV Immature Gran % (Auto) Neut % (Auto) Lymph % (Auto) [place] % (Auto) Eos % (Auto) Baso % (Auto) Lymph # (Auto) [place] # (Auto) Eos # (Auto) Baso # (Auto) Abs Immat Gran (auto) Absolute Neuts (auto) Absolute Nucleated RBC Nucleated RBC % (auto) VBG pH VBG pCO2 VBG pO2 VBG HCO3 VBG O2 Saturation VBG Base Excess Anion Gap Estim Creat Clear Calc Estimated GFR Random Glucose Lactic Acid Lactic Acid F/U @ 2Hr 5.0 H* Calcium Magnesium Total Bilirubin Direct Bilirubin AST ALT Alkaline Phosphatase Ammonia Troponin I High Sens C-Reactive Protein B-Natriuretic Peptide Total Protein Albumin Lipase Procalcitonin Urine Color Urine Appearance Urine pH Ur Specific [place] Urine Protein Urine Glucose (UA) Urine Ketones Urine Blood Urine Nitrite Ur Leukocyte Esterase Urine RBC Urine WBC Ur Squamous Epith Cells Other Crystals Urine Bacteria Hyaline Casts Influenza Type A (PCR) Influenza Type B (PCR) RSV RNA Qual (PCR) SARS-CoV-2 RNA (RT-PCR) Imaging Radiologist's Impressions: Impressions Head CT 03/04/24 13:13 IMPRESSION: No acute intracranial abnormality. Findings strongly suggest normal pressure hydrocephalus. Clinical correlation is strongly recommended. Electronically signed by: Ochoa Mane DO 03/04/2024 02:26 PM EDT RP Chest X-Ray 03/04/24 13:30 IMPRESSION: Bibasilar subsegmental atelectasis. No convincing pneumonia. Electronically signed by: Ochoa Mane DO 03/04/2024 02:31 PM EDT RP Assessment and Plan (1) Bilateral acetabular fractures: Qualifiers: Encounter type: initial encounter Fracture type: closed Qualified Code(s): S32.401A - Unspecified fracture of right acetabulum, initial encounter for closed fracture; S32.402A - Unspecified fracture of left acetabulum, initial encounter for closed fracture Status: Acute (2) Acute UTI: Status: Acute Plan 83 year old women admitted with UTI Sepsis secondary to UTI tachycardia, leukocytosis IV meropenem follow urine and blood cx Chronically elevated lactic acidosis not related to sepsis Normocytic anemia no overt bleeding Alzheimer's dementia, FTT nonverbal contracted and bed bound Acetabular fractures likely chronic as patient is non ambulatory Moderate protein calorie malnutrition. BMI 18.9 NPO for now, speech therapy consult for diet DVT prophylaxis with heparin Full code Quality Stroke Does the patient have a stroke diagnosis?: No VTE Prior VTE?: No VTE Risk Level:: Medical - moderate - high VTE Device Contraindication: Treatment Not Indicated VTE Drug Contraindication: N/A - Med Ordered
--- NOTE | 2024-03-04 15:55 | MHC.EDTECH ---
PT changed and cleaned by ethel Gonzalez and JNENY Mariee. [facility] go put on pt and clean chucks placed under pt. Pt repostioned in bed
--- NOTE | 2024-03-04 16:20 | PHA.MEDREC ---
Pharmacy Consult ? Medication Reconciliation Pharmacy has completed the medication reconciliation. Spoke with daughter, Surekha, on the phone and confirmed pt was only on three medications.
[2024-03-04 16:57] LABS: Reflex Lactate? 2 Y
[2024-03-04] MEDS: Heparin Sodium,Porcine 5,000 UNIT/ML VIAL 5000 UNIT SUBCUT (17:22)
[2024-03-04 18:17] VITALS: BP 136/71; PULSE 89; RESP 16; TEMP 36.2; O2SAT 94
[2024-03-04 18:21] LABS: ~Lactic Acid-LAB USE ONLY 5.2 mmol/L (0.5-2.0)
[2024-03-04] MEDS: 0.9 % Sodium Chloride Flush 3 ML SYRINGE IVFLUSH (20:07)
[2024-03-05 03:49] VITALS: BP 117/64; PULSE 98; RESP 16; TEMP 36.5; O2SAT 95
[2024-03-05] MEDS: Heparin Sodium,Porcine 5,000 UNIT/ML VIAL 5000 UNIT SUBCUT ×2 (04:50→17:01)
[2024-03-05 06:12] LABS: MANUAL DIFF FLAG NO
[2024-03-05 06:35] LABS: Basophils Percent Auto 0.1 % (0-2); Hematocrit 24.7 % (37.0-47.0); Imm Gran Abs Auto 0.03 X10*3/uL (0.00-0.03); Imm Gran Pct Auto 0.4 % (0.0-0.4); Lymphocytes Absolute Auto 1.6 X10*3/uL (1.2-4.9); Lymphocytes Percent Auto 20.2 % (20-40); Mean Corpuscular HGB Conc 32.8 g/dl (31.0-35.0); Mean Corpuscular Hemoglobin 30.7 pg (27.0-33.0); Mean Corpuscular Volume 93.6 fL (80.0-98.0); Mean Platelet Volume 9.7 fL (9.4-12.3); Monocytes Absolute Auto 0.6 X10*3/uL (0.1-1.2); Monocytes Percent Auto 7.2 % (2-11); Neutrophils Absolute Auto 5.8 x10*3/uL (2.0-8.3); Neutrophils Percent Auto 72.1 % (45-73); Platelet Count 169 X10*3/uL (160-400); Red Blood Count 2.64 X10*6/uL (4.20-5.50); Red Cell Distribution Width 14.2 % (11.0-16.0)
[2024-03-05 06:37] LABS: Anion Gap 12 (12-20); Blood Urea Nitrogen 18 mg/dL (9-16); Calcium 8.9 mg/dL (8.4-10.2); Carbon Dioxide 23 mmol/L (22-29); Chloride 112 mmol/L (96-108); Creatinine Clr Calc Pharmacy 47.5; Estimated Glomerular Filt Rate > 60; Glucose Random 135 mg/dL (60-115); Sodium 143 mmol/L (135-145)
[2024-03-05 06:42] LABS: Hemoglobin 8.1 g/dl (12.0-16.0)
[2024-03-05] MEDS: 0.9 % Sodium Chloride Flush 3 ML SYRINGE IVFLUSH (07:30)
[2024-03-05 07:37] LABS: Iron 21 mcg/dL (30-160); Percent Iron Saturation 13 % (15-50); Total Iron Binding Capacity 156 mcg/dL (228-428); Unsaturated Iron Binding 135 ug/dL
[2024-03-05 07:39] VITALS: BP 145/58; PULSE 87; RESP 16; TEMP 36; O2SAT 98
--- NOTE | 2024-03-05 09:05 | MHC.CM.PN ---
Addendum entered by Savana Cloud 03/07/24 14:09: PCP: THIAGO MCPHERSON Original Note: IMM 03/05/24, Discussed with HCP, pt. has dx: of Dementia, is non verbal. She lives in an apt., first floor, her son lives on second floor. She has 3 flat cutter from [facility] that take care of her, she is never alone. For DME, she has a hospital bed, and w/c. HCP was updated on 2021, naming: Alona Chanel, copy requested. DCP: home via BLS, resumption of 24 hr care. CM to follow and assist with DC plan.
--- NOTE | 2024-03-05 10:43 | MHC.SLORD ---
Speech Language Pathology Order Status: MODEL MAKER FIREARMS attempted to work with Pt this morning. She was repositioned upright and greated verbally but did not respond to commands to open her eyes or open her mouth. MODEL MAKER FIREARMS attempted oral tactile and thermal stimulation with moistened swab however Pt did not initiate oral preparatory movements. Pt was placed back to 30 degree head of bed resting position. MODEL MAKER FIREARMS to notify RN and MD via [employer].
--- NOTE | 2024-03-05 11:14 | HO.PM.IMPN ---
Subjective Subjective Date of Service: 03/05/24 Interval History: Follow up UTI nonverbal and non ambulatory Review of Systems Review of Systems: Yes Unobtainable due to mental condition Physical Exam Vital Signs: Vital Signs: Last Vital Signs Temp 96.8 F 03/05/24 07:39 Pulse 87 03/05/24 07:39 Resp 16 03/05/24 07:39 BP 145/58 H 03/05/24 07:39 Pulse Ox 98 03/05/24 07:39 O2 Del Method Room Air 03/05/24 07:39 BMI result Body Mass Index 18.9 Appearing in no acute distress lung sounds are clear to auscultation heart regular rate rhythm, clear S1, S2 positive bowel sounds, abdomen is soft, nontender neuro patient is alert, nonverbal LE contractures Objective Data Active Medications Acetaminophen (Acetaminophen 325 Mg Tablet) 650 mg PO Q6H PRN PRN Reason: Pain, Mild (Pain Scale 1-3), fever or headache Calcium Carbonate (Calcium Carbonate 750 Mg Tab.Chew) 750 mg PO Q4H PRN PRN Reason: Heartburn Heparin Sodium (Porcine) (Heparin Sodium,Porcine 5,000 Unit/Ml Vial) 5,000 unit SUBCUT Q12H [facility] Last Admin: 03/05/24 04:50 Dose: 5,000 unit Documented By: YAZ Meropenem 1 gm/ Sodium (Chloride) 100 mls @ 200 mls/hr IV Q12H [facility] Last Infusion: 03/05/24 07:25 Dose: Infused Documented By: SARITA Magnesium Hydroxide (Milk Of Magnesia 30 Ml Oral.Susp) 30 ml PO DAILY PRN PRN Reason: Constipation Melatonin (Melatonin 3 Mg Tablet) 6 mg PO BEDTIME PRN PRN Reason: Insomnia Ondansetron HCl (Ondansetron Hcl 4 Mg/2 Ml Vial) 4 mg IVPUSH Q8H PRN PRN Reason: Nausea and Vomiting Sodium Chloride (0.9 % Sodium Chloride Flush 3 Ml Syringe) 3 ml IVFLUSH QSHIFT [facility] Last Admin: 03/05/24 07:30 Dose: 3 ml Documented By: SARITA Labs 03/05/24 06:07 03/05/24 06:07 Labs: Laboratory Results - last 24 hr 03/04/24 03/04/24 03/04/24 12:22 12:28 12:49 MCV 93.5 MCH 30.3 MCHC 32.4 RDW 14.3 Plt Count 314 D MPV 9.4 Immature Gran % (Auto) 2.3 H Neut % (Auto) 66.2 Lymph % (Auto) 25.7 [place] % (Auto) 4.3 Eos % (Auto) 1.2 Baso % (Auto) 0.3 Lymph # (Auto) 4.2 [place] # (Auto) 0.7 Eos # (Auto) 0.2 Baso # (Auto) 0.1 Abs Immat Gran (auto) 0.38 H Absolute Neuts (auto) 10.9 H Absolute Nucleated RBC 0.000 Nucleated RBC % (auto) 0.0 VBG pH 7.32 VBG pCO2 52 VBG pO2 33 VBG HCO3 27 H VBG O2 Saturation 48.0 VBG Base Excess 0.4 Anion Gap 18 Estim Creat Clear Calc 35.8 Estimated GFR 55 Random Glucose 153 H Lactic Acid 5.3 H* Lactic Acid F/U @ 2Hr Lactic Acid F/U @ 4Hr Calcium 9.6 Magnesium 2.2 Iron TIBC % Saturation Unsat Iron Binding Total Bilirubin 0.5 Direct Bilirubin 0.2 AST 35 H ALT 24 Alkaline Phosphatase 63 Ammonia 30 Troponin I High Sens 4.8 C-Reactive Protein 0.51 H B-Natriuretic Peptide 18 Total Protein 7.0 Albumin 4.0 Lipase 6 L Procalcitonin 0.03 Urine Color Dark Yellow Urine Appearance Turbid Urine pH 8.5 Ur Specific [place] 1.015 Urine Protein 100 (2+) H Urine Glucose (UA) Negative Urine Ketones Negative Urine Blood Trace H Urine Nitrite Positive H Ur Leukocyte Esterase Small (1+) H Urine RBC 0-2 Urine WBC 0-5 Ur Squamous Epith Cells 0-2 Other Crystals Present Urine Bacteria 2+ Hyaline Casts 0-2 Influenza Type A (PCR) NEGATIVE Influenza Type B (PCR) NEGATIVE RSV RNA Qual (PCR) NEGATIVE SARS-CoV-2 RNA (RT-PCR) NEGATIVE 03/04/24 03/04/24 03/05/24 14:55 17:49 06:07 MCV 93.6 MCH 30.7 MCHC 32.8 RDW 14.2 Plt Count 169 D MPV 9.7 Immature Gran % (Auto) 0.4 Neut % (Auto) 72.1 Lymph % (Auto) 20.2 [place] % (Auto) 7.2 Eos % (Auto) 0.0 Baso % (Auto) 0.1 Lymph # (Auto) 1.6 [place] # (Auto) 0.6 Eos # (Auto) 0.0 Baso # (Auto) 0.0 Abs Immat Gran (auto) 0.03 Absolute Neuts (auto) 5.8 Absolute Nucleated RBC 0.000 Nucleated RBC % (auto) 0.0 VBG pH VBG pCO2 VBG pO2 VBG HCO3 VBG O2 Saturation VBG Base Excess Anion Gap 12 Estim Creat Clear Calc 47.5 Estimated GFR > 60 Random Glucose 135 H Lactic Acid Lactic Acid F/U @ 2Hr 5.0 H* Lactic Acid F/U @ 4Hr 5.2 H* Calcium 8.9 D Magnesium Iron 21 L TIBC 156 L % Saturation 13 L Unsat Iron Binding 135 Total Bilirubin Direct Bilirubin AST ALT Alkaline Phosphatase Ammonia Troponin I High Sens C-Reactive Protein B-Natriuretic Peptide Total Protein Albumin Lipase Procalcitonin Urine Color Urine Appearance Urine pH Ur Specific [place] Urine Protein Urine Glucose (UA) Urine Ketones Urine Blood Urine Nitrite Ur Leukocyte Esterase Urine RBC Urine WBC Ur Squamous Epith Cells Other Crystals Urine Bacteria Hyaline Casts Influenza Type A (PCR) Influenza Type B (PCR) RSV RNA Qual (PCR) SARS-CoV-2 RNA (RT-PCR) Microbiology Microbiology Results: Microbiology 03/04/24 Unknown Urine Culture - Final Urine clean catch - Clean Catch Midstream No growth. Assessment and Plan (1) Aspiration pneumonia: Status: Acute (2) Hypernatremia: Status: Acute (3) Bilateral acetabular fractures: Status: Acute Plan 83 year old women admitted with jerking movement, ua positive for uti ? Seizure neurology consultation EEG Sepsis secondary to UTI. Sepsis resolved tachycardia, leukocytosis stopped IV meropenem urine cx negative Chronically elevated lactic acidosis not related to sepsis ? related to seizure iron def anemia no overt bleeding iron 21/TIBC 156/% 13 will add suplementation Alzheimer's dementia, FTT nonverbal contracted and bed bound Acetabular fractures likely chronic as patient is non ambulatory Moderate protein calorie malnutrition. BMI 18.9 NPO for now, speech therapy consult for diet DVT prophylaxis with heparin Attending Dr. Fink Full code Quality Stroke Does the patient have a stroke diagnosis?: No VTE Prior VTE?: No VTE Risk Level:: Medical - moderate - high VTE Device Contraindication: Treatment Not Indicated VTE Drug Contraindication: N/A - Med Ordered
[2024-03-05 11:53] VITALS: BMI 19.5
--- NOTE | 2024-03-05 11:59 | MHC.CLN ---
RE: CONSULT PT IS MODERATELY MALNOURISHED USED 5'4 FOR HT FROM PREVIOUS NUTRITION ASSESSMENT ADJUSTED BMI 19.5; FAMILIAR WITH PT FROM PREVIOUS ADMISSIONS PT WITH SOME IMPROVEMENT IN WT WITH 14% NONSIGNIFICANT WT GAIN APPROX. 15 MONTHS, HOWEVER REMAINS WITH MILDLY DEPLETED SUBCUTANEOUS FAT AND MUSCLE MASS DIET NPO PENDING MACHINE OPERATOR ASSISTANT EVAL R/T DYSPHAGIA WHEN DIET TO ADVANCE, RECOMMEND ADDING NUTRITION SUPPLEMENT TO INCREASE KCALS WITH MEALS FOLLOWING FOR DIET ADVANCEMENT SEE ALSO FULL CLINICAL NUTRITION ASSESSMENT
[2024-03-05] MEDS: Dextrose 5 % and 0.9 % NaCl 1,000 ML 80 ML IVCONT ×2 (12:15→23:05)
[2024-03-05] MEDS: Iron Sucrose Complex 100 MG in 0.9 % Sodium Chloride 50 ML 220 MG IV (12:29)
[2024-03-05 15:02] VITALS: BP 128/67; PULSE 86; RESP 16; TEMP 36.8; O2SAT 97
--- NOTE | 2024-03-05 16:44 | P.CNNE_ITS ---
History of Present Illness Data of Consult Service Date: 03/05/24 Primary Care Provider: Unknown Physician HPI Reason for consult: Dementia This is a 83-year-old Somali-speaking woman with a history of Alzheimer's dementia presenting to the ER with reported ?jerking movements? while at home. She is unable to answer any questions as she is nonverbal. She was noted to have leukocytosis, tachycardia. She has lactic acidosis but this appears to be chronically elevated and not related to sepsis. Her CAT scan showed marked ventriculomegaly of the lateral ventricles and moderate cortical atrophy. Concerned of normal pressure hydrocephalus was raised. I have reviewed her CAT scans going back to 2013 and have shown similar findings over the last 10 years with markedly enlarged ventricles. Some atrophy has increased over the 10 years but the ventricular size has not changed. She is not a candidate to consider shunting or lumbar puncture. [facility] Past Medical History Medical History Aspiration pneumonia Failure to thrive in adult Asthma Alzheimer disease Social History Social History Household Members: Family Housing: Apartment Do you presently have visiting nurse or other home services: Yes Unable to assess alcohol history related to: Unable to respond Alcohol intake: never Patient Tobacco Use Status: Never used Tobacco Use of substances other than those prescribed or required for medical reasons: Unable to respond Currently Displaying Signs/Symptoms of Drug Intoxication Withdrawal: No Advance Directives: Yes Advance Directives on File: Yes Advance Directives Date on File: 08/05/21 Do you have a plan to hurt others: No Plan Nutrition Risks: Difficulty swallowing and On aspiration precautions Patient : No service: No Current occupational status: retired Meds Allergies Allergy/AdvReac Type Severity Reaction Status Date / Time aspirin [ASPIRIN] Allergy Unknown UNKNOWN Verified 03/04/24 11:55 ibuprofen [IBUPROFEN] Allergy Unknown SWELLING Verified 03/04/24 11:55 Active Medications: Current Medications Acetaminophen (Acetaminophen 325 Mg Tablet) 650 mg PO Q6H PRN PRN Reason: Pain, Mild (Pain Scale 1-3), fever or headache Calcium Carbonate (Calcium Carbonate 750 Mg Tab.Chew) 750 mg PO Q4H PRN PRN Reason: Heartburn Heparin Sodium (Porcine) (Heparin Sodium,Porcine 5,000 Unit/Ml Vial) 5,000 unit SUBCUT Q12H [facility] Last Admin: 03/05/24 04:50 Dose: 5,000 unit Dextrose/Sodium Chloride (D5ns) 1,000 mls @ 80 mls/hr IVCONT .[id number] [facility] Last Admin: 03/05/24 12:15 Dose: 80 mls/hr Magnesium Hydroxide (Milk Of Magnesia 30 Ml Oral.Susp) 30 ml PO DAILY PRN PRN Reason: Constipation Melatonin (Melatonin 3 Mg Tablet) 6 mg PO BEDTIME PRN PRN Reason: Insomnia Ondansetron HCl (Ondansetron Hcl 4 Mg/2 Ml Vial) 4 mg IVPUSH Q8H PRN PRN Reason: Nausea and Vomiting Sodium Chloride (0.9 % Sodium Chloride Flush 3 Ml Syringe) 3 ml IVFLUSH QSHIFT [facility] Last Admin: 03/05/24 14:34 Dose: Not Given Home Medications ?Medication ?Instructions ?Recorded ?Confirmed ?Last Taken ?Type multivitamin (Daily-Kimberley tablet) 1 tab PO DAILY 11/18/20 03/04/24 03/03/24 History acetaminophen 160 mg/5 mL oral 15 ml PO Q6H PRN fever 09/25/21 03/04/24 03/03/24 History liquid (Silapap) white petrolatum 42 % topical 1 appl topical DAILY PRN Dry Skin 03/04/24 03/04/24 03/03/24 History ointment Physical Exam 2 Vital Signs: Vital Signs: Last Vital Signs Temp 98.2 F 03/05/24 15:02 Pulse 86 03/05/24 15:02 Resp 16 03/05/24 15:02 BP 128/67 03/05/24 15:02 Pulse Ox 97 03/05/24 15:02 O2 Del Method Room Air 03/05/24 15:02 BMI result Body Mass Index 19.5 Neuro: Other: She is nonverbal but arousable. She does not follow commands and has advanced dementia. She has a nonfocal examination. Gait was not tested. Results Labs 03/05/24 06:07 03/05/24 06:07 Labs: Short CBC 03/05/24 Range/Units 06:07 WBC 8.0 (4.8-10.8) X10*3/uL Hgb 8.1 L D (12.0-16.0) g/dl Hct 24.7 L D (37.0-47.0) % Plt Count 169 D (160-400) X10*3/uL BMP 03/05/24 06:07 Sodium 143 Potassium 4.0 Chloride 112 H Carbon Dioxide 23 BUN 18 H Creatinine 0.73 Calcium 8.9 D Microbiology Microbiology Results: Microbiology 03/04/24 12:49 Blood - Venous Blood Culture - Preliminary No growth after 24 hours. 03/04/24 12:22 Blood - Venous Blood Culture - Preliminary No growth after 24 hours. 03/04/24 Unknown Urine clean catch - Clean Catch Midstream Urine Culture - Final No growth. Assessment and Plan (1) Alzheimer disease: Status: Acute She has advanced dementia and is not a candidate for any surgical procedures. Her CAT scan showed marked ventriculomegaly of the lateral ventricles and moderate cortical atrophy. Concern for normal pressure hydrocephalus was raised. I have reviewed her CAT scans going back to 2013 , 2016, 2021 and The have all shown similar findings over the last 10 years with markedly enlarged ventricles. Some atrophy has increased over the 10 years but the ventricular size has not changed. She is not a candidate to consider shunting or lumbar puncture. Recommend treat UTI and correct metabolic abnormalities. If further jerking movements she developed an EEG may be done to rule out any focal seizures. General supportive care and comfort measures (2) Acute UTI: Status: Acute Procedures Date of Service Date of Service: 03/05/24
[2024-03-05 19:52] VITALS: BP 180/73; PULSE 99; RESP 16; TEMP 36.4; O2SAT 97
--- NOTE | 2024-03-05 21:17 | MHC.PIE ---
p; pt family in room reports pt was place DNR/DNI last year here at [facility]. i; dr beckwith notified. e; [facility]
--- NOTE | 2024-03-06 | EEG_ITS ---
FINDINGS: The waking background activity consists of low voltage fast frequencies seen diffusely intermixed with muscle artifacts and seems standard slowing in a 4 to 5 hertz range and over both hemispheres. Occasional isolated sharp and slow waves are seen from the left frontal region and occasionally independently from the right hemisphere. Sometimes bilaterally synchronous, isolated spikes appear over both hemispheres. Photic stimulation and hyperventilation were omitted. Patient noted to have some jerking movements. 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 Clinical correlation is suggested. MD DELMA Alvarado/MARIA TERESA / [phone]
[2024-03-06] MEDS: Heparin Sodium,Porcine 5,000 UNIT/ML VIAL 5000 UNIT SUBCUT ×2 (05:26→17:29)
[2024-03-06 08:02] VITALS: BP 134/51; PULSE 84; RESP 12; TEMP 36.1; O2SAT 97
--- NOTE | 2024-03-06 10:38 | MHC.CLN ---
F/U DIET=REGULAR, PUREE CONSISTENCY WITH NECTAR THICK LIQUIDS. MAGIC CUP BID PROVIDES 580 KCALS, 18 G PROTEIN. PATIENT WITH DX ASPIRATION PNEUMONIA. SKIN WITH REDNESS TO BUTTOCKS. FOLLOW FOR PO INTAKE AND DIET TOLERANCE.
--- NOTE | 2024-03-06 11:19 | MHC.SL.SWA ---
Risk of Aspiration Due to: Lethargy Neurological Condition History of Pneumonia Dysphasia Diet Status: DOWNGRADE solids Liquid Consistency and Strategies for Safe Swallow: Liquid Intake Recommendation: Honey Thick Liquid Intake Strategies: Liquids by Teaspoon Only Solid Food Consistency: Dietary Recommendations: Pureed (NDD1) Oral Medication Intake: Crushed with Puree Please contact the pharmacy regarding appropriate crushable or liquid drug formulations that are available whenever modified delivery is recommended. Compensatory Strategies and Precautions to be Taken for Safe Swallow: Sitting Upright (90 deg) Liquids from Spoon Small Bites and Sips Alternate Liquids/Solids Rate of Ingestion Change Oral Check Supervision While Eating and Drinking for Safe Swallow: Total Assistance (1:1) Foods to Avoid: overly sticky foods. Swallowing Recommended Treatments: Compens. Strategy Educat. Recommendation for Speech: Inpatient Speech Therapy Modified Barium Swallow Study - Inpatient Modified Barium Swallow Study - Outpatient Comment: Recommend DOWNGRADE to HONEY THICK liquids (via teaspoon only). Continue w/ PUREE solids (NDD1) and pills CRUSHED in PUREE. Recommend 1-1 assist, slow rate of ingestion, and alternating liquids/solids. Pt presents w/ delayed swallow holding of bolus. Allow for breaks between bites to give pt time to swallow. Pt did not present w/ any overt s/s aspiration on these consistencies, however family reports more frequent coughing over the past few weeks. Pt would benefit from a MBSS (inpatient vs. outpatient). Family prefers inpatient d/t logistical reasons and increasing concerns of swallow. DORR OPERATOR to continue to follow to monitor toleration of diet and determine readiness to participate in MBSS. Department Mgr Clinican/Clinical Fellow: No Supervisory Statement: I have reviewed and agree with the student/clinical fellow's documentation: N/A Speech Language Pathologist: Anna Kirk M.A., [facility]DORR OPERATOR
[2024-03-06] MEDS: Dextrose 5 % and 0.9 % NaCl 1,000 ML 80 ML IVCONT ×2 (12:05→23:37)
--- NOTE | 2024-03-06 14:06 | HO.PM.IMPN ---
Subjective Subjective Date of Service: 03/06/24 Interval History: Being followed for question seizure. Patient nonverbal, granddaughter at bedside inform the patient was brought to hospital since she looked pale, eyes rolled back and saliva coming out of mouth, no similar episodes noted in hospital, Patient was tolerating pureed diet at home. Review of Systems Unable to obtain review of system due to mental status. Physical Exam Vital Signs: Vital Signs: Last Vital Signs Temp 97.0 F 03/06/24 08:02 Pulse 84 03/06/24 08:02 Resp 12 03/06/24 08:02 BP 134/51 L 03/06/24 08:02 Pulse Ox 97 03/06/24 08:02 O2 Del Method Room Air 03/06/24 08:02 BMI result Body Mass Index 19.5 Const: Other: General, open eyes to verbal commands, in no acute distress Neck no JVD lung clear to auscultation CVS heart regular rate rhythm, clear S1, S2 GI positive bowel sounds, abdomen soft, nontender neuro nonverbal LE contractures Objective Data Active Medications Acetaminophen (Acetaminophen 325 Mg Tablet) 650 mg PO Q6H PRN PRN Reason: Pain, Mild (Pain Scale 1-3), fever or headache Calcium Carbonate (Calcium Carbonate 750 Mg Tab.Chew) 750 mg PO Q4H PRN PRN Reason: Heartburn Heparin Sodium (Porcine) (Heparin Sodium,Porcine 5,000 Unit/Ml Vial) 5,000 unit SUBCUT Q12H [facility] Last Admin: 03/06/24 05:26 Dose: 5,000 unit Documented By: YAZ Dextrose/Sodium Chloride (D5ns) 1,000 mls @ 80 mls/hr IVCONT .[id number] [facility] Last Admin: 03/06/24 12:05 Dose: 80 mls/hr Documented By: KASIA Magnesium Hydroxide (Milk Of Magnesia 30 Ml Oral.Susp) 30 ml PO DAILY PRN PRN Reason: Constipation Melatonin (Melatonin 3 Mg Tablet) 6 mg PO BEDTIME PRN PRN Reason: Insomnia Ondansetron HCl (Ondansetron Hcl 4 Mg/2 Ml Vial) 4 mg IVPUSH Q8H PRN PRN Reason: Nausea and Vomiting Sodium Chloride (0.9 % Sodium Chloride Flush 3 Ml Syringe) 3 ml IVFLUSH QSHIFT [facility] Last Admin: 03/06/24 07:04 Dose: Not Given Documented By: KASIA Non-Admin Reason: IV Running Labs 03/05/24 06:07 03/05/24 06:07 Microbiology Microbiology Results: Microbiology 03/04/24 12:49 Blood Culture - Preliminary Blood - Venous No growth after 24 hours. 03/04/24 12:22 Blood Culture - Preliminary Blood - Venous No growth after 24 hours. 03/04/24 Unknown Urine Culture - Final Urine clean catch - Clean Catch Midstream No growth. Assessment and Plan (1) Acidosis, lactic: Status: Acute (2) Elevated WBC count: Status: Acute Plan 83 year old women admitted with jerking movement, ua positive for uti ? Seizure No seizure-like activity noted EEG obtained report pending Sepsis secondary to UTI. Initially felt to have sepsis due to UTI however urine culture showed no growth, antibiotic discontinued tachycardia, leukocytosis resolved, Question reactive leukocytosis Chronically elevated lactic acidosis not related to sepsis ? related to seizure iron def anemia no overt bleeding iron 21/TIBC 156/% 13, consistent with low iron , status post IV iron,will add suplementation Alzheimer's dementia, FTT nonverbal contracted and bed bound Acute Acetabular fractures patient is non ambulatory , no moaning noted, no further intervention. Moderate protein calorie malnutrition. BMI 18.9 Added supplements Seen by speech therapy they agreed to continue home diet pureed and honey thick liquids recommended MBSS study , speech therapy will reassess if patient is able to tolerate the study. DVT prophylaxis with heparin Full code Patient requires continued inpatient hospitalization to rule out seizure disorder waiting for EEG study in further testing for dysphagia Quality Stroke Does the patient have a stroke diagnosis?: No VTE Prior VTE?: No VTE Risk Level:: Medical - moderate - high VTE Device Contraindication: Treatment Not Indicated VTE Drug Contraindication: N/A - Med Ordered
--- NOTE | 2024-03-06 15:11 | MHC.CM.PN ---
per rounds pt not medically ready for dc egd is pending
[2024-03-06 15:27] VITALS: BP 147/61; PULSE 80; RESP 18; TEMP 36.6; O2SAT 98
[2024-03-06 19:24] VITALS: BP 123/60; PULSE 102; RESP 18; TEMP 37.5; O2SAT 97
[2024-03-06] MEDS: Acetaminophen 325 MG TABLET 650 MG PO (20:18)
[2024-03-06] MEDS: 0.9 % Sodium Chloride Flush 3 ML SYRINGE IVFLUSH (20:20)
[2024-03-07 03:11] VITALS: BP 151/77; PULSE 89; RESP 18; TEMP 36.7; O2SAT 98
[2024-03-07] MEDS: Heparin Sodium,Porcine 5,000 UNIT/ML VIAL 5000 UNIT SUBCUT (05:05)
[2024-03-07 07:38] VITALS: BP 124/57; PULSE 82; RESP 14; TEMP 36.6; O2SAT 99
--- NOTE | 2024-03-07 09:56 | MHC.SLORD ---
Speech Language Pathology Order Status: Patient seen this morning, however had concluded breakfast, with family members reporting she ate well. ELECTRONIC ASSEMBLER reviewed with family recommendation made yesterday by ELECTRONIC ASSEMBLER for MBSS study, relative to clinical concerns about its appropriateness. Issues are whether the study would be successful due to 1. Difficulties presenting relative to positioning of the patient due to severe LE contracture, and stooped upper body; 2. Difficulties presenting relative to her acceptance of being fed by non-family members and the presence of barium in the food. Family further had agreed/expressed interest in this study after it was raised by the ELECTRONIC ASSEMBLER yesterday, secondary to noticing increased coughing at home when she is fed. Family today noted that she has not been coughing while here in hospital. ELECTRONIC ASSEMBLER noted that patient is on restricitive diet of Puree (NDD1) and Honey Thick liquids and tolerating well (when fed by family). Recommended to family that study be deferred, but revisited if medical status changes (e.g. increased difficulty in feeding, evidence of pna/suspected aspiration/? of needing alternative feeding method- none of which are currently indicated). advised of this recommendation by secure text.
[2024-03-07 10:28] LABS: Hematocrit 22.1 % (37.0-47.0); Hemoglobin 7.4 g/dl (12.0-16.0); Mean Corpuscular HGB Conc 33.5 g/dl (31.0-35.0); Mean Corpuscular Hemoglobin 31.1 pg (27.0-33.0); Mean Corpuscular Volume 92.9 fL (80.0-98.0); Mean Platelet Volume 9.9 fL (9.4-12.3); NRBC Pct Auto 0.3 /100WBC (0.0-0.2); Platelet Count 135 X10*3/uL (160-400); Red Blood Count 2.38 X10*6/uL (4.20-5.50); Red Cell Distribution Width 14.1 % (11.0-16.0); White Blood Count 7.7 X10*3/uL (4.8-10.8)
[2024-03-07 12:26] LABS: OBS Int Ctl Valid YES; OBS1 NEGATIVE (NEGATIVE)
[2024-03-07] MEDS: Divalproex Sodium Sprinkles 125 MG CAP.DR.SPR 250 MG PO (13:32)
[2024-03-07] MEDS: Acetaminophen 325 MG TABLET 650 MG PO (13:32)
--- NOTE | 2024-03-07 14:14 | P.DS_ITS ---
DS: Providers Provider Date of Service: 03/07/24 Date of admission: 03/04/24 16:16 Date of discharge: 03/07/24 Primary care physician: GOKUL Hillman Consults: 03/05/24 11:24 Consult to Neurology Routine Consulting Provider: [facility] Reason for consultation: admitted with foaming at the mouth, NPH DS: Diagnosis Discharge Diagnosis (1) Acidosis, lactic: Status: Acute (2) Elevated WBC count: Status: Acute DS: Summary Hospital Course Hospital Course: History of presenting illness: Date of Service: 03/04/24 Chief Complaint: jerking movements 83-year-old Bangladeshi-speaking woman with a history of Alzheimer's dementia presenting to the ER with reported ?jerking movements? while at home. unfortunately due to patient's dementia she is unable to answer any questions as she is nonverbal. She was noted to have leukocytosis, tachycardia. She has lactic acidosis but this appears to be chronically elevated and not related to sepsis. Chest x-ray negative consolidation or effusion. She received a dose of meropenem and 2 L of IV fluid in the ER. Hospital course: 83 year old women admitted with jerking movement, leukocytosis, tachycardia and lactic acidosis, initially felt to have UTI and sepsis and treated with IV antibiotics, however urine culture showed no growth, therefore antibiotic discon tinued, patient had no recurrent episodes of jerking movements, CT head showed marked ventriculomegaly of the lateral ventricles and moderate cortical atrophy, patient seen by Neurology, they felt patient is not a candidate to consider shunting or lumbar puncture, due to high concern for seizure, EEG was obtained that showed diffuse background slowing and isolated spikes ,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 Ayala recommend to place patient on Depakote 250 mg b.i.d. patient was also evaluated by speech therapy and they recommended to continue pureed and honey thick liquids, leukocytosis and tachycardia resolved, lactic acidosis likely related to seizure, patient also noted to have anemia likely dilutional, stool guaiac negative, iron studies showed low iron and saturation with low TIBC will place on iron supplements,due to advanced dementia patient is not a candidate for aggressive intervention, recommend dietary supplements due to moderate protein calorie malnutrition. Time Attestation Discharge Coordination Time (in mins): 40 Quality: Safe Use of Opioids Does Pt have an Active Cancer Diagnosis on the Problem List?: No Quality: Stroke Does the patient have a stroke diagnosis?: No Physical Exam Vital Signs: Vital Signs: Last Vital Signs Temp 98 F 03/07/24 07:38 Pulse 82 03/07/24 07:38 Resp 14 03/07/24 07:38 BP 124/57 L 03/07/24 07:38 Pulse Ox 99 03/07/24 07:38 O2 Del Method Room Air 03/07/24 07:38 BMI result Body Mass Index 19.5 Const: Other: General, open eyes to verbal commands, in no acute distress Neck no JVD lung clear to auscultation CVS heart regular rate rhythm, clear S1, S2 GI positive bowel sounds, abdomen soft, nontender neuro nonverbal LE contractures DS: Data Data Completed and Pending Completed studies during hospitalization [Text1]: Procedures Excision of Left Lower Arm Skin, External Approach, Diagnostic (11/18/20) Introduction of Remdesivir Anti-infective into Peripheral Vein, Percutaneous Approach, [employer] 5 (09/25/21) Labs on day of discharge: Laboratory Results - last 24 hr 03/07/24 03/07/24 10:17 12:00 WBC 7.7 RBC 2.38 L Hgb 7.4 L Hct 22.1 L MCV 92.9 MCH 31.1 MCHC 33.5 RDW 14.1 Plt Count 135 L MPV 9.9 Absolute Nucleated RBC 0.020 H Nucleated RBC % (auto) 0.3 H Stool Occult Blood NEGATIVE Preliminary micro results at discharge 03/04/24 12:49 Blood Culture - Preliminary Blood - Venous No growth after 48 hours. 03/04/24 12:22 Blood Culture - Preliminary Blood - Venous No growth after 48 hours. Discharge Plan Discharge Anticipated Discharge Date/Time: 03/07/24 12:54 Patient Disposition: Home, Self-Care Discharge Diagnosis: New onset seizure Referrals: Evelyn Jauregui PA [Primary Care Provider] - 1 Week Discharge Medications: New divalproex 125 mg Capsule, Delayed Rel Sprinkle 250 mg PO BID Qty: 120 0RF ferrous sulfate 324 mg (65 mg iron) tablet,delayed release (DR/EC) 324 mg PO BID Qty: 120 0RF Continued multivitamin [Daily-Kimberley] Tablet 1 tab PO DAILY acetaminophen [Silapap] 160 mg/5 mL liquid 15 ml PO Q6H PRN (Reason: fever) white petrolatum 42 % ointment 1 appl topical DAILY PRN (Reason: Dry Skin) Discharge Orders: Discharge Order (Routine); Ordered 03/07/24 Ordered By: Manan Rothman Diet: pureed and honey thick Activity on Discharge: As tolerated Stand Alone Forms: Patient Portal Discharge page Print Language: Ecuadorean Care Plan Goals: Continue pureed and honey thick liquids Take Depakote Sprinkles 250 mg twice daily for seizures Health Concerns: Advanced dementia Plan of Treatment: Follow-up with primary care physician call for appointment Follow-up with neurologist Dr. Ayala in regard to seizures Assessment: As above Patient Instructions: Divalproex (By mouth) Discharge Date/Time: 03/07/24 16:12
--- NOTE | 2024-03-07 14:15 | MHC.CM.PN ---
PT CLEARED TO DC HOME WITH RESUMPTION OF TONGUE AND QUARTER STITCHER SERVICES CM CALLED PTS DAUGHTER, CONNOR [phone] SHE IS AWARE BLS TRANSPORT WAS SCHEDULED FOR 1630 HOURS VIA [employer] SHE REPORTS FAMILY WILL BE THERE TO RECEIVE THE PT SHE ASKS THAT THE PTS DC PAPERWORK/INSTRUCTIONS BE REVIEWED WITH HER VIA T/C RN AWARE
[2024-03-07 16:00] VITALS: BP 116/78; PULSE 90; RESP 12; TEMP 37.3; O2SAT 96
== END 2024-03-07 16:12 | disposition home or self-care (01) | DRG 101 ==
LOC: HO.ED 13:48 → HO.EDOVER 16:19 → HO.S3 16:52
PROVIDERS: Admitting Provider Nurse Practitioner Acute Care; Emergency Provider Emergency Medicine; PCP Physician Assistant; Visit Provider Hospitalist
DX: R56.9 Unspecified convulsions (principal); E44.0 Moderate protein-calorie malnutrition; Z68.1 Body mass index [BMI] 19.9 or less, adult; E87.0 Hyperosmolality and hypernatremia; G91.2 (Idiopathic) normal pressure hydrocephalus; D50.9 Iron deficiency anemia, unspecified; G30.9 Alzheimer's disease, unspecified; F02.80 Dementia in other diseases classified elsewhere, unspecified severity, without behavioral disturbance, psychotic disturbance, mood disturbance, and anxiety; Z20.822 Contact with and (suspected) exposure to COVID-19; Z79.899 Other long term (current) drug therapy
CPT/HCPCS: 0241U; 36415; 70450; 71045; 74176; 80048; 80076; 81001; 82140; 82272; 82803; 83540; 83605; 83690; 83735; 83880; 84145; 84484; 85025; 85027; 86140; 87040; 87086; 92610; 93005; 95816; 99285; J1644; J1756; J2185

== ENCOUNTER → 2024-03-04 16:16 | Outpatient (BNV) | payer MEDICARE, MEDICAID, SELFPAY | PROVIDERS: Admitting Provider Nurse Practitioner Acute Care; Emergency Provider Emergency Medicine; Visit Provider Psychiatry & Neurology Neurology | DX: G30.9 Alzheimer's disease, unspecified (principal); F02.80 Dementia in other diseases classified elsewhere, unspecified severity, without behavioral disturbance, psychotic disturbance, mood disturbance, and anxiety; N39.0 Urinary tract infection, site not specified | CPT/HCPCS: 99222 ==

== ENCOUNTER → 2024-03-04 16:16 | Outpatient (BNV) | payer MEDICARE, MEDICAID, SELFPAY | PROVIDERS: Admitting Provider Nurse Practitioner Acute Care; Emergency Provider Emergency Medicine; Visit Provider Nurse Practitioner Acute Care | DX: A41.9 Sepsis, unspecified organism (principal); N39.0 Urinary tract infection, site not specified; E87.20 Acidosis, unspecified | CPT/HCPCS: 99223; 99232; 99233; 99239 ==

== ENCOUNTER 2024-10-02 11:21 | Emergency (ER) | payer MEDICARE, MEDICAID, SELFPAY ==
--- NOTE | ~2024-10-02 | CT_ITS ---
EXAMINATION: CT HEAD WITHOUT CONTRAST CLINICAL INFORMATION: fall , head strike COMPARISON: March 04, 2024. TECHNIQUE: Contiguous axial imaging was performed from the skull base to vertex without intravenous administration of contrast. This CT examination was performed using dose optimization techniques as appropriate, variously including the following: *Automated exposure control *Adjustment of mA and/or kV according to patient size (this includes techniques or standardized protocols for targeted exams where dose is matched to indication/reason for exam; i.e. extremities or head) *Use of iterative reconstruction technique DLP: 815.1 mGy-cm FINDINGS: The bony calvarium is intact. Subcutaneous emphysema in the superior right frontal soft tissue scalp. The anterior aspect of the maxillofacial bones are excluded from the [id number]. There is prominence of the extra-axial CSF spaces cerebral sulci and ventricles with a disproportionate prominent lateral ventricles and third ventricle. No acute intracranial hemorrhage, mass effect or midline shift. No dilated or herniation. Bilateral multifocal patchy and confluent deep periventricular white matter hypodensity. Calcified plaques in the cavernous supraclinoid segments both ICAs and V4 segments of the vertebral arteries. Degenerative changes in the temporomandibular joints. Air-fluid levels in the left mastoid tip. Left tympanic cavity is aerated. The right tympanic cavities are aerated. Air-fluid levels in the right mastoid tip. No gross hematoma, intraconal or extraconal compartments of the orbits. CT/CT head/brain wo IV con IMPRESSION: No acute fracture, bony calvarium. Skin laceration, superior right frontoparietal. No acute intracranial hemorrhage. Small vessel occlusive disease. Global cerebral atrophy. Concerning normal pressure hydrocephalus in the correct clinical settings. Effusions, mastoid air cells tip, bilaterally.. Electronically signed by: Holland Shaw MD 10/02/2024 12:52 PM EDT
--- NOTE | ~2024-10-02 | XR_ITS ---
EXAMINATION: XR CHEST CLINICAL INFORMATION: fall, chest pain COMPARISON: March 04, 2024. TECHNIQUE: Frontal view of the chest was obtained. FINDINGS: No consolidation, pleural effusion or pneumothorax. Cardiomediastinal silhouette size demonstrated a prominent aortic arch, unchanged. Multilevel thoracic spondylosis. Upper extremities or left in the lower thorax/upper abdomen.. XR/XR chest 1V IMPRESSION: No acute airspace disease. Stable chest. Electronically signed by: Holland Shaw MD 10/02/2024 12:23 PM EDT
--- NOTE | ~2024-10-02 | CT_ITS ---
EXAMINATION: CT CERVICAL SPINE WITHOUT CONTRAST CLINICAL INFORMATION: Head strike, dementia, neck pain. COMPARISON: 01/25/2022 TECHNIQUE: Spiral CT imaging of the cervical spine performed in axial plane without contrast. Multiplanar reformatted images were constructed from the axial data set. This CT examination was performed using dose optimization techniques as appropriate, variously including the following: *Automated exposure control *Adjustment of mA and/or kV according to patient size (this includes techniques or standardized protocols for targeted exams where dose is matched to indication/reason for exam; i.e. extremities or head) *Use of iterative reconstruction technique FINDINGS: CORONAL ALIGNMENT: -Normal right convex scoliosis, apex at C6. SAGITTAL ALIGNMENT: -Exaggerated lordosis. -There is a 2 mm degenerative retrolisthesis C3 on C4. Alignment is otherwise anatomic. C1-C2 AND CRANIOCERVICAL JUNCTION: -Intact and normally aligned. There are moderate degenerative changes in the atlantoaxial joint. VERTEBRAL BODIES AND FACETS: -There is diffuse osteopenia. -No fracture, compression deformity, traumatic subluxation, or suspicious bone lesion. -There is normal facet alignment without facet subluxation. There are multilevel left greater than right hypertrophic degenerative facet changes. DISCS: -Moderate to severe multilevel disc degeneration, most severe spanning C4-C7, with associated disc osteophytic spurring. CENTRAL CANAL: -No evidence of high-grade central canal narrowing or large disc herniation allowing for modality limitations. -There is moderate central canal stenosis present at C3-4 due to a disc osteophytic ridge complex. PREVERTEBRAL AND PARAVERTEBRAL SOFT TISSUES: -There is prevertebral soft tissue swelling and edema spanning C2 through the inferior endplate of C4, suggesting a hyperextension strain injury. There is no definite associated fracture seen. -There is mild atrophy of the thyroid without dominant lesion. LUNG APICES: -Normally pneumatized bilaterally mild apical scarring right greater than left. No pneumothorax. CT/CT cervical spine wo IV con IMPRESSION: 1. There is no definite acute cervical spine fracture. 2. Prevertebral edema spanning C2 through the inferior endplate of C4, suggesting hyperextension strain injury. Correlate with neck pain/physical exam. 3. Multilevel moderate degenerative spondylosis. Electronically signed by: Yaw Beal MD 10/02/2024 12:53 PM EDT
[2024-10-02 11:28] VITALS: BP 100/60; PULSE 90; O2SAT 98
[2024-10-02 11:32] VITALS: BMI 25.5
--- NOTE | 2024-10-02 11:34 | ED_ITS ---
HPI - Trauma General Chief Complaint: Fall Stated Complaint: UNWIT FALL,-LOC,-THINNER,FACE LAC,BASLINE/DEMENTIA Time Seen by Provider: 10/02/24 11:22 History of Present Illness ED Provider: Bunny Boyle MD HPI narrative: History provided by EMS secondary from family who witnessed the patient fall from bed she is baseline demented contracted nonverbal. They report no blood thinners. She struck forehead on the ground unclear if there was any other trauma sustained. Related Data Home Medications ?Medication ?Instructions ?Recorded ?Confirmed multivitamin (Daily-Kimberley tablet) 1 tab PO DAILY 11/18/20 03/04/24 acetaminophen 160 mg/5 mL oral 15 ml PO Q6H PRN fever 09/25/21 03/04/24 liquid (Silapap) white petrolatum 42 % topical 1 appl topical DAILY PRN Dry Skin 03/04/24 03/04/24 ointment Previous Rx's ?Medication ?Instructions ?Recorded divalproex 125 mg capsule,delayed 250 mg (2 x 125 mg) PO BID #120 03/07/24 release sprinkle caps ferrous sulfate 324 mg (65 mg 324 mg PO BID #120 tabs 03/07/24 iron) tablet,delayed release Allergies Allergy/AdvReac Type Severity Reaction Status Date / Time aspirin [ASPIRIN] Allergy Unknown UNKNOWN Verified 10/02/24 11:33 ibuprofen [IBUPROFEN] Allergy Unknown SWELLING Verified 10/02/24 11:33 [facility] Past Medical History Medical History Aspiration pneumonia Failure to thrive in adult Asthma Alzheimer disease Social History Social History Household Members: Family Housing: Apartment Do you presently have visiting nurse or other home services: Yes Unable to assess alcohol history related to: Unable to respond Alcohol intake: never Patient Tobacco Use Status: Never used Tobacco Smoked in Last 30 Days: No Use of substances other than those prescribed or required for medical reasons: No Advance Directives: Yes Advance Directives on File: Yes Advance Directives Date on File: 08/05/21 Do you have a plan to hurt others: No Plan service: No Current occupational status: retired Physical Exam 2 Vital Signs: Vital Signs: Last Vital Signs Pulse 84 10/02/24 16:15 Resp 18 10/02/24 16:15 BP 156/75 H 10/02/24 16:15 Pulse Ox 97 10/02/24 16:15 O2 Del Method Room Air 10/02/24 16:15 BMI result Body Mass Index 25.5 Const: Other: EXAM: Gen: Alert, drooling the apparently this is baseline. GCS of 12 contracted chronically ill-appearing Head: 4 cm curved flap laceration superficial depth to the right forehead. No step-offs or hematoma palpable difficult to fully inspected cranial scalp due to thick hair Eyes: Anicteric, Normal conjunctiva. Pupils ?2-3 mm symmetric reactive ENT: Moist mucosa, no pallor. Drooling Neck: No obvious tenderness to the midline. Trachea midline. C-spine immobilized on arrival Respiratory: Breathing comfortably, No distress.Clear to auscultation bilaterally, symmetric chest expansion, No wheeze, rales, ronchi. Cardiovascular: Regular rate and rhythm. No murmurs or rub. Well perfused periphery, warm extremities. No edema. ? Abdominal: Soft, no objective distension. No palpable masses or obvious organomegaly. No focal tenderness, no guarding, no rebound tenderness or other peritoneal findings. : No flank tenderness. Neuro: Alert. Gross movement of all extremities intact. ?Contracted Vital signs: See flowsheet Medications Administered Discontinued Medications Generic Name Dose Route Start Last Admin Trade Name Freq PRN Reason Stop Dose Admin Ketorolac Tromethamine 10 mg 10/02/24 13:53 10/02/24 14:41 Ketorolac Tromethamine 15 Mg/Ml Vial IM 10/02/24 13:54 10 mg ONCE ONE Administration Lidocaine/Epinephrine 10 ml 10/02/24 12:51 10/02/24 13:17 Lidocaine Hcl 1%/Epi 1:100,000 10 Ml Vial INFILTRATI 10/02/24 12:52 10 ml ONCE ONE Administration Procedures Laceration Laceration 1: Site: face (Forehead) Side (If applicable): right Size (cm): 4 Description: flap Depth: simple, single layer Local Anesthetic: lidocaine 1% and with epi Amount of anesthesia used (mL): 8 Pre-repair: wound explored, irrigated extensively and deep structures intact Skin layer closed with: nylon Size (cm): 5-0 Number of sutures: 4 Technique: simple, interrupted and horizontal mattress Medical Decision Making Medical Decision Making MDM Narrative: 84-year-old female with advanced severe dementia brought for fall with a laceration to the head. No acute intracranial trauma. Plan for laceration repair head CT basic labs CTs reports reviewed by myself there is signs of a possible hyperextension injury given the noted in the CT there is also severe brain atrophy and suggestion of possible NPH however this is impossible to correlate clinically given that the patient is bed-bound severely demented nonverbal at baseline __ Patient was observed several hours with no complications. Family came to the bedside including healthcare proxy daughter. I explained diagnostic testing including the worsening of her brain atrophy inflammatory changes of the neck suggestive of hyperextension injury she was agreeable given the patient's bed- bound status she agreed with me not to pursue any additional cervical spine imaging as this was unlikely to international exchange coordinator in this patient who may have sustained significant extension injury of the neck without bony abnormalities. Lacerations were repaired and the patient will be sent home Lab Data [facility] Lab Attestation statement: I reviewed the patient's lab results. 10/02/24 13:10 10/02/24 13:10 Labs: Lab Results 10/02/24 Range/Units 13:10 WBC 11.2 H (4.8-10.8) X10*3/uL RBC 4.78 D (4.20-5.50) X10*6/uL Hgb 14.4 D (12.0-16.0) g/dl Hct 43.0 D (37.0-47.0) % MCV 90.0 (80.0-98.0) fL MCH 30.1 (27.0-33.0) pg MCHC 33.5 (31.0-35.0) g/dl RDW 13.0 (11.0-16.0) % Plt Count 267 D (160-400) X10*3/uL MPV 9.0 L (9.4-12.3) fL Absolute Nucleated RBC 0.000 (0.0-0.012) X10*3/uL Nucleated RBC % (auto) 0.0 (0.0-0.2) /100WBC PT 11.0 (10.9-12.4) SEC INR 0.9 (0.9-1.1) APTT 32.0 (26.0-36.8) SEC Sodium 140 (135-145) mmol/L Potassium 4.3 (3.3-5.1) mmol/L Chloride 105 (96-108) mmol/L Carbon Dioxide 24 (22-29) mmol/L Anion Gap 15 (12-20) BUN 11 (9-16) mg/dL Creatinine 0.63 (0.5-1.4) mg/dL Estim Creat Clear Calc 49.0 Estimated GFR > 60 Random Glucose 100 (60-115) mg/dL Calcium 9.9 D (8.4-10.2) mg/dL Total Bilirubin 0.4 (0.0-1.0) mg/dL Direct Bilirubin 0.1 (0.0-0.5) mg/dL AST 37 H (5-31) U/L ALT 17 (0-31) U/L Alkaline Phosphatase 89 (39-117) U/L Total Creatine Kinase 535 H (26-140) U/L Total Protein 7.1 (6.5-8.0) g/dL Albumin 4.1 (3.5-5.0) g/dL Discharge Plan Discharge Clinical Impression: Face lacerations, Concussion, Hyperextension injury of neck Patient Disposition: Home, Self-Care Instructions: Laceration (ED), Concussion (ED) Additional Instructions: _ DISCHARGE DIAGNOSES: Hyperextension injury of the neck without fractures of the neck bones Concussion Facial laceration this was sutured and requires suture removal 7-10 days HISTORY OF PRESENTATION: ?Fall while bathing EMERGENCY DEPARTMENT COURSE,TESTS, TREATMENTS: While in the ED today your mother had a CT of the head and cervical spine showing evidence of hyperextension injury of the neck which is expected but no bony fracture. CT showed worsening advanced Alzheimer's and brain atrophy or loss of brain tissue but no injuries. She had basic blood work which was reassuring DISCHARGE MEDICATIONS: ?[We have made no changes to your regular medication regimen] FOLLOW-UP: ?Call your primary or general physician soon as possible to discuss your symptoms, your ED visit and to discuss follow up plans Follow up with PCP or urgent care for suture removal 7-10 days INSTRUCTIONS ?& RETURN PRECAUTIONS: If any symptoms change first call your primary physician, if it is after-hours your primary doctors office should have a provider fractionation plant supervisor you can speak with. If the symptoms are severe or very concerning to you then call 911 or return to the ED. Bunny Boyle MD Emergency Physician [facility] Prescriptions: No Action multivitamin [Daily-Kimberley] Tablet 1 tab PO DAILY acetaminophen [Silapap] 160 mg/5 mL liquid 15 ml PO Q6H PRN (Reason: fever) white petrolatum 42 % ointment 1 appl topical DAILY PRN (Reason: Dry Skin) divalproex 125 mg Capsule, Delayed Rel Sprinkle 250 mg PO BID Qty: 120 0RF ferrous sulfate 324 mg (65 mg iron) tablet,delayed release (DR/EC) 324 mg PO BID Qty: 120 0RF Print Language: British
[2024-10-02] MEDS: Lidocaine HCl 1%/Epi 1:100,000 10 ML VIAL INFILTRATI (13:17)
[2024-10-02 13:23] LABS: Hemoglobin 14.4 g/dl (12.0-16.0); Mean Corpuscular HGB Conc 33.5 g/dl (31.0-35.0); Mean Corpuscular Hemoglobin 30.1 pg (27.0-33.0); Platelet Count 267 X10*3/uL (160-400); Red Blood Count 4.78 X10*6/uL (4.20-5.50); White Blood Count 11.2 X10*3/uL (4.8-10.8)
[2024-10-02 13:56] LABS: INTERNATIONAL NORM RATIO 0.9 (0.9-1.1)
[2024-10-02 14:03] LABS: Alanine Aminotransferase 17 U/L (0-31); Albumin Level 4.1 g/dL (3.5-5.0); Alkaline Phosphatase 89 U/L (39-117); Anion Gap 15 (12-20); Aspartate Amino Transferase 37 U/L (5-31); Bilirubin Direct 0.1 mg/dL (0.0-0.5); Bilirubin Total 0.4 mg/dL (0.0-1.0); Blood Urea Nitrogen 11 mg/dL (9-16); Calcium 9.9 mg/dL (8.4-10.2); Carbon Dioxide 24 mmol/L (22-29); Chloride 105 mmol/L (96-108); Estimated Glomerular Filt Rate > 60; Glucose Random 100 mg/dL (60-115); Potassium 4.3 mmol/L (3.3-5.1); Sodium 140 mmol/L (135-145); Total Protein 7.1 g/dL (6.5-8.0)
[2024-10-02 14:32] VITALS: BP 147/72; PULSE 99; RESP 18; O2SAT 97
[2024-10-02] MEDS: Ketorolac Tromethamine 15 MG/ML VIAL 10 MG IM (14:41)
--- OUTSIDE RECORDS SUMMARY | 2024-10-02 15:06 | XMS_ITS | Encounter Summary ---
Author Organization [employer] Address [address] [facility] [address] [address] [facility] [address] [place] [address] Care Team Providers Care Consumer Attorney Name Role Phone Viviana Jasmine DO Primary Care Provider [phone] Reason for Visit * Reason Onset Date Comments triage 09/12/2022 Encounter Details Date Type Department Care Team (Late st Contact Info) Description 09/12/2022 Telephone [facility] MEDICINE [address] [place] [address] Viviana Jasmine DO [address] [place], [place] [phone] triage Social History Tobacco Use Types Packs/Day Years Used Date Smoking Tobacco: Never Assessed Comments Unknown Sex and Gender Information Value Date Recorded Sex Assigned at Female 04/18/2022 10:14 AM EDT Legal Sex Female 10:14 AM EDT Gender Identity Female 04/18/2022 10:14 AM EDT Sexual Orientation Choose not to disclose 2021 10:14 AM EDT documented as of this encounter Miscellaneous Notes * Telephone Encounter - Ruchi Lemus RN - 09/12/2022 11:23 AM EDT Triage call , Granddaughter, AlejandraSUSU Hidalgo, called regarding right ear having some yellow-white watery drainage. Pt isn't showing signs of pain or discomfort. Home care reviewed and grandaughter agreed with disposition. Will come to [facility] if any changes occur. Protocol Used: Ear - Discharge (Adult) Protocol-Based Disposition: Home Care Positive Triage Question: * Sounds like normal earwax * All higher-acuity triage questions were negative Care Advice Discussed: * Reassurance and Education - Earwax Discharge * Cleaning Your Ears * Reasons To Call Back - Earache occurs - Discharge or bleeding lasts over 24 hours - Discharge begins to look like pus (yellow or green) - Bad odor occurs - You become worse * Telephone Encounter - Jack Kwon - 09/12/2022 10:35 AM EDT Symptom: Ear Discharge Outcome: Schedule a same-day appointment or talk to a nurse or provider today Reason: No high acuity concerns reported by caller The caller accepted this outcome documented in this encounter Plan of Treatment Upcoming Encounters Date Type Department Care Team (Late st Contact Info) Description 10/25/2024 11:15 AM EDT Telemedicine [facility] MEDICINE [address] [place] [address] Viviana Jasmine DO [address] [place] [address] documented as of this encounter Visit Diagnoses Not on filedocumented in this encounter Care Teams Consumer Attorney Relationship Specialty Start Date End Date Viviana Jasmine DO [address] [place] [address] PCP - General Family Medicine 04/10/13 documented as of this encounter
--- OUTSIDE RECORDS SUMMARY | 2024-10-02 15:06 | XMS_ITS | Encounter Summary ---
Author Organization [employer] Address [address] [facility] [address] [place] [address] Care Team Providers Care Commercial Intelligence Manager Name Role Phone Viviana Jasmine DO Primary Care Provider [phone] Reason for Visit * Reason Onset Date Comments Hospital Follow-up 03/08/2024 Encounter Details Date Type Department Care Team ([facility] st Contact Info) Description 03/08/[address] [facility] MEDICINE [address] [place], [place] [phone] Viviana Jasmine DO [address] [place], [place] [phone] Hospital Follow-up Social History Tobacco Use Types Packs/Day Years Used Date Smoking Tobacco: Never Smokeless Tobacco: Never Alcohol Use Standard Drinks/Week Comments Not Currently 0 (1 standard drink = 0.6 oz pur e alcohol) Depression Answer Date Recorded Patient Health Questionnaire-9 Score 0 06/05/2023 Patient Health Questionnaire-9 Score 0 06/05/2023 Last PHQ-9: Questionnaire Data Not on file 1 08/06/2022 Housing Stability Answer Date Recorded What is your housing situation today? I have liz shelton 06/05/[address] you li ve. Do you have problems with any of the following? None of the above 06/05/2023 Food Insecurity Answer Date Recorded Within the past 12 months, y ou worried that your food would run out before you got money to buy more: Never True 06/05/2023 Within the past 12 months,th e food you bought just didn't last and you didn't have enough money to get more: Never True Transportation Answer Date Recorded In the past 12 months, has l ack of transportation kept you from medical appts, meetings, work or from getting things needed for daily living? No 06/05/2023 Utilities Answer Date Recorded In the past 12 months, has t he electric, gas, oil or water company threatened to shut off services in your home? No 06/05/2023 Depression Answer Date Recorded Patient Health Questionnaire-2 Score 0 06/05/2023 Internet Access Answer Date Recorded Internet Access Q1 Yes 03/08/2024 Internet Access Q2 Not on file 03/08/2024 Comments No Sex and Gender Information Value Date Recorded Sex Assigned at Female 04/18/2022 10:14 AM EDT Legal Sex Female 10:14 AM EDT Gender Identity Female 04/18/2022 10:14 AM EDT Sexual Orientation Choose not to disclose 2021 10:14 AM EDT documented as of this encounter Miscellaneous Notes * Telephone Encounter - Chris Duran - 03/08/2024 1:26 PM EDT Tc from pt requesting a HDF appt. Hospital: [facility] Date of admission: 03/04/24 Discharge date: 03/07/24 Diagnosed: Fever documented in this encounter Plan of Treatment Upcoming Encounters Date Type Department Care Team (Late st Contact Info) Description 10/25/2024 11:15 AM EDT Telemedicine [facility] MEDICINE [address] [place] [address] Viviana Jasmine DO [address] [place] [address] documented as of this encounter Visit Diagnoses Not on filedocumented in this encounter Additional Health Concerns Assessment Noted Time PHQ-9 Depression Total Score: 0 06/05/20 23 2:19 PM EST documented as of this encounter Care Teams Commercial Intelligence Manager Relationship Specialty Start Date End Date Viviana Jasmine DO [address] [place] [address] PCP - General Family Medicine 04/10/13 documented as of this encounter
--- OUTSIDE RECORDS SUMMARY | 2024-10-02 15:06 | XMS_ITS | Encounter Summary ---
Author Organization [employer] Address [address] [facility] [address] [place] [address] Care Team Providers Care Siderographer Name Role Phone Viviana Jasmine DO Primary Care Provider [phone] Reason for Visit * Reason Onset Date Comments Durable Medical Equipment 08/02/2022 Encounter Details Date Type Department Care Team (Late st Contact Info) Description 08/02/2022 Telephone [facility] MEDICINE [address] [place] [address] Viviana Jasmine DO [address] [place], [place] [phone] Durable Medical Equipment Social History Tobacco Use Types Packs/Day Years [...] encounter Miscellaneous Notes * Telephone Encounter - Prema Gil - 08/02/2022 3:20 PM EST TC to [facility]&C and they have paperwork for hospital bed but are missing paperwork for mattress. Paperwork for mattress received today and will get it signed by provider and faxed. * Telephone Encounter - Jack Kwon - 08/02/2022 11:30 AM EST Tc from pt stating l&C need the questionnaire filled out for hospital bed Please contact pt at [phone] documented in this encounter Plan of Treatment Upcoming Encounters Date Type Department Care Team (Late st Contact Info) Description 10/25/2024 11:15 AM EDT Telemedicine [facility] MEDICINE [address] [place] [address] Viviana Jasmine DO [address] [place] [address] documented as of this encounter Visit Diagnoses Not on filedocumented in this encounter Care Teams Siderographer Relationship Specialty Start Date End Date Viviana Jasmine DO [address] [place] [address] PCP - General Family Medicine 04/10/13 documented as of this encounter
--- OUTSIDE RECORDS SUMMARY | 2024-10-02 15:06 | XMS_ITS | Encounter Summary ---
Author Organization [employer] Address [address] [place] [address] 7t [place] [address] Care Team Providers Care Timber Faller Name Role Phone Viviana Jasmine DO Primary Care Provider Encounter Details Date Type Department Care Team (Late st Contact Info) Description 02/15/[address] [facility] [address] [place] [address] Vangie Jamison MD [address] [place] [address] Alzheimer's dementia, unspecified dementia severity, unspecified timing of dementia onset, unspecified whether behavioral, psychotic, or mood disturbance or anxiety (CMS/HCC) (Primary Dx) Social History Tobacco Use Types Packs/Day Years Used Date Smoking Tobacco: Never Assessed Comments Unknown Sex and Gender Information Value Date Recorded Sex Assigned at Female 04/18/2022 10:14 AM EDT Legal Sex Female 10:14 AM EDT Gender Identity Female 04/18/2022 10:14 AM EDT Sexual Orientation Choose not to disclose 2021 10:14 AM EDT documented as of this encounter Plan of Treatment Upcoming Encounters Date Type Department Care Team (Late st Contact Info) Description 10/25/2024 11:[address] [facility] [address] [place] [address] Viviana Jasmine DO [address] [place] [address] documented as of this encounter Visit Diagnoses Diagnosis Alzheimer's dementia, unspecified dementia severity, unspecified timing of dementia onset, unspecified whether behavioral, psychotic, or mood disturbance or anxiety ([facility])- Primary documented in this encounter Care Teams Timber Faller Relationship Specialty Start Date End Date Viviana Jasmine DO [address] [place] [id number] PCP - General Family Medicine 04/10/13 documented as of this encounter
--- OUTSIDE RECORDS SUMMARY | 2024-10-02 15:06 | XMS_ITS | Encounter Summary ---
Author Organization [employer] Address [address] [facility] 7t [place] [address] Care Team Providers Care Work Station Support Specialist Name Role Phone Viviana Jasmine DO Primary Care Provider [phone] Reason for Visit * Reason Onset Date Comments Med Refill 02/21/2024 Encounter Details Date Type Department Care Team (Late st Contact Info) Description 02/21/2024 Refill [facility]INE [address] [place] [address] Viviana Jasmine DO [address] [place], [place] [phone] Failure to thrive in adult Social History Tobacco Use Types Packs/Day Years [...] Recorded Patient Health Questionnaire-2 Score 0 06/05/2023 Comments Unknown Sex and Gender Information Value [...] Info) Description 10/25/2024 11:15 AM EDT Telemedicine [facility] [address] [place] [address] Viviana Jasmine DO [address] [place] [address] documented as of this encounter Visit Diagnoses Diagnosis 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
--- OUTSIDE RECORDS SUMMARY | 2024-10-02 15:06 | XMS_ITS | Encounter Summary ---
Author Organization [employer] Address [address] [facility] 7t [place] [address] Care Team Providers Care Composition Tile Layer Name Role Phone Viviana Jasmine DO Primary Care Provider [phone] Reason for Visit * Reason Onset Date Comments PT-1 03/08/2024 Encounter Details Date Type Department Care Team (Late st Contact Info) Description 03/08/2024 Telephone [facility] MED[facility]INE [address] [place] [address] Viviana Jasmine DO [address] [place], [place] [phone] PT-1 Social History Tobacco Use Types Packs/Day Years [...] Telephone Encounter - Chris Duran - 03/08/2024 1:18 PM EDT Patient calling requesting PT1 Home Address verified: Y/N: Yes Provider name or facility name: [facility] Address: [address] [place] [id number] Escort needed: Y/N: Yes 2 Do you have a wheelchair: Y/N: Yes If yes- Manual or electric: Manual Visits: Once a month Patient calling requesting PT1 Home Address verified: Y/N: Yes Provider name or facility name: [facility], [facility] Facility Address: [address] [place] [address] Escort needed: Y/N: Yes Do you have a wheelchair: Y/N: Yes If yes- Manual or electric: Bam Visits: Twice monthly documented in this encounter Plan of Treatment Upcoming Encounters Date Type Department Care Team ([facility] st Contact Info) Description 10/25/2024 11:15 AM EDT Telemedicine [facility] MED[facility]INE [address] [place] [phone] Viviana Jasmine DO [address] [place] [address] documented as of this encounter Visit Diagnoses Not on filedocumented in this encounter Additional Health Concerns Assessment Noted Time PHQ-9 Depression Total Score: 0 06/05/20 23 2:19 PM EST documented as of this encounter Care Teams Composition Tile Layer Relationship Specialty Start Date End Date Viviana Jasmine DO [address] [place] [address] PCP - General Family Medicine 04/10/13 documented as of this encounter
--- OUTSIDE RECORDS SUMMARY | 2024-10-02 15:06 | XMS_ITS | Encounter Summary ---
Author Organization [employer] Address [address] [facility] 7t [place] [address] Care Team Providers Care Production Tester Name Role Phone Viviana Jasmine DO Primary Care Provider [phone] Reason for Visit * Reason Onset Date Comments PT1 02/08/2023 Encounter Details Date Type Department Care Team ([facility] Contact Info) Description 02/08/2023 Telephone [facility] MEDICINE [address] [place] [address] Viviana Jasmine DO [address] [place] [address] PT1 Social History Tobacco Use Types Packs/Day Years [...] encounter Miscellaneous Notes * Telephone Encounter - Samantha Hogan - 02/08/2023 11:48 AM EDT PT1 Verified address Date: n/a Time: n/a Visits: Address: [address] [place] [address] Facility: Neurologist Wheel Chair: manual Electronic Device Monitor Needed: yes PT1 Verified address Date: n/a Time: n/a Visits: Address: [address] [facility] [place] [address] Facility: (name, specialty or name of doctor) Wheel Chair: manual Electronic Device Monitor Needed: yes documented in this encounter Plan of Treatment Upcoming Encounters Date Type Department Care Team ([facility] st Contact Info) Description 10/25/2024 11:15 AM EDT Telemedicine [facility] MEDICINE [address] [place] [address] Viviana Jasmine DO [address] [place] [address] documented as of this encounter Visit Diagnoses Not on filedocumented in this encounter Care Teams Production Tester Relationship Specialty Start Date End Date Viviana Jasmine DO [address] [place] [address] PCP - General Family Medicine 04/10/13 documented as of this encounter
--- OUTSIDE RECORDS SUMMARY | 2024-10-02 15:06 | XMS_ITS | Encounter Summary ---
Author Organization [employer] Address [address] [facility] 7t [place] [address] Care Team Providers Care It Infrastructure Engineer Name Role Phone Viviana Jasmine DO Primary Care Provider [phone] Reason for Visit * Reason Onset Date Comments Notes 10/17/2022 Encounter Details Date Type Department Care Team (Late st Contact Info) Description 10/17/2022 Telephone [facility] MEDICINE [address] [place] [address] Viviana Jasmine DO [address] [place] [address] Notes Social History Tobacco Use Types Packs/Day Years [...] * Telephone Encounter - Prema Gil - 10/20/2022 12:41 PM EDT Paperwork for hospital bed refaxed today to [facility] * Telephone Encounter - Diane Márquez - 10/20/2022 9:18 AM EDT Tc from [facility] requesting for the script for the L&C to be sent to another L&C due to the fact that [facility] informed nik that attachments previously sent for notes are not showing up in there end. Please contact Alma at [phone] * Telephone Encounter - Prema Gil - 10/17/2022 2:42 PM EDT VM left at [facility] regarding message for hospital bed documents. * Telephone Encounter - Diane Márquez - 10/17/2022 11:59 AM EDT Tc from [facility] requesting a call in regards to Mechanical Bed that was already approved for pt.Nik states that [facility] are requesting more information and notes to the reason in why pt needs the Bed. Please contact Nik at [phone] documented in this encounter Plan of Treatment Upcoming Encounters Date Type Department Care Team (Late st Contact Info) Description 10/25/2024 11:15 AM EDT Telemedicine [facility] MEDICINE [address] [place] [address] Viviana Jasmine DO [address] [place] [address] documented as of this encounter Visit Diagnoses Not on filedocumented in this encounter Care Teams It Infrastructure Engineer Relationship Specialty Start Date End Date Viviana Jasmine DO [address] [place] [address] PCP - General Family Medicine 04/10/13 documented as of this encounter
--- OUTSIDE RECORDS SUMMARY | 2024-10-02 15:07 | XMS_ITS | Clinical Summary ---
Author Organization [facility] Facility Address [address] [address] Care Team Providers Care Spring Intern Name Role Phone Viviana Jasmine DO Primary Care Provider Unava ilable Social History Tobacco Use Types Packs/Day Years Used Date Smoking Tobacco: Never Assessed Comments Unknown Sex and Gender Information Value Date Recorded Sex Assigned at Not on file Legal Sex Female 9:15 AM EST Gender Identity Not on file Sexual Orientation Not on file Plan of Treatment Health Maintenance Due Date Last Done Comments Pneumococcal Vaccine: 50+ Ye ars (1 of 1 - PCV) 1990 Influenza Vaccine (Season Ended) 2025 Hepatitis B Vaccine Aged Out No longe r eligible based on patient's age to complete this topic Insurance Medicare Medicaid [place] Medicare Medicaid [place] Care Teams Spring Intern Relationship Specialty Start Date End Date Viviana Jasmine DO PCP - General Family Medicine 08/09/21
--- OUTSIDE RECORDS SUMMARY | 2024-10-02 15:07 | XMS_ITS | Encounter Summary ---
Author Organization [employer] Address [address] [facility] 7t [place] [address] Care Team Providers Care Monomer Purification Operator Name Role Phone Viviana Jasmine DO Primary Care Provider [phone] Reason for Visit * Reason Onset Date Comments Med Refill 09/17/2023 Encounter Details Date Type Department Care Team (Late st Contact Info) Description 09/17/2023 Refill [facility] MEDICINE [address] [place] [address] Viviana Jasmine DO [address] [place], [place] [phone] Social History Tobacco Use Types Packs/Day Years [...] Info) Description 10/25/2024 11:15 AM EDT Telemedicine [facility] MEDICINE [address] [place] [address] Viviana Jasmine DO [address] [place] [address] documented as of this encounter Visit Diagnoses Not on filedocumented in this encounter Additional Health Concerns Assessment Noted Time PHQ-9 Depression Total Score: 0 06/05/20 23 2:19 PM EST documented as of this encounter Care Teams Monomer Purification Operator Relationship Specialty Start Date End Date Viviana Jasmine DO [address] [place] [address] PCP - General Family Medicine 04/10/13 documented as of this encounter
--- OUTSIDE RECORDS SUMMARY | 2024-10-02 15:07 | XMS_ITS | Encounter Summary ---
Author Organization [employer] Address [address] [facility] 7t [place] [address] Care Team Providers Care Logging Specialist Name Role Phone Viviana Jasmine DO Primary Care Provider [phone] Reason for Visit * Reason Onset Date Comments Med Refill 07/09/2024 Encounter Details Date Type Department Care Team (Late st Contact Info) Description 07/09/2024 Refill [facility] MEDICINE [address] [place] [address] Viviana Jasmine DO [address] [place], [place] [phone] Social History Tobacco Use Types Packs/Day Years [...] Info) Description 10/25/2024 11:15 AM EDT Telemedicine [facility] MEDICINE [address] [place] [address] Viviana Jasmine DO [address] [place] [address] documented as of this encounter Visit Diagnoses Not on filedocumented in this encounter Additional Health Concerns Assessment Noted Time PHQ-9 Depression Total Score: 0 06/05/20 23 2:19 PM EST documented as of this encounter Care Teams Logging Specialist Relationship Specialty Start Date End Date Viviana Jasmine DO [address] [place] [address] PCP - General Family Medicine 04/10/13 documented as of this encounter
--- OUTSIDE RECORDS SUMMARY | 2024-10-02 15:07 | XMS_ITS | Encounter Summary ---
Author Organization [employer] Address [address] [facility] 7t [place] [address] Care Team Providers Care Middleware Engineer Name Role Phone Viviana Jasmine DO Primary Care Provider [phone] Reason for Visit * Reason Onset Date Comments Med Refill 12/26/2023 Encounter Details Date Type Department Care Team (Late st Contact Info) Description 12/26/2023 Refill [facility] [address] [place] [address] Viviana Jasmine DO [address] [facility] [place] [address] Social History Tobacco Use Types Packs/Day Years [...] Info) Description 10/25/2024 11:15 AM EDT Telemedicine [facility] MEDICINE [address] [place] [address] Viviana Jasmine DO [address] [place] [address] documented as of this encounter Visit Diagnoses Not on filedocumented in this encounter Additional Health Concerns Assessment Noted Time PHQ-9 Depression Total Score: 0 06/05/20 23 2:19 PM EST documented as of this encounter Care Teams Middleware Engineer Relationship Specialty Start Date End Date Viviana Jasmine DO [address] [place] [address] PCP - General Family Medicine 04/10/13 documented as of this encounter
--- OUTSIDE RECORDS SUMMARY | 2024-10-02 15:07 | XMS_ITS | Encounter Summary ---
Author Organization [employer] Address [address] [facility] 7t [place] [address] Care Team Providers Care Public Service Representative Name Role Phone Viviana Jasmine DO Primary Care Provider [phone] Reason for Visit * Reason Onset Date Comments Med Refill 03/28/2024 Encounter Details Date Type Department Care Team (Late st Contact Info) Description 03/28/2024 Refill [facility] MEDICINE [address] [place] [address] Viviana Jasmine DO [address] [place], [place] [phone] Failure to thrive in adult Social History [...] Info) Description 10/25/2024 11:15 AM EDT Telemedicine [facility] MEDICINE [address] [place] [address] Viviana Jasmine DO [address] [place] [address] documented as of this encounter Visit Diagnoses Diagnosis 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
--- OUTSIDE RECORDS SUMMARY | 2024-10-02 15:07 | XMS_ITS | Clinical Summary ---
Demographics Address [address] [place] [address] [address] [place] [address] Mobile Phone Home Phone Work Phone Email Address Preferred Language en Marital Status Shinto Affiliation Unknown Race Other Race Ethnic Group Not or Lati no Author Organization [employer] Address [address] [place] [address] 7[address] [place] [address] Care Team Providers Care Party Plan Salesperson Name Role Phone CahdViviana donald Primary Care Provider Allergies Active Allergy Reactions Criticality Noted Date Comments Aspirin Unknown 02/03/2022 Ibuprofen Angioedema 06/09/2022 Medications Multiple Vitamin (Daily-Kimberley Multivitamin) tablet TAKE 1 TABLET BY MOUTH EVERY DAY WITH FOOD 90 tablet 1 4 Active divalproex sprinkle (Depakote Sprinkle) [address] capsule Take 2 capsules by mouth 2 times daily. 4 Active ferrous sulfate 325 (65 Fe) MG EC tablet Take 1 tablet by mouth 2 times daily. 4 Active Starch-Maltode xtrin (Thick-It) powderIndicati ons:Failure to thrive in adult Mix in 4 teaspoons of Thickit to every 4oz liquid 1020 g 3 5 Active Zinc Oxide (Desitin Daily Defense) 13 % cream APPLY TO BUTTOCKS AFTER EACH USE OF INCONTINENCE 57 g 3 5 Active Acetaminophen Childrens 160 MG/5ML solutionIndica tions:Arthriti s TAKE 15ML BY MOUTH EVERY 6 HOURS NEEDED FOR MILD PAIN OR FEVER 240 mL 2 5 Active Petrolatum 42 % ointment USE TOPICALLY ONCE A DAY NEEDED FOR DRY SKIN 454 g 2 5 Active levoFLOXacin (Levaquin) 500 MG tablet Take 1 tablet (500 mg) by mouth Once per day for 5 days. 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 Briefly discussed with SUNIL Fletcher, further options for work up including follow up US, Mammogram, or Breast Biopsy in order to know a definite dx. They're not sure if they will treat a malignancy or if they will put her though additional interventional procedures. I or PCP will follow up with tele-visit appointment with Lyla, her health care proxy (they will need to provide information re HCP forms), to discuss POC. We discussed red flags to re-consult to ED such as redness in area, nipple discharge, worsening of other Sx or fever. 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 OPERATOR agreed with POC Healthcare maintenance 10/13/2023 Assessment & Plan (10/13/2023 1:45 PM EDT): -s/p flu vaccine APR 2022 -encouraged COVID vaccine -encouraged RSV vaccine -s/p Tdap Aug 2012, repeat next visit -s/p pneumovax Sep 2010 -encouraged PCV20 vaccine -s/p shingrix NOV 2021 -s/p prevnar Mar 2016 -pap smears wnl 2006, 2007 and 2008 with no h/o abnormal pap smears, no need for further screening -mammo BIRADS 19 May 2011, no need for further screening given comorbid conditions -DEXA wnl November 2008 -colonoscopy with diverticulosis/internal hemorrhoids Feb 2004, no need for repeat screening -random glucose nml APR 2022 History of vertebral compression fracture 2023 Urinary incontinence 06/06/2023 Assessment & Plan (06/06/2023 3:09 PM EST): Needs Chux, gloves, pullups size L, wipes Cholelithiasis 06/05/2023 06/05/2023 Alzheimer disease 06/21/2022 Assessment & Plan (10/13/2023 1:37 PM EDT): Advanced dementia requiring total care, dependent in ADLs/IADLs -cont pureed diet and thickened liquids -cont boost supplementation TID -restart seroquel nightly prn -f/u with neurology prn History of COVID-19 06/21/2022 Mild intermittent asthma 08/12/2015 Assessment & Plan (10/13/2023 1:44 PM EDT): Controlled -cont albuterol prn Osteoarthritis 08/12/2015 Chronic gastroesophageal reflux disease 08/12/19 16 Resolved Problems Problem Noted Date Diagnosed Date Resolved Date Acute cystitis with hematuria 02/23/2024 03/21/2024 Assessment & Plan (02/23/2024 2:20 PM EDT): Urine culture was positive for UTI and Morganella resistant to Keflex. I will prescribe Levofloxacin for 5-7 days. Increase water intake. Follow up with PCP. Urinary incontinence without sensory awareness 11/28/2023 03/21/2024 Severe sepsis 06/05/2023 06/05/2023 10/13/2023 GI bleed 06/05/2023 06/05/2023 10/13/2023 Failure to thrive in adult 06/05/2023 06/05/2023 0 10/13/2023 Assessment & Plan (06/06/2023 3:08 PM EST): Ensure 3 cans daily Generalized weakness 06/05/2023 06/05/2023 024 Encounters Date Type Department Care Team Description 09/25/2024 Telephone [facility] [address] [place] [phone] Viviana Jasmine DO Medication Question 09/23/2024 Telephone [facility] [address] [place] [address] Viviana Jasmine DO Call Back Request 09/12/2024 Orders Only [facility] [address] [place] [address] Viviana Jasmine DO Myoclonic seizures (CMS/HCC) (Primary Dx); Alzheimer disease (CMS/HCC) 09/12/2024 Telephone [facility] [place] [place] [address] Viviana Jasmine DO Referral 09/12/2024 Telephone [facility] [address] [place] [address] Viviana Jasmine DO Appointment Request 09/12/2024 Refill [facility] [address] [facility] [place] [address] Viviana Jasmine DO 09/12/2024 Refill [facility] [address] [facility] [place] [address] Tosin Vickers MD Failure to thrive in adult 08/30/2024 Population Health Risk Score [facility] () Department [address] [place] [phone] Provider, Population Health Generic 08/26/2024 Refill [facility] [address] [facility] [place] [address] Viviana Jasmine DO Arthritis 08/26/2024 Refill [facility] [address] [facility] [place] [address] Tosin Vickers MD Failure to thrive in adult 08/15/2024 Telephone [facility] [place] [facility] [place] [address] Viviana Jasmine DO Recall Letter (Recall Letter sent 08/15/24,) 08/12/2024 Refill [facility] [place] [facility] [place] [address] Viviana Jasmine DO Failure to thrive in adult 08/01/2024 Telephone [facility] [address] [facility] [place] [address] Viviana Jasmine DO [facility] (Boost, vanilla 8 oz ()) 07/24/2024 Telephone [facility] [place] [facility] [place] [address] Viviana Jasmine DO Referral 07/17/2024 Telephone [facility] [address] [facility] [place] [address] Viviana Jasmine DO [facility] (Underpad, incont Procare 21x36) 07/17/[address] [address] Viviana Jasmine DO [facility] [employer] [facility] (Boost, Very Vanilla 8oz (24/cs)) 07/16/[address] [address] [facility] DO [facility] (Underpad, INCONT. REUSE CTN FACE IND PK) 07/11/[address] [address] Viviana Jasmine DO Durable Medical Equipment (L&C Form: Boost) 07/11/[address] [address] Viviana Jasmine DO Durable Medical Equipment (L&C Form: Diapers/ Disposable underpad) 07/09/[address] [address] Viviana Jasmine DO from Last 3 Months Immunizations Name Administration Dates Next Due Influenza High-dose Quadriva lent Preservative Free 04/22/2022,07/21/2021 Influenza injectable quadriv alent IIV4 with preservative 04/28/2017,03/30/2016,03/30/2015 Influenza, IIV3, injectable 03/13/2014, 1 Influenza, Split (incl. norman fied surface antigen) 03/18/2013,04/17/2012 Pfizer Covid-19 Vaccine 12+ Bivalent 04/22/2022 Pneumococcal Conjugate PCV 13 06/04/2017, 016 Pneumococcal Polysaccharide PPSV23 10/08/2010 TD (adult), 2 Lf tetanus tox oid, preservative free, adsorbed 10/08/2010,05/07/1997 Tdap 08/23/2012 Zoster, Recombinant 11/24/2021,07/21/2021 Social History Tobacco Use Types Packs/Day Years Used Date Smoking Tobacco: Never Smokeless Tobacco: Never Tobacco Cessation:Counseling Given: Not Answered Alcohol Use Standard Drinks/Week Comments Not Currently [...] not to disclose 2021 10:14 AM EDT Last Filed Vital Signs Vital Sign Reading Time Taken Comments Blood Pressure 128/88 06/21/2022 9:18 AM EST Pulse 83 06/09/2022 10:53 AM EST Temperature 35.3 ??C (95.5 ??F) 06/09/2022 10:[address] Respiratory Rate - - Oxygen Saturation - - Inhaled Oxygen Concentration - - Weight 53.5 kg (118 lb) 03/30/2021 12:10 AM EDT Height - - Body Mass Index - - Plan of Treatment Upcoming Encounters Date Type Department Care Team (Late st Contact Info) Description 10/25/2024 11:15 AM EDT Telemedicine [facility] [address] [place] [address] Viviana Jasmine DO [address] [place] [address] Health Maintenance Due Date Last Done Comments Alcohol/Substance Use Screening 1952 RSV Patients and Patients Aged 60 years or older (1 - 1-dose 75+ series) 2015 DTaP/Tdap/Td Vaccines (2 - Td or Tdap) 08/23/2022 08/23/2012, 10/08/2010, 05/07/1997 COVID-19 Vaccine ( season) 2024 04/22/2022, 01/10/2022, 08/27/2020, Additional history exists Influenza Vaccine (#1) 2024 , 07/21/2021, 04/28/2017, Additional history exists Depression Screening 06/05/2024 06/05/2023, 06/05/20 Tobacco Screening 02/22/2025 02/23/2024 SDOH Screening 03/08/2025 03/08/2024 Pneumococcal Vaccine: 50+ Years Completed 06/04/2017, 03/30/2016, 10/08/2010 Zoster Vaccines Completed 11/24/2021, 07/21/2021 HIB Vaccines Aged Out No longer eligi ble based on patient's age to complete this topic HPV Vaccines Aged Out No longer eligi ble based on patient's age to complete this topic Hepatitis A Vaccines Aged Out No long er eligible based on patient's age to complete this topic Hepatitis B Vaccines Aged Out No long er eligible based on patient's age to complete this topic IPV Vaccines Aged Out No longer eligi ble based on patient's age to complete this topic Meningococcal Vaccine Aged Out No reyna jacques eligible based on patient's age to complete this topic RSV under 20 months Aged Out No longe r eligible based on patient's age to complete this topic Rotavirus Vaccines Aged Out No longer eligible based on patient's age to complete this topic Procedures Procedure Name Priority Date/Time Associated Diagnosis Comments CT CERVICAL SPINE WO CONTRAST Routine 10/02/2024 12:[address] HEAD WO CONTRAST Routine 10/02/2024 1 1:32 AM EDT from Last 3 Months Results * CT Cervical Spine w/o Contrast (10/02/2024 12:13 PM EDT) Anatomical Region Laterality Modality Spine, C-spine Computed Tomogra phy 10/02/2024 12:1 3 PM EDT Narrative 10/02/2024 12:56 PM EDT ? [facility] ?[address] ?[place] [address] ? CT Scan Report ? Signed ? Patient: Trujillo,Justine ?MR#: [id number] ?? 015 ? : 1940 ?Acct:[id number] ? Age/Sex: 84 / F ?ADM Date: 10/02/24 ? Loc: HO.ED ? Attending Dr: ? Ordering Physician: Bunny Boyle MD ?? Date of Service: 10/02/24 ?? Procedure(s): CT cervical spine wo IV con ?? Accession Number(s): [id number] ? cc: Bunny Boyle MD; Viviana Jasmine DO ? Report Number: ?? [id number]: Total DLP = ??576.40 mGy-cm ?? EXAMINATION: ?? CT CERVICAL SPINE WITHOUT CONTRAST ? CLINICAL INFORMATION: ?? Head strike, dementia, neck pain. ? COMPARISON: ?? 01/25/2022 ? TECHNIQUE: ?? Spiral CT imaging of the cervical spine performed in axial plane ?? without contrast. Multiplanar reformatted images were constructed from ?? the axial data set. ? This CT examination was performed using dose optimization techniques as ?? appropriate, variously including the following: ?? *Automated exposure control ?? *Adjustment of mA and/or kV according to patient size (this includes ?? techniques or standardized protocols for targeted exams where dose is ?? matched to indication/reason for exam; i.e. extremities or head) ?? *Use of iterative reconstruction technique ? FINDINGS: ?? CORONAL ALIGNMENT: ?? -Normal right convex scoliosis, apex at C6. ? SAGITTAL ALIGNMENT: ?? -Exaggerated lordosis. ?? -There is a 2 mm degenerative retrolisthesis C3 on C4. Alignment is ?? otherwise anatomic. ? C1-C2 AND CRANIOCERVICAL JUNCTION: ?? -Intact and normally aligned. There are moderate degenerative changes ?? in the atlantoaxial joint. ? VERTEBRAL BODIES AND FACETS: ?? -There is diffuse osteopenia. ?? -No fracture, compression deformity, traumatic subluxation, or ?? suspicious bone lesion. ?? -There is normal facet alignment without facet subluxation. There are ?? multilevel left greater than right hypertrophic degenerative facet ?? changes. ? DISCS: ?? -Moderate to severe multilevel disc degeneration, most severe spanning ?? C4-C7, with associated disc osteophytic spurring. ? CENTRAL CANAL: ?? -No evidence of high-grade central canal narrowing or large disc ?? herniation allowing for modality limitations. ?? -There is moderate central canal stenosis present at C3-4 due to a disc ?? osteophytic ridge complex. ? PREVERTEBRAL AND PARAVERTEBRAL SOFT TISSUES: ?? -There is prevertebral soft tissue swelling and edema spanning C2 ?? through the inferior endplate of C4, suggesting a hyperextension strain ?? injury. There is no definite associated fracture seen. ?? -There is mild atrophy of the thyroid without dominant lesion. ? LUNG APICES: ?? -Normally pneumatized bilaterally mild apical scarring right greater ?? than left. No pneumothorax. ? CT/CT cervical spine wo IV con ?? IMPRESSION: ?? 1. There is no definite acute cervical spine fracture. ?? 2. Prevertebral edema spanning C2 through the inferior endplate of C4, ?? suggesting hyperextension strain injury. Correlate with neck ?? pain/physical exam. ?? 3. Multilevel moderate degenerative spondylosis. ? Electronically signed by: ??Yaw Beal MD ??10/02/2024 12:53 PM EDT RP ? Dictated By: ?Yaw Beal MD ? Signed By: ?<Electronically signed by Yaw Beal MD in OV> ?10/02/24 1253 ? DD/ 1213 ? TD/TT: 10/02/24 1241 ? Soldering Machine Tender: ? Procedure Note Donotuseinterpreter, Image - 10/02/[address] [address] [address] Scan Report Signed Patient: Rich Trujillo#: [id number] 015 : 1Acct:[id number] Age/Sex: 84 / FADM Date: 10/02/24 Loc: HO.ED Attending Dr: Ordering Physician: Bunny Boyle MD Date of Service: 10/02/24 Procedure(s): CT cervical spine wo IV con Accession Number(s): [id number] cc: Bunny Boyle MD; Viviana Jasmine DO Report Number: [id number]: Total DLP = 576.40 mGy-cm EXAMINATION: CT CERVICAL SPINE WITHOUT CONTRAST CLINICAL INFORMATION: Head strike, dementia, neck pain. COMPARISON: 01/25/2022 TECHNIQUE: Spiral CT imaging of the cervical spine performed in axial plane without contrast. Multiplanar reformatted images were constructed from the axial data set. This CT examination was performed using dose optimization techniques as appropriate, variously including the following: *Automated exposure control *Adjustment of mA and/or kV according to patient size (this includes techniques or standardized protocols for targeted exams where dose is matched to indication/reason for exam; i.e. extremities or head) *Use of iterative reconstruction technique FINDINGS: CORONAL ALIGNMENT: -Normal right convex scoliosis, apex at C6. SAGITTAL ALIGNMENT: -Exaggerated lordosis. -There is a 2 mm degenerative retrolisthesis C3 on C4. Alignment is otherwise anatomic. C1-C2 AND CRANIOCERVICAL JUNCTION: -Intact and normally aligned. There are moderate degenerative changes in the atlantoaxial joint. VERTEBRAL BODIES AND FACETS: -There is diffuse osteopenia. -No fracture, compression deformity, traumatic subluxation, or suspicious bone lesion. -There is normal facet alignment without facet subluxation. There are multilevel left greater than right hypertrophic degenerative facet changes. DISCS: -Moderate to severe multilevel disc degeneration, most severe spanning C4-C7, with associated disc osteophytic spurring. CENTRAL CANAL: -No evidence of high-grade central canal narrowing or large disc herniation allowing for modality limitations. -There is moderate central canal stenosis present at C3-4 due to a disc osteophytic ridge complex. PREVERTEBRAL AND PARAVERTEBRAL SOFT TISSUES: -There is prevertebral soft tissue swelling and edema spanning C2 through the inferior endplate of C4, suggesting a hyperextension strain injury. There is no definite associated fracture seen. -There is mild atrophy of the thyroid without dominant lesion. LUNG APICES: -Normally pneumatized bilaterally mild apical scarring right greater than left. No pneumothorax. CT/CT cervical spine wo IV con IMPRESSION: 1. There is no definite acute cervical spine fracture. 2. Prevertebral edema spanning C2 through the inferior endplate of C4, suggesting hyperextension strain injury. Correlate with neck pain/physical exam. 3. Multilevel moderate degenerative spondylosis. Electronically signed by: Yaw Beal MD 10/02/2024 12:53 PM EDT RP Dictated By: Yaw Beal MD Signed By: <Electronically signed by aYw Beal MD in OV> 10/02/24 1253 DD/ 1213 TD/TT: 10/02/24 1241 Soldering Machine Tender: [facility] External Provider IMG CT PROCEDURES Final Result * CT Head w/o Contrast (10/02/2024 11:32 AM EDT) Anatomical Region Laterality Modality Head, Neck Computed Tomogra phy 10/02/2024 11:3 2 AM EDT Narrative 10/02/2024 12:55 PM EDT ? [facility] ?[address] ?[place] [address] ? CT Scan Report ? Signed ? Patient: Trujillo,Justine ?MR#: [id number] ?? 015 ? : 1940 ?Acct:[id number] ? Age/Sex: 84 / F ?ADM Date: 04/16/25 ? Loc: HO.ED ? Attending Dr: ? Ordering Physician: Bunny Boyle MD ?? Date of Service: 10/02/24 ?? Procedure(s): CT head/brain wo IV con ?? Accession Number(s): [id number] ? cc: Bunny Boyle MD; Viviana Jasmine DO ? Report Number: ?? [id number]: Total DLP = ??815.10 mGy-cm ?? EXAMINATION: ?? CT HEAD WITHOUT CONTRAST ? CLINICAL INFORMATION: ?? fall , head strike ? COMPARISON: ?? March 04, 2024. ? TECHNIQUE: ?? Contiguous axial imaging was performed from the skull base to vertex ?? without intravenous administration of contrast. ? This CT examination was performed using dose optimization techniques as ?? appropriate, variously including the following: ?? *Automated exposure control ?? *Adjustment of mA and/or kV according to patient size (this includes ?? techniques or standardized protocols for targeted exams where dose is ?? matched to indication/reason for exam; i.e. extremities or head) ?? *Use of iterative reconstruction technique ? DLP: ?? 815.1 mGy-cm ? FINDINGS: ?? The bony calvarium is intact. Subcutaneous emphysema in the superior ?? right frontal soft tissue scalp. The anterior aspect of the ?? maxillofacial bones are excluded from the [id number]. ?? There is prominence of the extra-axial CSF spaces cerebral sulci and ?? ventricles with a disproportionate prominent lateral ventricles and ?? third ventricle. ?? No acute intracranial hemorrhage, mass effect or midline shift. No ?? dilated or herniation. ?? Bilateral multifocal patchy and confluent deep periventricular white ?? matter hypodensity. ?? Calcified plaques in the cavernous supraclinoid segments both ICAs and ?? V4 segments of the vertebral arteries. ?? Degenerative changes in the temporomandibular joints. ?? Air-fluid levels in the left mastoid tip. Left tympanic cavity is ?? aerated. The right tympanic cavities are aerated. Air-fluid levels in ?? the right mastoid tip. ?? No gross hematoma, intraconal or extraconal compartments of the orbits. ? CT/CT head/brain wo IV con ?? IMPRESSION: ?? No acute fracture, bony calvarium. ?? Skin laceration, superior right frontoparietal. ?? No acute intracranial hemorrhage. ?? Small vessel occlusive disease. ?? Global cerebral atrophy. ?? Concerning normal pressure hydrocephalus in the correct clinical ?? settings. ?? Effusions, mastoid air cells tip, bilaterally.. ? Electronically signed by: ??Holland Shaw MD ??10/02/2024 12:52 PM ?? EDT RP ? Dictated By: ?Holland Ortega MD ? Signed By: ?<Electronically signed by Holland Mosher MD in OV> ? 10/02/24 1252 ? DD/ 1132 ? TD/TT: 10/02/24 1241 ? Soldering Machine Tender: ? Procedure Note Donmilan, Karina - 10/02/[address] [address] [address] Scan Report Signed Patient: Rich Trujillo#: [id number] 015 : 1Acct:[id number] Age/Sex: 84 / FADM Date: 10/02/24 Loc: HO.ED Attending Dr: Ordering Physician: Bunny Boyle MD Date of Service: 10/02/24 Procedure(s): CT head/brain wo IV con Accession Number(s): [id number] cc: Bunny Boyle MD; Viviana Jasmine DO Report Number: [id number]: Total DLP = 815.10 mGy-cm EXAMINATION: CT HEAD WITHOUT CONTRAST CLINICAL INFORMATION: fall , head strike COMPARISON: March 04, 2024. TECHNIQUE: Contiguous axial imaging was performed from the skull base to vertex without intravenous administration of contrast. This CT examination was performed using dose optimization techniques as appropriate, variously including the following: *Automated exposure control *Adjustment of mA and/or kV according to patient size (this includes techniques or standardized protocols for targeted exams where dose is matched to indication/reason for exam; i.e. extremities or head) *Use of iterative reconstruction technique DLP: 815.1 mGy-cm FINDINGS: The bony calvarium is intact. Subcutaneous emphysema in the superior right frontal soft tissue scalp. The anterior aspect of the maxillofacial bones are excluded from the [id number]. There is prominence of the extra-axial CSF spaces cerebral sulci and ventricles with a disproportionate prominent lateral ventricles and third ventricle. No acute intracranial hemorrhage, mass effect or midline shift. No dilated or herniation. Bilateral multifocal patchy and confluent deep periventricular white matter hypodensity. Calcified plaques in the cavernous supraclinoid segments both ICAs and V4 segments of the vertebral arteries. Degenerative changes in the temporomandibular joints. Air-fluid levels in the left mastoid tip. Left tympanic cavity is aerated. The right tympanic cavities are aerated. Air-fluid levels in the right mastoid tip. No gross hematoma, intraconal or extraconal compartments of the orbits. CT/CT head/brain wo IV con IMPRESSION: No acute fracture, bony calvarium. Skin laceration, superior right frontoparietal. No acute intracranial hemorrhage. Small vessel occlusive disease. Global cerebral atrophy. Concerning normal pressure hydrocephalus in the correct clinical settings. Effusions, mastoid air cells tip, bilaterally.. 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
--- OUTSIDE RECORDS SUMMARY | 2024-10-02 15:07 | XMS_ITS | Encounter Summary ---
Author Organization [employer] Address 75 [facility] 7t [place] [address] Care Team Providers Care Senior Process Engineer Name Role Phone Viviana Jasmine DO Primary Care Provider [phone] Reason for Visit * Reason Onset Date Comments Med Refill 01/28/2024 Encounter Details Date Type Department Care Team (Late st Contact Info) Description 01/28/2024 Refill [facility] MEDICINE [address] [place] [address] Viviana Jasmine DO 230 [place], [place] [phone] Arthritis Social History Tobacco Use Types Packs/Day Years [...] Info) Description 10/25/2024 11:15 AM EDT Telemedicine [facility] MEDICINE [address] [place] [address] Viviana Jasmine DO 230 [place] [address] documented as of this encounter Visit Diagnoses Diagnosis Arthritis Unspecified arthropathy, site unspecified documented in this encounter Additional Health Concerns Assessment Noted Time PHQ-9 Depression Total Score: 0 06/05/20 23 2:19 PM EST documented as of this encounter Care Teams Senior Process Engineer Relationship Specialty Start Date End Date Viviana Jasmine DO 230 [place] [address] PCP - General Family Medicine 04/10/13 documented as of this encounter
--- OUTSIDE RECORDS SUMMARY | 2024-10-02 15:07 | XMS_ITS | Encounter Summary ---
Author Organization [employer] Address 75 [facility] 7t [place] [address] Care Team Providers Care Online Content Coordinator Name Role Phone ChadViviana donald Primary Care Provider [phone] Reason for Visit * Reason Onset Date Comments Med Refill 08/26/2024 Encounter Details Date Type Department Care Team (Late st Contact Info) Description 08/26/2024 Refill [facility] MEDICINE 230 [place] [address] Tosin Vickers MD 230 [place], [place] [phone] Failure to thrive in adult Social History [...] Info) Description 10/25/2024 11:15 AM EDT Telemedicine [facility] MEDICINE [address] [place] [address] Viviana Jasmine DO 230 [place] [address] documented as of this encounter Visit Diagnoses Diagnosis 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
--- OUTSIDE RECORDS SUMMARY | 2024-10-02 15:07 | XMS_ITS | Encounter Summary ---
Author Organization [employer] Address 75 [facility] 7t [place] [address] Care Team Providers Care Play Back Operator Name Role Phone Viviana Jasmine DO Primary Care Provider [phone] Reason for Visit * Reason Comments Med Refill Encounter Details Date Type Department Care Team (Late st Contact Info) Description 11/23/2023 Refill [facility] MEDICINE 230 [place] [address] Viviana Jasmine DO 230 [place], [place] [phone] Social History Tobacco Use Types Packs/Day Years [...] Info) Description 10/25/2024 11:15 AM EDT Telemedicine [facility] MEDICINE 230 [place] [address] Viviana Jasmine DO [address] [place] [address] documented as of this encounter Visit Diagnoses Not on filedocumented in this encounter Additional Health Concerns Assessment Noted Time PHQ-9 Depression Total Score: 0 06/05/20 23 2:19 PM EST documented as of this encounter Care Teams Play Back Operator Relationship Specialty Start Date End Date Viviana Jasmine DO [address] [place] [address] PCP - General Family Medicine 04/10/13 documented as of this encounter
--- OUTSIDE RECORDS SUMMARY | 2024-10-02 15:07 | XMS_ITS | Encounter Summary ---
Author Organization [employer] Address [address] [place] [address] 7t [place] [address] Care Team Providers Care Data Integration Analyst Name Role Phone ChadViviana donald Primary Care Provider [phone] Reason for Visit * Reason Onset Date Comments Med Refill 09/17/2023 Encounter Details Date Type Department Care Team (Late st Contact Info) Description 09/17/2023 Refill [facility] MEDICINE 230 [place] [address] Tosin Vickers MD 230 [place], [place] [phone] Urinary incontinence without sensory awareness Social History Tobacco Use Types Packs/Day Years [...] Info) Description 10/25/2024 11:15 AM EDT Telemedicine [facility] MEDICINE [address] [place] [address] Viviana Jasmine DO [address] [place] [address] documented as of this encounter Visit Diagnoses Diagnosis Urinary incontinence without sensory awareness Incontinence without sensory awareness documented in this encounter Additional Health Concerns Assessment Noted Time PHQ-9 Depression Total Score: 0 06/05/20 23 2:19 PM EST documented as of this encounter Care Teams Data Integration Analyst Relationship Specialty Start Date End Date Viviana Jasmine DO [address] [place] [address] PCP - General Family Medicine 04/10/13 documented as of this encounter
--- OUTSIDE RECORDS SUMMARY | 2024-10-02 15:07 | XMS_ITS | Encounter Summary ---
Author Organization [employer] Address 75 [facility] 7t [place] [address] Care Team Providers Care Textile Conservator Name Role Phone Viviana Jasmine DO Primary Care Provider [phone] Reason for Visit * Reason Onset Date Comments Appointment Request 05/09/2023 Encounter Details Date Type Department Care Team ([facility] Contact Info) Description 05/09/2023 Telephone [facility] MEDICINE 230 [place] [address] Viviana Jasmine DO [address] [place] [address] Appointment Request Social History Tobacco Use Types Packs/Day Years [...] encounter Miscellaneous Notes * Telephone Encounter - Isidra Marshall - 05/09/2023 12:34 PM EST Tc from Audrey Devine (grandchild) requesting a televisit appt with PCP, please call Audrey [phone] documented in this encounter Plan of Treatment Upcoming Encounters Date Type Department Care Team (Late st Contact Info) Description 10/25/2024 11:15 AM EDT Telemedicine [facility] MEDICINE 230 [place] [address] Viviana Jasmine DO [address] [place] [address] documented as of this encounter Visit Diagnoses Not on filedocumented in this encounter Care Teams Textile Conservator Relationship Specialty Start Date End Date Viviana Jasmine DO [address] [place] [address] PCP - General Family Medicine 04/10/13 documented as of this encounter
--- OUTSIDE RECORDS SUMMARY | 2024-10-02 15:07 | XMS_ITS | Encounter Summary ---
Author Organization [employer] Address [address] [facility] 7t [place] [address] Care Team Providers Care Terrazzo Laborer Name Role Phone Viviana Jasmine DO Primary Care Provider [phone] Reason for Visit * Reason Onset Date Comments Med Refill 05/29/2024 Encounter Details Date Type Department Care Team (Late st Contact Info) Description 05/29/2024 Refill [facility] MEDICINE [address] [place] [address] Viviana Jasmine DO [address] [place], [place] [phone] Arthritis; Failure to thrive in adult Social History [...] 11:15 AM EDT Telemedicine [facility] MEDICINE [address] [place] [address] Viviana Jasmine DO [address] [place] [address] documented as of this encounter Visit Diagnoses Diagnosis Arthritis Unspecified arthropathy, site unspecified 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
--- OUTSIDE RECORDS SUMMARY | 2024-10-02 15:07 | XMS_ITS | Encounter Summary ---
Author Organization [employer] Address [address] [facility] 7t [place] [address] Care Team Providers Care Manager Of Engineering Name Role Phone Viviana Jasmine DO Primary Care Provider [phone] Reason for Visit * Reason Onset Date Comments Durable Medical Equipment 07/11/2022 Encounter Details Date Type Department Care Team (Late st Contact Info) Description 07/11/2022 Telephone [facility] MEDICINE [address] [place] [address] Viviana Jasmine DO [address] [place], [place] [phone] Durable Medical Equipment Social History Tobacco Use [...] * Telephone Encounter - Prema Gil - 07/12/2022 10:17 AM EST TC to L&C and they are asking for a LMN stating the need and benefits of hospital bed. Please advise. * Telephone Encounter - Diane Márquez - 07/11/2022 11:54 AM EST Tc from pt granddaughter requesting a status on regards to position bed. States L& C informed her that they need a form with more detail or diagnoses on why patient needs the bed. Granddaughter also states that she also needs prescription for her pull ups. Please contact granddaughter if any questions or concerns at [phone] documented in this encounter Plan of Treatment Upcoming Encounters Date Type Department Care Team (Late st Contact Info) Description 10/25/2024 11:15 AM EDT Telemedicine [facility] MEDICINE 230 [place], [place] [phone] Viviana Jasmine DO [address] [place] [address] documented as of this encounter Visit Diagnoses Not on filedocumented in this encounter Care Teams Manager Of Engineering Relationship Specialty Start Date End Date Viviana Jasmine DO [address] [place] [address] PCP - General Family Medicine 04/10/13 documented as of this encounter
--- OUTSIDE RECORDS SUMMARY | 2024-10-02 15:07 | XMS_ITS | Encounter Summary ---
Author Organization [employer] Address 75 [facility] 7t [place] [address] Care Team Providers Care Manager Business Development Hospice Name Role Phone Viviana Jasmine DO Primary Care Provider Reason for Visit * Reason Onset Date Comments Med Refill 09/12/2024 Referral 09/12/2024 Patient brennan junior referral to see Neurology due to [facility] [place] not [place] her. Encounter Details Date Type Department Care Team (Late st Contact Info) Description 09/12/2024 Refill [facility] MEDICINE [address] [place], [place] [phone] Viviana Jasmine DO [address] [place], [place] [phone] Social History Tobacco Use Types Packs/Day Years [...] encounter Miscellaneous Notes * Telephone Encounter - Lee Ann Posadas MA - 09/12/2024 1:24 PM EDT Patient requesting a referral to see Neurology due to [facility] [place] not [place] her. documented in this encounter Plan of Treatment Upcoming Encounters Date Type Department Care Team (Late st Contact Info) Description 10/25/2024 11:15 AM EDT Telemedicine [facility] MEDICINE [address] [place] [address] Viviana Jasmine DO [address] [place] [address] documented as of this encounter Visit Diagnoses Not on filedocumented in this encounter Additional Health Concerns Assessment Noted Time PHQ-9 Depression Total Score: 0 06/05/20 23 2:19 PM EST documented as of this encounter Care Teams Manager Business Development Hospice Relationship Specialty Start Date End Date Viviana Jasmine DO [address] [place] [id number] PCP - General Family Medicine 04/10/13 documented as of this encounter
--- OUTSIDE RECORDS SUMMARY | 2024-10-02 15:07 | XMS_ITS | Encounter Summary ---
Author Organization [employer] Address 75 [facility] 7t [place] [address] Care Team Providers Care Senior Technical Program Manager Name Role Phone Viviana Jasmine DO Primary Care Provider [phone] Encounter Details Date Type Department Care Team (Late st Contact Info) Description 08/02/2023 Abstract [facility] MEDICINE [address] [place] [address] Viviana Jasmine DO [address] [place] [address] Social History Tobacco Use Types Packs/Day Years [...] 10/25/2024 11:15 AM EDT Telemedicine [facility] MEDICINE [address] [place] [address] Viviana Jasmine DO 230 [place] [address] documented as of this encounter Visit Diagnoses Not on filedocumented in this encounter Additional Health Concerns Assessment Noted Time PHQ-9 Depression Total Score: 0 06/05/20 23 2:19 PM EST documented as of this encounter Care Teams Senior Technical Program Manager Relationship Specialty Start Date End Date Viviana Jasmine DO [address] [place] [address] PCP - General Family Medicine 04/10/13 documented as of this encounter
--- OUTSIDE RECORDS SUMMARY | 2024-10-02 15:07 | XMS_ITS | Encounter Summary ---
Author Organization [employer] Address 75 [facility] 7t [place] [address] Care Team Providers Care Goring Cutter Name Role Phone Viviana Jasmine DO Primary Care Provider [phone] Encounter Details Date Type Department Care Team (Late st Contact Info) Description 05/09/2023 Telephone [facility] MEDICINE [address] [place] [address] Viviana Jasmine DO 230 [place] [address] Social History Tobacco Use Types Packs/Day Years [...] Info) Description 10/25/2024 11:15 AM EDT Telemedicine [facility] MEDICINE [address] [place] [address] Viviana Jasmine DO [address] [place] [address] documented as of this encounter Visit Diagnoses Not on filedocumented in this encounter Care Teams Goring Cutter Relationship Specialty Start Date End Date Viviana Jasmine DO [address] [place] [phone] PCP - General Family Medicine 04/10/13 documented as of this encounter
--- OUTSIDE RECORDS SUMMARY | 2024-10-02 15:07 | XMS_ITS | Encounter Summary ---
Author Organization [employer] Address 75 [facility] 7t [place] [address] Care Team Providers Care Procedure Rn Name Role Phone Viviana Jasmine DO Primary Care Provider [phone] Reason for Visit * Reason Onset Date Comments Med Refill 09/22/2023 Encounter Details Date Type Department Care Team (Late st Contact Info) Description 09/22/2023 Refill [facility] [address] [place] [address] Viviana Jasmine DO 230 [facility] [place] [address] Social History Tobacco Use Types Packs/Day Years [...] Info) Description 10/25/2024 11:15 AM EDT Telemedicine [facility] MEDICINE 230 [place] [address] Viviana Jasmine DO 230 [place] [address] documented as of this encounter Visit Diagnoses Not on filedocumented in this encounter Additional Health Concerns Assessment Noted Time PHQ-9 Depression Total Score: 0 06/05/20 23 2:19 PM EST documented as of this encounter Care Teams Procedure Rn Relationship Specialty Start Date End Date Viviana Jasmine DO 230 [place] [address] PCP - General Family Medicine 04/10/13 documented as of this encounter
--- OUTSIDE RECORDS SUMMARY | 2024-10-02 15:07 | XMS_ITS | Encounter Summary ---
Author Organization [employer] Address 75 [facility] 7t [place] [address] Care Team Providers Care Tube Making Machine Operator Name Role Phone ChadViviana donald Primary Care Provider [phone] Reason for Visit * Reason Onset Date Comments Med Refill 09/12/2024 Encounter Details Date Type Department Care Team (Late st Contact Info) Description 09/12/2024 Refill [facility] MEDICINE 230 [place] [address] Tosin Vickers MD [address] [place], [place] [phone] Failure to thrive in adult Social History [...] Description 10/25/2024 11:15 AM EDT Telemedicine [facility] MEDICINE [address] [place] [address] Viviana Jasmine DO [address] [place] [address] documented as of this encounter Visit Diagnoses Diagnosis 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
--- OUTSIDE RECORDS SUMMARY | 2024-10-02 15:07 | XMS_ITS | Encounter Summary ---
Author Organization [employer] Address 75 [facility] 7t [place] [address] Care Team Providers Care Plug Stitcher Name Role Phone Viviana Jasmine DO Primary Care Provider [phone] Reason for Visit * Reason Onset Date Comments Call Back Request 07/10/2023 Encounter Details Date Type Department Care Team ([facility] st Contact Info) Description 07/10/2023 Telephone [facility] MEDICINE 230 [place] [address] Viviana Jasmine DO 230 [place], [place] [phone] Call Back Request Social History Tobacco Use Types Packs/Day [...] * Telephone Encounter - Isidra Marshall - 07/10/2023 2:57 PM EST Tc from Audrey BARBER requesting a call back in regards DME for pt. Please contact @[phone] documented in this encounter Plan of Treatment Upcoming Encounters Date Type Department Care Team (Late st Contact Info) Description 10/25/2024 11:15 AM EDT Telemedicine [facility] MEDICINE [address] [place] [address] Viviana Jasmine DO [address] [place] [address] documented as of this encounter Visit Diagnoses Not on filedocumented in this encounter Additional Health Concerns Assessment Noted Time PHQ-9 Depression Total Score: 0 06/05/20 23 2:19 PM EST documented as of this encounter Care Teams Plug Stitcher Relationship Specialty Start Date End Date Viviana Jasmine DO [address] [place] [address] PCP - General Family Medicine 04/10/13 documented as of this encounter
[2024-10-02 16:15] VITALS: BP 156/75; PULSE 84; RESP 18; O2SAT 97
[2024-10-02 17:35] VITALS: BP 156/75; PULSE 84; RESP 18; TEMP 36.6; O2SAT 97
== END 2024-10-02 17:37 | disposition home or self-care (01) ==
PROVIDERS: Emergency Provider Emergency Medicine; PCP Family Medicine
DX: S01.81XA Laceration without foreign body of other part of head, initial encounter (principal); S06.0X0A Concussion without loss of consciousness, initial encounter; S16.1XXA Strain of muscle, fascia and tendon at neck level, initial encounter; W06.XXXA Fall from bed, initial encounter; R07.9 Chest pain, unspecified; G30.8 Other Alzheimer's disease; F02.C0 Dementia in other diseases classified elsewhere, severe, without behavioral disturbance, psychotic disturbance, mood disturbance, and anxiety; J45.909 Unspecified asthma, uncomplicated; Y93.84 Activity, sleeping; Y92.032 Bedroom in apartment as the place of occurrence of the external cause; Y99.9 Unspecified external cause status
CPT/HCPCS: 12002; 36415; 70450; 71045; 72125; 80048; 80076; 82550; 85027; 85610; 85730; 96372; 99284; J1885; J2004

== ENCOUNTER → 2024-10-02 11:32 | Outpatient (BNV) | payer MEDICARE, MEDICAID, SELFPAY | PROVIDERS: Emergency Provider Emergency Medicine; PCP Family Medicine; Visit Provider Radiology Diagnostic Radiology | DX: M50.30 Other cervical disc degeneration, unspecified cervical region (principal); I67.89 Other cerebrovascular disease; R07.9 Chest pain, unspecified; G31.9 Degenerative disease of nervous system, unspecified | CPT/HCPCS: 72125 ==

== ENCOUNTER 2024-10-12 10:56 | Emergency (ER) | payer MEDICARE, MEDICAID, SELFPAY ==
--- NOTE | ~2024-10-12 | XR_ITS ---
CLINICAL HISTORY: increased secretions 1 view chest Comparison: CR/SC/SR - XR CHEST 1V - 10/02/24 12:05 EDT CR/SR - XR CHEST 1V - 03/04/24 13:28 EDT Findings: Low inspiration. Resultant mild vascular crowding centrally with subsegmental atelectasis. No consolidation or pneumothorax/effusion. Mild bronchial wall thickening. Heart size normal. No evidence of heart failure. Unfolding of the thoracic aorta stable with mild tracheal deviation to the right. No acute fractures. Chronic rotator cuff pathology more so on the right Impression: 1. Low inspiration with central vascular crowding and subsegmental atelectasis. 2. Mild bronchial wall thickening. This document has been electronically signed by: Coy Pop MD on 10/12/2024 12:52:22
[2024-10-12 11:07] VITALS: BP 120/70; BP 137/76; PULSE 90; PULSE 91; RESP 17; TEMP 37.1; O2SAT 98; BMI 21.1
--- OUTSIDE RECORDS SUMMARY | 2024-10-12 11:39 | XMS_ITS | Encounter Summary ---
Author Organization [employer] Address 75 [facility] 7t [place] [address] Care Team Providers Care Granulator Operator Name Role Phone Viviana Jasmine DO Primary Care Provider +[phone] Reason for Visit * Reason Onset Date Comments PT-1 03/08/2024 Encounter Details Date Type Department Care Team (Late st Contact Info) Description 03/08/2024 Telephone [facility] MEDICINE 230 [place] [address] Viviana Jasmine DO 230 [place], [place] [phone] PT-1 Social History Tobacco Use Types Packs/Day [...] Y/N: Yes Provider name or facility name: [facility] Address: [address] [place] [id number] Escort needed: Y/N: Yes 2 Do you have a wheelchair: Y/N: Yes If yes- Manual or electric: Manual Visits: Once a month Patient calling requesting PT1 Home Address verified: Y/N: Yes Provider name or facility name: Evelyn Jauregui, [facility] Facility Address: [address] [place] [address] Escort needed: Y/N: Yes Do you have a wheelchair: Y/N: Yes If yes- Manual or electric: Bam Visits: Twice monthly documented in this encounter Plan of Treatment Upcoming Encounters Date Type Department Care Team ([facility] st Contact Info) Description 10/25/2024 11:15 AM EDT Telemedicine [facility] MEDICINE [address] [place] [address] [phone] Viviana Jasmine DO 230 [place] [address] documented as of this encounter Visit Diagnoses Not on filedocumented in this encounter Additional Health Concerns Assessment Noted Time PHQ-9 Depression Total Score: 0 06/05/20 23 2:19 PM EST documented as of this encounter Care Teams Granulator Operator Relationship Specialty Start Date End Date Viviana Jasmine DO 230 [place] [address] PCP - General Family Medicine 04/10/13 documented as of this encounter
--- OUTSIDE RECORDS SUMMARY | 2024-10-12 11:39 | XMS_ITS | Encounter Summary ---
Author Organization [employer] Address 75 [facility] 7t [place] [address] Care Team Providers Care Wire Machine Operator Name Role Phone Viviana Jasmine DO Primary Care Provider [phone] Reason for Visit * Reason Onset Date Comments Hospital Follow-up 03/08/2024 Encounter Details Date Type Department Care Team ([facility] st Contact Info) Description 03/08/2024 Telephone [facility] MEDICINE 230 [place], [place] [phone] Viviana Jasmine DO 230 [place], [place] [phone] Hospital Follow-up Social History Tobacco Use Types [...] from pt requesting a HDF appt. Hospital: [facility] Date of admission: 03/04/24 Discharge date: 03/07/24 Diagnosed: Fever documented in this encounter Plan of Treatment Upcoming Encounters Date Type Department Care Team (Late st Contact Info) Description 10/25/2024 11:15 AM EDT Telemedicine [facility] MEDICINE [address] [place] [address] Viviana Jasmine DO 230 [place] [address] documented as of this encounter Visit Diagnoses Not on filedocumented in this encounter Additional Health Concerns Assessment Noted Time PHQ-9 Depression Total Score: 0 06/05/20 23 2:19 PM EST documented as of this encounter Care Teams Wire Machine Operator Relationship Specialty Start Date End Date Viviana Jasmine DO 230 [place] [address] PCP - General Family Medicine 04/10/13 documented as of this encounter
--- OUTSIDE RECORDS SUMMARY | 2024-10-12 11:39 | XMS_ITS | Encounter Summary ---
Author Organization [employer] Address 75 [facility] 7t [place] [address] Care Team Providers Care Police Stenographer Name Role Phone Viviana Jasmine DO Primary Care Provider [phone] Reason for Visit * Reason Onset Date Comments PT1 02/08/2023 Encounter Details Date Type Department Care Team ([facility] Contact Info) Description 02/08/2023 Telephone [facility] MEDICINE 230 [place] [address] Viviana Jasmine DO [address] [place] [address] PT1 Social History Tobacco Use Types Packs/Day [...] address Date: n/a Time: n/a Visits: Address: [address] [place] [address] Facility: Neurologist Wheel Chair: manual Harp Maker Needed: yes PT1 Verified address Date: n/a Time: n/a Visits: Address: 230 [facility] [address] Facility: (name, specialty or name of doctor) Wheel Chair: manual Harp Maker Needed: yes documented in this encounter Plan of Treatment Upcoming Encounters Date Type Department Care Team ([facility] st Contact Info) Description 10/25/2024 11:15 AM EDT Telemedicine [facility] MEDICINE [address] [place] [address] Viviana Jasmine DO [address] [place] [address] documented as of this encounter Visit Diagnoses Not on filedocumented in this encounter Care Teams Police Stenographer Relationship Specialty Start Date End Date Viviana Jasmine DO [address] [place] [address] PCP - General Family Medicine 04/10/13 documented as of this encounter
--- OUTSIDE RECORDS SUMMARY | 2024-10-12 11:39 | XMS_ITS | Encounter Summary ---
Author Organization [employer] Address 75 [facility] 7t [place] [address] Care Team Providers Care Assurance Senior Name Role Phone Viviana Jasmine DO Primary Care Provider [phone] Reason for Visit * Reason Onset Date Comments Notes 10/17/2022 Encounter Details Date Type Department Care Team (Late st Contact Info) Description 10/17/2022 Telephone [facility] MEDICINE 230 [place] [address] Viviana Jasmine DO 230 [place] [address] Notes Social History Tobacco Use Types Packs/Day [...] in there end. Please contact Alma at [phone] * Telephone Encounter - Prema Gil - [...] needs the Bed. Please contact Nik at [phone] documented in this encounter Plan of Treatment Upcoming Encounters Date Type Department Care Team (Late st Contact Info) Description 10/25/2024 11:15 AM EDT Telemedicine [facility] MEDICINE [address] [place] [address] Viviana Jasmine DO [address] [place] [address] documented as of this encounter Visit Diagnoses Not on filedocumented in this encounter Care Teams Assurance Senior Relationship Specialty Start Date End Date Viviana Jasmine DO 230 [place] [address] PCP - General Family Medicine 04/10/13 documented as of this encounter
--- OUTSIDE RECORDS SUMMARY | 2024-10-12 11:39 | XMS_ITS | Encounter Summary ---
Author Organization [employer] Address 75 [facility] 7t [place] [address] Care Team Providers Care Air Conditioning Manager Name Role Phone Viviana Jasmine DO Primary Care Provider [phone] Reason for Visit * Reason Onset Date Comments Med Refill 05/29/2024 Encounter Details Date Type Department Care Team (Late st Contact Info) Description 05/29/2024 Refill [facility] MEDICINE 230 [place] [address] Viviana Jasmine DO 230 [place], [place] [phone] Arthritis; Failure to thrive in adult Social [...] Info) Description 10/25/2024 11:15 AM EDT Telemedicine [facility]INE [address] [place] [address] Viviana Jasmine DO 230 [place] [address] documented as of this encounter Visit Diagnoses Diagnosis Arthritis Unspecified arthropathy, site unspecified 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
--- OUTSIDE RECORDS SUMMARY | 2024-10-12 11:39 | XMS_ITS | Encounter Summary ---
Author Organization [employer] Address 75 [facility] 7t [place] [address] Care Team Providers Care Software Deployment Engineer Name Role Phone Viviana Jasmine DO Primary Care Provider [phone] Reason for Visit * Reason Onset Date Comments Med Refill 02/21/2024 Encounter Details Date Type Department Care Team (Late st Contact Info) Description 02/21/2024 Refill [facility] MEDICINE 230 [place] [address] Viviana Jasmine DO 230 [place], [place] [phone] Failure to thrive in adult Social History [...] Info) Description 10/25/2024 11:15 AM EDT Telemedicine [facility] MEDICINE 230 [place] [address] Viviana Jasmine DO 230 [place] [address] documented as of this encounter Visit Diagnoses Diagnosis 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
--- OUTSIDE RECORDS SUMMARY | 2024-10-12 11:39 | XMS_ITS | Encounter Summary ---
Author Organization [employer] Address 75 [facility] 7t [place] [address] Care Team Providers Care Communication Studies Professor Name Role Phone Viviana Jasmine DO Primary Care Provider [phone] Reason for Visit * Reason Onset Date Comments Durable Medical Equipment 08/02/2022 Encounter Details Date Type Department Care Team (Late st Contact Info) Description 08/02/2022 Telephone [facility] MEDICINE 230 [place] [address] Viviana Jasmine DO 230 [place], [place] [phone] Durable Medical Equipment Social History Tobacco Use [...] for hospital bed Please contact pt at [phone] documented in this encounter Plan of Treatment Upcoming Encounters Date Type Department Care Team (Late st Contact Info) Description 10/25/2024 11:15 AM EDT Telemedicine [facility] MEDICINE 230 [place] [address] Viviana Jasmine DO 230 [place] [address] documented as of this encounter Visit Diagnoses Not on filedocumented in this encounter Care Teams Communication Studies Professor Relationship Specialty Start Date End Date Viviana Jasmine DO 230 [place] [address] PCP - General Family Medicine 04/10/13 documented as of this encounter
--- OUTSIDE RECORDS SUMMARY | 2024-10-12 11:39 | XMS_ITS | Encounter Summary ---
Author Organization [employer] Address 75 [facility] 7t [place] [address] Care Team Providers Care Zigzag Stitcher Name Role Phone Viviana Jasmine DO Primary Care Provider [phone] Reason for Visit * Reason Onset Date Comments triage 09/12/2022 Encounter Details Date Type Department Care Team (Late st Contact Info) Description 09/12/2022 Telephone [facility]INE 230 [place] [address] Viviana Jasmine DO 230 [place], [place] [phone] triage Social History Tobacco Use Types Packs/Day [...] grandaughter agreed with disposition. Will come to [facility] if any changes occur. Protocol [...] Description 10/25/2024 11:15 AM EDT Telemedicine [facility]INE [address] [place] [address] Viviana Jasmine DO 230 [place] [address] documented as of this encounter Visit Diagnoses Not on filedocumented in this encounter Care Teams Zigzag Stitcher Relationship Specialty Start Date End Date Viviana Jasmine DO 230 [place] [address] PCP - General Family Medicine 04/10/13 documented as of this encounter
--- OUTSIDE RECORDS SUMMARY | 2024-10-12 11:39 | XMS_ITS | Encounter Summary ---
Author Organization [employer] Address [address] [place] [address] 7t [place] [address] Care Team Providers Care Diesel Truck Technician Name Role Phone Viviana Jasmine DO Primary Care Provider Encounter Details Date Type Department Care Team (Late st Contact Info) Description 02/15/2023 Orders Only [facility] MEDICINE [address] [place] [address] Vangie Jamison MD 230 [place] [address] Alzheimer's dementia, unspecified dementia severity, unspecified timing [...] Info) Description 10/25/2024 11:15 AM EDT Telemedicine [facility] MEDICINE 230 [place] [address] Viviana Jasmine DO 230 [place] [address] documented as of this encounter Visit Diagnoses Diagnosis Alzheimer's dementia, unspecified dementia severity, unspecified timing of dementia onset, unspecified whether behavioral, psychotic, or mood disturbance or anxiety ([facility])- Primary documented in this encounter Care Teams Diesel Truck Technician Relationship Specialty Start Date End Date Viviana Jasmine DO [address] [place] [address] PCP - General Family Medicine 04/10/13 documented as of this encounter
--- OUTSIDE RECORDS SUMMARY | 2024-10-12 11:40 | XMS_ITS | Encounter Summary ---
Author Organization [employer] Address [address] [place] [address] 7t [place] [address] Care Team Providers Care Vice President Business Development Name Role Phone ChadViviana donald Primary Care Provider + [phone] Reason for Visit * Reason Onset Date Comments Med Refill 09/17/2023 Encounter Details Date Type Department Care Team (Late st Contact Info) Description 09/17/2023 Refill [facility] MEDICINE 230 [place] [address] Tosin Vickers MD 230 [place], [place] [phone] Urinary incontinence without sensory awareness Social History [...] Description 10/25/2024 11:15 AM EDT Telemedicine [facility] MEDICINE 230 [place] [address] Viviana Jasmine DO 230 [place] [address] documented as of this encounter Visit Diagnoses Diagnosis Urinary incontinence without sensory awareness Incontinence without sensory awareness documented in this encounter Additional Health Concerns Assessment Noted Time PHQ-9 Depression Total Score: 0 06/05/20 23 2:19 PM EST documented as of this encounter Care Teams Vice President Business Development Relationship Specialty Start Date End Date Viviana Jasmine DO 230 [place] [address] PCP - General Family Medicine 04/10/13 documented as of this encounter
--- OUTSIDE RECORDS SUMMARY | 2024-10-12 11:40 | XMS_ITS | Encounter Summary ---
Author Organization [employer] Address 75 [facility] 7t [place] [address] Care Team Providers Care Machine Hand Name Role Phone Viviana Jasmine DO Primary Care Provider [phone] Reason for Visit * Reason Onset Date Comments Med Refill 01/28/2024 Encounter Details Date Type Department Care Team (Late st Contact Info) Description 01/28/2024 Refill [facility] MEDICINE 230 [place] [address] Viviana Jasmine DO 230 [place], [place] [phone] Arthritis Social History Tobacco Use Types Packs/Day [...] Info) Description 10/25/2024 11:15 AM EDT Telemedicine [facility] MEDICINE 230 [place] [address] Viviana Jasmine DO 230 [place] [address] documented as of this encounter Visit Diagnoses Diagnosis Arthritis Unspecified arthropathy, site unspecified documented in this encounter Additional Health Concerns Assessment Noted Time PHQ-9 Depression Total Score: 0 06/05/20 23 2:19 PM EST documented as of this encounter Care Teams Machine Hand Relationship Specialty Start Date End Date Viviana Jasmine DO 230 [place] [address] PCP - General Family Medicine 04/10/13 documented as of this encounter
--- OUTSIDE RECORDS SUMMARY | 2024-10-12 11:40 | XMS_ITS | Encounter Summary ---
Author Organization [employer] Address 75 [facility] 7t [place] [address] Care Team Providers Care License Inspector Name Role Phone Viviana Jasmine DO Primary Care Provider Reason for Visit * Reason Onset Date Comments Med Refill 09/12/2024 Referral 09/12/2024 Patient brennan junior referral to see Neurology due to [facility] will not see her. Encounter Details Date Type Department Care Team (Late st Contact Info) Description 09/12/2024 Refill [facility] MEDICINE 230 [place], [place] [phone] Viviana Jasmine DO 230 [place], [place] [phone] Social History Tobacco Use Types Packs/Day Years [...] a referral to see Neurology due to [facility] will not see her. documented in this encounter Plan of Treatment Upcoming Encounters Date Type Department Care Team (Late st Contact Info) Description 10/25/2024 11:15 AM EDT Telemedicine [facility] MEDICINE [address] [place] [address] Viviana Jasmine DO 230 [place] [address] documented as of this encounter Visit Diagnoses Not on filedocumented in this encounter Additional Health Concerns Assessment Noted Time PHQ-9 Depression Total Score: 0 06/05/20 23 2:19 PM EST documented as of this encounter Care Teams License Inspector Relationship Specialty Start Date End Date Viviana Jasmine DO [address] [place] [address] PCP - General Family Medicine 04/10/13 documented as of this encounter
--- OUTSIDE RECORDS SUMMARY | 2024-10-12 11:40 | XMS_ITS | Encounter Summary ---
Author Organization [employer] Address 75 [facility] 7t [place] [address] Care Team Providers Care Rope Walker Name Role Phone Viviana Jasmine DO Primary Care Provider [phone] Reason for Visit * Reason Onset Date Comments Med Refill 03/28/2024 Encounter Details Date Type Department Care Team (Late st Contact Info) Description 03/28/2024 Refill [facility] MEDICINE 230 [place] [address] Viviana Jasmine DO [address] [place], [place] [phone] Failure to thrive in adult Social History [...] Description 10/25/2024 11:15 AM EDT Telemedicine [facility] MEDICINE [address] [place] [address] Viviana Jasmine DO [address] [place] [address] documented as of this encounter Visit Diagnoses Diagnosis 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
--- OUTSIDE RECORDS SUMMARY | 2024-10-12 11:40 | XMS_ITS | Encounter Summary ---
Author Organization [employer] Address 75 [facility] 7t [place] [address] Care Team Providers Care Vp Compliance Name Role Phone Viviana Jasmine DO Primary Care Provider [phone] Reason for Visit * Reason Onset Date Comments Med Refill 12/26/2023 Encounter Details Date Type Department Care Team (Late st Contact Info) Description 12/26/2023 Refill [facility] [address] [place] [address] Viviana Jasmine DO 230 [facility] [place] [address] Social History Tobacco Use Types Packs/Day Years [...] 10/25/2024 11:15 AM EDT Telemedicine [facility] MEDICINE 230 [place] [address] Viviana Jasmine DO 230 [place] [address] documented as of this encounter Visit Diagnoses Not on filedocumented in this encounter Additional Health Concerns Assessment Noted Time PHQ-9 Depression Total Score: 0 06/05/20 23 2:19 PM EST documented as of this encounter Care Teams Vp Compliance Relationship Specialty Start Date End Date Viviana Jasmine DO 230 [place] [address] PCP - General Family Medicine 04/10/13 documented as of this encounter
--- OUTSIDE RECORDS SUMMARY | 2024-10-12 11:40 | XMS_ITS | Encounter Summary ---
Author Organization [employer] Address 75 [facility] 7t [place] [address] Care Team Providers Care Survey Field Technician Name Role Phone Viviana Jasmine DO Primary Care Provider [phone] Reason for Visit * Reason Onset Date Comments Call Back Request 07/10/2023 Encounter Details Date Type Department Care Team ([facility] st Contact Info) Description 07/10/2023 Telephone [facility] MEDICINE 230 [place] [address] Viviana Jasmine DO 230 [place], [place] [phone] Call Back Request Social History Tobacco Use [...] in regards DME for pt. Please contact @[phone] documented in this encounter Plan of Treatment Upcoming Encounters Date Type Department Care Team (Late st Contact Info) Description 10/25/2024 11:15 AM EDT Telemedicine [facility] MEDICINE [address] [place] [address] Viviana Jasmine DO [address] [place] [address] documented as of this encounter Visit Diagnoses Not on filedocumented in this encounter Additional Health Concerns Assessment Noted Time PHQ-9 Depression Total Score: 0 06/05/20 23 2:19 PM EST documented as of this encounter Care Teams Survey Field Technician Relationship Specialty Start Date End Date Viviana Jasmine DO [address] [place] [address] PCP - General Family Medicine 04/10/13 documented as of this encounter
--- OUTSIDE RECORDS SUMMARY | 2024-10-12 11:40 | XMS_ITS | Encounter Summary ---
Author Organization [employer] Address 75 [facility] 7t [place] [address] Care Team Providers Care Pull Tab Dealer Name Role Phone Viviana Jasmine DO Primary Care Provider [phone] Reason for Visit * Reason Onset Date Comments Med Refill 07/09/2024 Encounter Details Date Type Department Care Team (Late st Contact Info) Description 07/09/2024 Refill [facility] MEDICINE 230 [place] [address] Viviana Jasmine DO 230 [place], [place] [phone] Social History Tobacco Use Types Packs/Day Years [...] [facility] MEDICINE [address] [place] [address] Viviana Jasmine DO [address] [place] [address] documented as of this encounter Visit Diagnoses Not on filedocumented in this encounter Additional Health Concerns Assessment Noted Time PHQ-9 Depression Total Score: 0 06/05/20 23 2:19 PM EST documented as of this encounter Care Teams Pull Tab Dealer Relationship Specialty Start Date End Date Viviana Jasmine DO 230 [place] [address] PCP - General Family Medicine 04/10/13 documented as of this encounter
--- OUTSIDE RECORDS SUMMARY | 2024-10-12 11:40 | XMS_ITS | Encounter Summary ---
Author Organization [employer] Address 75 [facility] 7t [place] [address] Care Team Providers Care Rn Pediatric Name Role Phone Viviana Jasmine DO Primary Care Provider [phone] Encounter Details Date Type Department Care Team (Late st Contact Info) Description 08/02/2023 Abstract [facility] MEDICINE 230 [place] [address] Viviana Jasmine DO [address] [place] [address] Social History Tobacco Use Types Packs/Day Years [...] AM EDT Telemedicine [facility] MEDICINE [address] [place] [address] Viviana Jasmine DO [address] [place] [address] documented as of this encounter Visit Diagnoses Not on filedocumented in this encounter Additional Health Concerns Assessment Noted Time PHQ-9 Depression Total Score: 0 06/05/20 23 2:19 PM EST documented as of this encounter Care Teams Rn Pediatric Relationship Specialty Start Date End Date Viviana Jasmine DO 230 [place] [address] PCP - General Family Medicine 04/10/13 documented as of this encounter
--- OUTSIDE RECORDS SUMMARY | 2024-10-12 11:40 | XMS_ITS | Encounter Summary ---
Author Organization [employer] Address 75 [facility] 7t [place] [address] Care Team Providers Care Diesel Engine Specialist Name Role Phone Viviana Jasmine DO Primary Care Provider [phone] Reason for Visit * Reason Comments Med Refill Encounter Details Date Type Department Care Team (Late st Contact Info) Description 11/23/2023 Refill [facility] [address] [place] [address] Viviana Jasmine DO 230 [place], [place] [phone] Social History Tobacco Use Types Packs/Day Years [...] [facility] [address] [place] [address] Viviana Jasmine DO [address] [place] [address] documented as of this encounter Visit Diagnoses Not on filedocumented in this encounter Additional Health Concerns Assessment Noted Time PHQ-9 Depression Total Score: 0 06/05/20 23 2:19 PM EST documented as of this encounter Care Teams Diesel Engine Specialist Relationship Specialty Start Date End Date Viviana Jasmine DO 230 [place] [address] PCP - General Family Medicine 04/10/13 documented as of this encounter
--- OUTSIDE RECORDS SUMMARY | 2024-10-12 11:40 | XMS_ITS | Encounter Summary ---
Author Organization [employer] Address 75 [facility] 7t [place] [address] Care Team Providers Care Shipping Associate Name Role Phone ChadViviana donald Primary Care Provider +[phone] Reason for Visit * Reason Onset Date Comments Med Refill 09/12/2024 Encounter Details Date Type Department Care Team (Late st Contact Info) Description 09/12/2024 Refill [facility] MEDICINE [address] [place] [address] Tosin Vickers MD [address] [place], [place] [phone] Failure to thrive in adult Social History [...] Info) Description 10/25/2024 11:15 AM EDT Telemedicine [facility] MEDICINE [address] [place] [address] Viviana Jasmine DO [address] [place] [address] documented as of this encounter Visit Diagnoses Diagnosis 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
--- OUTSIDE RECORDS SUMMARY | 2024-10-12 11:40 | XMS_ITS | Encounter Summary ---
Author Organization [employer] Address [address] [facility] 7t [place] [address] Care Team Providers Care Security System Analyst Name Role Phone ChadViviana donald Primary Care Provider + [phone] Reason for Visit * Reason Onset Date Comments Med Refill 08/26/2024 Encounter Details Date Type Department Care Team (Late st Contact Info) Description 08/26/2024 Refill [facility] MEDICINE 230 [place] [address] Tosin Vicekrs MD [address] [place], [place] [phone] Failure to thrive in adult Social History [...] Info) Description 10/25/2024 11:15 AM EDT Telemedicine [facility] MEDICINE [address] [place] [address] Viviana Jasmine DO [address] [place] [address] documented as of this encounter Visit Diagnoses Diagnosis 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
--- OUTSIDE RECORDS SUMMARY | 2024-10-12 11:40 | XMS_ITS | Clinical Summary ---
Demographics Address [address] [place] [address] [address] [place] [address] Mobile Phone Home Phone Work Phone Email Address Preferred Language en Marital Status Tenriism Affiliation Unknown Race Other Race Ethnic Group Not or Lati no Author Organization [employer] Address [address] [place] [address] 7t [place] [address] Care Team Providers Care Software Asset Manager Name Role Phone ChadViviana donald Primary Care Provider Allergies Active Allergy [...] of other Sx or fever. 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 agreed with POC Healthcare maintenance 10/13/2023 Assessment [...] Type Department Care Team Description 09/25/2024 Telephone [facility] MEDICINE [address] [place] [address] Viviana Jasmine DO Medication Question 09/23/2024 Telephone [facility] [address] [place] [address] Viviana Jasmine DO Call Back Request 09/12/2024 Orders Only [facility] [address] [place] [address] Viviana Jasmine DO Myoclonic seizures (CMS/HCC) (Primary Dx); Alzheimer disease (CMS/HCC) 09/12/2024 Telephone [facility] [place] [place] [address] Viviana Jasmine DO Referral 09/12/2024 Telephone [facility] MEDICINE [address] [place] [address] Viviana Jasmine DO Appointment Request 09/12/2024 Refill [facility] [address] [facility] [place] [address] Viviana Jasmine DO 09/12/2024 Refill [facility] [address] [facility] [place] [address] Tosin Vickers MD Failure to thrive in adult 08/30/2024 Population Health Risk Score [facility] () Department [address] [place] [phone] Provider, Population Health Generic 08/26/2024 Refill [facility] [address] [facility] [place] [place] [address] Viviana Jasmine DO Arthritis 08/26/2024 Refill [facility] [address] [facility] [place] [address] Tosin Vickers MD Failure to thrive in adult 08/15/2024 Telephone [facility] [place] [place] [address] Viviana Jasmine DO Recall Letter (Recall Letter sent 08/15/24,) 08/12/2024 Refill [facility] [place] [address] Viviana Jasmine DO Failure to thrive in adult 08/01/2024 Telephone [facility] MED[facility] [address] [facility] [place] [address] Viviana Jasmine DO [facility] (Boost, vanilla 8 oz ()) 07/24/2024 Telephone [facility] [place] [place] [address] Viviana Jasmine DO Referral 07/17/2024 Telephone [facility] [address] [facility] [place], [place] [phone] Viviana Jasmine DO [facility] (Underpad, incont Procare 21x36) 07/17/2024 Telephone [facility] [address] [place] [address] Viviana Jasmine DO [employer] [facility] (Boost, Very Vanilla 8oz (24/cs)) 07/16/2024 Telephone [facility] [address] [place], [place] [phone] Viviana Jasmine DO [facility]cessity (Underpad, INCONT. REUSE CTN FACE IND PK) from Last 3 Months Immunizations Name Administration [...] Info) Description 10/25/2024 11:15 AM EDT Telemedicine [facility] [address] [place], [place] [phone] Viviana Jasmine DO [address] [place] [address] Health Maintenance Due Date Last Done Comments Alcohol/Substance Use Screening 1952 RSV Patients and Patients Aged 60 years or older (1 - 1-dose 75+ series) 2015 DTaP/Tdap/Td Vaccines (2 - Td or Tdap) 08/23/2022 08/23/2012, 10/08/2010, 05/07/1997 COVID-19 Vaccine ( - season) 2024 04/22/2022, 01/10/2022, 08/27/2020, Additional history [...] EDT Narrative 10/02/2024 12:56 PM EDT ? [facility] ?[address] ?[place] [address] ? CT Scan Report ? Signed ? Patient: Trujillo,Justine ?MR#: [id number] ?? 015 ? : 1940 ?Acct:[id number] ? Age/Sex: 84 / F ?ADM Date: 10/02/24 ? Loc: HO.ED ? Attending Dr: ? Ordering Physician: Bunny Boyle MD ?? Date of Service: 10/02/24 ?? Procedure(s): CT cervical spine wo IV con ?? Accession Number(s): [id number] ? cc: Bunny Boyle MD; Viviana Jasmine DO ? Report Number: ?? [id number]: Total DLP = ??576.40 mGy-cm ?? EXAMINATION: [...] DD/ 1213 ? TD/TT: 10/02/24 1241 ? Collector Of Aquarium Specimens: ? Procedure Note Karina Albert - 10/02/[address] [address] [address] Scan Report Signed Patient: Rich Trujillo#: [id number] 015 : 1Acct:[id number] Age/Sex: 84 / FADM Date: 10/02/24 Loc: HO.ED Attending Dr: Ordering Physician: Bunny Boyle MD Date of Service: 10/02/24 Procedure(s): CT cervical spine wo IV con Accession Number(s): [id number] cc: Bunny Boyle MD; Viviana Jasmine DO Report Number: [id number]: Total DLP = 576.40 mGy-cm EXAMINATION: CT [...] Beal MD Signed By: <Electronically signed by Yaw Beal MD in OV> 10/02/24 1253 DD/ 1213 TD/TT: 10/02/24 1241 Collector Of Aquarium Specimens: [facility] External Provider IMG CT PROCEDURES Final Result * CT Head w/o Contrast (10/02/2024 11:32 AM EDT) Anatomical Region Laterality Modality Head, Neck Computed Tomogra phy 10/02/2024 11:3 2 AM EDT Narrative 10/02/2024 12:55 PM EDT ? [facility] ?[address] ?[place] [address] ? CT Scan Report ? Signed ? Patient: Justine Trujillo ?MR#: [id number] ?? 015 ? : 1940 ?Acct:[id number] ? Age/Sex: 84 / F ?ADM Date: 10/02/24 ? Loc: HO.ED ? Attending Dr: ? Ordering Physician: Bunny Boyle MD ?? Date of Service: 10/02/24 ?? Procedure(s): CT head/brain wo IV con ?? Accession Number(s): [id number] ? cc: Bunny Boyle MD; Viviana Jasmine DO ? Report Number: ?? [id number]: Total DLP = ??815.10 mGy-cm ?? EXAMINATION: [...] ?? maxillofacial bones are excluded from the zlkhi-xt-rlcg. ?? There is prominence of the extra-axial [...] DD/ 1132 ? TD/TT: 10/02/24 1241 ? Collector Of Aquarium Specimens: ? Procedure Note [place], Image - 10/02/[address] [address] [address] Scan Report Signed Patient: Rich Trujillo#: [id number] 015 : 1940cct:[id number] Age/Sex: 84 / FADM Date: 10/02/24 Loc: HO.ED Attending Dr: Ordering Physician: Bunny Boyle MD Date of Service: 10/02/24 Procedure(s): CT head/brain wo IV con Accession Number(s): [id number] cc: Bunny Boyle MD; Viviana Jasmine DO Report Number: [id number]: Total DLP = 815.10 mGy-cm EXAMINATION: CT [...] the maxillofacial bones are excluded from the zfplg-ra-tsgq. There is prominence of the extra-axial CSF [...] 10/02/24 1252 DD/ 1132 TD/TT: 10/02/24 1241 Collector Of Aquarium Specimens: [facility] External Provider IMG CT PROCEDURES Final Result from Last 3 Months Insurance MEDICARE Member Subscriber Plan / Payer (Ef fective 2022-Present) Name:Ronnie Justine Member ID:[id number] Relation to Subscriber:Self Name:Justine Trujillo Subscriber ID:[id number] Payer ID:[id number] Group ID:Not on file Type:Medicare Address: [facility] [address] [id number] [facility] * Guarantor: Trujillo, Jsutine Account Type Relation to Patient Date of Phone Billing Address Personal/Family Self [address] [place] [address] * Guarantor: Justine Trujillo Account Type Relation to Patient Date of Phone Billing Address Personal/Family Self [address] [place] [address] Advance Directives Documents on File Type Date Recorded Patient Associate Professor Of Automation Expl anation HealthCare Proxy 04/18/2024 3:49 PM HCP F orm Advance Directives and Living Will 04/15/2024 12:22 PM HCP Form Active Care Teams Software Asset Manager Relationship Specialty Start Date End Date Viviana Jasmine DO [address] [place] [address] PCP - General Family Medicine 04/10/13
--- OUTSIDE RECORDS SUMMARY | 2024-10-12 11:40 | XMS_ITS | Encounter Summary ---
Author Organization [employer] Address 75 [facility] 7t [place] [address] Care Team Providers Care Rod Piler Name Role Phone Viviana Jasmine DO Primary Care Provider + [phone] Reason for Visit * Reason Onset Date Comments Appointment Request 05/09/2023 Encounter Details Date Type Department Care Team ([facility] Contact Info) Description 05/09/2023 Telephone [facility] MEDICINE [address] [place] [address] Viviana Jasmine DO [address] [place] [address] Appointment Request Social History Tobacco Use Types [...] televisit appt with PCP, please call Audrey [phone] documented in this encounter Plan of Treatment Upcoming Encounters Date Type Department Care Team (Late st Contact Info) Description 10/25/2024 11:15 AM EDT Telemedicine [facility] MEDICINE [address] [place] [address] Viviana Jasmine DO [address] [place] [address] documented as of this encounter Visit Diagnoses Not on filedocumented in this encounter Care Teams Rod Piler Relationship Specialty Start Date End Date Viviana Jasmine DO [address] [place] [address] PCP - General Family Medicine 04/10/13 documented as of this encounter
--- OUTSIDE RECORDS SUMMARY | 2024-10-12 11:40 | XMS_ITS | Encounter Summary ---
Author Organization [employer] Address 75 [facility] 7t [place] [address] Care Team Providers Care Tentering Machine Off Bearer Name Role Phone Viviana Jasmine DO Primary Care Provider [phone] Reason for Visit * Reason Onset Date Comments Med Refill 09/17/2023 Encounter Details Date Type Department Care Team (Late st Contact Info) Description 09/17/2023 Refill [facility] MEDICINE [address] [place] [address] Viviana Jasmine DO 230 [place], [place] [phone] Social History Tobacco Use Types Packs/Day Years [...] 10/25/2024 11:15 AM EDT Telemedicine [facility] MEDICINE [address] [place] [address] Viviana Jasmine DO [address] [place] [address] documented as of this encounter Visit Diagnoses Not on filedocumented in this encounter Additional Health Concerns Assessment Noted Time PHQ-9 Depression Total Score: 0 06/05/20 23 2:19 PM EST documented as of this encounter Care Teams Tentering Machine Off Bearer Relationship Specialty Start Date End Date Viviana Jasmine DO [address] [place] [address] PCP - General Family Medicine 04/10/13 documented as of this encounter
--- OUTSIDE RECORDS SUMMARY | 2024-10-12 11:40 | XMS_ITS | Encounter Summary ---
Author Organization [employer] Address 75 [facility] 7t [place] [address] Care Team Providers Care Rehab Rn Name Role Phone Viviana Jasmine DO Primary Care Provider [phone] Reason for Visit * Reason Onset Date Comments Med Refill 09/22/2023 Encounter Details Date Type Department Care Team (Late st Contact Info) Description 09/22/2023 Refill [facility] [address] [place] [address] Viviana Jasmine DO 230 [facility] [place] [address] Social History Tobacco Use Types Packs/Day Years [...] AM EDT Telemedicine [facility] MEDICINE [address] [place] [address] Viviana Jasmine DO [address] [place] [address] documented as of this encounter Visit Diagnoses Not on filedocumented in this encounter Additional Health Concerns Assessment Noted Time PHQ-9 Depression Total Score: 0 06/05/20 23 2:19 PM EST documented as of this encounter Care Teams Rehab Rn Relationship Specialty Start Date End Date Viviana Jasmine DO [address] [place] [address] PCP - General Family Medicine 04/10/13 documented as of this encounter
--- OUTSIDE RECORDS SUMMARY | 2024-10-12 11:40 | XMS_ITS | Clinical Summary ---
Author Organization [facility] Address [address] [address] Care Team Providers Care Canvas Shrinker Name Role Phone Viviana Jasmine DO Primary [...] Medicaid [place] Care Teams Canvas Shrinker Relationship Specialty Start Date End Date Viviana Jasmine DO PCP - General Family Medicine 08/09/21
--- OUTSIDE RECORDS SUMMARY | 2024-10-12 11:40 | XMS_ITS | Encounter Summary ---
Author Organization [employer] Address 75 [facility] 7t [place] [address] Care Team Providers Care Stapler Coil Unit Name Role Phone Vivaina Jasmine DO Primary Care Provider Encounter Details Date Type Department Care Team (Late st Contact Info) Description 05/09/2023 Telephone [facility] MEDICINE [address] [place] [address] Viviana Jasmine DO [address] [place] [address] Social History Tobacco Use Types Packs/Day Years [...] 11:15 AM EDT Telemedicine [facility] MEDICINE [address] [place] [address] Viviana Jasmine DO [address] [place] [address] documented as of this encounter Visit Diagnoses Not on filedocumented in this encounter Care Teams Stapler Coil Unit Relationship Specialty Start Date End Date Viviana Jasmine DO [address] [place] [address] PCP - General Family Medicine 04/10/13 documented as of this encounter
--- OUTSIDE RECORDS SUMMARY | 2024-10-12 11:40 | XMS_ITS | Encounter Summary ---
Author Organization [employer] Address 75 [facility] 7t [place] [address] Care Team Providers Care Drop Hammer Setter Up Name Role Phone Viviana Jasmine DO Primary Care Provider [phone] Reason for Visit * Reason Onset Date Comments Durable Medical Equipment 07/11/2022 Encounter Details Date Type Department Care Team (Late st Contact Info) Description 07/11/2022 Telephone [facility] MEDICINE [address] [place] [address] Viviana Jasmine DO [address] [place], [place] [phone] Durable Medical Equipment Social History Tobacco Use [...] granddaughter if any questions or concerns at [phone] documented in this encounter Plan of Treatment Upcoming Encounters Date Type Department Care Team (Late st Contact Info) Description 10/25/2024 11:15 AM EDT Telemedicine [facility] MEDICINE [address] [place], [place] [phone] Viviana Jasmine DO [address] [place] [address] documented as of this encounter Visit Diagnoses Not on filedocumented in this encounter Care Teams Drop Hammer Setter Up Relationship Specialty Start Date End Date Viviana Jasmine DO [address] [place] [address] PCP - General Family Medicine 04/10/13 documented as of this encounter
[2024-10-12 11:48] LABS: MANUAL DIFF FLAG NO
[2024-10-12 11:50] LABS: Basophils Percent Auto 0.2 % (0-2); Eosinophils Absolute Auto 0.1 X10*3/uL (0.0-0.4); Eosinophils Percent Auto 1.1 % (0-4); Hemoglobin 12.7 g/dl (12.0-16.0); Imm Gran Abs Auto 0.03 X10*3/uL (0.00-0.03); Imm Gran Pct Auto 0.4 % (0.0-0.4); Lymphocytes Absolute Auto 2.6 X10*3/uL (1.2-4.9); Lymphocytes Percent Auto 30.9 % (20-40); Mean Corpuscular HGB Conc 32.6 g/dl (31.0-35.0); Mean Corpuscular Hemoglobin 29.7 pg (27.0-33.0); Mean Corpuscular Volume 91.1 fL (80.0-98.0); Mean Platelet Volume 8.8 fL (9.4-12.3); Monocytes Absolute Auto 0.4 X10*3/uL (0.1-1.2); Monocytes Percent Auto 4.3 % (2-11); Neutrophils Absolute Auto 5.4 x10*3/uL (2.0-8.3); Neutrophils Percent Auto 63.1 % (45-73); Platelet Count 330 X10*3/uL (160-400); Red Blood Count 4.28 X10*6/uL (4.20-5.50); Red Cell Distribution Width 13.2 % (11.0-16.0); White Blood Count 8.5 X10*3/uL (4.8-10.8)
[2024-10-12 12:00] VITALS: BP 110/62; PULSE 84; RESP 16; TEMP 36.3; O2SAT 99
[2024-10-12 12:03] LABS: Anion Gap 16 (12-20); Blood Urea Nitrogen 14 mg/dL (9-16); Calcium 9.3 mg/dL (8.4-10.2); Carbon Dioxide 23 mmol/L (22-29); Chloride 104 mmol/L (96-108); Creatinine Clr Calc Pharmacy 46.8; Estimated Glomerular Filt Rate > 60; Glucose Random 123 mg/dL (60-115); Potassium 4.1 mmol/L (3.3-5.1); Sodium 139 mmol/L (135-145)
--- NOTE | 2024-10-12 12:13 | ED_ITS ---
HPI - URI/Sore Throat General Chief Complaint: General Medical Stated Complaint: COUGH Time Seen by Provider: 10/12/24 11:10 Source: family, EMS and other (granddaughter) Mode of arrival: EMS Limitations: altered mental status History of Present Illness ED Provider: Yennifer Sam APRN HPI Narrative: 84 year-old female with PMHx of Dementia (non-verbal), aspiration pneumonia, seziures, presents to the ED by ambulance with concern for increase secretions from family. Granddaughter is at bedside and acting as historian as patient is non-verbal. She explains the patient had a fall and was seen in the ED last Monday (10/02) and she began noticing increased secretions and gurgling that started a few days after the fall. She reports she noticed an increase work of breathing from the patient last night and this morning. She has been monitoring oral temperature and has not noted any fevers. She does note the patient has had a chronic cough since February 2024. Family has not noted any fever, vomiting, diarrhea, change in behavior. Family does do her feeding which include pureed food and thickened liquids. Related Data Home Medications ?Medication ?Instructions ?Recorded ?Confirmed multivitamin (Daily-Kimberley tablet) 1 tab PO DAILY 11/18/20 03/04/24 acetaminophen 160 mg/5 mL oral 15 ml PO Q6H PRN fever 09/25/21 03/04/24 liquid (Silapap) white petrolatum 42 % topical 1 appl topical DAILY PRN Dry Skin 03/04/24 03/04/24 ointment Previous Rx's ?Medication ?Instructions ?Recorded divalproex 125 mg capsule,delayed 250 mg (2 x 125 mg) PO BID #120 03/07/24 release sprinkle caps ferrous sulfate 324 mg (65 mg 324 mg PO BID #120 tabs 03/07/24 iron) tablet,delayed release Allergies Allergy/AdvReac Type Severity Reaction Status Date / Time aspirin [ASPIRIN] Allergy Unknown UNKNOWN Verified 10/12/24 11:08 ibuprofen [IBUPROFEN] Allergy Unknown SWELLING Verified 10/12/24 11:08 Review of Systems 2 Review of Systems: ROS is limited as patient has underlying history of dementia and is nonverbal Information obtained from granddaughter at bedside Yes Unobtainable due to mental status Constitutional: Constitutional: Reports no additional constitutional complaints and Denies fever(s) Eyes: Eyes: Reports no additional eye complaints and Denies eye discharge ENT: Reports system reviewed and no additional complaints, except as documented, Denies nasal congestion and Denies nasal discharge Cardiovascular: Cardiovascular: Reports no additional cardiovascular complaints, Denies leg edema and Denies dyspnea Respiratory: Respiratory: Reports no additional respiratory complaints, Reports cough, Denies dyspnea and Reports other (increased secretions) Gastrointestinal: Gastrointestinal: Reports no additional gastrointestinal complaints, Denies diarrhea and Denies vomiting Genitourinary: Genitourinary: Reports no additional female genitourinary complaints Musculoskeletal: Musculoskeletal: Reports no additional musculoskeletal complaints and Denies joint swelling Integumentary/Breasts: Skin/Breast: Reports system reviewed and no additional complaints, except as docu and Denies rash Neurologic: Reports system reviewed and no additional complaints, except as documented and Reports confusion Psychiatric: Psychiatric: Reports confusion [facility]LY [facility] Past Medical History Attestation statement: The following information was validated with the patient. (granddaughter at bedside ) Source: old records reviewed, obtained from family and nursing notes reviewed Medical History Hypernatremia Aspiration pneumonia Failure to thrive in adult Asthma Alzheimer disease Social History Social History Household Members: Family Housing: Apartment Do you presently have visiting nurse or other home services: Yes Unable to assess alcohol history related to: Unable to respond Alcohol intake: never Patient Tobacco Use Status: Never used Tobacco Smoked in Last 30 Days: No Use of substances other than those prescribed or required for medical reasons: No Advance Directives: No Advance Directives Information Provided: No Advance Directives Date on File: 08/05/21 Do you have a plan to hurt others: No Plan service: No Current occupational status: retired Physical Exam 2 Vital Signs: Vital Signs: Last Vital Signs Temp 97.4 F 10/12/24 13:49 Pulse 93 10/12/24 13:49 Resp 20 10/12/24 13:49 BP 125/78 10/12/24 13:49 Pulse Ox 98 10/12/24 13:49 O2 Del Method Room Air 10/12/24 13:49 BMI result Body Mass Index 21.1 Const: General: no acute distress, alert and confusion O rientation/consciousness: confusion Limitations: altered mental status HEENT: Head: Yes normal to inspection Head images: 1. healing incision with stitches present General nose exam: Normal external nose present Face and sinus: Yes normal facial exam Mouth: Normal oral and palatal mucosa present Throat: Yes posterior oropharynx normal, Yes tonsils normal and Yes uvula midline Eyes: General: appearance normal, both eyes and all related structures P upils: Equal, round and reactive pupils present Neck: Neck: Yes normal visual inspection, Yes no lymphadenopathy and Yes no meningeal signs Chest: Chest palpation & inspection: normal inspection of the chest Resp: Effort & Inspection: normal respiratory effort Auscultation: clear to auscultation bilaterally Cardio: Rate: regular rate Rhythm: regular rhythm Peripheral pulses: P eripheral pulses 2+ throughout GI: Inspection: Yes normal to inspection Palpation (GI): Soft to palpation and nontender Back/Spine/Pelvis: Thoracic/Lumbar Spine: thoracic and lumbar spine normal to inspection Skin: General skin exam: no rashes or lesions noted Neuro: General: no meningeal signs and confusion Cranial nerves: Yes Equal, round and reactive pupils present Extrem: General: Yes normal to inspection Medical Decision Making Medical Decision Making MDM Narrative: 84 year-old female with PMHx of Dementia (non-verbal), aspiration pneumonia, seziures, presents to the ED by ambulance with concern for increase secretions from family. Granddaughter is at bedside and acting as historian as patient is non-verbal. She explains the patient had a fall and was seen in the ED last Monday (10/02) and she began noticing increased secretions and gurgling that started a few days after the fall. She reports she noticed an increase work of breathing from the patient last night and this morning. She has been monitoring oral temperature and has not noted any fevers. She does note the patient has had a chronic cough since February 2024. Family has not noted any fever, vomiting, diarrhea, change in behavior. Family does do her feeding which include pureed food and thickened liquids. Patients vital signs unremarkable. She has altered mental status and non verbal at baseline per family. She is in no acute distress and non-toxic appearing. Normal physical exam, no changes from baseline. Will obtain labs, chest x-ray, viral testing Differential Diagnosis Differential Diagnoses: The differential diagnosis associated with the presentation includes viral illness, aspiration pneumonia, failure to thrive, electrolyte derangement Admission/Observation Consideration of admission/observation: Escalation of care including admission/observation considered Patient has no clinical findings concerning for aspiration pna, vital signs are stable, chest X-ray show no signs of pneumonia. No need for admission will plan to discharge home Lab Data MDM Lab Attestation statement: I reviewed the patient's lab results. 10/12/24 11:44 10/12/24 11:44 Labs: Lab Results 10/12/24 Range/Units 11:44 WBC 8.5 (4.8-10.8) X10*3/uL RBC 4.28 (4.20-5.50) X10*6/uL Hgb 12.7 (12.0-16.0) g/dl Hct 39.0 (37.0-47.0) % MCV 91.1 (80.0-98.0) fL MCH 29.7 (27.0-33.0) pg MCHC 32.6 (31.0-35.0) g/dl RDW 13.2 (11.0-16.0) % Plt Count 330 (160-400) X10*3/uL MPV 8.8 L (9.4-12.3) fL Immature Gran % (Auto) 0.4 (0.0-0.4) % Neut % (Auto) 63.1 (45-73) % Lymph % (Auto) 30.9 (20-40) % [place] % (Auto) 4.3 (2-11) % Eos % (Auto) 1.1 (0-4) % Baso % (Auto) 0.2 (0-2) % Lymph # (Auto) 2.6 (1.2-4.9) X10*3/uL [place] # (Auto) 0.4 (0.1-1.2) X10*3/uL Eos # (Auto) 0.1 (0.0-0.4) X10*3/uL Baso # (Auto) 0.0 (0.0-0.2) X10*3/uL Abs Immat Gran (auto) 0.03 (0.00-0.03) X10*3/uL Absolute Neuts (auto) 5.4 (2.0-8.3) x10*3/uL Absolute Nucleated RBC 0.000 (0.0-0.012) X10*3/uL Nucleated RBC % (auto) 0.0 (0.0-0.2) /100WBC Sodium 139 (135-145) mmol/L Potassium 4.1 (3.3-5.1) mmol/L Chloride 104 (96-108) mmol/L Carbon Dioxide 23 (22-29) mmol/L Anion Gap 16 (12-20) BUN 14 (9-16) mg/dL Creatinine 0.61 (0.5-1.4) mg/dL Estim Creat Clear Calc 46.8 Estimated GFR > 60 Random Glucose 123 H (60-115) mg/dL Calcium 9.3 D (8.4-10.2) mg/dL Influenza Type A (PCR) NEGATIVE (Negative) Influenza Type B (PCR) NEGATIVE (Negative) RSV RNA Qual (PCR) NEGATIVE (Negative) SARS-CoV-2 RNA (RT-PCR) NEGATIVE (Negative) Independent Interpretation I performed an independent interpretation of an: Plain X-Ray Interpretation: I have independently reviewed the X-ray and agree with radiology report. Radiology Impression Discussion of test interpretation with radiology: I have reviewed the radiologist's reading. Radiologist Impression: 1 view chest Comparison: CR/MA/SR - XR CHEST 1V - 10/02/24 12:05 EDT CR/SR - XR CHEST 1V - 03/04/24 13:28 EDT Findings: Low inspiration. Resultant mild vascular crowding centrally with subsegmental atelectasis. No consolidation or pneumothorax/effusion. Mild bronchial wall thickening. Heart size normal. No evidence of heart failure. Unfolding of the thoracic aorta stable with mild tracheal deviation to the right. No acute fractures. Chronic rotator cuff pathology more so on the right Impression: 1. Low inspiration with central vascular crowding and subsegmental atelectasis. 2. Mild bronchial wall thickening. This document has been electronically signed by: Coy Pop MD on 10/12/2024 12:52:22 Independent Historian Clinical information obtained from an independent historian. History obtained from or confirmed by: Other (granddaughter at bedside ) External Record Review External record reviewed: Inpatient record and Outpatient record Tests considered The following testing was considered but not selected: CT chest is not needed as there are no concerns for PE, occult pneumonia, Prescription Management I considered prescription management with: Antibiotic Chronic Conditions Patient?s care impacted by: Other (dementia, seizures) Procedures Procedure Narrative Procedure Narrative: 4 stitches removed from right temporal area, incisions are well approximated, no signs of infection, patient tolerated well Discharge Plan Discharge Clinical Impression: Visit for suture removal, Chronic cough Patient Disposition: Home, Self-Care Instructions: Chronic Cough (ED), Stitches Removal (ED) Additional Instructions: Return for behavior change, fever, difficulty breathing Prescriptions: No Action multivitamin [Daily-Kimberley] Tablet 1 tab PO DAILY acetaminophen [Silapap] 160 mg/5 mL liquid 15 ml PO Q6H PRN (Reason: fever) white petrolatum 42 % ointment 1 appl topical DAILY PRN (Reason: Dry Skin) divalproex 125 mg Capsule, Delayed Rel Sprinkle 250 mg PO BID Qty: 120 0RF ferrous sulfate 324 mg (65 mg iron) tablet,delayed release (DR/EC) 324 mg PO BID Qty: 120 0RF Referrals: Viviana Jasmine DO [Primary Care Provider] - 1 week Interventions: ED Discharge Assessment Last Done: 10/12/24 13:49 Discharge Date/Time: 10/12/24 14:02 Print Language: [place]
[2024-10-12 12:31] LABS: Influenza A PCR NEGATIVE (Negative); Influenza B PCR NEGATIVE (Negative); Resp Syncy Virus RNA Qual PCR NEGATIVE (Negative); SARS COV2 PCR INHOUSE NEGATIVE (Negative)
[2024-10-12 13:49] VITALS: BP 125/78; PULSE 93; RESP 20; TEMP 36.3; O2SAT 98
== END 2024-10-12 14:02 | disposition home or self-care (01) ==
PROVIDERS: Nurse Practitioner Family; Emergency Provider Emergency Medicine; PCP Family Medicine
DX: R05.9 Cough, unspecified (principal); Z48.02 Encounter for removal of sutures; Z03.818 Encounter for observation for suspected exposure to other biological agents ruled out; Z79.899 Other long term (current) drug therapy
CPT/HCPCS: 0241U; 36415; 71045; 80048; 85025; 99283; 99284

== ENCOUNTER → 2024-10-12 11:30 | Outpatient (BNV) | payer MEDICARE, MEDICAID, SELFPAY | PROVIDERS: Emergency Provider Emergency Medicine; PCP Family Medicine; Visit Provider Radiology Diagnostic Radiology | DX: J98.11 Atelectasis (principal) | CPT/HCPCS: 71045 ==

== ENCOUNTER 2024-11-16 15:13 | Inpatient (IN) | payer MEDICARE, MEDICAID, SELFPAY ==
[2024-11-16] VITALS (15 sets, daily range): BP systolic 91–124; BP diastolic 49–68; PULSE 98–140; RESP 14–42; TEMP 37.4–37.7; O2SAT 90–100; BMI 15.6
--- NOTE | 2024-11-16 | ECG_ITS ---
Test Reason : TACHYCARDIA Blood Pressure : */* mmHG Vent. Rate : 123 BPM Atrial Rate : 123 BPM P-R Int : 152 ms QRS Dur : 78 ms QT Int : 328 ms P-R-T Axes : 83 -75 70 degrees QTcB Int : 469 ms Sinus tachycardia Left anterior fascicular block Abnormal ECG When compared with ECG of 04-Mar-2024 12:20, Vent. rate has increased by 43 bpm Left anterior fascicular block is now Present ST no longer elevated in Inferior leads Referred By: Melissa Redd Electronically Signed By: JESICA RIVAS MD
--- NOTE | ~2024-11-16 | CT_ITS ---
CLINICAL HISTORY: tachy, SOB, r o PE CT angiography chest with contrast. 3D Postprocessing. Comparison: CR - XR CHEST 1V - 11/16/24 15:59 EDT Findings: The heart is normal size. RV/LV ratio is normal. Unremarkable thoracic aorta and great vessels. No aneurysm. No large or central pulmonary artery embolus. Segmental pulmonary arteries not well visualized secondary to motion artifact. Degenerative changes of the thoracic spine. No acute fracture deformity. The visualized thyroid and mediastinum are unremarkable. Subpleural reticular opacities with a basilar predominance present in both lungs. There are patchy areas of ground-glass opacity in the left lower lobe. The visualized upper abdomen is unremarkable. No acute fractures. IMPRESSION: 1. No large or central pulmonary artery embolus. Segmental pulmonary arteries not well visualized secondary to motion artifact. 2. Ill-defined ground-glass opacities in the left lower lobe raising concern for infection. 3. Subpleural reticular opacities with a basilar predominance, differential includes atelectasis versus fibrotic interstitial lung disease. Motion artifact limits detail. This document has been electronically signed by: Julio Sandoval MD on 11/16/2024 19:58:32
--- NOTE | ~2024-11-16 | XR_ITS ---
CLINICAL HISTORY: sob, rhonchi 1 view chest x-ray Comparison: CR - XR CHEST 1V - 10/12/24 12:06 EDT Findings: Small calcified granuloma within the right upper lobe. No consolidation. Mild elevation of the left hemidiaphragm. Prominent interstitial markings within the bilateral lower lungs. Heart size is normal. No acute fracture. IMPRESSION: 1. Prominent interstitial markings within the bilateral lower lungs may be chronic and/or secondary to a poor inspiratory effort but interstitial infiltrates or edema are not excluded. 2. Mildly elevated left hemidiaphragm. This document has been electronically signed by: Jessica Irby MD on 11/16/2024 17:17:50
--- NOTE | ~2024-11-16 | CT_ITS ---
CLINICAL HISTORY: white count, UTI, septic CT abdomen and pelvis with contrast Comparison: None Findings: Please see same-day CT for discussion of lung bases. The liver, gallbladder, spleen, pancreas, kidneys and adrenal glands are normal in appearance. No bowel obstruction, pneumoperitoneum, or pneumatosis. Normal appendix. Normal appendix. Uterus and adnexa are unremarkable. There is some contrast material layering within the left urinary bladder. Acetabular protrusio of the left acetabulum, and to a lesser degree the right acetabulum. There are bilateral L5 pars defects with grade 2 spondylolisthesis. Chronic appearing compression deformities at L2 and L4. IMPRESSION: No acute findings. This document has been electronically signed by: Julio Sandoval MD on 11/16/2024 20:05:35
--- NOTE | 2024-11-16 15:21 | ECG_ITS ---
Test Reason : TACHYCARDA Blood Pressure : */* mmHG Vent. Rate : 137 BPM Atrial Rate : 137 BPM P-R Int : 122 ms QRS Dur : 76 ms QT Int : 304 ms P-R-T Axes : 81 -50 62 degrees QTcB Int : 459 ms Sinus tachycardia Left anterior fascicular block Abnormal ECG When compared with ECG of 16-Nov-2024 15:44, No significant change was found Referred By: Melissa Redd Electronically Signed By: JESICA RIVAS MD
--- NOTE | 2024-11-16 15:23 | ED.GENADULT ---
HPI - General Adult General Chief complaint: Dyspnea Stated complaint: sepsis , so , lethargic , duo neb given Time Seen by Provider: 11/16/24 15:17 Source: family (daughter) and EMS Mode of arrival: EMS Limitations: other (nonverbal - dementia) History of Present Illness ED Provider: MELISSA REDD PA-C HPI narrative: 84 year old female with dementia (non-verbal), aspiration pneumonia, seizures presents to the ED today via EMS from home for evaluation of difficulty breathing. Per EMS, they responded to a call of a female having difficulty breathing. On arrival, patient was obviously in respiratory distress, tachypneic. She was noted to be 85% on room air, placed on DuoNeb with improvement to 92%. Daughter is now at bedside. She reports receiving a call while at work from a family member who was at home with patient. They informed her that patient all of a sudden began gasping for air this afternoon. Patient is nonverbal at baseline and was unable to answer further questions. Daughter states that patient was well-appearing yesterday, eating normally, acting baseline. Daughter has provided MOLST form - patient is DNR/DNI. Related Data Home Medications ?Medication ?Instructions ?Recorded ?Confirmed multivitamin (Daily-Kimberley tablet) 1 tab PO DAILY 11/18/20 03/04/24 acetaminophen 160 mg/5 mL oral 15 ml PO Q6H PRN fever 09/25/21 03/04/24 liquid (Silapap) white petrolatum 42 % topical 1 appl topical DAILY PRN Dry Skin 03/04/24 03/04/24 ointment Previous Rx's ?Medication ?Instructions ?Recorded divalproex 125 mg capsule,delayed 250 mg (2 x 125 mg) PO BID #120 03/07/24 release sprinkle caps ferrous sulfate 324 mg (65 mg 324 mg PO BID #120 tabs 03/07/24 iron) tablet,delayed release Allergies Allergy/AdvReac Type Severity Reaction Status Date / Time aspirin [ASPIRIN] Allergy Unknown UNKNOWN Verified 11/16/24 15:19 ibuprofen [IBUPROFEN] Allergy Unknown SWELLING Verified 11/16/24 15:19 Review of Systems Review of Systems: Yes Unobtainable due to mental condition (dementia) PMFSH Past Medical History Attestation statement: The following information was validated with the patient. Source: old records reviewed and nursing notes reviewed Medical History Hypernatremia Aspiration pneumonia Failure to thrive in adult Asthma Alzheimer disease Social History Social History Household Members: Family Housing: Apartment Do you presently have visiting nurse or other home services: Yes Unable to assess alcohol history related to: Unable to respond Alcohol intake: former Patient Tobacco Use Status: Never used Tobacco Smoked in Last 30 Days: No Use of substances other than those prescribed or required for medical reasons: No Advance Directives: Yes Advance Directives on File: Yes Advance Directives Date on File: 08/05/21 service: No Current occupational status: retired Physical Exam ED Vital Signs: Vital Signs - 24 hr 11/16/24 15:51 11/16/24 16:55 11/16/24 17:16 Temperature 99.8 F Pulse Rate 125 H 117 H Respiratory Rate 42 H 41 H 33 H Blood Pressure 106/65 Pulse Oximetry 96 Oxygen Delivery Method Oxymizer Oxygen Flow Rate 15 11/16/24 17:43 11/16/24 17:46 11/16/24 18:00 Temperature 99.4 F 99.4 F Pulse Rate 138 H 133 H Respiratory Rate 14 24 H Blood Pressure 122/58 L 107/55 L Pulse Oximetry 98 96 Oxygen Delivery Method High Flow Nasal Cannula Oxymask Oxygen Flow Rate 2 11/16/24 18:08 11/16/24 19:30 11/16/24 19:30 Temperature 99.8 F 99.8 F Pulse Rate 136 H 121 H Respiratory Rate 22 H Blood Pressure 113/49 L 118/61 Pulse Oximetry 96 97 Oxygen Delivery Method High Flow Nasal Cannula Oxymask Oxygen Flow Rate 2 7 11/16/24 19:58 Temperature Pulse Rate 107 H Respiratory Rate 17 Blood Pressure Pulse Oximetry 100 Oxygen Delivery Method Oxymask Oxygen Flow Rate 4 BMI result Body Mass Index 15.6 Tachypneic, tachycardic, low-grade temp General: chronically ill-appearing, cachectic, contracted Skin: Warm, dry, intact. No rashes or lesions. Head: Normocephalic, atraumatic. EENT: Hearing is intact b/l. Conjunctiva clear. PERRLA. EOM intact. Dry mucous membranes. Neck: Supple without LAD Cardiac: Chest wall symmetric. tachycardic, regular rhythm Lungs: tachypneic, increased effort of breathing, diffuse rhonchi Abdomen: Soft, non-tender, non-distended. No rebound tenderness or guarding Back: no midline spinous or paraspinal tenderness. No step off deformity. Ext: contracted extremities, global muscular atrophy. No peripheral edema Neuro: nonverbal Course Course Course Narrative: 1603 -- Leukocytosis to 15.9 with left shift. No anemia. H&H stable. Chemistry without acute electrolyte abnormality requiring intervention. BUN mildly elevated at 18 with normal creatinine. Random glucose 146, not hypoglycemic. Liver function around baseline. Trop WNL at 5.1 however given onset of symptoms and timing to presentation, will repeat for delta. BNP WNL at 56, no concern for fluid overload. VBG WNL. CXR, viral swabs, UA pending. > received critical lactic of 4. This may be attributable to breathing treatment en route however I do have concern for sepsis. patient meets SIRS criteria - sepsis protocol initiaed. > 30 cc fluid bolus ordered. Ceftriaxone and azithromycin running. Blood culture sent. > low-grade rectal temp at 99.8?. IV Tylenol ordered. > respiratory therapy at bedside. Will do chest physiotherapy/suction, possibly high-flow given tachypnea 1740 -- called to bedside by RN as patient is becoming more tachycardic. Now 140s. Repeat EKG obtained. Patient appears unwell, still tachypneic on high-flow. > urine acutely infected. Zosyn added. Will add on CT AP with contrast to rule out intra-abdominal pathology. > chest x-ray showing prominent interstitial markings within bilateral lower lungs, question chronic/secondary to poor inspiration. Interstitial infiltrate/edema can not be excluded. Mildly elevated left hemidiaphragm. CT angio chest ordered to r/o PE v PNA. > discussed case with my attending dr. pepe who will be evaluating patient at bedside. > sepsis focused exam performed. 1752 -- sign out given to my attending dr. pepe pending imaging, disposition. anticipate admission. Medications Administered Generic Name Dose Route Start Last Admin Trade Name Freq PRN Reason Stop Dose Admin Albuterol/Ipratropium 3 ml 11/16/24 20:30 11/16/24 20:37 Albuterol/Iprat 2.5/0.5mg 3 Ml Ampul.Neb INHALE 3 ml Q4H WILLIAM Administration Budesonide 0.5 mg 11/16/24 20:29 11/16/24 20:37 Budesonide 0.5 Mg/2 Ml Ampul.Neb INHALE 0.5 mg RBID WILLIAM Administration Enoxaparin Sodium 40 mg 11/16/24 21:00 11/16/24 20:51 Enoxaparin Sodium 40 Mg/0.4 Ml Syringe SUBCUT 40 mg Q24H WILLIAM Administration Sodium Chloride 1,000 mls @ 100 mls/hr 11/16/24 20:30 11/16/24 20:37 Ns IVCONT 100 mls/hr .Q10H WILLIAM Administration Acetaminophen 1,000 mg in 100 mls @ 400 mls/hr 11/16/24 23:00 11/16/24 22:07 Ofirmev IV 400 mls/hr Q6H WILLIAM Administration Discontinued Medications Generic Name Dose Route Start Last Admin Trade Name Freq PRN Reason Stop Dose Admin Ceftriaxone Sodium 1 gm 11/16/24 15:21 11/16/24 16:14 Ceftriaxone Sodium 1 Gm Vial IVPUSH 11/16/24 15:22 1 gm ONCE ONE Administration Albuterol Sulfate 5 mg/ 0 mg 11/16/24 16:44 11/16/24 16:54 Albuterol/Ipratropium 3 ml INHALE 11/16/24 16:45 1 each ONCE ONE Administration Azithromycin 500 mg/ Sodium 250 mls @ 125 mls/hr 11/16/24 15:22 11/16/24 18:24 Chloride IV 11/16/24 17:21 Infused ONCE ONE Infusion Acetaminophen 1,000 mg in 100 mls @ 400 mls/hr 11/16/24 15:51 11/16/24 17:44 Ofirmev IV 11/16/24 16:05 Infused ONCE ONE Infusion Sodium Chloride 1,239 mls @ 1,239 mls/hr 11/16/24 16:04 11/16/24 17:44 Ns 30 ml/kg infuse over 1 hr (1239 ml) 11/16/24 17:03 Infused IV Infusion .Q1H STA Piperacillin Sod/Tazobactam 100 mls @ 200 mls/hr 11/16/24 17:40 11/16/24 18:25 Sod 4.5 gm/ Sodium Chloride IV 11/16/24 18:09 Infused ONCE ONE Infusion Sodium Chloride 1,000 mls @ 999 mls/hr 11/16/24 19:19 11/16/24 21:00 Ns IV 11/16/24 20:19 Infused .Q1H1M ONE Infusion Vancomycin HCl 1,000 mg/ 270 mls @ 270 mls/hr 11/16/24 20:45 11/16/24 22:10 Sodium Chloride IV 11/16/24 21:44 Infused ONCE ONE Infusion Iohexol 100 ml 11/16/24 19:20 11/16/24 19:20 Iohexol 350 Mg/Ml 100 Ml Infus..Btl IV 11/16/24 19:21 65 ml ONCE ONE Administration Methylprednisolone Sodium Succinate 80 mg 11/16/24 21:19 11/16/24 22:06 Methylprednisolone Sod Succ 125 Mg Vial IVPUSH 11/16/24 21:20 80 mg ONCE STA Administration Medical Decision Making Medical Decision Making [facility] Narrative: 84 year old female with dementia (non-verbal), aspiration pneumonia, seizures presents to the ED today via EMS from home for evaluation of difficulty breathing. On arrival, patient tachycardic, tachypneic, low-grade temp of 99.8?F. Chronically ill-appearing, contracted, cachectic. Lungs with diffuse rhonchi. Increased effort of breathing. Tachypneic. Abdomen is soft, nondistended, no guarding. Differential diagnosis includes anemia, electrolyte abnormality, dehydration, failure to thrive, advanced dementia, bronchitis, pneumonia, aspiration pneumonia, viral syndrome, PE, ACS, arrhythmia, UTI Plan for labs, VBG, EKG, chest x-ray, UA, re-evaluation 0 patient is seen and re-evaluated 84 years old with history of dementia frequent UTI comes here for change in mental status with increased shortness a breath and tachypnea detailed workup showed leukocytosis with UTI CT scan of the chest negative for PE showed few infiltrative [facility] CT abdomen was negative for acute patient is a lactic acidosis with UTI likely septic/bacteremia patient has received IV fluids more than 30 cc/kilogram IV antibiotics patient is DNR DNI will admit patient for supportive treatment and IV antibiotic Differential Diagnosis Differential Diagnoses: The differential diagnosis associated with the presentation includes as above. Admission/Observation Consideration of admission/observation: Escalation of care including admission/observation considered Lab Data [facility] Lab Attestation statement: I reviewed the patient's lab results. as above. 11/16/24 15:34 11/16/24 15:34 Labs: Lab Results 11/16/24 11/16/24 11/16/24 Range/Units 15:34 15:40 17:13 WBC 15.9 H (4.8-10.8) X10*3/uL RBC 4.39 (4.20-5.50) X10*6/uL Hgb 13.1 (12.0-16.0) g/dl Hct 39.8 (37.0-47.0) % MCV 90.7 (80.0-98.0) fL MCH 29.8 (27.0-33.0) pg MCHC 32.9 (31.0-35.0) g/dl RDW 13.0 (11.0-16.0) % Plt Count 365 (160-400) X10*3/uL MPV 9.2 L (9.4-12.3) fL Immature Gran % (Auto) 0.4 (0.0-0.4) % Neut % (Auto) 80.1 H (45-73) % Lymph % (Auto) 15.1 L (20-40) % [place] % (Auto) 4.0 (2-11) % Eos % (Auto) 0.1 (0-4) % Baso % (Auto) 0.3 (0-2) % Lymph # (Auto) 2.4 (1.2-4.9) X10*3/uL [place] # (Auto) 0.6 (0.1-1.2) X10*3/uL Eos # (Auto) 0.0 (0.0-0.4) X10*3/uL Baso # (Auto) 0.0 (0.0-0.2) X10*3/uL Abs Immat Gran (auto) 0.06 H (0.00-0.03) X10*3/uL Absolute Neuts (auto) 12.7 H (2.0-8.3) x10*3/uL Absolute Nucleated RBC 0.000 (0.0-0.012) X10*3/uL Nucleated RBC % (auto) 0.0 (0.0-0.2) /100WBC VBG pH 7.43 (7.32-7.43) VBG pCO2 37 mmHg VBG pO2 51 mmHg VBG HCO3 24 (22-26) mmol/L VBG O2 Saturation 76.0 % VBG Base Excess 0.8 mmol/L Sodium 141 (135-145) mmol/L Potassium 4.4 (3.3-5.1) mmol/L Chloride 105 (96-108) mmol/L Carbon Dioxide 22 (22-29) mmol/L Anion Gap 18 (12-20) BUN 18 H (9-16) mg/dL Creatinine 0.61 (0.5-1.4) mg/dL Estim Creat Clear Calc 44.7 Estimated GFR > 60 Random Glucose 146 H (60-115) mg/dL Lactic Acid 4.0 H* (0.5-2.0) mmol/L Calcium 9.8 (8.4-10.2) mg/dL Magnesium 2.1 (1.6-2.6) mg/dL Total Bilirubin 0.6 (0.0-1.0) mg/dL AST 40 H (5-31) U/L ALT 12 (0-31) U/L Alkaline Phosphatase 60 (39-117) U/L Troponin I High Sens 5.1 (<3.5-17.0) ng/L B-Natriuretic Peptide 56 (<100) pg/mL Total Protein 7.7 (6.5-8.0) g/dL Albumin 3.8 (3.5-5.0) g/dL Urine Color Yellow Urine Appearance Turbid Urine pH 6.5 (5.0-9.0) Ur Specific [place] 1.020 (1.005-1.025) Urine Protein 100 (2+) H (Neg-Trace) mg/dL Urine Glucose (UA) Negative (Negative) mg/dL Urine Ketones 15 (Negative) mg/dL Urine Blood Large (3+) H (Negative) Urine Nitrite Positive H (Negative) Ur Leukocyte Esterase Moderate (2+) H (Negative) Urine RBC 0-2 (0-2) /HPF Urine WBC 0-5 (0-5) /HPF Ur Squamous Epith Cells 3-5 (0-2) /HPF Urine Bacteria 4+ (None Seen) Hyaline Casts >20 (0-2) /LPF Influenza Type A (PCR) NEGATIVE (Negative) Influenza Type B (PCR) NEGATIVE (Negative) RSV RNA Qual (PCR) NEGATIVE (Negative) SARS-CoV-2 RNA (RT-PCR) NEGATIVE (Negative) 11/16/24 Range/Units 18:08 WBC (4.8-10.8) X10*3/uL RBC (4.20-5.50) X10*6/uL Hgb (12.0-16.0) g/dl Hct (37.0-47.0) % MCV (80.0-98.0) fL MCH (27.0-33.0) pg MCHC (31.0-35.0) g/dl RDW (11.0-16.0) % Plt Count (160-400) X10*3/uL MPV (9.4-12.3) fL Immature Gran % (Auto) (0.0-0.4) % Neut % (Auto) (45-73) % Lymph % (Auto) (20-40) % [place] % (Auto) (2-11) % Eos % (Auto) (0-4) % Baso % (Auto) (0-2) % Lymph # (Auto) (1.2-4.9) X10*3/uL [place] # (Auto) (0.1-1.2) X10*3/uL Eos # (Auto) (0.0-0.4) X10*3/uL Baso # (Auto) (0.0-0.2) X10*3/uL Abs Immat Gran (auto) (0.00-0.03) X10*3/uL Absolute Neuts (auto) (2.0-8.3) x10*3/uL Absolute Nucleated RBC (0.0-0.012) X10*3/uL Nucleated RBC % (auto) (0.0-0.2) /100WBC VBG pH (7.32-7.43) VBG pCO2 mmHg VBG pO2 mmHg VBG HCO3 (22-26) mmol/L VBG O2 Saturation % VBG Base Excess mmol/L Sodium (135-145) mmol/L Potassium (3.3-5.1) mmol/L Chloride (96-108) mmol/L Carbon Dioxide (22-29) mmol/L Anion Gap (12-20) BUN (9-16) mg/dL Creatinine (0.5-1.4) mg/dL Estim Creat Clear Calc Estimated GFR Random Glucose (60-115) mg/dL Lactic Acid 6.4 H* (0.5-2.0) mmol/L Calcium (8.4-10.2) mg/dL Magnesium (1.6-2.6) mg/dL Total Bilirubin (0.0-1.0) mg/dL AST (5-31) U/L ALT (0-31) U/L Alkaline Phosphatase (39-117) U/L Troponin I High Sens 13.2 D (<3.5-17.0) ng/L B-Natriuretic Peptide (<100) pg/mL Total Protein (6.5-8.0) g/dL Albumin (3.5-5.0) g/dL Urine Color Urine Appearance Urine pH (5.0-9.0) Ur Specific [place] (1.005-1.025) Urine Protein (Neg-Trace) mg/dL Urine Glucose (UA) (Negative) mg/dL Urine Ketones (Negative) mg/dL Urine Blood (Negative) Urine Nitrite (Negative) Ur Leukocyte Esterase (Negative) Urine RBC (0-2) /HPF Urine WBC (0-5) /HPF Ur Squamous Epith Cells (0-2) /HPF Urine Bacteria (None Seen) Hyaline Casts (0-2) /LPF Influenza Type A (PCR) (Negative) Influenza Type B (PCR) (Negative) RSV RNA Qual (PCR) (Negative) SARS-CoV-2 RNA (RT-PCR) (Negative) Independent Interpretation I performed an independent interpretation of an: EKG, Plain X-Ray and CT Scan Interpretation: EKG showing sinus tachycardia, rate of 123 bpm, no acute ischemic changes or st elevations Repeat EKG showing sinus tachycardia, rate of 137 bpm, no acute ischemic changes or st elevations Radiology Impression Discussion of test interpretation with radiology: I have reviewed the radiologist's reading. Radiologist Impression: Procedure(s): XR chest 1V Accession Number(s): [id number] cc: Viviana Jasmine DO; Melissa Redd~ CLINICAL HISTORY: sob, rhonchi 1 view chest x-ray Comparison: CR - XR CHEST 1V - 10/12/24 12:06 EDT Findings: Small calcified granuloma within the right upper lobe. No consolidation. Mild elevation of the left hemidiaphragm. Prominent interstitial markings within the bilateral lower lungs. Heart size is normal. No acute fracture. IMPRESSION: 1. Prominent interstitial markings within the bilateral lower lungs may be chronic and/or secondary to a poor inspiratory effort but interstitial infiltrates or edema are not excluded. 2. Mildly elevated left hemidiaphragm. This document has been electronically signed by: Jessica Irby MD on 11/16/2024 17:17:50 Independent Historian Clinical information obtained from an independent historian. History obtained from or confirmed by: EMS and Other (daughter) External Record Review External record reviewed: Inpatient record, Office record, Outpatient record, Prior outpatient labs and Prior outpatient radiology Prescription Management I considered prescription management with: Antibiotic Chronic Conditions Patient?s care impacted by: Other (dementia) Social Determinants Patient?s care significantly limited by Social Determinants of Health including: Other Social Determinant of Health Critical Care Time Critical Care Time Critical Care Time: Yes Total Critical Care Time: 45 Attestation: Critical care time in the amount of 45 minutes has been provided to the patient in terms of direct patient care, frequent reevaluation, review and interpretation of medical data and results, and management of potentially life-threatening conditions. This is all outside of any medical procedures. Discharge Plan Discharge Clinical Impression: Acute metabolic encephalopathy, Acute UTI, Sepsis, Acute lactic acidosis Pneumonia Qualifiers: Pneumonia type: aspiration pneumonia Aspiration pneumonia type: unspecified Laterality: left Lung location: lower lobe of lung Qualified Code(s): J69.0 - Pneumonitis due to inhalation of food and vomit Patient Disposition: Admitted As Inpatient
[2024-11-16 15:41] LABS: MANUAL DIFF FLAG NO
[2024-11-16 15:42] LABS: Venous Blood Gas Refer to POC result
[2024-11-16 15:43] LABS: VBG Base Excess 0.8 mmol/L; VBG HCO3 24 mmol/L (22-26); VBG pCO2 37 mmHg; VBG pH 7.43 (7.32-7.43); VBG pO2 51 mmHg
[2024-11-16 15:49] LABS: Basophils Percent Auto 0.3 % (0-2); Eosinophils Percent Auto 0.1 % (0-4); Hematocrit 39.8 % (37.0-47.0); Hemoglobin 13.1 g/dl (12.0-16.0); Imm Gran Abs Auto 0.06 X10*3/uL (0.00-0.03); Imm Gran Pct Auto 0.4 % (0.0-0.4); Lymphocytes Absolute Auto 2.4 X10*3/uL (1.2-4.9); Lymphocytes Percent Auto 15.1 % (20-40); Mean Corpuscular HGB Conc 32.9 g/dl (31.0-35.0); Mean Corpuscular Hemoglobin 29.8 pg (27.0-33.0); Mean Corpuscular Volume 90.7 fL (80.0-98.0); Mean Platelet Volume 9.2 fL (9.4-12.3); Monocytes Absolute Auto 0.6 X10*3/uL (0.1-1.2); Neutrophils Absolute Auto 12.7 x10*3/uL (2.0-8.3); Neutrophils Percent Auto 80.1 % (45-73); Platelet Count 365 X10*3/uL (160-400); Red Blood Count 4.39 X10*6/uL (4.20-5.50); White Blood Count 15.9 X10*3/uL (4.8-10.8)
[2024-11-16 15:59] LABS: Alanine Aminotransferase 12 U/L (0-31); Albumin Level 3.8 g/dL (3.5-5.0); Alkaline Phosphatase 60 U/L (39-117); Anion Gap 18 (12-20); Aspartate Amino Transferase 40 U/L (5-31); Bilirubin Total 0.6 mg/dL (0.0-1.0); Blood Urea Nitrogen 18 mg/dL (9-16); Calcium 9.8 mg/dL (8.4-10.2); Carbon Dioxide 22 mmol/L (22-29); Chloride 105 mmol/L (96-108); Creatinine Clr Calc Pharmacy 44.7; Estimated Glomerular Filt Rate > 60; Glucose Random 146 mg/dL (60-115); Magnesium 2.1 mg/dL (1.6-2.6); Potassium 4.4 mmol/L (3.3-5.1); Sodium 141 mmol/L (135-145); Total Protein 7.7 g/dL (6.5-8.0)
[2024-11-16 16:02] LABS: B Type Natriuretic Peptide 56 pg/mL (<100)
[2024-11-16 16:06] LABS: Troponin-I High Sensitivity 5.1 ng/L (<3.5-17.0)
[2024-11-16] MEDS: 0.9 % Sodium Chloride 1,239 ML 1239 ML IV (16:09)
[2024-11-16] MEDS: Azithromycin 500 MG in 0.9 % Sodium Chloride 250 ML 125 MG IV (16:14)
[2024-11-16] MEDS: cefTRIAXone sodium 1 GM VIAL IVPUSH (16:14)
[2024-11-16 16:20] LABS: Influenza A PCR NEGATIVE (Negative); Influenza B PCR NEGATIVE (Negative); Resp Syncy Virus RNA Qual PCR NEGATIVE (Negative); SARS COV2 PCR INHOUSE NEGATIVE (Negative)
--- NOTE | 2024-11-16 16:44 | PC.NURSE ---
Pt arrived via EMS, called by family at home for difficulty breathing. Per EMS pt is nonverbal and bed bound at baseline. Large amounts of oral secretions noted, pt with deep labored respirations. Pt placed on monitor, sinus tach. O2 saturation 95% O2 15L on Oxy mask, EKG obtained. Pt difficult stick resulting in delay in care- #20 placed in LFA and #22 to right wrist. Labs obtained and sent. IV abx and IVF per Aug. CXR pending.
[2024-11-16] MEDS: Albuterol Sulfate 5 MG, Albuterol/Iprat 2.5/0.5MG 3 ML 3 ML INHALE (16:54)
[2024-11-16] MEDS: Acetaminophen 1,000 MG/100 ML PIGGYBACK 400 MG IV ×2 (17:07→22:07)
[2024-11-16 17:20] LABS: Appearance Urine Turbid; Color Urine Yellow; Glucose Urine UA Negative (Negative); Leukocyte Esterase Urine Moderate (2+) (Negative); Nitrite Urine Positive (Negative); PH 6.5 (5.0-9.0); UMIC TRIGGER UACC YES; Urine Blood Large (3+) (Negative); Urine Ketones 15 mg/dL (Negative); Urine Protein 100 (2+) mg/dL (Neg-Trace)
[2024-11-16 17:34] LABS: Bacteria Urine 4+ (None Seen); Hyaline Casts Urine >20 /LPF (0-2); RBC Urine 0-2 /HPF (0-2); UACC Culture Trigger YES; WBC Urine 0-5 /HPF (0-5)
[2024-11-16 17:39] LABS: Reflex Lactate? Lactic Acid Added
[2024-11-16] MEDS: Piperacillin Sodium/Tazobactam 4.5 GM in 0.9 % Sodium Chloride 100 ML IV (17:52)
--- NOTE | 2024-11-16 18:01 | PC.NURSE ---
Pt with elevated HR- PA notified and additional EKG obtained. Placed on hi-flow O2 by respiratory, family at bedside. Plan of care ongoing.
[2024-11-16 18:36] LABS: Troponin-I High Sensitivity 13.2 ng/L (<3.5-17.0)
[2024-11-16 18:40] LABS: Lactic Acid 6.4 mmol/L (0.5-2.0)
[2024-11-16] MEDS: iohexoL 350 MG/ML 100 ML INFUS..BTL IV (19:20)
--- NOTE | 2024-11-16 19:20 | PC.NURSE ---
patient weaned down to oxymask for CT, respiratory rate 22 O2 100% on 6L oxymask
[2024-11-16] MEDS: 0.9 % Sodium Chloride 1,000 ML 999 ML IV (19:58)
[2024-11-16 20:12] LABS: Reflex Lactate? Lactic Acid Added
[2024-11-16] MEDS: Albuterol/Iprat 2.5/0.5MG 3 ML AMPUL.NEB INHALE (20:37)
[2024-11-16] MEDS: Budesonide 0.5 MG/2 ML AMPUL.NEB INHALE (20:37)
[2024-11-16] MEDS: 0.9 % Sodium Chloride 1,000 ML 100 ML IVCONT (20:37)
[2024-11-16] MEDS: vancomycin HCL 1,000 MG in 0.9 % Sodium Chloride 250 ML 270 MG IV (20:51)
[2024-11-16] MEDS: Enoxaparin Sodium 40 MG/0.4 ML SYRINGE SUBCUT (20:51)
--- NOTE | 2024-11-16 20:59 | P.HPHOSP_ITS ---
History of Present Illness Date of Service: 11/16/24 Attending physician on admission: Adrián Trujillo Chief Complaint: Breathing rapidly Justine Trujillo is 84 years old woman with past medical history significant for advanced dementia (nonverbal), bed-bound, seizures and cachexia was brought to the emergency department accompanied by her niece and daughter after she was noted to be breathing faster than normal and wheezing. Family mentioned that the patient has been having episodes of coughing and choking. He was also noted to to be shaking. They have noted any episodes of vomiting or diarrhea. They did not reported any fevers at home. In the ED, she was found to have marked tachycardia and tachypnea. She was placed on supplemental oxygen via high-flow and subsequently OxyMask. She is currently on 4 L/min. Temperature is 99.3. Blood workup is remarkable for leukocytosis of 15.9, hemoglobin 13.1 and platelets 365. There are no significant electrolyte imbalances. BUN is 18 and creatinine 0.61. Lactic acid is increasing from 4.0 to 6.4. LFTs are unremarkable. Troponin is negative x2. BNP and albumin are normal. Venous blood gas showed no respiratory acidosis. Urinalysis consistent with UTI. Viral testing for influenza, RSV and COVID-19 is negative. Chest CTA showed no large or central pulmonary artery embolus, gross: Opacities in the left lower lobe raising concern for infection and atelectasis versus fibrotic interstitial lung disease. Abdomen pelvis CT scan showed no acute findings. ECG showed sinus tachycardia, heart rate 137 bpm + LAFH with the obvious ischemic changes. ED tx: Ceftriaxone 1 mg IV, azithromycin 500 mg IV, NS 2139 ml bolus, Zosyn 3.375 g IV, albuterol neb. Review of Systems 2 Review of Systems: Yes Unobtainable due to mental status [facility] Medical History Hypernatremia Aspiration pneumonia Failure to thrive in adult Asthma Alzheimer disease Social History Household Members: Family Housing: Apartment Do you presently have visiting nurse or other home services: Yes Unable to assess alcohol history related to: Unable to respond Alcohol intake: former Patient Tobacco Use Status: Never used Tobacco Smoked in Last 30 Days: No Use of substances other than those prescribed or required for medical reasons: No Advance Directives: Yes Advance Directives on File: Yes Advance Directives Date on File: 08/05/21 service: No Current occupational status: retired Meds Allergies Allergy/AdvReac Type Severity Reaction Status Date / Time aspirin [ASPIRIN] Allergy Unknown UNKNOWN Verified 11/16/24 15:19 ibuprofen [IBUPROFEN] Allergy Unknown SWELLING Verified 11/16/24 15:19 Active Medications: Current Medications Acetaminophen (Acetaminophen 325 Mg Tablet) 650 mg PO Q6H PRN PRN Reason: Pain, Mild 1-3,fever,headache Albuterol/Ipratropium (Albuterol/Iprat 2.5/0.5mg 3 Ml Ampul.Neb) 3 ml INHALE Q4H [facility] Last Admin: 11/16/24 20:37 Dose: 3 ml Budesonide (Budesonide 0.5 Mg/2 Ml Ampul.Neb) 0.5 mg INHALE RBID [facility] Last Admin: 11/16/24 20:37 Dose: 0.5 mg Calcium Carbonate (Calcium Carbonate 750 Mg Tab.Chew) 750 mg PO Q4H PRN PRN Reason: Heartburn Enoxaparin Sodium (Enoxaparin Sodium 40 Mg/0.4 Ml Syringe) 40 mg SUBCUT Q24H [facility] Last Admin: 11/16/24 20:51 Dose: 40 mg Sodium Chloride (Ns) 1,000 mls @ 100 mls/hr IVCONT .Q10H [facility] Last Admin: 11/16/24 20:37 Dose: 100 mls/hr Vancomycin HCl 1,000 mg/ (Sodium Chloride) 270 mls @ 270 mls/hr IV ONCE ONE Stop: 11/16/24 21:44 Last Admin: 11/16/24 20:51 Dose: 270 mls/hr Vancomycin HCl 500 mg/ Sodium (Chloride) 110 mls @ 110 mls/hr IV Q12H [facility] Magnesium Hydroxide (Milk Of Magnesia 30 Ml Oral.Susp) 30 ml PO DAILY PRN PRN Reason: Constipation Melatonin (Melatonin 3 Mg Tablet) 6 mg PO BEDTIME PRN PRN Reason: Insomnia Ondansetron HCl (Ondansetron Hcl 4 Mg/2 Ml Vial) 4 mg IVPUSH Q8H PRN PRN Reason: Nausea and Vomiting Pharmacy Consult (Consult Rx Vancomycin Dosing) 1 each MISCELLANE DAILY PRN PRN Reason: Consult order Sodium Chloride (0.9 % Sodium Chloride Flush 3 Ml Syringe) 3 ml IVFLUSH QSHIFT [facility] Home Medications ?Medication ?Instructions ?Recorded ?Confirmed ?Last Taken ?Type multivitamin (Daily-Kimberley tablet) 1 tab PO DAILY 11/18/20 03/04/24 03/03/24 History acetaminophen 160 mg/5 mL oral 15 ml PO Q6H PRN fever 09/25/21 03/04/24 03/03/24 History liquid (Silapap) white petrolatum 42 % topical 1 appl topical DAILY PRN Dry Skin 03/04/24 03/04/24 03/03/24 History ointment Physical Exam 2 Vital Signs and Narrative: Vital Signs: Last Vital Signs Temp 99.3 F 11/16/24 20:36 Pulse 123 H 11/16/24 20:41 Resp 18 11/16/24 20:41 BP 124/65 11/16/24 20:36 Pulse Ox 99 11/16/24 20:36 O2 Del Method Oxymask 11/16/24 20:36 O2 Flow Rate 4 11/16/24 20:36 BMI result Body Mass Index 15.6 Const: General: alert, awake, acute distress, ill appearing and other (nonverbal at baseline) Nutritional Appearance: cachectic and malnourished Orientation/consciousness: Other orientation findings HEENT: Head: Yes atraumatic Eyes: General: appearance normal, both eyes and all related structures P upils: Equal, round and reactive pupils present Resp: Effort & Inspection: audible wheezes, Actively coughing, no stridor, tachypneic and no use of accessory muscles Auscultation: wheezes Cardio: Rate: tachycardic GI: Other: Indwelling urinary catheter in place Palpation (GI): Soft to palpation Auscultation: normal bowel sounds Skin: General skin exam: dry skin Neuro: Other: Nonverbal hot baseline. Alert. When able to follow commands. No facial droop. Cranial nerves: Yes Equal, round and reactive pupils present Extrem: Other: Contracted extremities General: No clubbing, No cyanosis and No edema Psych: Other: Unable to assess. Results Labs 11/16/24 15:34 11/16/24 15:34 Labs: Laboratory Results - last 24 hr 11/16/24 11/16/24 11/16/24 15:34 15:40 17:13 MCV 90.7 MCH 29.8 MCHC 32.9 RDW 13.0 Plt Count 365 MPV 9.2 L Immature Gran % (Auto) 0.4 Neut % (Auto) 80.1 H Lymph % (Auto) 15.1 L [place] % (Auto) 4.0 Eos % (Auto) 0.1 Baso % (Auto) 0.3 Lymph # (Auto) 2.4 [place] # (Auto) 0.6 Eos # (Auto) 0.0 Baso # (Auto) 0.0 Abs Immat Gran (auto) 0.06 H Absolute Neuts (auto) 12.7 H Absolute Nucleated RBC 0.000 Nucleated RBC % (auto) 0.0 VBG pH 7.43 VBG pCO2 37 VBG pO2 51 VBG HCO3 24 VBG O2 Saturation 76.0 VBG Base Excess 0.8 Anion Gap 18 Estim Creat Clear Calc 44.7 Estimated GFR > 60 Random Glucose 146 H Lactic Acid 4.0 H* Calcium 9.8 Magnesium 2.1 Total Bilirubin 0.6 AST 40 H ALT 12 Alkaline Phosphatase 60 Troponin I High Sens 5.1 B-Natriuretic Peptide 56 Total Protein 7.7 Albumin 3.8 Urine Color Yellow Urine Appearance Turbid Urine pH 6.5 Ur Specific [place] 1.020 Urine Protein 100 (2+) H Urine Glucose (UA) Negative Urine Ketones 15 Urine Blood Large (3+) H Urine Nitrite Positive H Ur Leukocyte Esterase Moderate (2+) H Urine RBC 0-2 Urine WBC 0-5 Ur Squamous Epith Cells 3-5 Urine Bacteria 4+ Hyaline Casts >20 Influenza Type A (PCR) NEGATIVE Influenza Type B (PCR) NEGATIVE RSV RNA Qual (PCR) NEGATIVE SARS-CoV-2 RNA (RT-PCR) NEGATIVE 11/16/24 18:08 MCV MCH MCHC RDW Plt Count MPV Immature Gran % (Auto) Neut % (Auto) Lymph % (Auto) [place] % (Auto) Eos % (Auto) Baso % (Auto) Lymph # (Auto) [place] # (Auto) Eos # (Auto) Baso # (Auto) Abs Immat Gran (auto) Absolute Neuts (auto) Absolute Nucleated RBC Nucleated RBC % (auto) VBG pH VBG pCO2 VBG pO2 VBG HCO3 VBG O2 Saturation VBG Base Excess Anion Gap Estim Creat Clear Calc Estimated GFR Random Glucose Lactic Acid 6.4 H* Calcium Magnesium Total Bilirubin AST ALT Alkaline Phosphatase Troponin I High Sens 13.2 D B-Natriuretic Peptide Total Protein Albumin Urine Color Urine Appearance Urine pH Ur Specific [place] Urine Protein Urine Glucose (UA) Urine Ketones Urine Blood Urine Nitrite Ur Leukocyte Esterase Urine RBC Urine WBC Ur Squamous Epith Cells Urine Bacteria Hyaline Casts Influenza Type A (PCR) Influenza Type B (PCR) RSV RNA Qual (PCR) SARS-CoV-2 RNA (RT-PCR) ECG Attestation: I personally reviewed and interpreted this ECG as follows: (Tachycardia, left anterior fascicular block, no acute ischemic changes) Assessment and Plan (1) Acute UTI: Status: Acute (2) Pneumonia: Qualifiers: Pneumonia type: aspiration pneumonia Aspiration pneumonia type: u nspecified Laterality: left Lung location: lower lobe of lung Qualified Code(s): J69.0 - Pneumonitis due to inhalation of food and vomit Status: Acute (3) Severe sepsis: Status: Acute Plan Justine Trujillo is 84 y/o woman with PMHx significant for advanced dementia (nonverbal) and bed-bound admitted with: * Severe sepsis secondary to urinary tract infection and hypoxic respiratory failure due to aspiration pneumonia. Admit to hospitalist service. NPO. Telemetry. Pulse oximetry. Continue empiric IV antibiotic therapy with Zosyn and vancomycin. Blood and urine culture obtained -will follow results. Continue to monitor lactic acid (hx of chronically elevated lactic acid; last 5.9). Continue IV fluids (received 30 ml/kg bolus). Swallow evaluation. * Seizures. Check Depakote level. Continue Depakote IV (NPO status). * Protein-calorie malnutrition. BMI 15.6 kg/m2. Nutritional consult. * * Hx of chronically elevated lactic acid. Consists unclear. Recheck in the morning. DVT prophylaxis: Lovenox Code status: DNR/DNI (MOLST form - no dialysis, ok artificial nutritin, ok IV hydration). Patient needs hospitalization for at least 2 midnights for severe sepsis due to pneumonia and urinary tract infection + hypoxic respiratory failure treatment with supplemental oxygen, bronchodilator therapy and IV antibiotic therapy. Quality Stroke Does the patient have a stroke diagnosis?: No VTE Prior VTE?: No VTE Risk Level:: Medical - moderate - high VTE Device Contraindication: N/A - Device Ordered VTE Drug Contraindication: N/A - Med Ordered
[2024-11-16 21:43] LABS: ~Lactic Acid-LAB USE ONLY 5.9 mmol/L (0.5-2.0)
[2024-11-16 21:45] LABS: Cancel Lactic Acid Canceled
[2024-11-16 21:46] LABS: Reflex Lactate? 2 N
[2024-11-16 22:13] LABS: Valproate 19.3 mcg/mL (50.0-100.0)
[2024-11-17] VITALS (15 sets, daily range): BP systolic 91–118; BP diastolic 32–59; PULSE 71–100; RESP 15–20; TEMP 36.3–37.3; O2SAT 95–100
[2024-11-17] MEDS: Piperacillin Sodium/Tazobactam 3.375 GM in 0.9 % Sodium Chloride 50 ML IV ×4 (00:24→18:16)
[2024-11-17] MEDS: Acetaminophen 1,000 MG/100 ML PIGGYBACK 400 MG IV ×2 (05:09→23:23)
[2024-11-17 06:24] LABS: Lactic Acid 1.9 mmol/L (0.5-2.0)
[2024-11-17 06:27] LABS: Alanine Aminotransferase 6 U/L (0-31); Albumin Level 2.9 g/dL (3.5-5.0); Alkaline Phosphatase 45 U/L (39-117); Anion Gap 12 (12-20); Aspartate Amino Transferase 21 U/L (5-31); Bilirubin Total 0.4 mg/dL (0.0-1.0); Blood Urea Nitrogen 9 mg/dL (9-16); Calcium 8.2 mg/dL (8.4-10.2); Carbon Dioxide 22 mmol/L (22-29); Chloride 113 mmol/L (96-108); Creatinine Clr Calc Pharmacy 55.7; Estimated Glomerular Filt Rate > 60; Glucose Random 145 mg/dL (60-115); Potassium 3.4 mmol/L (3.3-5.1); Sodium 144 mmol/L (135-145); Total Protein 5.6 g/dL (6.5-8.0)
[2024-11-17] MEDS: 0.9 % Sodium Chloride 1,000 ML 100 ML IVCONT ×2 (06:43→16:35)
[2024-11-17 06:49] LABS: Basophils Percent Auto 0.3 % (0-2); Hematocrit 31.2 % (37.0-47.0); Imm Gran Abs Auto 0.03 X10*3/uL (0.00-0.03); Imm Gran Pct Auto 0.3 % (0.0-0.4); Lymphocytes Absolute Auto 0.9 X10*3/uL (1.2-4.9); Lymphocytes Percent Auto 8.1 % (20-40); MANUAL DIFF FLAG SCAN; Mean Corpuscular HGB Conc 32.1 g/dl (31.0-35.0); Mean Corpuscular Hemoglobin 29.9 pg (27.0-33.0); Mean Corpuscular Volume 93.4 fL (80.0-98.0); Mean Platelet Volume 9.4 fL (9.4-12.3); Monocytes Absolute Auto 0.1 X10*3/uL (0.1-1.2); Neutrophils Absolute Auto 9.5 x10*3/uL (2.0-8.3); Neutrophils Percent Auto 90.3 % (45-73); Platelet Count 277 X10*3/uL (160-400); Red Blood Count 3.34 X10*6/uL (4.20-5.50); Red Cell Distribution Width 13.2 % (11.0-16.0); SCAN SMEAR FLAG 1; White Blood Count 10.5 X10*3/uL (4.8-10.8)
[2024-11-17 07:16] LABS: Cancel Lactic Acid Canceled
[2024-11-17 07:44] LABS: SLIDE REVIEW VERIFIED
--- NOTE | 2024-11-17 07:51 | HO.PM.IMPN ---
Subjective Subjective Date of Service: 11/17/24 Interval History: asp pneumonia Review of Systems awake nonverbal Review of Systems: Yes all other systems are reviewed and are negative Physical Exam Vital Signs: Vital Signs: Last Vital Signs Temp 98.6 F 11/17/24 04:08 Pulse 86 11/17/24 06:07 Resp 19 11/17/24 06:07 BP 115/59 L 11/17/24 06:07 Pulse Ox 100 11/17/24 06:07 O2 Del Method Oxymask 11/17/24 06:07 O2 Flow Rate 4 11/17/24 06:07 BMI result Body Mass Index 15.6 Appearance: awake ,not in distress family at beside? cvs: rrr, [id number]. res: air entry fair ,diminshed at bases. abd: no rebound or guarding ,nt, bs present. ext pulses present , no cyanosis . neuro: axo3 , nonfocal. Objective Data Active Medications Albuterol/Ipratropium (Albuterol/Iprat 2.5/0.5mg 3 Ml Ampul.Neb) 3 ml INHALE Q4H [facility] Last Admin: 11/17/24 05:24 Dose: Not Given Documented By: HUGO Non-Admin Reason: Patient Asleep Budesonide (Budesonide 0.5 Mg/2 Ml Ampul.Neb) 0.5 mg INHALE RBID [facility] Last Admin: 11/16/24 20:37 Dose: 0.5 mg Documented By: HUGO Calcium Carbonate (Calcium Carbonate 750 Mg Tab.Chew) 750 mg PO Q4H PRN PRN Reason: Heartburn Enoxaparin Sodium (Enoxaparin Sodium 40 Mg/0.4 Ml Syringe) 40 mg SUBCUT Q24H [facility] Last Admin: 11/16/24 20:51 Dose: 40 mg Documented By: DAPHNE Sodium Chloride (Ns) 1,000 mls @ 100 mls/hr IVCONT .Q10H [facility] Last Admin: 11/17/24 06:43 Dose: 100 mls/hr Documented By: DAPHNE Vancomycin HCl 500 mg/ Sodium (Chloride) 110 mls @ 110 mls/hr IV Q12H [facility] Acetaminophen (Ofirmev) 1,000 mg in 100 mls @ 400 mls/hr IV Q6H [facility] Last Infusion: 11/17/24 05:50 Dose: Infused Documented By: DAPHNE Piperacillin Sod/Tazobactam (Sod 3.375 gm/ Sodium Chloride) 50 mls @ 100 mls/hr IV Q6H [facility] Last Infusion: 11/17/24 06:16 Dose: Infused Documented By: DAPHNE Valproic Acid 250 mg/ Dextrose 52.5 mls @ 55 mls/hr IV DAILY WILLIAM Ondansetron HCl (Ondansetron Hcl 4 Mg/2 Ml Vial) 4 mg IVPUSH Q8H PRN PRN Reason: Nausea and Vomiting Pharmacy Consult (Consult Rx Vancomycin Dosing) 1 each MISCELLANE DAILY PRN PRN Reason: Consult order Sodium Chloride (0.9 % Sodium Chloride Flush 3 Ml Syringe) 3 ml IVFLUSH QSHIFT [facility] Last Admin: 11/17/24 00:24 Dose: Not Given Documented By: DAPHNE Non-Admin Reason: IV Running Labs 11/17/24 06:05 11/17/24 06:05 Labs: Laboratory Results - last 24 hr 11/16/24 11/16/24 11/16/24 15:34 15:40 17:13 MCV 90.7 MCH 29.8 MCHC 32.9 RDW 13.0 Plt Count 365 MPV 9.2 L Immature Gran % (Auto) 0.4 Neut % (Auto) 80.1 H Lymph % (Auto) 15.1 L [place] % (Auto) 4.0 Eos % (Auto) 0.1 Baso % (Auto) 0.3 Lymph # (Auto) 2.4 [place] # (Auto) 0.6 Eos # (Auto) 0.0 Baso # (Auto) 0.0 Abs Immat Gran (auto) 0.06 H Absolute Neuts (auto) 12.7 H Absolute Nucleated RBC 0.000 Nucleated RBC % (auto) 0.0 Smear Tech's Comments VBG pH 7.43 VBG pCO2 37 VBG pO2 51 VBG HCO3 24 VBG O2 Saturation 76.0 VBG Base Excess 0.8 Anion Gap 18 Estim Creat Clear Calc 44.7 Estimated GFR > 60 Random Glucose 146 H Lactic Acid 4.0 H* Lactic Acid F/U @ 2Hr Calcium 9.8 Magnesium 2.1 Total Bilirubin 0.6 AST 40 H ALT 12 Alkaline Phosphatase 60 Troponin I High Sens 5.1 B-Natriuretic Peptide 56 Total Protein 7.7 Albumin 3.8 Urine Color Yellow Urine Appearance Turbid Urine pH 6.5 Ur Specific [place] 1.020 Urine Protein 100 (2+) H Urine Glucose (UA) Negative Urine Ketones 15 Urine Blood Large (3+) H Urine Nitrite Positive H Ur Leukocyte Esterase Moderate (2+) H Urine RBC 0-2 Urine WBC 0-5 Ur Squamous Epith Cells 3-5 Urine Bacteria 4+ Hyaline Casts >20 Valproic Acid Influenza Type A (PCR) NEGATIVE Influenza Type B (PCR) NEGATIVE RSV RNA Qual (PCR) NEGATIVE SARS-CoV-2 RNA (RT-PCR) NEGATIVE 11/16/24 11/16/24 11/16/24 18:08 21:21 21:25 MCV MCH MCHC RDW Plt Count MPV Immature Gran % (Auto) Neut % (Auto) Lymph % (Auto) [place] % (Auto) Eos % (Auto) Baso % (Auto) Lymph # (Auto) [place] # (Auto) Eos # (Auto) Baso # (Auto) Abs Immat Gran (auto) Absolute Neuts (auto) Absolute Nucleated RBC Nucleated RBC % (auto) Smear Tech's Comments VBG pH VBG pCO2 VBG pO2 VBG HCO3 VBG O2 Saturation VBG Base Excess Anion Gap Estim Creat Clear Calc Estimated GFR Random Glucose Lactic Acid 6.4 H* Lactic Acid F/U @ 2Hr 5.9 H* Calcium Magnesium Total Bilirubin AST ALT Alkaline Phosphatase Troponin I High Sens 13.2 D B-Natriuretic Peptide Total Protein Albumin Urine Color Urine Appearance Urine pH Ur Specific [place] Urine Protein Urine Glucose (UA) Urine Ketones Urine Blood Urine Nitrite Ur Leukocyte Esterase Urine RBC Urine WBC Ur Squamous Epith Cells Urine Bacteria Hyaline Casts Valproic Acid 19.3 L Influenza Type A (PCR) Influenza Type B (PCR) RSV RNA Qual (PCR) SARS-CoV-2 RNA (RT-PCR) 11/17/24 06:05 MCV 93.4 MCH 29.9 MCHC 32.1 RDW 13.2 Plt Count 277 MPV 9.4 Immature Gran % (Auto) 0.3 Neut % (Auto) 90.3 H Lymph % (Auto) 8.1 L [place] % (Auto) 1.0 L Eos % (Auto) 0.0 Baso % (Auto) 0.3 Lymph # (Auto) 0.9 L [place] # (Auto) 0.1 Eos # (Auto) 0.0 Baso # (Auto) 0.0 Abs Immat Gran (auto) 0.03 Absolute Neuts (auto) 9.5 H Absolute Nucleated RBC 0.000 Nucleated RBC % (auto) 0.0 Smear Tech's Comments VERIFIED VBG pH VBG pCO2 VBG pO2 VBG HCO3 VBG O2 Saturation VBG Base Excess Anion Gap 12 Estim Creat Clear Calc 55.7 Estimated GFR > 60 Random Glucose 145 H Lactic Acid 1.9 Lactic Acid F/U @ 2Hr Calcium 8.2 L D Magnesium Total Bilirubin 0.4 AST 21 ALT 6 Alkaline Phosphatase 45 Troponin I High Sens B-Natriuretic Peptide Total Protein 5.6 L Albumin 2.9 L Urine Color Urine Appearance Urine pH Ur Specific [place] Urine Protein Urine Glucose (UA) Urine Ketones Urine Blood Urine Nitrite Ur Leukocyte Esterase Urine RBC Urine WBC Ur Squamous Epith Cells Urine Bacteria Hyaline Casts Valproic Acid Influenza Type A (PCR) Influenza Type B (PCR) RSV RNA Qual (PCR) SARS-CoV-2 RNA (RT-PCR) Assessment and Plan (1) Pneumonia: Status: Acute Plan 84 y/o woman with PMHx significant for advanced dementia (nonverbal) and bed-bound admitted with: Severe sepsis secondary to urinary tract infection and hypoxic respiratory failure due to aspiration pneumonia. Lactic acid resolved Continue empiric IV antibiotic therapy with Zosyn and vancomycin, continue nebs, ivf while npo, Blood and urine culture obtained -will follow results. Swallow evaluation. Seizures. Check Depakote level. Continue Depakote IV (NPO status). Protein-calorie malnutrition. BMI 15.6 kg/m2. Nutritional consult. ongoing need : Hypoxia/ sepsis sec to pneumonia -need oxygen, IV antibiotics, speech and swallow evaluation Quality Stroke Does the patient have a stroke diagnosis?: No VTE Prior VTE?: No VTE Risk Level:: Medical - moderate - high VTE Device Contraindication: N/A - Device Ordered VTE Drug Contraindication: N/A - Med Ordered
--- NOTE | 2024-11-17 08:37 | PHA.MEDREC ---
Pharmacy Consult ? Medication Reconciliation Pharmacy has completed the medication reconciliation. Spoke with patient's granddaughter on the phone, she was able to confirm patient's current medications. She says she takes Thick-it Powder daily per instructions, and has divalproex but only takes 250mg daily, not BID, until she sees her neurologist next. Also she is still taking an oral liquid for thrush that is almost finished, this is the nystatin suspernsion that was filled recently for 14 days. Last taken yesterday.
[2024-11-17] MEDS: Budesonide 0.5 MG/2 ML AMPUL.NEB INHALE ×2 (08:40→19:41)
[2024-11-17] MEDS: Albuterol/Iprat 2.5/0.5MG 3 ML AMPUL.NEB INHALE ×4 (08:40→19:41)
[2024-11-17] MEDS: 0.9 % Sodium Chloride Flush 3 ML SYRINGE IVFLUSH ×2 (09:28→23:18)
[2024-11-17] MEDS: Valproic Acid (as Sodium Salt) 250 MG in Dextrose 5 % 50 ML 55 MG IV (09:28)
--- NOTE | 2024-11-17 09:45 | PC.NURSE ---
pt resting comfortably on her right side, pt is alert but non-verbal at baseline, respirations even unlabored, pt is currently on oxymask at 4l and sating well 100%, pt is frail in appearance, and contracted in all 4 extremities, griffin in place and draining well, ns on the monitor, pt repositioned to her left side
[2024-11-17] MEDS: vancomycin HCL 500 MG in 0.9 % Sodium Chloride 100 ML 110 MG IV (10:41)
--- NOTE | 2024-11-17 12:07 | PC.NURSE ---
pt is resting comfortable at this time, no visible grimacing or any facial expressions showing that the pt is in any discomfort and family at bedside also report that the pt appears to be comfortable, holding the Tylenol iv at this time
--- NOTE | 2024-11-17 12:45 | PC.NURSE ---
pt moved over to a hospital bed for comfort and repositioned to the right side
--- NOTE | 2024-11-17 15:56 | MHC.CM.PN ---
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
[2024-11-17] MEDS: Albumin Human 25 % 100 ML IV ×2 (16:34→22:21)
--- NOTE | 2024-11-17 18:17 | PC.NURSE ---
Tylenol had again because family is saying that the pt appears comfortable and has been sleeping
[2024-11-17 20:32] LABS: Vancomycin Random 9.1 mcg/mL (15-20)
[2024-11-17] MEDS: Enoxaparin Sodium 40 MG/0.4 ML SYRINGE SUBCUT (22:19)
[2024-11-17] MEDS: vancomycin HCL 750 MG in 0.9 % Sodium Chloride 250 ML 265 MG IV (23:39)
[2024-11-18] VITALS (14 sets, daily range): BP systolic 109–134; BP diastolic 55–74; PULSE 66–91; RESP 17–19; TEMP 36.1–38; O2SAT 92–100; BMI 21.8
--- NOTE | 2024-11-18 | ECG_ITS ---
Test Reason : arithmya Blood Pressure : */* mmHG Vent. Rate : 80 BPM Atrial Rate : 80 BPM P-R Int : 120 ms QRS Dur : 82 ms QT Int : 368 ms P-R-T Axes : 30 30 37 degrees QTcB Int : 424 ms Sinus rhythm with marked sinus arrhythmia Otherwise normal ECG When compared with ECG of 16-Nov-2024 17:38, Vent. rate has decreased by 57 bpm Referred By: Bradford Garcia Electronically Signed By: JIMENEZ GIL
[2024-11-18] MEDS: Piperacillin Sodium/Tazobactam 3.375 GM in 0.9 % Sodium Chloride 50 ML IV ×4 (00:46→18:46)
[2024-11-18] MEDS: Albumin Human 25 % 100 ML IV ×2 (03:34→08:04)
[2024-11-18] MEDS: Acetaminophen 1,000 MG/100 ML PIGGYBACK 400 MG IV ×4 (04:37→23:57)
[2024-11-18 07:11] LABS: Creatinine Clr Calc Pharmacy 69.5; Estimated Glomerular Filt Rate > 60
[2024-11-18] MEDS: 0.9 % Sodium Chloride 1,000 ML 100 ML IVCONT (07:24)
[2024-11-18] MEDS: Albuterol/Iprat 2.5/0.5MG 3 ML AMPUL.NEB INHALE ×4 (08:01→19:05)
[2024-11-18] MEDS: Budesonide 0.5 MG/2 ML AMPUL.NEB INHALE ×2 (08:02→19:05)
[2024-11-18] MEDS: vancomycin HCL 750 MG in 0.9 % Sodium Chloride 250 ML 265 MG IV (09:35)
[2024-11-18] MEDS: Valproic Acid (as Sodium Salt) 250 MG in Dextrose 5 % 50 ML 55 MG IV (11:13)
--- NOTE | 2024-11-18 11:30 | MHC.CM.PN ---
EMR reviewed and per MD rounds, pt is not medically cleared for discharge due to management of sepsis/pneumonia, requiring IV ABX, pending speech eval, if no improvement, goals of care discussion may take place.
--- NOTE | 2024-11-18 11:45 | MHC.SLORD ---
Speech Language Pathology Order Status: RN consulted, pt remains sleeping soundly with open mouth breathing. Oral care was provided earlier by RN/staff, suctioning cleared mucous from back of mouth. Pt NPO pending bedside swallow evaluation. Pt daughters reported pt is on pureed diet with thickened liquids at baseline. SOFTWARE QUALITY ENGINEER to return when pt more alert, daughters to notify RN who will text.
[2024-11-18 12:48] LABS: Blood Urea Nitrogen 5 mg/dL (9-16); Calcium 8.7 mg/dL (8.4-10.2); Glucose Random 82 mg/dL (60-115); Magnesium 1.7 mg/dL (1.6-2.6)
[2024-11-18 13:09] LABS: Anion Gap 14 (12-20); Carbon Dioxide 24 mmol/L (22-29); Chloride 111 mmol/L (96-108); Potassium 2.5 mmol/L (3.3-5.1); Sodium 146 mmol/L (135-145)
[2024-11-18] MEDS: Potassium Phosphate/NS 15 MMOL/250 ML PLAST..BAG 62.5 MMOL IV ×3 (13:38→23:41)
[2024-11-18] MEDS: Magnesium Sulfate/D5W 1 GM/100 ML PIGGYBACK IV (13:38)
[2024-11-18 13:59] LABS: Phosphorus 2.3 mg/dL (2.7-4.5)
--- NOTE | 2024-11-18 14:19 | MHC.CLN ---
CONSULT PT IS MODERATELY MALNOURISHED PT WITH MILDLY DEPLETED BODY FAT AND CHRONIC POOR PO INTAKE R/T DYSPHAGIA WT RELATIVELY STABLE X 8 MONTHS FOLLOWS: 57.6KG (11/18/24) 55.3KG (10/02/24) 51.6KG (03/04/24) PT'S FAMILY REPORTED PT LOST 10# OVER THE LAST ONE MONTH PT IS CURRENTLY NPO TITLE CHECKER FOLLOWING WHEN DIET TO ADVANCE RECOMMEND ADDING ENSURE BID AND MAGIC CUP WITH MEALS ENSURE BID TO PROVIDE 700KCALS, 40G PROTEIN MAGIC CUP TO PROVIDE 580KCALS, 18G PROTEIN FOLLOWING FOR DIET ADVANCEMENT SEE FULL CLINICAL NUTRITION ASSESSMENT
--- NOTE | 2024-11-18 14:34 | MHC.SL.SWA ---
Speech Pathologist Impression: Significant presbyphagia Risk of Aspiration Due to: Advanced dementia Deconditioning Hx of dysphagia Hx of PNA Absence of voicing Inability to follow simple commands Dysphasia Diet Status: Liquid Consistency and Strategies for Safe Swallow: Liquid Intake Recommendation: NPO Liquid Intake Strategies: Solid Food Consistency: Dietary Recommendations: NPO Additional Modifications to Solid Foods: Oral Medication Intake: NPO Compensatory Strategies and Precautions to be Taken for Safe Swallow: Supervision While Eating and Drinking for Safe Swallow: PO with MARINE PILOT Foods to Avoid: Swallowing Recommended Treatments: Recommendation for Speech: Comment: Pt lying in bed, open mouth breathing, edentulous. Pt daughters at bedside. MARINE PILOT returned in the afternoon to assess functional swallow. Pt alert to voice, opening eyes, moving upper facial muscles. Pt unable to elicit voice or volitional swallow. Reflexive swallow observed to be delayed and weak. MARINE PILOT provided education to pt daughters, who have been managing pt dysphagia. Two nurses entered room for IV management. Pt remained alert when spoken to. Trials consisted of gustatory stim, verbal cueing and encouraging swallow with trace thickened liquid by side spoon presentation (less than 2ccs). Pt observed to close lips slightly, initiate tongue elevation and complete pharyngeal swallow after 5 second delay twice. Pt observed to turn head toward MARINE PILOT when trials discontinued. Pt daughters satisfied that pt is getting IV hydration, noting catheter bag was full of urine. RN consulted, MD notified. Recc NPO strict, MARINE PILOT to re-assess tomorrow. Frequency/Duration: Date Range for Service Req: Timeline to reassess: Applied Biology Professor Clinican/Clinical Fellow: No Supervisory Statement: I have reviewed and agree with the student/clinical fellow's documentation: N/A Speech Language Pathologist: Surekha Falcon M.S., [facility]
[2024-11-18] MEDS: Dextrose 5 % and 0.9 % NaCl 1,000 ML 80 ML IVCONT (15:37)
--- NOTE | 2024-11-18 15:39 | P.PNIM_ITS ---
Subjective Subjective Date of Service: 11/18/24 Interval History: penumonia ,sepsis,hypokalemia ,12 beat pvc/ nsvt. Review of Systems seems awake, no new events Review of Systems: Yes all other systems are reviewed and are negative Physical Exam 2 Vital Signs: Vital Signs: Last Vital Signs Temp 97.0 F 11/18/24 11:38 Pulse 81 11/18/24 11:38 Resp 18 11/18/24 11:38 BP 134/64 11/18/24 11:38 Pulse Ox 99 11/18/24 11:38 O2 Del Method Room Air 11/18/24 11:38 O2 Flow Rate 3 11/17/24 10:43 BMI result Body Mass Index 21.8 Appearance: awake , nonverbal cvs: rrr, [id number]. res: air entry similar - dimished at bases. abd: soft ,nd, bs present. ext pulses present , no cyanosis . neuro: limited ,awake . Objective Data Active Medications Albuterol/Ipratropium (Albuterol/Iprat 2.5/0.5mg 3 Ml Ampul.Neb) 3 ml INHALE Q4H [facility] Last Admin: 11/18/24 11:16 Dose: 3 ml Documented By: ADAM Budesonide (Budesonide 0.5 Mg/2 Ml Ampul.Neb) 0.5 mg INHALE RBID [facility] Last Admin: 11/18/24 08:02 Dose: 0.5 mg Documented By: ADAM Calcium Carbonate (Calcium Carbonate 750 Mg Tab.Chew) 750 mg PO Q4H PRN PRN Reason: Heartburn Enoxaparin Sodium (Enoxaparin Sodium 40 Mg/0.4 Ml Syringe) 40 mg SUBCUT Q24H [facility] Last Admin: 11/17/24 22:19 Dose: 40 mg Documented By: CLARI Acetaminophen (Ofirmev) 1,000 mg in 100 mls @ 400 mls/hr IV Q6H [facility] Last Infusion: 11/18/24 12:41 Dose: Infused Documented By: MAAME Piperacillin Sod/Tazobactam (Sod 3.375 gm/ Sodium Chloride) 50 mls @ 100 mls/hr IV Q6H [facility] Last Infusion: 11/18/24 13:20 Dose: Infused Documented By: MAAME Vancomycin HCl 750 mg/ Sodium (Chloride) 265 mls @ 265 mls/hr IV Q12H [facility] Last Infusion: 11/18/24 11:24 Dose: Infused Documented By: ERNESTINA Valproic Acid 250 mg/ Dextrose 52.5 mls @ 55 mls/hr IV DAILY [facility] Last Infusion: 11/18/24 12:13 Dose: Infused Documented By: MAAME Potassium Phosphate (Kphos) 15 mmol in 250 mls @ 62.5 mls/hr IV Q4H [facility] Stop: 11/19/24 05:14 Last Admin: 11/18/24 13:38 Dose: 62.5 mls/hr Documented By: ERNESTINA Dextrose/Sodium Chloride (D5ns) 1,000 mls @ 80 mls/hr IVCONT .[id number] [facility] Ondansetron HCl (Ondansetron Hcl 4 Mg/2 Ml Vial) 4 mg IVPUSH Q8H PRN PRN Reason: Nausea and Vomiting Pharmacy Consult (Consult Rx Vancomycin Dosing) 1 each MISCELLANE DAILY PRN PRN Reason: Consult order Sodium Chloride (0.9 % Sodium Chloride Flush 3 Ml Syringe) 3 ml IVFLUSH QSHIFT [facility] Last Admin: 11/18/24 08:32 Dose: Not Given Documented By: ERNESTINA Non-Admin Reason: IV Running Labs 11/17/24 06:05 11/18/24 06:12 Labs: Laboratory Results - last 24 hr 11/17/24 11/18/24 19:48 06:12 Hold Purple Top SEE NOTE Anion Gap 14 Estim Creat Clear Calc 69.5 Estimated GFR > 60 Random Glucose 82 Calcium 8.7 D Phosphorus 2.3 L Magnesium 1.7 Random Vancomycin 9.1 L Microbiology Microbiology Results: Microbiology 11/16/24 17:13 Urine Culture - Final Urine Catheterized - Straight Catheter 11/16/24 16:11 Blood Culture - Preliminary Blood - Venous No growth after 24 hours. 11/16/24 15:34 Blood Culture - Preliminary Blood - Venous No growth after 24 hours. Assessment and Plan (1) Pneumonia: Status: Acute (2) Sepsis: Status: Acute Assessment and Plan: 84 y/o woman with PMHx significant for advanced dementia (nonverbal) and bed- bound admitted with: Severe sepsis secondary to urinary tract infection and hypoxic respiratory failure due to aspiration pneumonia. Lactic acid resolved vanco: 9.1 Continue empiric IV antibiotic therapy with Zosyn and vancomycin, continue nebs, ivf while npo, Blood and urine culture obtained -will follow results. Swallow evaluation-unable to pass yet ,reeval in am. hypokalemia/low phosphorus: added kphos iv magnesium pvc/nsvt ,spontaeously resolved-likely due to above,vitals stable . continue electrolytic repletion and close monitering mild hypernatremia : due to dehydration: will change fluids to d5ns. Seizures. Check Depakote level. Continue Depakote IV (NPO status). Protein-calorie malnutrition. BMI 15.6 kg/m2. Nutritional consult. ongoing need : Hypoxia/ sepsis sec to pneumonia -need oxygen, IV antibiotics, speech and swallow evaluation, need renal function and electrolytic monitering (3) Hypokalemia: Status: Acute (4) Hypophosphatemia: Status: Acute Quality Stroke Does the patient have a stroke diagnosis?: No VTE Prior VTE?: No VTE Risk Level:: Medical - moderate - high VTE Device Contraindication: N/A - Device Ordered VTE Drug Contraindication: N/A - Med Ordered
--- NOTE | 2024-11-18 16:30 | P.CDIM_ITS ---
PROVIDER RESPONSE TEXT: To clarify, the appropriate diagnosis supported by the clinical indicators: Acute QUERY TEXT: PHYSICIAN'S DOCUMENTATION REQUEST Date of Query: 11/18/2024 01:38 PM EDT Patient Name: Justine Trujillo Admit Date: 11/17/2024 Dear Cleo Small MD, A review of the medical record indicates additional documentation may be needed. Please review below and update the documentation accordingly. Clinical Indicators: short of breath respiratory rate 42- 14 4 liter oxymask Hypoxic Respiratory failure due to aspiration pneumonia IV Zosyn and IV Vancomycin Clarify which of the following accurately represents the acuity of the Hypoxic Respiratory Failure. Possible options might include: Acute Acute on chronic Compensated Chronic stable condition Remission Other (explain) Clinically unable to determine (explain) Thank you, Ellen Johnson RN Use of terms such as suspected, likely, concern for, or probable (associated with a specific diagnosi s that is being evaluated, monitored, or treated as if it exists) are acceptable and can be coded in the inpatient se tting, when documented at the time of discharge. Please use your independent medical judgment in providing your response. THIS QUERY IS PART OF THE PERMANENT MEDICAL RECORD
[2024-11-18] MEDS: Albumin Human 25 % 50 ML 100 ML IV ×2 (17:18→17:53)
[2024-11-18 20:15] LABS: Vancomycin Random 16.9 mcg/mL (15-20)
[2024-11-18 20:31] LABS: Anion Gap 14 (12-20); Blood Urea Nitrogen 4 mg/dL (9-16); Calcium 8.7 mg/dL (8.4-10.2); Carbon Dioxide 24 mmol/L (22-29); Chloride 111 mmol/L (96-108); Creatinine Clr Calc Pharmacy 70.9; Estimated Glomerular Filt Rate > 60; Glucose Random 107 mg/dL (60-115); Potassium 2.3 mmol/L (3.3-5.1); Sodium 147 mmol/L (135-145)
--- NOTE | 2024-11-18 20:33 | HE.PHANOTE ---
RE: vanco Level on 11/18 came abck at 16.9; predicted level was supratherapeutic so decreased dose back to 500mg Q12H with predicted trough of 13.4 mg/L, AUC of 417 mg/L. Next level to be drawn 11/19 @1900
[2024-11-18] MEDS: Enoxaparin Sodium 40 MG/0.4 ML SYRINGE SUBCUT (22:36)
[2024-11-18] MEDS: vancomycin HCL 500 MG in 0.9 % Sodium Chloride 100 ML 110 MG IV (22:36)
[2024-11-18] MEDS: Potassium Chloride/H20 10 MEQ/100 ML PIGGYBACK 100 MEQ IV (23:13)
[2024-11-19] VITALS (12 sets, daily range): BP systolic 115–143; BP diastolic 57–83; PULSE 68–96; RESP 14–20; TEMP 36.2–37.2; O2SAT 94–98; BMI 21.0
[2024-11-19] MEDS: 0.9 % Sodium Chloride Flush 3 ML SYRINGE IVFLUSH ×3 (00:03→16:26)
[2024-11-19] MEDS: Piperacillin Sodium/Tazobactam 3.375 GM in 0.9 % Sodium Chloride 50 ML IV ×4 (00:07→16:57)
[2024-11-19 02:34] LABS: Anion Gap 13 (12-20); Blood Urea Nitrogen 3 mg/dL (9-16); Calcium 8.3 mg/dL (8.4-10.2); Carbon Dioxide 25 mmol/L (22-29); Chloride 110 mmol/L (96-108); Creatinine Clr Calc Pharmacy 73.8; Estimated Glomerular Filt Rate > 60; Glucose Random 126 mg/dL (60-115); Potassium 2.4 mmol/L (3.3-5.1); Sodium 146 mmol/L (135-145)
[2024-11-19] MEDS: Potassium Chloride/H20 10 MEQ/100 ML PIGGYBACK 100 MEQ IV ×7 (02:48→11:10)
[2024-11-19] MEDS: Potassium Phosphate/NS 15 MMOL/250 ML PLAST..BAG 62.5 MMOL IV (03:31)
[2024-11-19] MEDS: Dextrose 5 % and 0.9 % NaCl 1,000 ML 80 ML IVCONT ×2 (03:33→16:23)
[2024-11-19] MEDS: Albuterol/Iprat 2.5/0.5MG 3 ML AMPUL.NEB INHALE ×5 (03:58→19:55)
[2024-11-19] MEDS: Acetaminophen 1,000 MG/100 ML PIGGYBACK 400 MG IV ×3 (05:27→19:56)
[2024-11-19 07:25] LABS: Anion Gap 13 (12-20); Blood Urea Nitrogen 3 mg/dL (9-16); Calcium 8.2 mg/dL (8.4-10.2); Carbon Dioxide 24 mmol/L (22-29); Chloride 110 mmol/L (96-108); Creatinine Clr Calc Pharmacy 75.3; Estimated Glomerular Filt Rate > 60; Glucose Random 116 mg/dL (60-115); Magnesium 1.6 mg/dL (1.6-2.6); Potassium 2.9 mmol/L (3.3-5.1); Sodium 144 mmol/L (135-145)
[2024-11-19] MEDS: vancomycin HCL 500 MG in 0.9 % Sodium Chloride 100 ML 110 MG IV (07:30)
[2024-11-19] MEDS: Magnesium Sulfate/D5W 1 GM/100 ML PIGGYBACK IV (07:43)
[2024-11-19] MEDS: Budesonide 0.5 MG/2 ML AMPUL.NEB INHALE ×2 (07:51→19:55)
[2024-11-19] MEDS: Valproic Acid (as Sodium Salt) 250 MG in Dextrose 5 % 50 ML 55 MG IV (08:37)
--- NOTE | 2024-11-19 10:12 | MHC.SLORD ---
Addendum entered and electronically signed by JOSE CARLOS Rea 11/19/24 13:35: MAKE READY WORKER attempted to see pt again for PO trials early this afternoon. Pt was provided some oral moisturizer to lips. Pt did not wake up to verbal, positional, or tactile stimuli. If pt becomes more awake/alert later in day, MAKE READY WORKER may be able to return if time allows. Original Note: Speech Language Pathology Order Status: Pt inappropriate for PO trials at this time d/t lethargy. MAKE READY WORKER visited w/ family; granddaughter Justine reports that pt has been on thickened liquids for about 4 years and has never had instrumental swallow exam. MBSS reportedly not done previously d/t positional difficulty/concerns obstructing view of study. Alterative instrumental evaluation FEES or Fiberoptic Endoscopic Evaluation of Swallowing may be considered to visualize swallow. [facility] administers this exam. MAKE READY WORKER to return later in date if time allows for oral care and PO trials.
[2024-11-19 10:19] LABS: MRSA Nasal PCR NEGATIVE (Negative); SA Nasal PCR NEGATIVE (Negative)
--- NOTE | 2024-11-19 15:49 | HO.PM.IMPN ---
Subjective Subjective Date of Service: 11/19/24 Interval History: Pneumonia, hypokalemia Review of Systems Awake No new events No fever Review of Systems: Yes all other systems are reviewed and are negative Physical Exam Vital Signs: Vital Signs: Last Vital Signs Temp 97.4 F 11/19/24 15:18 Pulse 88 11/19/24 15:29 Resp 18 11/19/24 15:29 BP 140/83 H 11/19/24 15:18 Pulse Ox 98 11/19/24 15:18 O2 Del Method Room Air 11/19/24 15:18 O2 Flow Rate 3 11/17/24 10:43 BMI result Body Mass Index 21.0 Appearance: awake , nonverbal cvs: rrr, [id number]. res: air entry similar - dimished at bases. abd: soft ,nd, bs present. ext pulses present , no cyanosis . neuro: limited ,awake . Objective Data Active Medications Albuterol/Ipratropium (Albuterol/Iprat 2.5/0.5mg 3 Ml Ampul.Neb) 3 ml INHALE Q4H [facility] Last Admin: 11/19/24 15:21 Dose: 3 ml Documented By: LALA Budesonide (Budesonide 0.5 Mg/2 Ml Ampul.Neb) 0.5 mg INHALE RBID [facility] Last Admin: 11/19/24 07:51 Dose: 0.5 mg Documented By: FATOU Calcium Carbonate (Calcium Carbonate 750 Mg Tab.Chew) 750 mg PO Q4H PRN PRN Reason: Heartburn Enoxaparin Sodium (Enoxaparin Sodium 40 Mg/0.4 Ml Syringe) 40 mg SUBCUT Q24H [facility] Last Admin: 11/18/24 22:36 Dose: 40 mg Documented By: EMILEE Acetaminophen (Ofirmev) 1,000 mg in 100 mls @ 400 mls/hr IV Q6H [facility] Last Infusion: 11/19/24 11:35 Dose: Infused Documented By: ANA Piperacillin Sod/Tazobactam (Sod 3.375 gm/ Sodium Chloride) 50 mls @ 100 mls/hr IV Q6H [facility] Last Infusion: 11/19/24 14:33 Dose: Infused Documented By: ANA Valproic Acid 250 mg/ Dextrose 52.5 mls @ 55 mls/hr IV DAILY [facility] Last Infusion: 11/19/24 10:09 Dose: Infused Documented By: ANA Dextrose/Sodium Chloride (D5ns) 1,000 mls @ 80 mls/hr IVCONT .[id number] [facility] Last Admin: 11/19/24 03:33 Dose: 80 mls/hr Documented By: EMILEE Vancomycin HCl 500 mg/ Sodium (Chloride) 110 mls @ 110 mls/hr IV Q12H [facility] Last Infusion: 11/19/24 10:09 Dose: Infused Documented By: ANA Ondansetron HCl (Ondansetron Hcl 4 Mg/2 Ml Vial) 4 mg IVPUSH Q8H PRN PRN Reason: Nausea and Vomiting Pharmacy Consult (Consult Rx Vancomycin Dosing) 1 each MISCELLANE DAILY PRN PRN Reason: Consult order Sodium Chloride (0.9 % Sodium Chloride Flush 3 Ml Syringe) 3 ml IVFLUSH QSHIFT [facility] Last Admin: 11/19/24 07:19 Dose: 3 ml Documented By: ANA Labs 11/17/24 06:05 11/19/24 06:10 Labs: Laboratory Results - last 24 hr 11/18/24 11/18/24 11/19/24 17:07 19:44 02:09 Hold Purple Top Anion Gap 14 13 Estim Creat Clear Calc 70.9 73.8 Estimated GFR > 60 > 60 Random Glucose 107 126 H Calcium 8.7 8.3 L Magnesium Nasal Screen MRSA (PCR) NEGATIVE Nasal S. aureus Screen NEGATIVE Nasal MRSA/S.aureus Interp SEE NOTE Random Vancomycin 16.9 11/19/24 06:10 Hold Purple Top SEE NOTE Anion Gap 13 Estim Creat Clear Calc 75.3 Estimated GFR > 60 Random Glucose 116 H Calcium 8.2 L Magnesium 1.6 Nasal Screen MRSA (PCR) Nasal S. aureus Screen Nasal MRSA/S.aureus Interp Random Vancomycin Microbiology Microbiology Results: Microbiology 11/16/24 16:11 Blood Culture - Preliminary Blood - Venous No growth after 48 hours. 11/16/24 15:34 Blood Culture - Preliminary Blood - Venous No growth after 48 hours. Assessment and Plan (1) Pneumonia: Status: Acute (2) Sepsis: Status: Acute Assessment and Plan: 84 y/o woman with PMHx significant for advanced dementia (nonverbal) and bed-bound admitted with: Severe sepsis secondary to urinary tract infection and hypoxic respiratory failure due to aspiration pneumonia. Lactic acid resolved vanco: 16.9 blood cultures neg@48hrs and urine cultures -mixed pedro Continue empiric IV antibiotic therapy with Zosyn and vancomycin will swtich to iv doxycycline since nasal mra and blood culture @ 48 hr, continue nebs, CLINICAL SUPPORT MANAGER-diet pureed/pudding thick. id eval. nsvt/pvc: no new episode . hypokalemia/low phosphorus: given kphos added iv potassium /mag continue electrolytic repletion and close monitering will repeat labs in evening mild hypernatremia : improved with hydration. Seizures. Check Depakote level. Continue Depakote IV (NPO status). Protein-calorie malnutrition. BMI 15.6 kg/m2. Nutritional consult. ongoing need : Hypoxia/ sepsis sec to pneumonia -need oxygen, IV antibiotics, speech and swallow evaluation, need renal function and electrolytic monitering. family updated in detail. (3) Hypokalemia: Status: Acute (4) Hypophosphatemia: Status: Acute Quality Stroke Does the patient have a stroke diagnosis?: No VTE Prior VTE?: No VTE Risk Level:: Medical - moderate - high VTE Device Contraindication: N/A - Device Ordered VTE Drug Contraindication: N/A - Med Ordered
--- NOTE | 2024-11-19 16:11 | MHC.SL.SWA ---
Speech Pathologist Impression: Risk of Aspiration Due to: Dysphasia Diet Status: Patient presents with Moderate to Severe Oral Pharyngeal Dysphagia, which, as assessed is close to her baseline. Recommend START diet of PUREE (NDD1) with PUDDING THICK liquids, pills crushed in puree (patient's baseline). Patient will require 1-1 feeding, all food/liquid by tsp only, close monitor for swallow before presenting more food, strict aspiration precautions. Do not attempt to feed patient if she is lethargic or somnambulant. Liquid Consistency and Strategies for Safe Swallow: Liquid Intake Recommendation: Pudding Thick Liquid Intake Strategies: Liquids by Teaspoon Only Solid Food Consistency: Dietary Recommendations: Pureed (NDD1) Additional Modifications to Solid Foods: 1-1 feeding, all purees and liquids by teaspoon only. Assure that patient is adequately awake, alert, engaged in meal. Encourage patient to initiate stripping spoon by pausing (e.g. before depositing food in mouth). Patient has moderate delay before initiating swallow, closely observe for swallow before presenting more food or liquid (swallow/laryngeal movement is visible to eye). Periodically check for pocketed food/liquid. Discontinue with any clinical signs of aspiration, including coughing directly after swallow, increased upper airway noise or wetness. Oral Medication Intake: Crushed with Puree Please contact the pharmacy regarding appropriate crushable or liquid drug formulations that are available whenever modified delivery is recommended. Compensatory Strategies and Precautions to be Taken for Safe Swallow: Sitting Upright (90 deg) No Straw Liquids from Spoon Small Bites and Sips Rate of Ingestion Change Oral Check Supervision While Eating and Drinking for Safe Swallow: Total Assistance (1:1) Foods to Avoid: Swallowing Recommended Treatments: Compens. Strategy Educat. Recommendation for Speech: Comment: Re-Assessment 11/19/24:Patient was awake and alert with Daughter present at bedside. Daughter reports MD had discussed PEG placement today, with daughter stating that her preference was for her mother to be re-assessed for oral feeding before considering alternative feeding. Patient and daughter are familiar to this therapist from previous admissions. Patient is edentulous, does not follow directions but is responsive when spoken to in either Maltese or Liberian (e.g. makes eye contact , some facial expressions, but is non-verbal). Patient was positioned with head of bed at about 80 degrees and ample pillows supporting her. Patient presented with apple sauce by spoon, initially closing mouth to spoon, but then opening, but requiring design maintenance engineer to deposit bolus in mouth (e.g. did not strip spoon), patient then produced a mildly prolonged disorganized oral phase, with tongue pumping, some pausing, mild delay after cessation of oral movments, followed by swallow with laryngeal transit palpated as mildly reduced, but vigorous (e.g. it is visible to the eye, rate and range of movement of larynx on swallow is close to WFL). With repeat presentations at this consistency, patient began to 'slurp the puree from the spoon, had some swallows with improved timing, however others where she appeared to stop and hold bolus for a period before initiating propelling it again. Patient given trace amount of juice at honey thick consistency, appeared to have some greater difficulty managing this orally, with prolonged pause before initiating swallow. Patient noted to cough a couple of times during trials, but cough was not linked to swallow. Cough was noted to be vigorous and productive. Patient will continue to be difficult to feed, and will be at risk for aspiration due to prolonged, disorganized oral phase, and range of delay of swallow. However, recommend START diet of PUREE (NDD1) with PUDDING THICK liquids, pills crushed in puree (patient's baseline). Patient will require 1-1 feeding, all food/liquid by tsp only, close monitor for swallow before presenting more food, strict aspiration precautions. Do not attempt to feed patient if she is lethargic or somnambulant. FLOUR INSPECTOR will follow closely for tolerance of diet. MD, RD, RN notified of recommendation by secure text. Frequency/Duration: Date Range for Service Req: Timeline to reassess: Manager Nursing Home Clinican/Clinical Fellow: No Supervisory Statement: I have reviewed and agree with the student/clinical fellow's documentation: N/A Speech Language Pathologist: Johanny Melendez M.A., CCC-FLOUR INSPECTOR
--- NOTE | 2024-11-19 19:35 | HE.PHANOTE ---
RE: VANCO DOSING Trough came back as 11 mg/L and renal function is stable. Dose is increased to 750 mg q12h, next trough is scheduled for 11/20/24 @1900.
[2024-11-19] MEDS: Doxycycline Hyclate 100 MG in 0.9 % Sodium Chloride 250 ML 166.67 MG IV (20:40)
[2024-11-19] MEDS: Enoxaparin Sodium 40 MG/0.4 ML SYRINGE SUBCUT (20:40)
[2024-11-20] VITALS (9 sets, daily range): BP systolic 115–168; BP diastolic 57–75; PULSE 75–98; RESP 16–20; TEMP 36–37.1; O2SAT 95–100
[2024-11-20 00:20] LABS: Anion Gap 10 (12-20); Blood Urea Nitrogen < 3 mg/dL (9-16); Calcium 8.3 mg/dL (8.4-10.2); Carbon Dioxide 24 mmol/L (22-29); Chloride 111 mmol/L (96-108); Creatinine Clr Calc Pharmacy 75.3; Estimated Glomerular Filt Rate > 60; Glucose Random 141 mg/dL (60-115); Potassium 2.6 mmol/L (3.3-5.1); Sodium 142 mmol/L (135-145)
[2024-11-20] MEDS: Piperacillin Sodium/Tazobactam 3.375 GM in 0.9 % Sodium Chloride 50 ML IV ×4 (00:22→17:03)
[2024-11-20] MEDS: 0.9 % Sodium Chloride Flush 3 ML SYRINGE IVFLUSH ×3 (00:24→17:01)
[2024-11-20] MEDS: Potassium Chloride/H20 10 MEQ/100 ML PIGGYBACK 100 MEQ IV ×4 (00:35→04:10)
[2024-11-20] MEDS: Acetaminophen 1,000 MG/100 ML PIGGYBACK 400 MG IV ×3 (03:14→18:37)
[2024-11-20] MEDS: Dextrose 5 % and 0.9 % NaCl 1,000 ML 80 ML IVCONT (04:10)
[2024-11-20 07:07] LABS: Hematocrit 30.6 % (37.0-47.0); Mean Corpuscular HGB Conc 32.7 g/dl (31.0-35.0); Mean Corpuscular Hemoglobin 29.1 pg (27.0-33.0); Mean Platelet Volume 9.5 fL (9.4-12.3); Platelet Count 293 X10*3/uL (160-400); Red Blood Count 3.44 X10*6/uL (4.20-5.50); Red Cell Distribution Width 13.6 % (11.0-16.0); White Blood Count 8.2 X10*3/uL (4.8-10.8)
[2024-11-20 07:24] LABS: Blood Urea Nitrogen 3 mg/dL (9-16); Calcium 8.7 mg/dL (8.4-10.2); Creatinine Clr Calc Pharmacy 78.5; Estimated Glomerular Filt Rate > 60; Glucose Random 119 mg/dL (60-115); Phosphorus 1.8 mg/dL (2.7-4.5)
[2024-11-20 07:36] LABS: Anion Gap 13 (12-20); Carbon Dioxide 23 mmol/L (22-29); Chloride 112 mmol/L (96-108); Potassium 3.3 mmol/L (3.3-5.1); Sodium 145 mmol/L (135-145)
[2024-11-20] MEDS: Budesonide 0.5 MG/2 ML AMPUL.NEB INHALE (07:41)
[2024-11-20] MEDS: Albuterol/Iprat 2.5/0.5MG 3 ML AMPUL.NEB INHALE ×3 (07:41→15:16)
[2024-11-20] MEDS: Doxycycline Hyclate 100 MG in 0.9 % Sodium Chloride 250 ML 166.67 MG IV (07:49)
[2024-11-20] MEDS: Valproic Acid (as Sodium Salt) 250 MG in Dextrose 5 % 50 ML 55 MG IV (07:51)
--- NOTE | 2024-11-20 11:22 | MHC.SL.SWA ---
Speech Pathologist Impression: Moderate to significant presbyphagia Risk of Aspiration Due to: Advanced dementia Hx of aspiration PNAs Hx of dysphagia (progressive in setting of physiological decline) Dysphasia Diet Status: Patient presents with Moderate to Severe Oral Pharyngeal Dysphagia, which, as assessed is close to her baseline. Recommend START diet of PUREE (NDD1) with PUDDING THICK liquids, pills crushed in puree (patient's baseline). Patient will require 1-1 feeding, all food/liquid by tsp only, close monitor for swallow before presenting more food, strict aspiration precautions. Do not attempt to feed patient if she is lethargic or somnambulant. Liquid Consistency and Strategies for Safe Swallow: Liquid Intake Recommendation: Pudding Thick Liquid Intake Strategies: Liquids by Teaspoon Only Solid Food Consistency: Dietary Recommendations: Pureed (NDD1) Additional Modifications to Solid Foods: 1-1 feeding, all purees and liquids by teaspoon only. Assure that patient is adequately awake, alert, engaged in meal. Encourage patient to initiate stripping spoon by pausing (e.g. before depositing food in mouth). Patient has moderate delay before initiating swallow, closely observe for swallow before presenting more food or liquid (swallow/laryngeal movement is visible to eye). Periodically check for pocketed food/liquid. Discontinue with any clinical signs of aspiration, including coughing directly after swallow, increased upper airway noise or wetness. Oral Medication Intake: Crushed with Puree Please contact the pharmacy regarding appropriate crushable or liquid drug formulations that are available whenever modified delivery is recommended. Compensatory Strategies and Precautions to be Taken for Safe Swallow: Sitting Upright (90 deg) No Straw Liquids from Spoon Small Bites and Sips Rate of Ingestion Change Oral Check Supervision While Eating and Drinking for Safe Swallow: Total Assistance (1:1) Foods to Avoid: 1-1 feeding, all purees and liquids by teaspoon only. Assure that patient is adequately awake, alert, engaged in meal. Encourage patient to initiate stripping spoon by pausing (e.g. before depositing food in mouth). Patient has moderate delay before initiating swallow, closely observe for swallow before presenting more food or liquid (swallow/laryngeal movement is visible to eye). Periodically check for pocketed food/liquid. Discontinue with any clinical signs of aspiration, including coughing directly after swallow, increased upper airway noise or wetness. Swallowing Recommended Treatments: Compens. Strategy Educat. Recommendation for Speech: Comment: Pt seen for dysphagia treatment. Pt currently on pureed/pudding thick consistency diet. Intake minimal. Family at bedside. Pt positioned comfortably in bed, with HOB elevated to 80 degrees. Pt alert to voice, making eye contact and turning head, twice changing facial expression. Pt provided with verbal cues and gustatory stim to encourage PO intake of pudding thick liquid. Pt observed to initiate lip closure, jaw elevation and tongue protrusion but pt turned head and grimaced upon second presentation. Family reports pt intake has been poor over the past 4 weeks, and verbalize understanding of prognosis relative to dementia related dysphagia. Family wants pt to return home with services. EMPLOYMENT SPECIALIST continues to be indicated for caregiver support and education, monitoring of PO tolerance and recommendation/reinforcement of safety strategies. Frequency/Duration: Date Range for Service Req: Timeline to reassess: White Work Cleaner Clinican/Clinical Fellow: No Supervisory Statement: I have reviewed and agree with the student/clinical fellow's documentation: N/A Speech Language Pathologist: Surekha Falcon M.S., CCC-EMPLOYMENT SPECIALIST
--- NOTE | 2024-11-20 12:15 | MHC.CLN ---
F/U PT IS MODERATELY MALNOURISHED SEE FULL CLINICAL NUTRITION ASSESSMENT DATED 11/18/24 DIET ADVANCED TO 2GM NA PUREED WITH PUDDING THICK LIQ-RECOMMEND LIBERALIZING DIET TO REGULAR TO INCREASE KCALS WITH ADVANCED AGE RECOMMEND ADDING ENSURE BID AND MAGIC CUP WITH MEALS ENSURE BID TO PROVIDE 700KCALS, 40G PROTEIN MAGIC CUP TO PROVIDE 580KCALS, 18G PROTEIN MONITOR PO INTAKE AND ENCOURAGE SUPPLEMENTS
--- NOTE | 2024-11-20 12:17 | HO.PM.IMPN ---
Subjective Subjective Date of Service: 11/20/24 Review of Systems Review of Systems: Yes Unobtainable due to mental condition Physical Exam Vital Signs: Vital Signs: Last Vital Signs Temp 98.2 F 11/20/24 08:00 Pulse 86 11/20/24 11:34 Resp 20 11/20/24 11:34 BP 115/57 L 11/20/24 08:00 Pulse Ox 99 11/20/24 08:00 O2 Del Method Room Air 11/20/24 08:00 O2 Flow Rate 3 11/17/24 10:43 BMI result Body Mass Index 21.0 Appearance: awake , nonverbal cvs: rrr, [id number]. res: air entry similar - dimished at bases. abd: soft ,nd, bs present. ext pulses present , no cyanosis . neuro: limited ,awake . Objective Data Active Medications Albuterol/Ipratropium (Albuterol/Iprat 2.5/0.5mg 3 Ml Ampul.Neb) 3 ml INHALE Q4H [facility] Last Admin: 11/20/24 11:33 Dose: 3 ml Documented By: LALA Budesonide (Budesonide 0.5 Mg/2 Ml Ampul.Neb) 0.5 mg INHALE RBID [facility] Last Admin: 11/20/24 07:41 Dose: 0.5 mg Documented By: LALA Calcium Carbonate (Calcium Carbonate 750 Mg Tab.Chew) 750 mg PO Q4H PRN PRN Reason: Heartburn Enoxaparin Sodium (Enoxaparin Sodium 40 Mg/0.4 Ml Syringe) 40 mg SUBCUT Q24H [facility] Last Admin: 11/19/24 20:40 Dose: 40 mg Documented By: TIMOTHY Piperacillin Sod/Tazobactam (Sod 3.375 gm/ Sodium Chloride) 50 mls @ 100 mls/hr IV Q6H [facility] Last Infusion: 11/20/24 11:50 Dose: Infused Documented By: LAMONTE Valproic Acid 250 mg/ Dextrose 52.5 mls @ 55 mls/hr IV DAILY [facility] Last Infusion: 11/20/24 09:11 Dose: Infused Documented By: LAMONTE Dextrose/Sodium Chloride (D5ns) 1,000 mls @ 80 mls/hr IVCONT .[id number] [facility] Last Admin: 11/20/24 04:10 Dose: 80 mls/hr Documented By: TIMOTHY Acetaminophen (Ofirmev) 1,000 mg in 100 mls @ 400 mls/hr IV Q8H [facility] Last Infusion: 11/20/24 11:43 Dose: Infused Documented By: LAMONTE Doxycycline Hyclate 100 mg/ (Sodium Chloride) 250 mls @ 166.67 mls/hr IV Q12H [facility] Last Infusion: 11/20/24 09:09 Dose: Infused Documented By: LAMONTE Ondansetron HCl (Ondansetron Hcl 4 Mg/2 Ml Vial) 4 mg IVPUSH Q8H PRN PRN Reason: Nausea and Vomiting Sodium Chloride (0.9 % Sodium Chloride Flush 3 Ml Syringe) 3 ml IVFLUSH QSHIFT [facility] Last Admin: 11/20/24 07:51 Dose: 3 ml Documented By: LAMONTE Labs 11/20/24 06:11 11/20/24 06:11 Labs: Laboratory Results - last 24 hr 11/19/24 11/19/24 11/20/24 18:56 23:42 06:11 MCV 89.0 MCH 29.1 MCHC 32.7 RDW 13.6 Plt Count 293 MPV 9.5 Absolute Nucleated RBC 0.000 Nucleated RBC % (auto) 0.0 Anion Gap 10 L 13 Estim Creat Clear Calc 75.3 Cancelled Estimated GFR > 60 Random Glucose 141 H Calcium 8.3 L Phosphorus Random Vancomycin 11.0 L 11/20/24 11/20/24 06:11 06:11 MCV MCH MCHC RDW Plt Count MPV Absolute Nucleated RBC Nucleated RBC % (auto) Anion Gap Estim Creat Clear Calc 78.5 Estimated GFR Cancelled > 60 Random Glucose 119 H Calcium 8.7 Phosphorus 1.8 L Random Vancomycin Assessment and Plan (1) Failure to thrive in adult: Status: Acute Plan 84F PMH advanced dementia, nonverbal and bed-bound at baseline, seizure disorder presented with tachypnea Severe sepsis and acute metabolic encephalopathy and acute hypoxic respiratory failure due to aspiration pneumonia Continue Zosyn, DC doxycycline, TRANSITIONAL CARE MANAGER appreciated continue modified diet - pureed, pudding thick, urine culture mixed pedro Acute hypernatremia and hypokalemia Given hypotonic fluids, potassium supplement, improving, monitor Seizure disorder Continue Depakote Advanced Alzheimer's dementia with failure to thrive and moderate protein calorie malnutrition Encourage p.o. intake DVT prophylaxis - Lovenox DNR/DNI reason for continued hospitalization: Ongoing monitoring of electrolytes and intake Quality Stroke Does the patient have a stroke diagnosis?: No VTE Prior VTE?: No VTE Risk Level:: Medical - moderate - high VTE Device Contraindication: N/A - Device Ordered VTE Drug Contraindication: N/A - Med Ordered
--- NOTE | 2024-11-20 14:49 | W.PM.IDCN ---
History of Present Illness Data of Consult Service Date: 11/20/24 Requesting physician: Pop Avelar Primary Care Provider: Viviana Jasmine DO HPI Reason for consult: hypoxia She presents with shortness of breath and found hypoxia SHe has LLL infiltrate. She is edentulous and found to have trouble swallowing initially. Review of Systems Review of Systems: Yes Unobtainable due to mental condition PMFSH Past Medical History Medical History Hypernatremia Aspiration pneumonia Failure to thrive in adult Asthma Alzheimer disease Social History Social History Household Members: Family Housing: House Do you presently have visiting nurse or other home services: No Unable to assess alcohol history related to: Unable to respond Alcohol intake: former Patient Tobacco Use Status: Never used Tobacco e-Cigarette/Vaping Use: Never Used Second Hand Smoke Exposure: No Advance Directives Date on File: 08/05/21 service: No Current occupational status: retired Meds Allergies Allergy/AdvReac Type Severity Reaction Status Date / Time aspirin [ASPIRIN] Allergy Unknown UNKNOWN Verified 11/16/24 15:19 ibuprofen [IBUPROFEN] Allergy Unknown SWELLING Verified 11/16/24 15:19 Active Medications: Current Medications Albuterol/Ipratropium (Albuterol/Iprat 2.5/0.5mg 3 Ml Ampul.Neb) 3 ml INHALE Q4H [facility] Last Admin: 11/20/24 11:33 Dose: 3 ml Budesonide (Budesonide 0.5 Mg/2 Ml Ampul.Neb) 0.5 mg INHALE RBID [facility] Last Admin: 11/20/24 07:41 Dose: 0.5 mg Calcium Carbonate (Calcium Carbonate 750 Mg Tab.Chew) 750 mg PO Q4H PRN PRN Reason: Heartburn Enoxaparin Sodium (Enoxaparin Sodium 40 Mg/0.4 Ml Syringe) 40 mg SUBCUT Q24H [facility] Last Admin: 11/19/24 20:40 Dose: 40 mg Piperacillin Sod/Tazobactam (Sod 3.375 gm/ Sodium Chloride) 50 mls @ 100 mls/hr IV Q6H [facility] Last Infusion: 11/20/24 11:50 Dose: Infused Valproic Acid 250 mg/ Dextrose 52.5 mls @ 55 mls/hr IV DAILY [facility] Last Infusion: 11/20/24 09:11 Dose: Infused Acetaminophen (Ofirmev) 1,000 mg in 100 mls @ 400 mls/hr IV Q8H [facility] Last Infusion: 11/20/24 11:43 Dose: Infused Ondansetron HCl (Ondansetron Hcl 4 Mg/2 Ml Vial) 4 mg IVPUSH Q8H PRN PRN Reason: Nausea and Vomiting Sodium Chloride (0.9 % Sodium Chloride Flush 3 Ml Syringe) 3 ml IVFLUSH QSHIFT [facility] Last Admin: 11/20/24 07:51 Dose: 3 ml Home Medications ?Medication ?Instructions ?Recorded ?Confirmed ?Last Taken ?Type multivitamin (Daily-Kimberley tablet) 1 tab PO DAILY 11/18/20 11/17/24 11/16/24 History acetaminophen 160 mg/5 mL oral 480 mg PO Q6H PRN fever 11/17/24 11/17/24 11/16/24 History liquid (Children's Acetaminophen) divalproex 250 mg tablet,delayed 250 mg PO DAILY 11/17/24 11/17/24 11/16/24 History release ferrous sulfate 325 mg (65 mg 325 mg PO 3XW 11/17/24 11/17/24 11/16/24 History iron) tablet,delayed release nystatin 100,000 unit/mL oral 4 ml PO QID 11/17/24 11/17/24 11/16/24 History suspension starch (thickening) (Thick-It oral 1 ea PO DAILY 11/17/24 11/17/24 11/16/24 History powder) zinc oxide 13 % topical cream 1 appl topical DAILY PRN 11/17/24 11/17/24 11/16/24 History (Desitin Daily Defense) Incontinence Physical Exam Vital Signs: Vital Signs: Last Vital Signs Temp 98.8 F 11/20/24 12:00 Pulse 98 11/20/24 12:00 Resp 20 11/20/24 12:00 BP 168/75 H 11/20/24 12:00 Pulse Ox 98 11/20/24 12:00 O2 Del Method Room Air 11/20/24 12:00 O2 Flow Rate 3 11/17/24 10:43 BMI result Body Mass Index 21.0 Psych: Other: confused Results Labs 11/20/24 06:11 06/04/25 06:11 Labs: Short CBC 11/20/24 Range/Units 06:11 WBC 8.2 (4.8-10.8) X10*3/uL Hgb 10.0 L (12.0-16.0) g/dl Hct 30.6 L (37.0-47.0) % Plt Count 293 (160-400) X10*3/uL BMP 11/19/24 11/20/24 11/20/24 23:42 06:11 06:11 Sodium 142 145 Potassium 2.6 L* 3.3 D Chloride 111 H 112 H Carbon Dioxide 24 23 BUN < 3 L 3 L Creatinine 0.48 L Cancelled 0.46 L Calcium 8.3 L 8.7 Microbiology Microbiology Results: Microbiology 11/16/24 16:11 Blood - Venous Blood Culture - Preliminary No growth after 48 hours. 11/16/24 15:34 Blood - Venous Blood Culture - Preliminary No growth after 48 hours. 11/16/24 17:13 Urine Catheterized - Straight Catheter Urine Culture - Final Assessment and Plan (1) Pneumonia: Qualifiers: Aspiration pneumonia type: unspecified Laterality: left Lung location: lower lobe of lung Pneumonia type: aspiration pneumonia Qualified Code(s): J69.0 - Pneumonitis due to inhalation of food and vomit Status: Acute (2) Sepsis: Status: Acute Plan possible gram negative she is better on Zosyn and strong enough to swallow Change to Augmentin for total 8 days if able to swallow pills or crush
--- NOTE | 2024-11-20 16:11 | MHC.CM.PN ---
Per MD not cleared to discharge today. DP Home with resumption of 09/01 care. He requires BLs transport.
[2024-11-20 19:52] LABS: Vancomycin Random 4.4 mcg/mL (15-20)
[2024-11-20] MEDS: Enoxaparin Sodium 40 MG/0.4 ML SYRINGE SUBCUT (22:01)
[2024-11-21] VITALS (9 sets, daily range): BP systolic 100–135; BP diastolic 41–79; PULSE 81–96; RESP 14–19; TEMP 36.1–37.1; O2SAT 95–100; BMI 18.2
[2024-11-21] MEDS: 0.9 % Sodium Chloride Flush 3 ML SYRINGE IVFLUSH ×3 (00:45→21:47)
[2024-11-21] MEDS: Piperacillin Sodium/Tazobactam 3.375 GM in 0.9 % Sodium Chloride 50 ML IV ×4 (00:46→21:46)
[2024-11-21] MEDS: Acetaminophen 1,000 MG/100 ML PIGGYBACK 400 MG IV ×2 (03:16→10:46)
[2024-11-21 06:44] LABS: Hematocrit 31.1 % (37.0-47.0); Hemoglobin 10.4 g/dl (12.0-16.0); Mean Corpuscular HGB Conc 33.4 g/dl (31.0-35.0); Mean Corpuscular Hemoglobin 29.5 pg (27.0-33.0); Mean Corpuscular Volume 88.1 fL (80.0-98.0); Platelet Count 290 X10*3/uL (160-400); Red Blood Count 3.53 X10*6/uL (4.20-5.50); Red Cell Distribution Width 13.7 % (11.0-16.0); White Blood Count 8.2 X10*3/uL (4.8-10.8)
[2024-11-21 07:21] LABS: Anion Gap 12 (12-20); Blood Urea Nitrogen 6 mg/dL (9-16); Calcium 9.2 mg/dL (8.4-10.2); Carbon Dioxide 25 mmol/L (22-29); Chloride 110 mmol/L (96-108); Creatinine Clr Calc Pharmacy 59.8; Estimated Glomerular Filt Rate > 60; Glucose Random 97 mg/dL (60-115); Potassium 2.9 mmol/L (3.3-5.1); Sodium 144 mmol/L (135-145)
[2024-11-21] MEDS: Budesonide 0.5 MG/2 ML AMPUL.NEB INHALE (07:40)
[2024-11-21] MEDS: Albuterol/Iprat 2.5/0.5MG 3 ML AMPUL.NEB INHALE ×2 (07:40→15:18)
[2024-11-21] MEDS: Potassium Chloride/H20 10 MEQ/100 ML PIGGYBACK 100 MEQ IV ×2 (08:10→10:35)
[2024-11-21] MEDS: Valproic Acid (as Sodium Salt) 250 MG in Dextrose 5 % 50 ML 52.5 MG IV (08:18)
--- NOTE | 2024-11-21 11:37 | HO.PM.IMPN ---
Subjective Subjective Date of Service: 11/21/24 Review of Systems Review of Systems: Yes Unobtainable due to mental condition Physical Exam Vital Signs: Vital Signs: Last Vital Signs Temp 97.6 F 11/21/24 08:00 Pulse 83 11/21/24 08:00 Resp 19 11/21/24 08:00 BP 100/41 L 11/21/24 08:00 Pulse Ox 100 11/21/24 08:00 O2 Del Method Room Air 11/21/24 03:25 O2 Flow Rate 3 11/17/24 10:43 BMI result Body Mass Index 18.2 Psych: Other: confused Objective Data Active Medications Albuterol/Ipratropium (Albuterol/Iprat 2.5/0.5mg 3 Ml Ampul.Neb) 3 ml INHALE Q4H [facility] Last Admin: 11/21/24 07:40 Dose: 3 ml Documented By: FATOU Budesonide (Budesonide 0.5 Mg/2 Ml Ampul.Neb) 0.5 mg INHALE RBID [facility] Last Admin: 11/21/24 07:40 Dose: 0.5 mg Documented By: FATOU Calcium Carbonate (Calcium Carbonate 750 Mg Tab.Chew) 750 mg PO Q4H PRN PRN Reason: Heartburn Enoxaparin Sodium (Enoxaparin Sodium 40 Mg/0.4 Ml Syringe) 40 mg SUBCUT Q24H [facility] Last Admin: 11/20/24 22:01 Dose: 40 mg Documented By: TIMOTHY Piperacillin Sod/Tazobactam (Sod 3.375 gm/ Sodium Chloride) 50 mls @ 100 mls/hr IV Q6H [facility] Last Infusion: 11/21/24 06:36 Dose: Infused Documented By: VINCE Valproic Acid 250 mg/ Dextrose 52.5 mls @ 55 mls/hr IV DAILY [facility] Last Infusion: 11/21/24 09:39 Dose: Infused Documented By: WILD Acetaminophen (Ofirmev) 1,000 mg in 100 mls @ 400 mls/hr IV Q8H [facility] Last Infusion: 11/21/24 11:24 Dose: Infused Documented By: WILD Ondansetron HCl (Ondansetron Hcl 4 Mg/2 Ml Vial) 4 mg IVPUSH Q8H PRN PRN Reason: Nausea and Vomiting Sodium Chloride (0.9 % Sodium Chloride Flush 3 Ml Syringe) 3 ml IVFLUSH QSHIFT [facility] Last Admin: 11/21/24 08:05 Dose: 3 ml Documented By: WILD Labs 11/21/24 06:16 11/21/24 06:16 Labs: Laboratory Results - last 24 hr 11/20/24 11/21/24 19:26 06:16 MCV 88.1 MCH 29.5 MCHC 33.4 RDW 13.7 Plt Count 290 MPV 9.0 L Absolute Nucleated RBC 0.000 Nucleated RBC % (auto) 0.0 Anion Gap 12 Estim Creat Clear Calc 59.8 Estimated GFR > 60 Random Glucose 97 Calcium 9.2 Random Vancomycin 4.4 L Assessment and Plan (1) Failure to thrive in adult: Status: Acute Plan 84F PMH advanced dementia, nonverbal and bed-bound at baseline, seizure disorder presented with tachypnea Severe sepsis and acute metabolic encephalopathy and acute hypoxic respiratory failure due to aspiration pneumonia Continue Zosyn, THERAPEUTIC SUPPORT STAFF appreciated continue modified diet - pureed, pudding thick, urine culture mixed pedro Acute hypernatremia and hypokalemia Given hypotonic fluids, potassium supplement, monitor Seizure disorder Continue Depakote Advanced Alzheimer's dementia with failure to thrive and moderate protein calorie malnutrition Encourage p.o. intake DVT prophylaxis - Lovenox DNR/DNI reason for continued hospitalization: Ongoing monitoring of electrolytes and intake Quality Stroke Does the patient have a stroke diagnosis?: No VTE Prior VTE?: No VTE Risk Level:: Medical - moderate - high VTE Device Contraindication: N/A - Device Ordered VTE Drug Contraindication: N/A - Med Ordered
--- NOTE | 2024-11-21 17:10 | MHC.SL.SWA ---
Speech Pathologist Impression: Risk of Aspiration Due to: Dysphasia Diet Status: Patient presents with Moderate to Severe Oral Pharyngeal Dysphagia, which, as assessed is close to her baseline. Recommend START diet of PUREE (NDD1) with PUDDING THICK liquids, pills crushed in puree (patient's baseline). Patient will require 1-1 feeding, all food/liquid by tsp only, close monitor for swallow before presenting more food, strict aspiration precautions. Do not attempt to feed patient if she is lethargic or somnambulant. Liquid Consistency and Strategies for Safe Swallow: Liquid Intake Recommendation: Pudding Thick Liquid Intake Strategies: Liquids by Teaspoon Only Solid Food Consistency: Dietary Recommendations: Pureed (NDD1) Additional Modifications to Solid Foods: 1-1 feeding, all purees and liquids by teaspoon only. Assure that patient is adequately awake, alert, engaged in meal. Encourage patient to initiate stripping spoon by pausing (e.g. before depositing food in mouth). Patient has moderate delay before initiating swallow, closely observe for swallow before presenting more food or liquid (swallow/laryngeal movement is visible to eye). Periodically check for pocketed food/liquid. Discontinue with any clinical signs of aspiration, including coughing directly after swallow, increased upper airway noise or wetness. Oral Medication Intake: Crushed with Puree Please contact the pharmacy regarding appropriate crushable or liquid drug formulations that are available whenever modified delivery is recommended. Compensatory Strategies and Precautions to be Taken for Safe Swallow: Sitting Upright (90 deg) No Straw Liquids from Spoon Small Bites and Sips Rate of Ingestion Change Oral Check Supervision While Eating and Drinking for Safe Swallow: Total Assistance (1:1) Foods to Avoid: 1-1 feeding, all purees and liquids by teaspoon only. Assure that patient is adequately awake, alert, engaged in meal. Encourage patient to initiate stripping spoon by pausing (e.g. before depositing food in mouth). Patient has moderate delay before initiating swallow, closely observe for swallow before presenting more food or liquid (swallow/laryngeal movement is visible to eye). Periodically check for pocketed food/liquid. Discontinue with any clinical signs of aspiration, including coughing directly after swallow, increased upper airway noise or wetness. Swallowing Recommended Treatments: Compens. Strategy Educat. Recommendation for Speech: Comment: Pt seen for dysphagia treatment at breakfast. BEEF TRIMMER had been attempting to feed, reported that patient was just pocketing food and not swallowing. ACCELERATOR OPERATOR then gave patient spoonful of pureed bananas, holding spoon at lips for patient to initiate stripping, which she did, with moderate oral manipulation of bolus before swallow initiated. On subsequent trials of banana, patient was intermittent about stripping spoon. Patient then given bite of pureed eggs, which patient then held in mouth for somewhat prolonged period, emergency vehicle technician presented dry spoon, which prompted patient to inititiate oral movement leading to swallow after delay. this consistency somewhat more solid as a puree, patient on trials 2 & 3 demonstrated similar holding requiring dry spoon to initiated swallow. Patient given honey thick ensure by spoon, patient again held this consistency for prolonged period, was prompted with dry spoon, which initiated some movement, and seemingly swallowed, however on further oral check patient with ample residual in mouth, which eventually required manual removal of the residual. Patient during this attempt to feed took only small amounts of foods trialed, remained marginally engaged in eating, and required manual removal of a pocketed bolus. Oral intake likely to continue to be minimal, and patient, if pocketing/holding bolus remains at high risk of aspiration. Patient likely to need alternative nutrition/hydration source if not on hospice/comfort care, with discussion needed with family/hcp on this decision. White board fully updated with feeding strategies/recommendations. Frequency/Duration: Date Range for Service Req: Timeline to reassess: Cloth Opener Hand Clinican/Clinical Fellow: No Supervisory Statement: I have reviewed and agree with the student/clinical fellow's documentation: N/A Speech Language Pathologist: Johanny Melendez M.A., [facility]ACCELERATOR OPERATOR
[2024-11-21] MEDS: Enoxaparin Sodium 40 MG/0.4 ML SYRINGE SUBCUT (21:47)
[2024-11-22] VITALS (9 sets, daily range): BP systolic 109–127; BP diastolic 51–64; PULSE 80–103; RESP 16–19; TEMP 36.2–37; O2SAT 95–98; BMI 17.7
[2024-11-22] MEDS: Acetaminophen 1,000 MG/100 ML PIGGYBACK 400 MG IV ×2 (03:52→12:43)
[2024-11-22] MEDS: Piperacillin Sodium/Tazobactam 3.375 GM in 0.9 % Sodium Chloride 50 ML IV ×4 (03:53→20:19)
[2024-11-22 06:53] LABS: Hematocrit 31.1 % (37.0-47.0); Hemoglobin 10.4 g/dl (12.0-16.0); Mean Corpuscular HGB Conc 33.4 g/dl (31.0-35.0); Mean Corpuscular Hemoglobin 29.5 pg (27.0-33.0); Mean Corpuscular Volume 88.4 fL (80.0-98.0); Mean Platelet Volume 9.2 fL (9.4-12.3); Platelet Count 337 X10*3/uL (160-400); Red Blood Count 3.52 X10*6/uL (4.20-5.50); White Blood Count 8.4 X10*3/uL (4.8-10.8)
[2024-11-22 06:59] LABS: Anion Gap 14 (12-20); Blood Urea Nitrogen 10 mg/dL (9-16); Calcium 9.4 mg/dL (8.4-10.2); Carbon Dioxide 27 mmol/L (22-29); Chloride 106 mmol/L (96-108); Creatinine Clr Calc Pharmacy 58.2; Estimated Glomerular Filt Rate > 60; Glucose Random 117 mg/dL (60-115); Magnesium 1.6 mg/dL (1.6-2.6); Potassium 3.2 mmol/L (3.3-5.1); Sodium 144 mmol/L (135-145)
[2024-11-22] MEDS: Budesonide 0.5 MG/2 ML AMPUL.NEB INHALE ×2 (07:56→18:58)
[2024-11-22] MEDS: Albuterol/Iprat 2.5/0.5MG 3 ML AMPUL.NEB INHALE ×4 (07:56→18:57)
[2024-11-22] MEDS: 0.9 % Sodium Chloride Flush 3 ML SYRINGE IVFLUSH ×3 (09:54→20:19)
[2024-11-22] MEDS: Valproic Acid (as Sodium Salt) 250 MG in Dextrose 5 % 50 ML 55 MG IV (10:43)
--- NOTE | 2024-11-22 11:15 | HO.PM.IMPN ---
Subjective Subjective Date of Service: 11/22/24 Review of Systems Review of Systems: Yes Unobtainable due to mental condition Physical Exam Vital Signs: Vital Signs: Last Vital Signs Temp 97.4 F 11/22/24 07:50 Pulse 90 11/22/24 07:56 Resp 17 11/22/24 07:56 BP 109/51 L 11/22/24 07:50 Pulse Ox 95 11/22/24 07:50 O2 Del Method Room Air 11/22/24 07:50 O2 Flow Rate 3 11/17/24 10:43 BMI result Body Mass Index 17.7 Psych: Other: confused Objective Data Active Medications Albuterol/Ipratropium (Albuterol/Iprat 2.5/0.5mg 3 Ml Ampul.Neb) 3 ml INHALE Q4H [facility] Last Admin: 11/22/24 07:56 Dose: 3 ml Documented By: FATUO Budesonide (Budesonide 0.5 Mg/2 Ml Ampul.Neb) 0.5 mg INHALE RBID [facility] Last Admin: 11/22/24 07:56 Dose: 0.5 mg Documented By: FATOU Calcium Carbonate (Calcium Carbonate 750 Mg Tab.Chew) 750 mg PO Q4H PRN PRN Reason: Heartburn Enoxaparin Sodium (Enoxaparin Sodium 40 Mg/0.4 Ml Syringe) 40 mg SUBCUT Q24H [facility] Last Admin: 11/21/24 21:47 Dose: 40 mg Documented By: EMILEE Valproic Acid 250 mg/ Dextrose 52.5 mls @ 55 mls/hr IV DAILY [facility] Last Admin: 11/22/24 10:43 Dose: 55 mls/hr Documented By: MARISABEL Acetaminophen (Ofirmev) 1,000 mg in 100 mls @ 400 mls/hr IV Q8H [facility] Last Infusion: 11/22/24 04:07 Dose: Infused Documented By: EMILEE Piperacillin Sod/Tazobactam (Sod 3.375 gm/ Sodium Chloride) 50 mls @ 100 mls/hr IV Q6H [facility] Last Infusion: 11/22/24 10:23 Dose: Infused Documented By: MARISABEL Ondansetron HCl (Ondansetron Hcl 4 Mg/2 Ml Vial) 4 mg IVPUSH Q8H PRN PRN Reason: Nausea and Vomiting Sodium Chloride (0.9 % Sodium Chloride Flush 3 Ml Syringe) 3 ml IVFLUSH QSHIFT [facility] Last Admin: 11/22/24 09:54 Dose: 3 ml Documented By: MARISABEL Labs 11/22/24 06:12 11/22/24 06:12 Labs: Laboratory Results - last 24 hr 11/22/24 06:12 MCV 88.4 MCH 29.5 MCHC 33.4 RDW 14.0 Plt Count 337 MPV 9.2 L Absolute Nucleated RBC 0.000 Nucleated RBC % (auto) 0.0 Anion Gap 14 Estim Creat Clear Calc 58.2 Estimated GFR > 60 Random Glucose 117 H Calcium 9.4 Magnesium 1.6 Microbiology Microbiology Results: Microbiology 11/16/24 16:11 Blood Culture - Final Blood - Venous No growth after 5 days. 11/16/24 15:34 Blood Culture - Final Blood - Venous No growth after 5 days. Assessment and Plan (1) Failure to thrive in adult: Status: Acute Plan 84F PMH advanced dementia, nonverbal and bed-bound at baseline, seizure disorder presented with tachypnea Severe sepsis and acute metabolic encephalopathy and acute hypoxic respiratory failure due to aspiration pneumonia Continue Zosyn, MANAGER ELECTRICAL appreciated continue modified diet - pureed, pudding thick, urine culture mixed pedro Acute hypernatremia and hypokalemia Given hypotonic fluids, potassium supplement, monitor Seizure disorder Continue Depakote Advanced Alzheimer's dementia with failure to thrive and moderate protein calorie malnutrition Encourage p.o. intake DVT prophylaxis - Lovenox DNR/DNI reason for continued hospitalization: dispo planning Quality Stroke Does the patient have a stroke diagnosis?: No VTE Prior VTE?: No VTE Risk Level:: Medical - moderate - high VTE Device Contraindication: N/A - Device Ordered VTE Drug Contraindication: N/A - Med Ordered
--- NOTE | 2024-11-22 11:21 | PM.DS ---
DS: Providers Provider Date of Service: 11/23/24 Date of admission: 11/16/24 20:13 Date of discharge: 11/23/24 Primary care physician: Viviana Jasmine DO Consults: 11/19/24 15:51 Consult to Infectious Diseases Routine Consulting Provider: [facility] Reason for consultation: sepsis /aspiritional pneumonia Has provider been notified: No DS: Diagnosis Discharge Diagnosis (1) Failure to thrive in adult: Status: Acute DS: Summary Hospital Course Hospital Course: from initial hpi: 84 years old woman with past medical history significant for advanced dementia (nonverbal), bed-bound, seizures and cachexia was brought to the emergency department accompanied by her niece and daughter after she was noted to be breathing faster than normal and wheezing. Family mentioned that the patient has been having episodes of coughing and choking. He was also noted to to be shaking. They have noted any episodes of vomiting or diarrhea. They did not reported any fevers at home. In the ED, she was found to have marked tachycardia and tachypnea. She was placed on supplemental oxygen via high-flow and subsequently OxyMask. She is currently on 4 L/min. Temperature is 99.3. Blood workup is remarkable for leukocytosis of 15.9, hemoglobin 13.1 and platelets 365. There are no significant electrolyte imbalances. BUN is 18 and creatinine 0.61. Lactic acid is increasing from 4.0 to 6.4. LFTs are unremarkable. Troponin is negative x2. BNP and albumin are normal. Venous blood gas showed no respiratory acidosis. Urinalysis consistent with UTI. Viral testing for influenza, RSV and COVID-19 is negative. Chest CTA showed no large or central pulmonary artery embolus, gross: Opacities in the left lower lobe raising concern for infection and atelectasis versus fibrotic interstitial lung disease. Abdomen pelvis CT scan showed no acute findings. ECG showed sinus tachycardia, heart rate 137 bpm + LAFH with the obvious ischemic changes. ED tx: Ceftriaxone 1 mg IV, azithromycin 500 mg IV, NS 2139 ml bolus, Zosyn 3.375 g IV, albuterol neb. hospital course: Patient was admitted for severe sepsis and acute metabolic encephalopathy and acute hypoxic respiratory failure due to aspiration pneumonia. Was treated with IV Zosyn. Was seen by speech who recommended pureed solids and pudding thick liquids. Urine culture grew mixed pedro was unlikely contributory. For acute hyper natremia and hypokalemia received hypotonic fluids and potassium supplement and labs improved. Mental status improved to baseline. Patient will be discharged home with 5 more days of Augmentin and with suctioning device. For seizure disorder was continued on Depakote. For advanced Alzheimer's dementia with failure to thrive and moderate protein calorie malnutrition p.o. intake is encouraged. Time Attestation Discharge Coordination Time (in mins): 34 Quality: Safe Use of Opioids Does Pt have an Active Cancer Diagnosis on the Problem List?: No Quality: Stroke Does the patient have a stroke diagnosis?: No Physical Exam Vital Signs: Vital Signs: Last Vital Signs Temp 97.4 F 11/22/24 07:50 Pulse 90 11/22/24 07:56 Resp 17 11/22/24 07:56 BP 109/51 L 11/22/24 07:50 Pulse Ox 95 11/22/24 07:50 O2 Del Method Room Air 11/22/24 07:50 O2 Flow Rate 3 11/17/24 10:43 BMI result Body Mass Index 17.7 Psych: Other: confused DS: Data Data Completed and Pending Completed studies during hospitalization [Text1]: Procedures Excision of Left Lower Arm Skin, External Approach, Diagnostic (11/18/20) Introduction of Remdesivir Anti-infective into Peripheral Vein, Percutaneous Approach, [employer] 5 (09/25/21) Labs on day of discharge: Laboratory Results - last 24 hr 11/22/24 06:12 WBC 8.4 RBC 3.52 L Hgb 10.4 L Hct 31.1 L MCV 88.4 MCH 29.5 MCHC 33.4 RDW 14.0 Plt Count 337 MPV 9.2 L Absolute Nucleated RBC 0.000 Nucleated RBC % (auto) 0.0 Sodium 144 Potassium 3.2 L Chloride 106 Carbon Dioxide 27 Anion Gap 14 BUN 10 Creatinine 0.53 Estim Creat Clear Calc 58.2 Estimated GFR > 60 Random Glucose 117 H Calcium 9.4 Magnesium 1.6 Discharge Plan Discharge Anticipated Discharge Date/Time: 11/23/24 09:16 Patient Disposition: Home Health Service Discharge Diagnosis: ftt, pna Referrals: [facility] [Outside] - 1 Day (SNF, YOUR FIRST NURSING VISIT WILL BE TOMORROW/THURSDAY 11/23.) Viviana Jasmine DO [Primary Care Provider] - 1 Week Discharge Medications: New (DME) Suction machine w/tubing, canister and filter Kit See Rx Instructions .Route Qty: 1 0RF Rx Instructions: As directed amoxicillin-pot clavulanate 875-125 mg tablet 1 tab PO BID Qty: 10 0RF ipratropium-albuterol 0.5 mg-3 mg(2.5 mg base)/3 mL Solution For Nebulization 3 ml inhalation Q4H 30 Days Qty: 180 0RF albuterol sulfate 1.25 mg/3 mL solution for nebulization 1.25 mg inhalation Q8H PRN (Reason: sob) Qty: 90 0RF Continued multivitamin [Daily-Kimberley] Tablet 1 tab PO DAILY acetaminophen [Children's Acetaminophen] 160 mg/5 mL liquid 480 mg PO Q6H PRN (Reason: fever) divalproex 250 mg tablet,delayed release (DR/EC) 250 mg PO DAILY ferrous sulfate 325 mg (65 mg iron) tablet,delayed release (DR/EC) 325 mg PO 3XW Desitin Daily Defense 13 % cream 1 appl topical DAILY PRN (Reason: Incontinence) nystatin 100,000 unit/mL suspension 4 ml PO QID Thick-It Powder 1 ea PO DAILY Discharge Orders: Discharge Order (Routine); Ordered 11/22/24 Ordered By: Pop Avelar Diet: pureed, pudding thick Activity on Discharge: As tolerated Stand Alone Forms: Patient Portal Discharge page Print Language: Serbian Care Plan Goals: Avoid aspiration Health Concerns: Aspiration Plan of Treatment: Pureed solids with pudding thick liquids, 5 more days of Augmentin, suctioning as needed Assessment: See above
--- NOTE | 2024-11-22 12:19 | MHC.CLN ---
F/U PT IS MODERATELY MALNOURISHED PO INTAKE 100% X 1 MEAL DIET RX: PUREED WITH PUDDING THICK LIQ RECEIVING ENSURE BID AND MAGIC CUP WITH MEALS ENSURE BID TO PROVIDE 700KCALS, 40G PROTEIN MAGIC CUP TO PROVIDE 580KCALS, 18G PROTEIN MONITOR PO INTAKE AND ENCOURAGE SUPPLEMENTS
--- NOTE | 2024-11-22 12:44 | MHC.SL.SWA ---
Speech Pathologist Impression: Risk of Aspiration, Moderate to Severe Oropharyngeal Dysphagia Risk of Aspiration Due to:Decreased cognition, underlying dementia Dysphasia Diet Status: No Change Liquid Consistency and Strategies for Safe Swallow: Liquid Intake Recommendation: Pudding Thick Liquid Intake Strategies: Liquids by Teaspoon Only Solid Food Consistency: Dietary Recommendations: Pureed (NDD1) Additional Modifications to Solid Foods: 1-1 feeding, all purees and liquids by teaspoon only. Assure that patient is adequately awake, alert, engaged in meal. Encourage patient to initiate stripping spoon by pausing (e.g. before depositing food in mouth). Patient has moderate delay before initiating swallow, closely observe for swallow before presenting more food or liquid (swallow/laryngeal movement is visible to eye). Periodically check for pocketed food/liquid. Discontinue with any clinical signs of aspiration, including coughing directly after swallow, increased upper airway noise or wetness. Oral Medication Intake: Crushed with Puree Please contact the pharmacy regarding appropriate crushable or liquid drug formulations that are available whenever modified delivery is recommended. Compensatory Strategies and Precautions to be Taken for Safe Swallow: Sitting Upright (90 deg) No Straw Liquids from Spoon Small Bites and Sips Rate of Ingestion Change Oral Check Supervision While Eating and Drinking for Safe Swallow: Total Assistance (1:1) Swallowing Recommended Treatments: Compens. Strategy Educat. Recommendation for Speech: Comment: PUREE (NDD1) with PUDDING THICK liquids, pills crushed in puree (patient's baseline). Patient will require 1-1 feeding, all food/liquid by tsp only, close monitor for swallow before presenting more food, strict aspiration precautions. Do not attempt to feed patient if she is lethargic or somnambulant. MACHINED PARTS QUALITY INSPECTOR continues to be indicated for caregiver support and education, monitoring of PO tolerance and recommendation/reinforcement of safety strategies. Frequency/Duration: Date Range for Service Req: Timeline to reassess: Ratoprinter Clinican/Clinical Fellow: No Supervisory Statement: I have reviewed and agree with the student/clinical fellow's documentation: N/A Speech Language Pathologist: Thelma Hernández M.A., [facility]-MACHINED PARTS QUALITY INSPECTOR
--- NOTE | 2024-11-22 12:49 | W.MHC.F2F ---
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 Reason homebound: bedbound/chairbound Certification: Based on the above findings, I certify that this patient is confined to the home and needs intermittent correction care, physical therapy and/or speech therapy, or continues to need occupational therapy. The patient is under my care, and I have initiated the establishment of the plan of care. The patient will be followed by a physician who will periodically review the plan of care. Time Spent With Patient Time: Total time managing care of this patient today ____ minutes.
--- NOTE | 2024-11-22 12:55 | MHC.CM.PN ---
IMM 11/22/24 DELIVERED TO [facility] AT BEDSIDE, PT WILL DC HOME W/[facility] FOR SN, NEW SUCTION AND RESUMP OF HOME O2 W/[facility] AND 24HR CARE, PT MAY DC W/[facility] IF VOIDING TRIAL FAILS, [facility] FOR BLS TRANSPORT
[2024-11-22] MEDS: Enoxaparin Sodium 40 MG/0.4 ML SYRINGE SUBCUT (20:19)
[2024-11-23 03:31] VITALS: BP 117/61; PULSE 88; RESP 16; TEMP 36.6; O2SAT 96
[2024-11-23] MEDS: Piperacillin Sodium/Tazobactam 3.375 GM in 0.9 % Sodium Chloride 50 ML IV ×2 (04:05→08:59)
[2024-11-23 05:56] VITALS: BMI 18.2
[2024-11-23 08:00] VITALS: BP 117/58; PULSE 84; RESP 20; TEMP 36.9; O2SAT 97
[2024-11-23 08:26] LABS: Creatinine Clr Calc Pharmacy 55.6; Estimated Glomerular Filt Rate > 60
--- NOTE | 2024-11-23 09:22 | MHC.CM.PN ---
Per MD, Patient is medically cleared for dc to home today with services; [facility] has been made aware of today's dc and RN is informing Patient to call [facility] when she arrives home so that her suction machine will be delivered (CM confirmed this with RT). MYKE spoke with Primary Contact/Granddaughter/Margareth at [phone], who is aware of and in agreement with the dc plan and she agreed to inform Patient's Son, as well. IMM was addressed yesterday.
[2024-11-23] MEDS: Valproic Acid (as Sodium Salt) 250 MG in Dextrose 5 % 50 ML 55 MG IV (09:34)
[2024-11-23 11:06] VITALS: PULSE 84; RESP 20; O2SAT 96
[2024-11-23] MEDS: Albuterol/Iprat 2.5/0.5MG 3 ML AMPUL.NEB INHALE (11:06)
[2024-11-23 11:47] VITALS: BP 108/53; PULSE 89; RESP 18; TEMP 36.8; O2SAT 100
== END 2024-11-23 13:00 | disposition home health service (06) | DRG 871 ==
LOC: HO.ED 19:05 → HO.EDOVER 20:54 → HO.IMC 11-17 15:42
PROVIDERS: Emergency Medicine; Hospitalist; Internal Medicine; Nurse Practitioner Family; Physician Assistant Medical; Admitting Provider Internal Medicine; Emergency Provider Internal Medicine; PCP Family Medicine; Visit Provider Internal Medicine
DX: A41.9 Sepsis, unspecified organism (principal); G93.41 Metabolic encephalopathy; J69.0 Pneumonitis due to inhalation of food and vomit; J96.01 Acute respiratory failure with hypoxia; N39.0 Urinary tract infection, site not specified; E87.22 Chronic metabolic acidosis; E87.0 Hyperosmolality and hypernatremia; I47.20 Ventricular tachycardia, unspecified; E44.0 Moderate protein-calorie malnutrition; Z68.1 Body mass index [BMI] 19.9 or less, adult; G30.9 Alzheimer's disease, unspecified; R65.20 Severe sepsis without septic shock; E87.6 Hypokalemia; G40.909 Epilepsy, unspecified, not intractable, without status epilepticus; E86.0 Dehydration; E83.39 Other disorders of phosphorus metabolism; F02.80 Dementia in other diseases classified elsewhere, unspecified severity, without behavioral disturbance, psychotic disturbance, mood disturbance, and anxiety; Z74.01 Bed confinement status; Z66 Do not resuscitate; Z20.822 Contact with and (suspected) exposure to COVID-19; Z79.899 Other long term (current) drug therapy
CPT/HCPCS: 0241U; 36415; 71045; 71275; 74177; 80048; 80053; 80164; 80202; 81001; 82565; 82803; 83605; 83735; 83880; 84100; 84484; 85025; 85027; 87040; 87086; 87640; 87641; 92526; 92610; 93005; 94640; 99285; J0131; J0456; J0696; J1271; J1650; J2543; J2919; J3370; J3475; J3480; P9047; Q9967

== ENCOUNTER → 2024-11-16 15:22 | Outpatient (BNV) | payer MEDICARE, MEDICAID, SELFPAY | PROVIDERS: Emergency Provider Emergency Medicine; PCP Family Medicine; Visit Provider Radiology Diagnostic Radiology | DX: N39.0 Urinary tract infection, site not specified (principal); D72.829 Elevated white blood cell count, unspecified; R91.8 Other nonspecific abnormal finding of lung field; A41.9 Sepsis, unspecified organism | CPT/HCPCS: 71045 ==

== ENCOUNTER → 2024-11-16 15:44 | Outpatient (BNV) | payer MEDICARE, MEDICAID, SELFPAY | PROVIDERS: Admitting Provider Internal Medicine; Emergency Provider Internal Medicine; PCP Family Medicine; Visit Provider Internal Medicine Cardiovascular Disease | DX: I44.4 Left anterior fascicular block (principal); R00.0 Tachycardia, unspecified | CPT/HCPCS: 93010 ==

== ENCOUNTER 2024-11-16 20:13 | Outpatient (BNV) | payer MEDICARE, MEDICAID, SELFPAY | END 2024-11-18 23:27 | PROVIDERS: Admitting Provider Internal Medicine; Emergency Provider Internal Medicine; PCP Family Medicine; Visit Provider Internal Medicine | DX: I49.9 Cardiac arrhythmia, unspecified (principal) | CPT/HCPCS: 93010 ==

== ENCOUNTER → 2024-11-16 20:13 | Outpatient (BNV) | payer MEDICARE, MEDICAID, SELFPAY | PROVIDERS: Admitting Provider Internal Medicine; Emergency Provider Internal Medicine; PCP Family Medicine; Visit Provider Internal Medicine | DX: R62.7 Adult failure to thrive (principal) | CPT/HCPCS: 99223; 99232; 99233 ==

== ENCOUNTER → 2024-11-16 20:13 | Outpatient (BNV) | payer MEDICARE, MEDICAID, SELFPAY | PROVIDERS: Admitting Provider Internal Medicine; Emergency Provider Internal Medicine; PCP Family Medicine; Visit Provider Internal Medicine | DX: J69.0 Pneumonitis due to inhalation of food and vomit (principal); A41.9 Sepsis, unspecified organism | CPT/HCPCS: 99232 ==

== ENCOUNTER 2024-12-11 14:53 | Outpatient (REF) | payer MEDICARE, MEDICAID, SELFPAY ==
[2024-12-11 16:56] LABS: Alanine Aminotransferase 11 U/L (0-31); Albumin Level 3.8 g/dL (3.5-5.0); Alkaline Phosphatase 48 U/L (39-117); Anion Gap 15 (12-20); Aspartate Amino Transferase 29 U/L (5-31); Bilirubin Direct 0.1 mg/dL (0.0-0.5); Bilirubin Total 0.3 mg/dL (0.0-1.0); Blood Urea Nitrogen 17 mg/dL (9-16); Calcium 9.7 mg/dL (8.4-10.2); Carbon Dioxide 25 mmol/L (22-29); Chloride 110 mmol/L (96-108); Cholesterol 159 mg/dL (<200); Estimated Glomerular Filt Rate > 60; Glucose Random 102 mg/dL (60-115); HDL Cholesterol 51 mg/dL (>40); Iron 38 mcg/dL (30-160); LDL Cholesterol Calculated 91 mg/dL (<100); Percent Iron Saturation 25 % (15-50); Potassium 4.5 mmol/L (3.3-5.1); Sodium 145 mmol/L (135-145); Total Iron Binding Capacity 150 mcg/dL (228-428); Total Protein 6.7 g/dL (6.5-8.0); Triglycerides 88 mg/dL (<150); Unsaturated Iron Binding 112 ug/dL
[2024-12-11 17:00] LABS: Thyroid Stimulating Hormone 4.23 uIU/mL (0.32-4.0)
[2024-12-11 17:03] LABS: Ferritin 198 ng/mL (10-250); Free T4 (Free Thyroxine) 1.04 ng/dL (0.71-1.85)
[2024-12-11 17:16] LABS: Folate > 20.0 ng/mL (> or = 4.0); Vitamin B12 409 pg/mL (200-900)
--- OUTSIDE RECORDS SUMMARY | 2024-12-11 17:47 | XMS_ITS | Encounter Summary ---
Author Organization [email or web address] Address [address] [facility] [address] [place] [address] Care Team Providers Care Cash Teller Name Role Phone Viviana Jasmine DO Primary Care Provider [phone] Encounter Details Date Type Department Care Team ([facility] st Contact Info) Description 12/11/2024 Orders Only [facility] MED[facility]INE [address] [place] [address] Viviana Jasmine DO [address] [place], [place] [phone] Social History Tobacco Use Types Packs/Day Years [...] as of this encounter Plan of Treatment Not on file documented as of this encounter Procedures Procedure Name Priority Date/Time Associated Diagnosis Comments CANCELLED HEMATOLOGY Routine 12/11/2024 2:57 PM EDT CANCELLED CHEMISTRY Routine 12/11/2024 2 :57 PM EDT documented in this encounter Results * Cancelled Hematology (12/11/2024 2:57 PM EDT) Cancelled Hematology SEE NOTE [facility] Comment:THE FOLLOWING TESTS WERE CANCELLED: CBCREASON: CLOTTED 12/11/2024 2:57 PM EDT 12/11/2024 4:11 PM EDT us Viviana Jasmine DO HISTORICAL/NON ORDERABLE LAB S Final Result [facility] [address] [place] [address] [phone] * Cancelled Chemistry (12/11/2024 2:57 PM EDT) Cancelled Chemistry SEE NOTE [facility] Comment:CANCEL HGB A1C. SPEC IMEN CLOTTED 12/11/2024 2:57 PM EDT 12/11/2024 4:11 PM EDT Viviana Jasmine DO HISTORICAL/NON ORDERABLE LAB S Final Result [facility] [address] [place] [address] [phone] documented in this encounter Visit Diagnoses Not on filedocumented in this encounter Additional Health Concerns Assessment Noted Time PHQ-9 Depression Total Score: 1 10/26/19 11:47 AM EDT documented as of this encounter Care Teams Cash Teller Relationship Specialty Start Date End Date Viviana Jasmine DO [address] [place] [id number] PCP - General Family Medicine 04/10/13 [facility] 11/25/24 documented as of this encounter
== END 2024-12-11 14:54 | disposition home or self-care (01) ==
LOC: HO.HHCL 14:53
PROVIDERS: PCP Family Medicine; Visit Provider Internal Medicine
DX: E87.0 Hyperosmolality and hypernatremia (principal); E87.6 Hypokalemia; G40.409 Other generalized epilepsy and epileptic syndromes, not intractable, without status epilepticus; D64.9 Anemia, unspecified; G30.9 Alzheimer's disease, unspecified; F02.80 Dementia in other diseases classified elsewhere, unspecified severity, without behavioral disturbance, psychotic disturbance, mood disturbance, and anxiety; R79.9 Abnormal finding of blood chemistry, unspecified; E43 Unspecified severe protein-calorie malnutrition
CPT/HCPCS: 36415; 80048; 80061; 80076; 82306; 82607; 82728; 82746; 83540; 84439; 84443

== ENCOUNTER 2024-12-18 12:55 | Outpatient (REF) | payer MEDICARE, MEDICAID, SELFPAY ==
--- OUTSIDE RECORDS SUMMARY | 2024-12-18 13:26 | XMS_ITS | Encounter Summary ---
Author Organization [employer] Address [address] [facility] [address] [place] [address] Care Team Providers Care Claims Technician Name Role Phone Viviana Jasmine DO Primary Care Provider + [phone] Reason for Visit * Reason Onset Date Comments Med Refill 10/21/2024 Encounter Details Date Type Department Care Team (Late st Contact Info) Description 10/21/2024 Refill [facility] MEDICINE [address] [place] [address] Tosin Vickers MD [address] [place] [address] Failure to thrive in adult Social History [...] your housing situation today? 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
--- OUTSIDE RECORDS SUMMARY | 2024-12-18 13:26 | XMS_ITS | Clinical Summary ---
Author Organization [facility] Facility Address [address] [address] Care Team Providers Care Bookstore Clerk Name Role Phone Viviana Jasmine DO Primary [...] Medicaid [place] Care Teams Bookstore Clerk Relationship Specialty Start Date End Date Viviana Jasmine DO PCP - General Family Medicine 08/09/21
[2024-12-18 16:12] LABS: Hematocrit 37.2 % (37.0-47.0); Hemoglobin 11.9 g/dl (12.0-16.0); Mean Corpuscular HGB Conc 32.0 g/dl (31.0-35.0); Mean Corpuscular Hemoglobin 29.3 pg (27.0-33.0); Mean Corpuscular Volume 91.6 fL (80.0-98.0); NRBC Abs Auto 0.000 X10*3/uL (0.0-0.012); NRBC Pct Auto 0.0 /100WBC (0.0-0.2); Platelet Count 284 X10*3/uL (160-400); Red Blood Count 4.06 X10*6/uL (4.20-5.50); White Blood Count 12.3 X10*3/uL (4.8-10.8)
[2024-12-18 16:25] LABS: Hemoglobin A1C 105.2179 umol/L; Total Hemoglobin (HGBA1C) 3066.5737 umol/L
== END 2024-12-18 12:56 | disposition home or self-care (01) ==
LOC: HO.HHCL 12:55
PROVIDERS: PCP Family Medicine; Visit Provider Family Medicine
DX: G40.409 Other generalized epilepsy and epileptic syndromes, not intractable, without status epilepticus (principal); D64.9 Anemia, unspecified; G30.9 Alzheimer's disease, unspecified; F02.80 Dementia in other diseases classified elsewhere, unspecified severity, without behavioral disturbance, psychotic disturbance, mood disturbance, and anxiety; R79.9 Abnormal finding of blood chemistry, unspecified
CPT/HCPCS: 36415; 83036; 85027

== ENCOUNTER 2024-12-27 12:33 | Outpatient (REF) | payer MEDICARE, MEDICAID, SELFPAY ==
--- OUTSIDE RECORDS SUMMARY | 2024-12-11 14:15 | XMS_ITS | Encounter Summary ---
Author Organization [employer] Address [address] [place] [address] Care Team Providers Care Textile Chemist Name Role Phone Viviana Jasmine DO Primary Care Provider [phone] Reason for Visit * Reason Comments Hospital Follow-up Encounter Details Date Type Department Care Team ([facility] st Contact Info) Description 12/11/2024 2:15 PM EDT Office Visit [facility] [address] [place] [address] Tosin Vickers MD [address] [place] [address] Aspiration pneumonia of left lower lobe, unspecified aspiration pneumonia type (CMS/HCC) (Primary Dx); Urinary tract infection without hematuria, site unspecified; Hypernatremia; Hypokalemia; Severe late onset Alzheimer's dementia, unspecified whether behavioral, psychotic, or mood disturbance or anxiety (CMS/HCC) Social History Tobacco Use Types Packs/Day Years Used Date Smoking Tobacco: Never Smokeless Tobacco: Never Alcohol Use Standard Drinks/Week Comments Not Currently 0 (1 standard drink = 0.6 oz pur e alcohol) Depression Answer Date Recorded Patient Health Questionnaire-9 Score 1 10/25/2024 Patient Health Questionnaire-9 Score 1 10/25/2024 Last PHQ-9: Questionnaire Data Not on file 0 10/25/2024 Housing Stability Answer Date Recorded What is [...] Date Recorded Patient Health Questionnaire-2 Score 0 10/25/2024 Internet Access Answer Date Recorded Internet Access Q1 Yes 03/08/2024 Internet Access Q2 Not on file 03/08/2024 Comments No Sex and Gender Information Value Date Recorded Sex Assigned at Female 04/18/2022 10:14 AM EDT Legal Sex Female 10:14 AM EDT Gender Identity Female 04/18/2022 10:14 AM EDT Sexual Orientation Choose not to disclose 2021 10:14 AM EDT documented as of this encounter Last Filed Vital Signs Vital Sign Reading Time Taken Comments Blood Pressure 104/52 12/11/2024 2:29 PM EDT Pulse 68 12/11/2024 2:29 PM EDT Temperature 36.3 C (97.3 F) 12/11/2024 2:29 PM EDT Respiratory Rate 12 12/11/2024 2:29 PM EDT Oxygen Saturation - - Inhaled Oxygen Concentration - - Weight - - Height - - Body Mass Index - - documented in this encounter Progress Notes * Tosin Arias MD - 12/11/2024 2:15 PM EDT SUBJECTIVE: Justine Trujillo is a 84 y.o. year old female who presents for [facility] [place] Patient with PMH of asthma presented due to episodes of wheezing and coughing. Patient found to have marked tachycardia and tachypnea, in which they were initiated on 4L supplemental O2. Labs notablefor WBC 15.9 x 10^3/uL, hemoglobin 13.1 mg/dL, and lactic acid 6.4 mg/dL. Labs also notable for hypernatremia and hypokalemia, which resolved with IV fluids and potassium supplementation. Viral respiratory panel negative. VBG without evidence of respiratory acidosis. Urinalysis consistent with UTI.Chest CT revealed opacities of the LLL with concern for infection and atelectasis vs fibrotic interstitial lung disease. Patient treated with IV Zosyn for aspiration pneumonia. GRID MOLDER consulted and recom mended thick liquid diet. Patient discharged to home with services and to continue antibiotic course. Medication changes that occurred during hospitalization include: Added Amoxicillin-clavulanate 875-125 mg twice daily x 5 days Ipratropium-albuterol 2.5 mg/3 mL nebulizer solution 1 ampule every 4 hours Albuterol 1.25 mg/3 mL nebulizer solution 1 ampule every 8 hours as needed Suction machine w/ tubing Changed None Discontinued None Patient comes today complaining by her primary caregiver, she tells me she is back to her baseline and that she finished all her antibiotics Social History Social History Narrative Not on file Problem List[1] Mild intermittent asthma Alzheimer disease (CMS/HCC) Osteoarthritis History of COVID-19 Chronic gastroesophageal reflux disease Cholelithiasis Urinary incontinence Healthcare maintenance History of vertebral compression fracture Breast mass Myoclonic seizures (CMS/HCC) Aspiration pneumonia of left lower lobe (CMS/HCC) UTI (urinary tract infection) Family History[2] Review of Systems Constitutional: Negative. HENT: Negative. Respiratory: Negative. Cardiovascular: Negative. OBJECTIVE: Vitals: 12/11/24 1429 BP: 104/52 BP Location: Left arm Patient Position: Sitting BP Cuff Size: Adult Pulse: 68 Resp: 12 Temp: 97.3 ??F (36.3 ??C) TempSrc: Temporal Physical Exam Constitutional: Comments: Patient is nonverbal, wheelchair-bound, contracted Cardiovascular: Rate and Rhythm: Normal rate and regular rhythm. Pulmonary: Effort: Pulmonary effort is normal. Breath sounds: Normal breath sounds. Musculoskeletal: Right lower leg: No edema. Left lower leg: No edema. Neurological: Mental Status: She is alert. Follow Up: No follow-ups on file. Medications Ordered Prior to Encounter[3] Problem List Items Addressed This Visit Aspiration pneumonia of left lower lobe (CMS/HCC) - Primary Likely resolved UTI (urinary tract infection) Resolved Hypernatremia BMP ordered today to recheck her sodium level Relevant Orders Basic Metabolic Panel (Completed) Hypokalemia BMP ordered today to recheck her potassium level Relevant Orders Basic Metabolic Panel (Completed) Severe late onset Alzheimer's dementia (CMS/HCC) Patient with advanced dementia, she is nonverbal with contractures, wheelchair/bedbound and needs helps with absolutely all her ALDs, Patient is having aspiration pneumonia, I believe it would be beneficial if she is evaluated for hospice [1] Patient Active Problem List Diagnosis Mild intermittent asthma Alzheimer disease (CMS/HCC) Osteoarthritis History of COVID-19 Chronic gastroesophageal reflux disease Cholelithiasis Urinary incontinence Healthcare maintenance History of vertebral compression fracture Breast mass Myoclonic seizures ([facility]/HCC) Aspiration pneumonia of left lower lobe ([facility]/HCC) UTI (urinary tract infection) Hypernatremia Hypokalemia Severe late onset Alzheimer's dementia ([facility]) [2] No family history on file. [3] Current Outpatient Medications on File Prior to Visit Medication Sig Dispense Refill Acetaminophen Childrens 160 MG/5ML solution TAKE 15ML BY MOUTH EVERY 6 HOURS NEEDED FOR MILD PAIN OR FEVER 240 mL 2 albuterol 1.25 MG/3ML nebulizer solution Take 1 vial by nebulization every 8 (eight) hours if needed for shortness of breath. baclofen (Lioresal) 10 MG tablet Take 0.5 tablets (5 mg) by mouth if needed in the morning and at bedtime (Muscle Pain). 90 tablet 1 Baclofen 5 MG/5ML solution Take 5 mg by mouth if needed in the morning and at bedtime (muscle pain). 473 mL 1 Blood Pressure kit Please use as directed to check blood pressure 1 kit 0 Diclofenac Sodium 1 % gel Apply 2 g topically if needed in the morning, at noon, in the evening, and at bedtime (pain). 150 g 1 divalproex (Depakote) 250 MG EC tablet TOME ONESIMO TABLETA VIA ORAL DOS VECES AL LORENZO ferrous sulfate 325 (65 Fe) MG EC tablet Take 1 tablet (325 mg) by mouth 3 (three) times a week. 12tablet 11 ipratropium-albuterol (Duo-Neb) 0.5-2.5 mg/3 mL nebulizer solution Take 3 mL by nebulization every 4 (four) hours. lidocaine (Xylocaine) 5 % ointment Apply topically if needed in the morning, at noon, and at bedtime for mild pain. 240 g 3 Multiple Vitamin (Daily-Kimberley Multivitamin) tablet TAKE 1 TABLET BY MOUTH EVERY DAY WITH FOOD 90 tablet 1 Petrolatum 42 % ointment USE TOPICALLY ONCE A DAY NEEDED FOR DRY SKIN 454 g 2 Starch-Maltodextrin (Thick-It) powder Mix in 4 teaspoons of Thickit to every 4oz liquid 1020 g 3 Zinc Oxide (Desitin Daily Defense) 13 % cream APPLY TO BUTTOCKS AFTER EACH USE OF INCONTINENCE 57 g3 No current facility-administered medications on file prior to visit. documented in this encounter Miscellaneous Notes * Assessment & Plan Note - Tosin Arias MD - 12/26/2024 9:42 AM EDT Associated Problem(s): Severe late onset Alzheimer's dementia (CMS/HCC) Patient with advanced dementia, she is nonverbal with contractures, wheelchair/bedbound and needs helps with absolutely all her ALDs, Patient is having aspiration pneumonia, I believe it would be beneficial if she is evaluated for hospice * Assessment & Plan Note - Tosin Arias MD - 12/11/2024 4:37 PM EDT Associated Problem(s): Aspiration pneumonia of left lower lobe (CMS/HCC) Likely resolved * Assessment & Plan Note - Tosin Arias MD - 12/11/2024 4:37 PM EDT Associated Problem(s): UTI (urinary tract infection) Resolved * Assessment & Plan Note - Tosin Arias MD - 12/11/2024 4:37 PM EDT Associated Problem(s): Hypokalemia BMP ordered today to recheck her potassium level * Assessment & Plan Note - Tosin Arias MD - 12/11/2024 4:36 PM EDT Associated Problem(s): Hypernatremia BMP ordered today to recheck her sodium level documented in this encounter Plan of Treatment Not on file documented as of this encounter Procedures Procedure Name Priority Date/Time Associated Diagnosis Comments BASIC METABOLIC PANEL Routine 12/11/2024 2:57 PM EDT Hypernatremia Hypokalemia documented in this encounter Results * (ABNORMAL) Basic Metabolic Panel (12/11/2024 2:57 PM EDT) Sodium 145 135 - 145 mmol/L [facility] Potassium 4.5 3.3 - 5.1 mmol/L [facility] Chloride 110(H) 96 - 108 mmol/L [facility] Carbon Dioxide 25 22 - 29 mmol/L [facility] Anion Gap 15 12 - 20 [facility] Urea Nitrogen (BUN) 17(H) 9 - 16 mg/dL [facility] Creatinine, Serum 0.51 0.5 - 1.4 mg/dL [facility] Estimated Glomerular Filt Rate >60 [facility] Comment:Chronic Kidney Disea se: Estimated GFR < 60 mL/min/1.05u2Hcqchc Kidney Disease: Estimated GFR < 15 mL/min/1.73m2 Glucose 102 60 - 115 mg/dL [facility] Calcium 9.7 8.4 - 10.2 mg/dL [facility] Blood Venous blood specimen / Unknown 12/11/2024 2:57 PM EDT 12/11/2024 4:11 PM EDT Tosin Arias MD LAB BLOOD ORDERABLES Final Result [facility] [address] [place] [address] [phone] documented in this encounter Visit Diagnoses Diagnosis Aspiration pneumonia of left lower lobe, unspecified aspiration pneumonia type (CMS/HCC)- Primary Urinary tract infection without hematuria, site unspecified Hypernatremia Hyperosmolality and/or hypernatremia Hypokalemia Hypopotassemia Severe late onset Alzheimer's dementia, unspecified whether behavioral, psychotic, or mood disturbance or anxiety (CMS/HCC) documented in this encounter Additional Health Concerns Assessment Noted Time PHQ-9 Depression Total Score: 1 10/26/19 25 11:47 AM EDT documented as of this encounter Care Teams Textile Chemist Relationship Specialty Start Date End Date Viviana Jasmine DO [address] [place] [id number] PCP - General Family Medicine 04/10/13 [facility] 11/25/24 documented as of this encounter
--- NOTE | ~2024-12-27 | CT_ITS ---
EXAMINATION: CT HEAD WITHOUT CONTRAST CLINICAL INFORMATION: advanced dementia, myoclonic seizures COMPARISON: October 02, 2024. TECHNIQUE: Contiguous axial imaging was performed from the skull base to vertex without intravenous administration of contrast. This CT examination was performed using dose optimization techniques as appropriate, variously including the following: *Automated exposure control *Adjustment of mA and/or kV according to patient size (this includes techniques or standardized protocols for targeted exams where dose is matched to indication/reason for exam; i.e. extremities or head) *Use of iterative reconstruction technique DLP: 1651 mGy-cm FINDINGS: Patient's motion artifact. No acute intracranial hemorrhage. Dilatation of the lateral ventricles third ventricle with the normal morphology of the fourth ventricle and sylvian aqueduct. No mass effect midline shift, or herniation. 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 Electronically signed by: Holland Shaw MD 12/27/2024 02:18 PM EDT
--- OUTSIDE RECORDS SUMMARY | 2024-12-27 12:35 | XMS_ITS | Clinical Summary ---
Author Organization [facility] Facility Address [address] [address] Care Team Providers Care Dampproofer Name Role Phone Viviana Jasmine DO Primary [...] of 1 - PCV) 1990 Influenza Vaccine (#1) 2025 Hepatitis B Vaccine Aged Out No longe r eligible based on patient's age to complete this topic Insurance Medicare Medicaid [place] Medicare [place] Care Teams Dampproofer Relationship Specialty Start Date End Date Viviana Jasmine DO PCP - General Family Medicine 08/09/21
== END 2024-12-27 12:34 | disposition home or self-care (01) ==
LOC: HO.CT 12:33
PROVIDERS: PCP Family Medicine; Visit Provider Family Medicine
DX: G40.409 Other generalized epilepsy and epileptic syndromes, not intractable, without status epilepticus (principal)
CPT/HCPCS: 70450

== ENCOUNTER → 2024-12-27 12:35 | Outpatient (BNV) | payer MEDICARE, MEDICAID, SELFPAY | PROVIDERS: PCP Family Medicine; Visit Provider Radiology Diagnostic Radiology | DX: G40.409 Other generalized epilepsy and epileptic syndromes, not intractable, without status epilepticus (principal); F03.90 Unspecified dementia, unspecified severity, without behavioral disturbance, psychotic disturbance, mood disturbance, and anxiety | CPT/HCPCS: 70450 ==

== ENCOUNTER 2024-12-27 21:23 | Emergency (ER) | payer MEDICARE, MEDICAID, SELFPAY ==
--- OUTSIDE RECORDS SUMMARY | 2024-12-11 14:15 | XMS_ITS | Encounter Summary ---
Author Organization [employer] Address [address] [place] [address] Care Team Providers Care Software Manager Name Role Phone Viviana Jasmine DO Primary Care Provider [phone] Reason for Visit * Reason Comments Hospital Follow-up Encounter Details Date Type Department Care Team ([facility] st Contact Info) Description 12/11/2024 2:15 PM EDT Office Visit [facility] [address] [place] [address] Tosin Vickers MD [address] [place] [address] Aspiration pneumonia of left lower lobe, unspecified [...] old female who presents for F . [facility] (11/16/24 - 11/23/24) Patient with PMH of [...] treated with IV Zosyn for aspiration pneumonia. DRYLAND FARMER consulted and recom mended thick liquid diet. [...] vertebral compression fracture Breast mass Myoclonic seizures ([facility]/HCC) Aspiration pneumonia of left lower lobe ([facility]/HCC) UTI (urinary tract infection) Hypernatremia Hypokalemia Severe late onset Alzheimer's dementia ([facility]) [2] No family history on file. [3] [...] EDT) Sodium 145 135 - 145 mmol/L [facility] Potassium 4.5 3.3 - 5.1 mmol/L [facility] Chloride 110(H) 96 - 108 mmol/L [facility] Carbon Dioxide 25 22 - 29 mmol/L [facility] Anion Gap 15 12 - 20 [facility] Urea Nitrogen (BUN) 17(H) 9 - 16 mg/dL [facility] Creatinine, Serum 0.51 0.5 - 1.4 mg/dL [facility] Estimated Glomerular Filt Rate >60 [facility] Comment:Chronic Kidney Disea se: Estimated GFR < 60 mL/min/1.23l2Vmogen Kidney Disease: Estimated GFR < 15 mL/min/1.73m2 Glucose 102 60 - 115 mg/dL [facility] Calcium 9.7 8.4 - 10.2 mg/dL [facility] Blood Venous blood specimen / Unknown 12/11/2024 2:57 PM EDT 12/11/2024 4:11 PM EDT Tosin Arias MD LAB BLOOD ORDERABLES Final Result [facility] [address] [place] [phone] [phone] documented in this encounter Visit Diagnoses [...] as of this encounter Care Teams Software Manager Relationship Specialty Start Date End Date Viviana Jasmine DO [address] [place] [phone] PCP - General Family Medicine 04/10/13 [facility] 11/25/24 documented as of this encounter
[2024-12-27 21:37] VITALS: BP 136/60; PULSE 86; RESP 19; TEMP 36.9; O2SAT 95
[2024-12-27 21:41] VITALS: BP 118/56; PULSE 76; O2SAT 99
[2024-12-27 21:43] VITALS: BMI 19.2
--- OUTSIDE RECORDS SUMMARY | 2024-12-27 22:42 | XMS_ITS | Clinical Summary ---
Author Organization [facility] Facility Address [address] [address] Care Team Providers Care Acid Blower Name Role Phone Viviana Jasmine DO Primary [...] Medicaid [place] Care Teams Acid Blower Relationship Specialty Start Date End Date Viviana Jasmine DO PCP - General Family Medicine 08/09/21
--- NOTE | 2024-12-27 22:45 | ED.RECABL ---
HPI - Recheck/Abnormal Lab/Rx General Chief Complaint: Recheck/Abnormal Lab/Rx Stated Complaint: abn lab results Time Seen by Provider: 12/27/24 22:23 Source: family and EMS Mode of arrival: EMS Limitations: altered mental status History of Present Illness ED Provider: Dr. Toyin Delgadillo HPI narrative: patient comes to the emergency room via ambulance accompanied by her daughter. According to the patient's daughter, they received a phone call from their primary care physician's office today, telling them that the head CT that was done earlier today was abnormal and they needed to go to the emergency room immediately. According to the patient's daughter, the patient at this time is at baseline, patient is bed-bound, opens her eyes, unable to communicate, occasionally moans, unable to follow directions. Patient's family report that this is baseline for the patient. Usually when patient is in pain she is agitated but today she is completely calm as usual. Related Data Home Medications ?Medication ?Instructions ?Recorded ?Confirmed multivitamin (Daily-Kimebrley tablet) 1 tab PO DAILY 11/18/20 11/17/24 acetaminophen 160 mg/5 mL oral 480 mg PO Q6H PRN fever 11/17/24 11/17/24 liquid (Children's Acetaminophen) divalproex 250 mg tablet,delayed 250 mg PO DAILY 11/17/24 11/17/24 release ferrous sulfate 325 mg (65 mg 325 mg PO 3XW 11/17/24 11/17/24 iron) tablet,delayed release nystatin 100,000 unit/mL oral 4 ml PO QID 11/17/24 11/17/24 suspension starch (thickening) (Thick-It oral 1 ea PO DAILY 11/17/24 11/17/24 powder) zinc oxide 13 % topical cream 1 appl topical DAILY PRN 11/17/24 11/17/24 (Desitin Daily Defense) Incontinence Previous Rx's ?Medication ?Instructions ?Recorded Portable Suction Machine #1 ea 11/22/24 w/tubing,canister&filter (Suction machine w/tubing, canister and filter) albuterol sulfate 1.25 mg/3 mL 1.25 mg (3 mL) inhalation Q8H PRN 11/22/24 solution for nebulization sob #90 mL amoxicillin 875 mg-potassium 1 tab PO BID #10 tabs 11/22/24 clavulanate 125 mg tablet ipratropium 0.5 mg-albuterol 3 mg 3 ml inhalation Q4H 30 days #180 mL 11/22/24 (2.5 mg base)/3 mL nebulization soln Allergies Allergy/AdvReac Type Severity Reaction Status Date / Time aspirin (ASPIRIN) Allergy Unknown UNKNOWN Verified 12/27/24 21:54 ibuprofen (IBUPROFEN) Allergy Unknown SWELLING Verified 12/27/24 21:54 Review of Systems Review of Systems: Yes Other ( Family reports that patient's behavior is at baseline) [facility] Past Medical History Medical History Hypernatremia Aspiration pneumonia Failure to thrive in adult Asthma Alzheimer disease Social History Social History Household Members: Family Housing: House Do you presently have visiting nurse or other home services: No Unable to assess alcohol history related to: Unable to respond Alcohol intake: former Patient Tobacco Use Status: Never used Tobacco e-Cigarette/Vaping Use: Never Used Second Hand Smoke Exposure: No Advance Directives: Yes Advance Directives on File: Yes Advance Directives Date on File: 11/16/24 Do you have a plan to hurt others: No Plan service: No Current occupational status: retired Physical Exam Vital Signs: Vital Signs: Last Vital Signs Temp 97.9 F 12/28/24 00:47 Pulse 88 12/28/24 00:47 Resp 14 12/28/24 00:47 BP 126/60 12/28/24 00:47 Pulse Ox 95 12/28/24 00:47 O2 Del Method Room Air 12/28/24 00:47 BMI result Body Mass Index 19.2 Const: Other: Appearance: Alert. unable to follow commands, looking around, nonverbal Eyes: Pupils equal, round and reactive to light. ENT: Pharynx normal. Neck: Normal inspection. Neck supple. No lymph nodes noted. No crepitus CVS: Normal heart rate and rhythm. Pulses normal. Normal S1 and S2 Respiratory: No respiratory distress. Breath sounds normal. No Wheezing. No rales Abdomen: Soft and nontender. No rigidity. No distention. Skin: Skin warm and dry. Normal skin color. Normal skin turgor. Extremities: No lower extremity edema. No Lacerations. No Rash Neuro: unable to participating cranial nerve as it has been, occasionally moves arms legs minimally Psych: calm Course Course Course Narrative: a CT scan of the head was done today, the family received a phone call stating that the head CT was abnormal and they needed to come immediately to the emergency room patient's behavior i Medical Decision Making Medical Decision Making MDM Narrative: patient's CT scan of the head from today shows limited examination concerning for cerebral aqueduct stenosis, dilation of the lateral ventricles with normal morphology. However, patient had a CT scan done on October 02 of this year, the CT scans look pretty much the same. It is unclear why it was requested to come to the emergency room. According to the patient's family, they state that even if the patient would need an emergent procedure, they could probably declined any kind of neurosurgical intervention. Even if this would mean a shunt. Patient is bed ridden at baseline also, I discussed both CT scans with Radiology Dr. Dylan Johnson, impression: No acute intracranial hemorrhage or territorial infarction. Similar degree of hydrocephalus when compared to a CT scan of October 02 patient's daughter states that they feel comfortable taking the patient home. In 2 days, they have an appointment with home hospice, they will be going to their home and make an assessment and recommendations. as mentioned above, family's not looking for any neurological intervention Differential Diagnosis Differential Diagnoses: The differential diagnosis associated with the presentation includes ( Normal pressure hydrocephalus, brain mass) Admission/Observation Consideration of admission/observation: Escalation of care including admission/observation considered ( given patient's age, CT scan findings, observation was considered) Consult Healthcare Provider Management of the patient was discussed with: Assembler Insulator ( radiology) Independent Interpretation I performed an independent interpretation of an: CT Scan Radiology Impression Discussion of test interpretation with radiology: I have reviewed the radiologist's reading. Radiologist Impression: Patient's motion artifact. No acute intracranial hemorrhage. Dilatation of the lateral ventricles third ventricle with the normal morphology of the fourth ventricle and sylvian aqueduct. No mass effect midline shift, or herniation. CT/CT head/brain wo IV con IMPRESSION: Limited examination concerning for cerebral aqueduct stenosis Critical Care Time Critical Care Time Critical Care Time: Yes Total Critical Care Time: 35 Attestation: I have personally provided critical care time. Time includes review of lab data, radiology results, discussion with consultants, and monitoring for potential decompensation. Intervention performed as documented. Discharge Plan Discharge Clinical Impression: Abnormal CT of the head Patient Disposition: Home, Self-Care Instructions: Hydrocephalus (DC) Additional Instructions: Please follow-up with your primary care physician tomorrow. If you have any worsening or new symptoms, please return to the emergency room or call 911 Prescriptions: No Action multivitamin [Daily-Kimberley] Tablet 1 tab PO DAILY acetaminophen [Children's Acetaminophen] 160 mg/5 mL liquid 480 mg PO Q6H PRN (Reason: fever) divalproex 250 mg tablet,delayed release (DR/EC) 250 mg PO DAILY ferrous sulfate 325 mg (65 mg iron) tablet,delayed release (DR/EC) 325 mg PO 3XW Desitin Daily Defense 13 % cream 1 appl topical DAILY PRN (Reason: Incontinence) nystatin 100,000 unit/mL suspension 4 ml PO QID Thick-It Powder 1 ea PO DAILY (DME) Suction machine w/tubing, canister and filter Kit See Rx Instructions .Route Qty: 1 0RF Rx Instructions: As directed amoxicillin-pot clavulanate 875-125 mg tablet 1 tab PO BID Qty: 10 0RF ipratropium-albuterol 0.5 mg-3 mg(2.5 mg base)/3 mL Solution For Nebulization 3 ml inhalation Q4H 30 Days Qty: 180 0RF albuterol sulfate 1.25 mg/3 mL solution for nebulization 1.25 mg inhalation Q8H PRN (Reason: sob) Qty: 90 0RF Print Language: Malay
[2024-12-28 00:47] VITALS: BP 126/60; PULSE 88; RESP 14; TEMP 36.6; O2SAT 95
[2024-12-28 01:36] VITALS: BP 126/60; PULSE 88; RESP 14; TEMP 36.6; O2SAT 95
== END 2024-12-28 03:00 | disposition home or self-care (01) ==
PROVIDERS: Emergency Provider Emergency Medicine; PCP Family Medicine
DX: R93.0 Abnormal findings on diagnostic imaging of skull and head, not elsewhere classified (principal); R62.7 Adult failure to thrive; G30.9 Alzheimer's disease, unspecified; J45.909 Unspecified asthma, uncomplicated; Z79.899 Other long term (current) drug therapy
CPT/HCPCS: 99284; 99291